=== PATIENT | male | born 1945 | race Caucasian/White ===

== ENCOUNTER 2016-11-17 20:02 | Observation (INO) ==
--- NOTE | 2016-11-17 20:22 | Emergency Department Note ---
Disposition Clinical Impression: Syncope, Fall Disposition: Admitted As Inpatient Condition: Good Time of Disposition: 23:00 General Adult HPI - General Chief complaint: ED Fall Stated complaint: Fall Time Seen by Provider: 11/17/16 20:15 Source: patient, family, EMS Limitations: no limitations Nursing Notes Reviewed: Yes Vital Signs Reviewed: Yes - History of Present Illness HPI Narrative: This is a 71-year-old male with a past medical history of Parkinson's, bipolar disorder, hypertension, a stable AAA, and diabetes. He presents to the emergency department after falling today at home. He states he fell out of his chair and hit the left side of his head on a table on his way down to the floor. He states that he is currently having pain in the left medial border of the scapula, neck, as well as on the left temporal aspect of his head. His states that his Parkinson's has progressively gotten worse, and he has fallen down multiple times as of late. She states that his baseline mental status was unchanged today, but has been worsening as of late. She mentioned some recent changes in his Patient states that he feels like the room is spinning and then he falls down over onto his right side. Pain Scale: 10 - Related Data Home Medications Medication Instructions Recorded Confirmed Amantadine [Symmetrel] 11/13/15 Bimatoprost [Lumigan] 11/13/15 FLUoxetine HCl [Prozac] 11/13/15 Fenofibrate Nanocrystallized 145 mg PO 11/13/15 [Tricor] Humira 11/13/15 Levothyroxine [Synthroid] 11/13/15 Ragsdale Carbonate [Ragsdale 11/13/15 Carbonate] Melatonin [Melatonin] 11/13/15 Metoprolol XL (24 HR) Succ [Toprol 100 mg PO DAILY 11/13/15 11/13/15 XL] Multivitamin 11/13/15 Proair Hfa 11/13/15 Quetiapine Fumarate [Seroquel] 11/13/15 Sinnamet 11/13/15 clonazePAM [Klonopin] 11/13/15 lamoTRIgine [Lamictal] 11/13/15 Previous Rx's Medication Instructions Recorded HYDROcodone/Acet 5/325 mg [Hamilton 1 tab PO Q6H PRN #5 tab 01/13/16 5-325 mg] Allergies Allergy/AdvReac Type Severity Reaction Status Date / Time aspirin Allergy Rash Verified 11/06/16 10:40 Constitutional: Denies: fever, chills, weakness Eyes: Denies: eye pain Respiratory: Denies: cough, dyspnea, wheezes, hemoptysis, stridor Gastrointestinal: Reports: nausea (Earlier but not currently). Denies: abdominal pain, vomiting, hematemesis, melena, hematochezia Genitourinary: Denies: urgency, dysuria, frequency, hematuria Musculoskeletal: Reports: other (medial border of scapula) Neurological: Reports: vertigo (the room is spinning). Denies: headache, weakness, numbness, confusion Psychiatric: Denies: anxiety, depression Endocrine: Denies: fatigue, heat or cold intolerance Past Medical History - Past Medical History Medical history: Reports: COPD, hypertension, other Psychiatric history: Reports: anxiety, bipolar, depression, other - Social History Smoking Status: Former smoker Smokeless Tobacco Status: No Alcohol use: Reports: none Drug use: Reports: none Physical Exam - General Limitations: no limitations, other (History difficult to obtain due to mental status) General appearance: alert, in no apparent distress - Head Head exam: other (Tenderness on the left frontal and temporal region) - Eye Eye exam: Present: EOMI. Absent: scleral icterus, conjunctival injection - ENT ENT exam: normal oropharynx, mucous membranes moist - Neck Neck exam: Present: trachea midline - Chest Chest inspection: Present: symmetric chest wall rise, tenderness (Left ribs) - Respiratory Respiratory exam: Present: normal lung sounds bilaterally. Absent: respiratory distress, wheezes, stridor, accessory muscle use - Cardiovascular Cardiovascular exam: Present: regular rate, bradycardia, normal heart sounds - Abdominal Exam Abdominal exam: Present: soft, Non-Tender. Absent: distention, guarding, rebound, rigidity - Extremities Exam Extremities exam: Present: full ROM, other (Full range of motion of hips, no tenderness reproduced with Humphrey bilaterally). Absent: tenderness - Expanded Lower Extremity Exam Hip/Pelvis exam: Present: full ROM, tenderness - Back Exam Back exam: Present: tenderness (Of thoracic and lumbar spine. Midline cervical spine tenderness), paraspinal tenderness - Neurological Exam Neurological exam: Present: alert, CN II-XII intact - Psychiatric Psychiatric exam: Present: normal affect, normal mood. Absent: agitated - Skin Skin exam: Present: warm, dry, intact, other (Some bruising over the right rib, bruising over the lower extremities.) Course Vital Signs Temperature 97.9 F 11/17/16 20:03 Pulse Rate 57 11/17/16 20:03 Respiratory Rate 18 11/17/16 20:03 Blood Pressure 131/117 11/17/16 20:03 O2 Sat by Pulse Oximetry 97 11/17/16 20:03 Temperature 97.9 F 11/17/16 20:03 Pulse Rate 68 11/17/16 22:17 Respiratory Rate 16 11/17/16 23:27 Blood Pressure 121/74 11/17/16 23:27 O2 Sat by Pulse Oximetry 100 11/17/16 22:17 Oxygen Delivery Oxygen Delivery Room Air Medical Decision Making - MDM Narrative Medical decision making narrative: This is a 71-year-old male who presented to the emergency department after falling out of his chair hitting his head on table after having an episode of syncope. This fall was not witnessed by anyone. EMS found him lying on the ground. He remembers the fall and everything afterwards, but due to his mental status with Parkinson's Dementia, it is not really clear to me whether he became unconscious or not. There are no focal neurologic abnormalities on initial exam, but due to his change in mental status and falling, think it is reasonable to perform a CT of his head. He has midline cervical spine tenderness, thoracic and lumbar tenderness so we will also perform a CT of the cervical thoracic and lumbar spine. A CBC and CMP were obtained as well as a troponin, EKG, and chest x-ray. These are to rule out electrolyte abnormalities and poor hepatic function. He had a recent change in his lithium medication, so I also obtained a lithium level to rule out toxicity. Due to this patient's recent history of continuous syncope, falls, and worsening of his base mental status, I think it is reasonable that he be admitted in the hospital for evaluation. - Medical Records Medical records reviewed: Yes I reviewed the patient's medical records. - Lab Data Result diagrams: 11/17/16 20:30 11/17/16 20:30 Lab Results 11/17/16 11/17/16 11/17/16 Range/Units 20:30 20:30 20:30 WBC 9.5 (4.3-11.1) K/mcL RBC 4.38 (4.19-5.50) M/mcL Hgb 13.7 (12.9-16.9) g/dL Hct 41.5 (37.5-50.1) % MCV 94.7 (83.0-100.0) fL MCH 31.3 (28.0-33.3) pg MCHC 33.0 (31.6-35.5) g/dL RDW 13.3 (11.5-14.5) % Plt Count 217 (140-400) K/mcL MPV 9.0 L (9.4-12.4) fL Immature Gran % 0.4 (0-4) % Seg Neutrophils % 60.0 % Lymphocytes % 26.5 % Monocytes % 9.6 % Eosinophils % 3.0 % Basophils % 0.5 % Neutrophils # 5.7 (1.6-8.9) K/mcL Lymphocytes # 2.5 (0.6-4.6) K/mcL Monocytes # 0.9 (0.0-1.3) K/mcL Eosinophils # 0.3 (0.0-0.6) K/mcL Basophils # 0.1 (0.0-0.2) K/mcL Sodium 137 (136-145) mEq/L Potassium 4.8 H (3.5-4.5) mEq/L Chloride 107 (98-109) mEq/L Carbon Dioxide 22 (19-29) mEq/L BUN 33 H (8-26) mg/dL Creatinine 2.10 H (0.72-1.25) mg/dL Est GFR ( Amer) 38 L (> 60) Est GFR (Non-Af Amer) 31 L (> 60) BUN/Creatinine Ratio 16 (6-26) Glucose 92 (70-99) mg/dL Calculated Osmolality 291 (280-300) Calcium 10.4 (8.6-10.8) mg/dL Total Bilirubin 0.7 (0.2-1.2) mg/dL AST 48 H (5-34) Units/L ALT 15 (0-55) Units/L Alkaline Phosphatase 71 (38-126) Units/L Troponin I 0.02 (0-0.03) ng/mL Serum Total Protein 7.4 (6.0-8.3) g/dL Albumin 4.1 (3.5-5.0) g/dL Globulin 3.3 (2.4-3.5) g/dL Albumin/Globulin Ratio 1.2 (1.1-2.2) Ragsdale (0.6-1.2) mEq/L 11/17/16 Range/Units 21:00 WBC (4.3-11.1) K/mcL RBC (4.19-5.50) M/mcL Hgb (12.9-16.9) g/dL Hct (37.5-50.1) % MCV (83.0-100.0) fL MCH (28.0-33.3) pg MCHC (31.6-35.5) g/dL RDW (11.5-14.5) % Plt Count (140-400) K/mcL MPV (9.4-12.4) fL Immature Gran % (0-4) % Seg Neutrophils % % Lymphocytes % % Monocytes % % Eosinophils % % Basophils % % Neutrophils # (1.6-8.9) K/mcL Lymphocytes # (0.6-4.6) K/mcL Monocytes # (0.0-1.3) K/mcL Eosinophils # (0.0-0.6) K/mcL Basophils # (0.0-0.2) K/mcL Sodium (136-145) mEq/L Potassium (3.5-4.5) mEq/L Chloride (98-109) mEq/L Carbon Dioxide (19-29) mEq/L BUN (8-26) mg/dL Creatinine (0.72-1.25) mg/dL Est GFR ( Amer) (> 60) Est GFR (Non-Af Amer) (> 60) BUN/Creatinine Ratio (6-26) Glucose (70-99) mg/dL Calculated Osmolality (280-300) Calcium (8.6-10.8) mg/dL Total Bilirubin (0.2-1.2) mg/dL AST (5-34) Units/L ALT (0-55) Units/L Alkaline Phosphatase (38-126) Units/L Troponin I (0-0.03) ng/mL Serum Total Protein (6.0-8.3) g/dL Albumin (3.5-5.0) g/dL Globulin (2.4-3.5) g/dL Albumin/Globulin Ratio (1.1-2.2) Ragsdale 1.4 H (0.6-1.2) mEq/L - EKG Data EKG #1 EKG attestation: Yes I reviewed and interpreted this EKG. EKG results narrative: 11/17/2016 20:26 Ventricular rate 54 bpm, IL interval 181 ms, QRS duration 114 ms, QT 458 ms, QTC 445 ms, normal axis. Sinus bradycardia with a ventricular rate of 54 bpm. Left ventricular hypertrophy. In comparison with his previous EKG on 12/25/2013,(his QRS has widened slightly, and his QT/Qtc slightly more prolonged. Attestation Statement - Attestation Attestation: I personally interviewed and examined this patient and my medical decision- making was reviewed with the Resident Physician, Dr. Wei. I agree with the documented findings, disposition and treatment plan as described except to the extent set forth below. Patient is a 71-year-old white male with a history of Parkinson's disease who presents to the emergency department with frequent falls in which he is falling out of his chair towards his right side. Patient arrives mildly confused oriented to person only and slightly agitated during initial assessment. Patient was fully immobilized by EMS on arrival, was taken off the backboard but C-spine immobilization was continued. Patient was sent to CT to rule out any injuries related to his fall. Patient is a somewhat poor historian with no significant details surrounding the events and is at bedside who is providing additional information. Agree with patient's physical exam findings as documented. Patient's EKG shows some evidence of LVH but otherwise within normal limits without ischemic change. Patient imaging is negative for any injuries related to the fall. Issues labs show some worsening acute on chronic renal insufficiency and mild hyperkalemia. Patient was given calcium gluconate to stabilize myocardium and gentle fluids. Urinalysis at this time is pending. At this time we feel the patient should be admitted for further evaluation of these falls, serial neurologic evaluations and rule out any infection. Case was discussed with the hospitalist to cut the patient for admission for further evaluation and treatment.
[2016-11-17 20:45] LABS: Basophils # 0.1 K/mcL (0.0-0.2); Basophils % 0.5 %; Eosinophils # 0.3 K/mcL (0.0-0.6); Hematocrit 41.5 % (37.5-50.1); Hemoglobin 13.7 g/dL (12.9-16.9); Immature Granulocytes % 0.4 % (0-4); Lymphocytes # 2.5 K/mcL (0.6-4.6); Lymphocytes % 26.5 %; Mean Corpuscular Hemoglobin 31.3 pg (28.0-33.3); Mean Corpuscular Volume 94.7 fL (83.0-100.0); Monocytes # 0.9 K/mcL (0.0-1.3); Monocytes % 9.6 %; Neutrophils # 5.7 K/mcL (1.6-8.9); Platelet Count 217 K/mcL (140-400); Red Blood Count 4.38 M/mcL (4.19-5.50); Red Cell Distribution Width 13.3 % (11.5-14.5)
[2016-11-17] MEDS ORDERED: *HR* Morphine 2 MG/ML SYRINGE IVP ONE (20:54)
[2016-11-17] MEDS ORDERED: Ondansetron 4 MG/2 ML VIAL IVP ONE (20:54)
[2016-11-17 20:59] LABS: Albumin 4.1 g/dL (3.5-5.0); Albumin/Globulin Ratio 1.2 (1.1-2.2); Bilirubin,Total 0.7 mg/dL (0.2-1.2); Calcium 10.4 mg/dL (8.6-10.8); Globulin 3.3 g/dL (2.4-3.5); Potassium 4.8 mEq/L (3.5-4.5); Total Protein 7.4 g/dL (6.0-8.3)
[2016-11-17] MEDS ORDERED: 0.9 % Sodium Chloride 1,000 ML IVC ONE (21:21)
[2016-11-17] MEDS ORDERED: Calcium Gluconate 1,000 MG in D5% in Water 100 ML IVPB ONE (21:50)
--- NOTE | 2016-11-17 23:41 | Internal Med History&Physical ---
<Geovanny Miles - Last Filed: 11/18/16 00:12> Date of Encounter: 11/17/16 Time of Encounter: 23:45 Internal Medicine - H&P: HPI History of present illness: Mr. Frankel is a 71 year old male Internal Medicine - H&P: Meds Amantadine [Symmetrel] 11/13/15 [History] Bimatoprost [Lumigan] 11/13/15 [History] FLUoxetine HCl [Prozac] 11/13/15 [History] Fenofibrate Nanocrystallized [Tricor] 145 mg PO 11/13/15 [History] Humira 11/13/15 [History] Levothyroxine [Synthroid] 11/13/15 [History] Santiago Carbonate [Santiago Carbonate] 11/13/15 [History] Melatonin [Melatonin] 11/13/15 [History] Metoprolol XL (24 HR) Succ [Toprol XL] 100 mg PO DAILY 11/13/15 [History] Multivitamin 11/13/15 [History] Proair Hfa 11/13/15 [History] Quetiapine Fumarate [Seroquel] 11/13/15 [History] Sinnamet 11/13/15 [History] clonazePAM [Klonopin] 11/13/15 [History] lamoTRIgine [Lamictal] 11/13/15 [History] HYDROcodone/Acet 5/325 mg [Dalton 5-325 mg] 1 tab PO Q6H PRN #5 tab 01/13/16 [Rx] Allergies aspirin Allergy (Verified 11/06/16 10:40) Rash All Systems PM: A 10-system review of systems was performed and is negative for pertinent findings except as documented above in the HPI. - Constitutional Vitals: Temp Pulse Resp BP Pulse Ox 97.9 F 68 16 121/74 100 11/17/16 20:03 11/17/16 22:17 11/17/16 23:27 11/17/16 23:27 11/17/16 22:17 Internal Med - H&P Results - Labs CBC & Chem 7: 11/17/16 20:30 11/17/16 20:30 - Attending Attestation I examined this patient and my medical decision-making was reviewed with the Resident, Dr. Hernandez. I agree with the documented history of present illness, review of systems, past medical, surgical social and family histories and examination findings, disposition and treatment plan as described above except to any changes set forth below. 71-year-old male patient with history of Parkinson's disease, bipolar disorder on treatment with Sinemet and lithium presented to the ER with complaints of recurrent episodes of dizziness and lightheadedness along with falls. He had been having recurrent falls for the past several weeks but they have become more frequent since his Sinemet dosage was recently changed. Patient complains of left-sided lateral lower rib pain where he seems to have injured himself from the fall. He denies any dizziness while lying down but was having significant dizziness when he stood up to have his blood pressure checked. He denies any chest pain or palpitations. Patient also has chronic bradycardia and takes Toprol XL 100 mg daily. The dosage of this medication has not been changed recently. On examination, patient is awake and alert and oriented 3. Appears to be comfortable while lying in bed. S1 and S2 are normal. Normal rhythm. Breath sounds are normal. No wheezing audible. On examination of skin, patient has bilateral lower extremity erythema but greater on the left with some 1-2 cm sized fluid-filled blisters on both feet. Warm and tender to palpation on the left lower extremity. Cranial nerves normal to examination. Normal strength and sensation in all 4 extremities. EKG shows slightly prolonged QT interval but normal sinus rhythm without any acute ST segment changes. CT of the spine shows stable descending Thoracic aortic aneurysm. Stable solitary lingular lung nodule. No fractures noted. CT of the head shows chronic microvascular disease without any acute stroke. Recurrent falls with possible syncope: Patient does have signs and features suggestive of orthostatic hypotension induced episodes of recurrent falls. Could be related to recent change in Sinemet dosage. Patient also describes some visual hallucinations according to family. We will monitor in hospital. Consult neurology as they been managing his Parkinson's disease. Monitor with telemetry. Physical therapy. Moderate risk for complications. Essential hypertension: Chronic. On Toprol-XL 100 mg. Has been intermittently bradycardic which is chronic for the patient. If heart rate persistently less than 60, consider decreasing Toprol-XL dosage. Parkinson's disease: According to patient's family, patient has been having worsening of his symptoms and so Sinemet dosage had been increased. However patient having episodes of significant lightheadedness and falls with that. We will consult neurology to reassess the patient and see if he needs to have his Sinemet dose was changed again. Bipolar disorder: Patient with chronic lithium therapy. Santiago levels were slightly elevated. We will continue current dosage from tomorrow. Recheck levels prior to discharge. <Jordan Hernandez - Last Filed: 11/18/16 01:01> Date of Encounter: 11/18/16 Time of Encounter: 23:38 Assessment and Plan (1) Frequent falls Current visit: Yes Status: Acute 71-year-old male who ambulates with a walker has been falling frequently. Today he fell and laid on the floor until somebody came home roughly an hour so. Based on patient's history that he provided does not appear to be cardiac in nature. Given the dizziness this may be orthostatic, vestibular or medications. He does demonstrate acute on chronic kidney disease. Recent changes to his Sinemet, bradycardic with heart rate of 54 on [address] demonstrates no acute intracranial abnormalities. Cervical spine CT demonstrates multilevel degenerative changes without acute fractures. Pelvic x-ray: There is no definite fracture. Joint space alignment is normal. There is minor spurring in both hips. Arterial calcifications are noted. Thoracic CT/Lumbar CT: 1. No acute osseous abnormality. 2. Grossly stable appearance of ascending thoracic aortic aneurysm compared with previous exam. 3. Grossly stable nodule within the lingula of measuring 0.6 x 0.7 cm. Recommend continued follow-up per Fleischner criteria. 4. Atherosclerotic disease. Plan: - Orthostatic blood pressures - Urinalysis - 1 L bolus normal saline, maintenance fluids at 100 mL/per hour - Neurology consult to evaluate patient's medications. - Reduced metoprolol 75 mg by mouth daily with bradycardia (2) Bipolar disorder Current visit: Yes Status: Acute Known bipolar disorder. Currently stable. Patient is on lithium which is super therapeutic at 1.4. Plan: - Hold lithium dose this evening. Qualifiers: Qualified Code(s): F31.9 - Bipolar disorder, unspecified (3) COPD (chronic obstructive pulmonary disease) Current visit: Yes Status: Acute Stable condition. Continue inhalers. Qualifiers: Qualified Code(s): J44.9 - Chronic obstructive pulmonary disease, unspecified (4) Acute on chronic renal failure Current visit: Yes Status: Acute Patient presents with acute on chronic stage III kidney disease. Creatinine is 2.10, GFR is 31 and serum osmolalities to 91. Suspect secondary to dehydration from either decreased oral intake or lithium related diuresis. Plan: - Urinalysis - Urine osmolality - Maintenance fluids. - Avoid nephrotoxic medications and renally dose antibiotics. Qualifiers: Qualified Code(s): N17.9 - Acute kidney failure, unspecified; N18.9 - Chronic kidney disease, unspecified (5) Parkinsons disease Current visit: Yes Status: Acute Patient has known Parkinson's disease. Recent increase in dose of Sinemet. Plan: - Neurology to evaluate patient's medications. (6) Hypothyroidism Current visit: Yes Status: Acute Continue home dose of levothyroxine. TSH done last month is therapeutic. Qualifiers: Qualified Code(s): E03.9 - Hypothyroidism, unspecified (7) DVT prophylaxis Current visit: Yes Status: Acute Subcutaneous Lovenox. Internal Medicine - H&P: HPI Chief complaint: falling Admitted From: Emergency Dept Plans for Post Hospital Care: Home History of present illness: Mr. Frankel is a 71 year old male with a past medical history of Parkinson's, bipolar disorder, hypertension, a stable AAA, and diabetes presented to the emergency department today after being found down secondary to mechanical fall. He states that she was standing with his walker when the room started to spend he became dizzy and fell to the ground landing on his back and his shoulders. He said he laid on the ground until his family members found him. He denies any blacking out, seeing spots, feeling lightheadedness. His family were at bedside states that he falls frequently more recently in the last several weeks but does fall multiple times. He states that he has fallen roughly 4 times this week alone. They have been marking on the calendar at home every time he falls. His son states that he has been drinking a lot of water and they thought he was staying hydrated. He did have some changes to his medications with an increase in the dose of Sinemet. He denies any fevers, chills, recent illnesses, chest pain palpitations, chest pressure shortness of breath, abdominal pain nausea vomiting diarrhea constipation. Past Med Surg Social Fam HX - Past Medical History Medical history: COPD, hypertension, other Psychiatric history: anxiety, bipolar, depression, other - Social History Smoking Status: Former smoker Smokeless Tobacco Status: No Alcohol use: none Drug use: none All Systems PM: A 10-system review of systems was performed and is negative for pertinent findings except as documented above in the HPI. - Constitutional Constitutional: no chills, no fever(s), no night sweats - EENT Eyes: no change in vision, no discharge, no pain, no photophobia Ears: no ear discharge, no ear pain, no tinnitus Nose, mouth and throat: no dysphagia, no nasal discharge, no neck pain, no sore throat - Cardiovascular Cardiovascular ROS IM: no chest pain, no diaphoresis, no dyspnea, no lightheadedness, no palpitations, no syncope - Respiratory Respiratory: no cough, no dyspnea, no wheezing, no excessive phlegm production - Gastrointestinal Gastrointestinal: no abdominal pain, no diarrhea, no hematemesis, no hematochezia, no melena, no nausea, no vomiting - Musculoskeletal Musculoskeletal ROS IM: no numbness, no tingling - Integumentary Integumentary IM: no rash, no unusual bruising - Neurological Neurological ROS: no confusion, no convulsions, no focal weakness, no numbness, no tingling, no tremor(s) - Hematologic/Lymphatic Hematologic/Lymphatic: no easy bruising - Constitutional Vitals: Temp Pulse Resp BP Pulse Ox 97.9 F 68 16 121/74 100 11/17/16 20:03 11/17/16 22:17 11/17/16 23:27 11/17/16 23:27 11/17/16 22:17 Exam: General: Patient alert, awake, oriented 3, interactive, in no acute distress HEENT: Normocephalic, atraumatic, pupils equal reactive to light, nasal cavity patent and open septum median position, oral mucosa moist, uvula midline, neck supple trachea midline no palpable lymphadenopathy, no thyromegaly. Chest: Symmetric bilateral correlating with respiratory effort, effort nonlabored. Cardiac: Regular rate and rhythm, positive grade 3/6 systolic ejection murmur. no bruits appreciated bilateral carotids, Radial pulses 2+ bilateral, posterior tibial and dorsal pedal pulses 2+ bilateral. Respiratory: Clear to auscultation all lung almaraz Abdomen: Soft, nontender, positive bowel sounds, no palpable masses appreciated on examination Extremities: Symmetric bilateral, bilateral lower extremities patient has erythema to the left lower distal extremity with a healing scab. Right lower extremity has healing scabs with some more minor erythema. Neurologic: No focal deficits appreciated on examination. Face symmetric, muscle strength symmetric bilateral upper and lower extremities. Internal Med - H&P Results - Labs CBC & Chem 7: 11/17/16 20:30 11/17/16 20:30
[2016-11-18] MEDS ORDERED: Naloxone 0.4 MG/ML INJ IVP PRN ×2 (00:18→00:19)
[2016-11-18] MEDS ORDERED: Ondansetron ODT 4 MG TAB.RAPDIS SL PRN (00:19)
[2016-11-18] MEDS ORDERED: Acetaminophen 325 MG TABLET PO PRN (00:19)
[2016-11-18] MEDS ORDERED: D5% in Water 1,000 ML IVC PRN (00:48)
[2016-11-18] MEDS ORDERED: *HR* Dextrose 50 % in Water (Syg) 50 ML SYRINGE IVP PRN (00:48)
[2016-11-18] MEDS ORDERED: Dextrose Gel 15 GM PO PRN ×2 (00:48)
[2016-11-18] MEDS: 0.9 % Sodium Chloride 1,000 ML IVC SCH ×2 (02:32→14:01)
[2016-11-18] MEDS: *HR* HYDROcodone/Acet 5/325 mg TABLET PO PRN (04:01)
[2016-11-18 05:12] LABS: Basophils % 0.4 %; Eosinophils # 0.2 K/mcL (0.0-0.6); Eosinophils % 2.1 %; Hematocrit 38.4 % (37.5-50.1); Hemoglobin 12.5 g/dL (12.9-16.9); Immature Granulocytes % 0.2 % (0-4); Lymphocytes # 2.6 K/mcL (0.6-4.6); Lymphocytes % 28.5 %; Mean Corpuscular HGB Conc 32.6 g/dL (31.6-35.5); Mean Corpuscular Hemoglobin 30.6 pg (28.0-33.3); Mean Corpuscular Volume 94.1 fL (83.0-100.0); Mean Platelet Volume 9.1 fL (9.4-12.4); Monocytes # 0.7 K/mcL (0.0-1.3); Monocytes % 8.1 %; Neutrophils # 5.6 K/mcL (1.6-8.9); Platelet Count 195 K/mcL (140-400); Red Blood Count 4.08 M/mcL (4.19-5.50); Red Cell Distribution Width 13.1 % (11.5-14.5); Segmented Neutrophils % 60.7 %
[2016-11-18 05:34] LABS: Albumin 3.5 g/dL (3.5-5.0); Albumin/Globulin Ratio 1.3 (1.1-2.2); Bilirubin,Total 0.9 mg/dL (0.2-1.2); Calcium 9.8 mg/dL (8.6-10.8); Globulin 2.8 g/dL (2.4-3.5); Magnesium 2.2 mg/dL (1.6-2.6); Potassium 4.9 mEq/L (3.5-4.5); Total Protein 6.3 g/dL (6.0-8.3)
[2016-11-18] MEDS ORDERED: *HR* Enoxaparin 40 MG/0.4 ML SYRINGE SQ SCH (06:00)
[2016-11-18] MEDS: Clindamycin 600 MG/50 ML 600 MG/50 ML IV.SOLN IVPB SCH ×2 (08:16→15:53)
[2016-11-18] MEDS: Insulin LISPRO 300 UNITS/3 ML VIAL SQ SCH ×4 (08:17→21:42)
[2016-11-18] MEDS: Metoprolol XL (24 HR) Succ 25 MG TAB.ER.24H PO SCH (08:18)
[2016-11-18 09:33] LABS: Bilirubin,Urine Negative (Negative); Blood,Urine Negative (Negative); Clarity,Urine Clear (Clear); Color,Urine Yellow (Yellow); Glucose,Urine (UA) Normal (Normal); Ketones,Urine Negative (Negative); Leukocyte Esterase,Urine Negative (Negative); Nitrite,Urine Negative (Negative); Protein,Urine Negative (Neg-Trace); Specific Gravity,Urine 1.012 (1.010-1.025); Urobilinogen,Urine Normal (Normal)
--- NOTE | 2016-11-18 09:39 | Neurology - Consult Note ---
Date of Encounter: 11/18/16 Time of Encounter: 09:30 Assessment and Plan (1) Falls Current Visit: Yes Status: Acute 71-year old man with prior diagnosis of Parkinson's disease, multiple other psychiatric diseases, with increased falls. Etiology unclear. On sinemet 50/ 200 and amantadine. On multiple other medications and is at risk for serotonin syndrome as well. given his exam findings, structural causes should be excluded. Cervical CT spine could not be reliably read due to artifacts. Need CT myelogram or MRI cervical spine. Need to restart his neurological/psychiatric medications. Amantadine may be held for now. There is a question of overtreatment with carbidopa/levodopa complicating the issue as well. Recommend he sees a movement disorder specialist in an academic center. Will await imaging studies for now. Will follow. Will need outpatient Neurology upon discharge with Dr. Jolley/Tianna. Qualifiers: Qualified Code(s): W19.XXXA - Unspecified fall, initial encounter History of Present Illness Chief complaint: falls HPI: Mr. Frankel is a 71 year old male with prior diagnosis of Parkinson's (on sinemet 50/200 tid and amantadine), multiple psychiatric issues, with complaints of falls. He had a diagnosis of Parkinson's from a different facility. He has been falling recently, more than usual. He was found down, when the paramedics came - unclear if it was syncope that led to this or some other cardiac cause. He also reports pain in the scapular area, and has trouble with constipation, and he is on laxative. He states that he does not have much tremors. He also has a spinal cord stimulator for pain. It is not clear if he can get MRIs or not. All his medications were held overnight. He has no trouble with chewing, eating or swallowing. States that he has some breathing issues. No fevers/ chills/chest pain. Past Med Surg Social Fam HX - Past Medical History Medical history: COPD, hypertension, other (Parkinson's disease) Psychiatric history: anxiety, bipolar, depression, other - Social History Smoking Status: Former smoker Smokeless Tobacco Status: No Alcohol use: none Drug use: none Current living situation: With Family Activity Level: Wheelchair bound - Family History Father Hx Family Cardiac Disorders: Yes (CARDIAC DISEASE) Hx Family Respiratory Disorders: Yes (COPD) Hx Family Endocrine Disorder: Yes (DM) Medications and Allergies Adalimumab [Humira Psoriasis] 40 mg SQ Q2W 11/18/16 [History] Albuterol Sulfate [Proair Hfa] 1 puff IH 11/18/16 [History] Amantadine [Symmetrel] 100 mg PO BID 11/18/16 [History] Bimatoprost [Lumigan] 2.5 ml OP DAILY 11/18/16 [History] Carbidopa/Levodopa ER 50/200 [Sinemet ER 50-200 TAB] 1 each PO TID 11/18/16 [ History] FLUoxetine HCl [Prozac] 80 mg PO DAILY 11/18/16 [History] Fenofibrate Nanocrystallized [Tricor] 145 mg PO DAILY 11/18/16 [History] Levothyroxine [Synthroid] 75 mcg PO DAILY 11/18/16 [History] [place] Carbonate 300 mg PO BID 11/18/16 [History] Melatonin 10 mg PO HS 11/18/16 [History] Metoprolol [Lopressor] 100 mg PO DAILY 11/18/16 [History] Mv-Mn/FA/Vit K/Lycop/Lut/Coq10 [Daily Multivitamin Capsule] 1 each PO DAILY [History] Quetiapine Fumarate [Seroquel] 50 mg PO DAILY 11/18/16 [History] Triamcinolone Acet 0.1% CRM [Kenalog] 1 appl TP DAILY 11/18/16 [History] clonazePAM [Klonopin] 0.5 mg PO DAILY 11/18/16 [History] lamoTRIgine [Lamictal] 100 mg PO DAILY 11/18/16 [History] Allergies aspirin Allergy (Verified 11/06/16 10:40) Rash All Systems: A 10-system review of systems was performed and is negative for pertinent findings except as documented above in the HPI. Physical Examination - Vital Signs Vital Signs: Initial Vital Signs Temp Pulse Resp BP Pulse Ox 97.9 F 57 18 131/117 97 11/17/16 20:03 11/17/16 20:03 11/17/16 20:03 11/17/16 20:03 11/17/16 20:03 Vital Signs - 24 hr 11/17/16 20:03 11/17/16 22:17 11/17/16 23:27 Temperature 97.9 F Pulse Rate 57 68 Respiratory Rate 18 16 Blood Pressure 131/117 115/101 121/74 Blood Pressure [Orthostatic Lying Left Arm] Blood Pressure [Orthostatic Sitting Left Arm] Blood Pressure [Orthostatic Standing Left Arm] O2 Sat by Pulse Oximetry 95 100 11/18/16 03:21 11/18/16 06:45 Temperature 98.4 F 98.4 F Pulse Rate 57 55 Respiratory Rate 18 15 Blood Pressure 138/63 130/80 Blood Pressure [Orthostatic Lying Left Arm] 130/80 Blood Pressure [Orthostatic Sitting Left Arm] 155/94 Blood Pressure [Orthostatic Standing Left Arm] 146/93 O2 Sat by Pulse Oximetry 96 94 - Constitutional General appearance: uncomfortable (little fidgety ) - Neurologic Sensorimotor examination: other (has a possible cervical sensory level) Detailed motor examination: grossly full strength in all extremities (has some rigidity and distal tremors (intention tremor)), other (has generalized weakness due to rigidity; posible facial dyskinesias) Detailed sensory examination: other (possible spinal cord sensory level at C5) Reflex and gait examination: other (bilateral mild, 6-7 beat; gait not tested) Reflexes: Biceps: 2+, Triceps: 2+, Brachioradialis: 2+, Patella: 2+, Achilles: 2 + Mental Status Examination: awake, alert, oriented to person, oriented to place, oriented to time, follows commands appropriately, answers questions appropriately, no agnosia, no aphasia, no aproxia (Glabellar sign is absent) Cranial nerve examination: PERRL, EOMI, visual almaraz intact, corneal reflexes brisk symmetrically, sensory to face intact, mastication intact, no facial asymmetry is present, no dysarthria, hearing is intact symmetrically, soft palate elevates bilaterally upon phonation, gag reflex intact, flexes SCM and trapezius muscles symmetrically with full power, tongue protrudes midline, no atrophy or facial fasiculations present Cerebellar examination: no dysmetria, performs finger to nose and heel to [place] symmetrically without ataxia, no gait ataxia, no truncal ataxia, no difficulty with rapid alternating movements Results - Laboratory Findings CBC and BMP: 11/18/16 04:00 11/18/16 04:00 Abnormal lab findings: Abnormal lab results RBC 4.08 M/mcL (4.19-5.50) L 11/18/16 04:00 Hgb 12.5 g/dL (12.9-16.9) L 11/18/16 04:00 MPV 9.1 fL (9.4-12.4) L 11/18/16 04:00 Potassium 4.9 mEq/L (3.5-4.5) H 11/18/16 04:00 Chloride 111 mEq/L (98-109) H 11/18/16 04:00 BUN 31 mg/dL (8-26) H 11/18/16 04:00 Creatinine 2.17 mg/dL (0.72-1.25) H 11/18/16 04:00 Est GFR ( Amer) 37 (> 60) L 11/18/16 04:00 Est GFR (Non-Af Amer) 30 (> 60) L 11/18/16 04:00 Glucose 145 mg/dL (70-99) H 11/18/16 04:00 Phosphorus 2.0 mg/dL (2.3-4.7) L 11/18/16 04:00 AST 42 Units/L (5-34) H 11/18/16 04:00 [place] 1.4 mEq/L (0.6-1.2) H 11/17/16 21:00 Laboratory Results WBC 9.2 K/mcL (4.3-11.1) 11/18/16 04:00 RBC 4.08 M/mcL (4.19-5.50) L 11/18/16 04:00 Hgb 12.5 g/dL (12.9-16.9) L 11/18/16 04:00 Hct 38.4 % (37.5-50.1) 11/18/16 04:00 MCV 94.1 fL (83.0-100.0) 11/18/16 04:00 MCH 30.6 pg (28.0-33.3) 11/18/16 04:00 MCHC 32.6 g/dL (31.6-35.5) 11/18/16 04:00 RDW 13.1 % (11.5-14.5) 11/18/16 04:00 Plt Count 195 K/mcL (140-400) 11/18/16 04:00 MPV 9.1 fL (9.4-12.4) L 11/18/16 04:00 Immature Gran % 0.2 % (0-4) 11/18/16 04:00 Seg Neutrophils % 60.7 % 11/18/16 04:00 Lymphocytes % 28.5 % 11/18/16 04:00 Monocytes % 8.1 % 11/18/16 04:00 Eosinophils % 2.1 % 11/18/16 04:00 Basophils % 0.4 % 11/18/16 04:00 Neutrophils # 5.6 K/mcL (1.6-8.9) 11/18/16 04:00 Lymphocytes # 2.6 K/mcL (0.6-4.6) 11/18/16 04:00 Monocytes # 0.7 K/mcL (0.0-1.3) 11/18/16 04:00 Eosinophils # 0.2 K/mcL (0.0-0.6) 11/18/16 04:00 Basophils # 0.0 K/mcL (0.0-0.2) 11/18/16 04:00 Sodium 139 mEq/L (136-145) 11/18/16 04:00 Potassium 4.9 mEq/L (3.5-4.5) H 11/18/16 04:00 Chloride 111 mEq/L (98-109) H 11/18/16 04:00 Carbon Dioxide 22 mEq/L (19-29) 11/18/16 04:00 BUN 31 mg/dL (8-26) H 11/18/16 04:00 Creatinine 2.17 mg/dL (0.72-1.25) H 11/18/16 04:00 Est GFR ( Amer) 37 (> 60) L 11/18/16 04:00 Est GFR (Non-Af Amer) 30 (> 60) L 11/18/16 04:00 BUN/Creatinine Ratio 14 (6-26) 11/18/16 04:00 Glucose 145 mg/dL (70-99) H 11/18/16 04:00 POC Glucose 65 (58-89) 11/17/16 20:12 Calculated Osmolality 297 (280-300) 11/18/16 04:00 Calcium 9.8 mg/dL (8.6-10.8) 11/18/16 04:00 Phosphorus 2.0 mg/dL (2.3-4.7) L 11/18/16 04:00 Magnesium 2.2 mg/dL (1.6-2.6) 11/18/16 04:00 Total Bilirubin 0.9 mg/dL (0.2-1.2) 11/18/16 04:00 AST 42 Units/L (5-34) H 11/18/16 04:00 ALT 26 Units/L (0-55) 11/18/16 04:00 Alkaline Phosphatase 60 Units/L (38-126) 11/18/16 04:00 Troponin I 0.02 ng/mL (0-0.03) 11/17/16 20:30 Serum Total Protein 6.3 g/dL (6.0-8.3) 11/18/16 04:00 Albumin 3.5 g/dL (3.5-5.0) 11/18/16 04:00 Globulin 2.8 g/dL (2.4-3.5) 11/18/16 04:00 Albumin/Globulin Ratio 1.3 (1.1-2.2) 11/18/16 04:00 Urine Color Yellow (Yellow) 11/18/16 08:53 Urine Clarity Clear (Clear) 11/18/16 08:53 Urine pH 8.0 pH Units (5.0-8.0) 11/18/16 08:53 Ur Specific [place] 1.012 (1.010-1.025) 11/18/16 08:53 Urine Protein Negative mg/dL (Neg-Trace) 11/18/16 08:53 Urine Glucose (UA) Normal mg/dL (Normal) 11/18/16 08:53 Urine Ketones Negative mg/dL (Negative) 11/18/16 08:53 Urine Blood Negative (Negative) 11/18/16 08:53 Urine Nitrite Negative (Negative) 11/18/16 08:53 Urine Bilirubin Negative (Negative) 11/18/16 08:53 Urine Urobilinogen Normal mg/dL (Normal) 11/18/16 08:53 Ur Leukocyte Esterase Negative (Negative) 11/18/16 08:53 Ur Culture Indicated? NO (NO) 11/18/16 08:53 [place] 1.4 mEq/L (0.6-1.2) H 11/17/16 21:00 Impressions Chest X-Ray 11/17/16 20:15 IMPRESSION: 1. No acute cardiopulmonary process identified. D/ / Andrzej Gan MD / Andrzej Gan MD Interpreting Provider: Andrzej Gan MD Cervical Spine CT 11/17/16 20:47 IMPRESSION: Multilevel degenerative change without acute fracture. D/ / Ramirez Dowling / Ramirez Dowling Interpreting Provider: Ramirez Dowling Head CT 11/17/16 20:47 IMPRESSION: No acute intracranial abnormality. Multifocal small-vessel ischemic change bilaterally. D/ / Ramirez Dowling / Ramirez Dowling Interpreting Provider: Ramirez Dowling Pelvis X-Ray 11/17/16 20:47 IMPRESSION: No definite fracture. D/ / Dom Kidd MD / Dom Kidd MD Interpreting Provider: Dom Kidd MD Lumbar Spine CT 11/17/16 20:52 IMPRESSION: 1. No acute osseous abnormality. 2. Grossly stable appearance of ascending thoracic aortic aneurysm compared with previous exam. 3. Grossly stable nodule within the lingula of measuring 0.6 x 0.7 cm. Recommend continued follow-up per Fleischner criteria. 4. Atherosclerotic disease. RECOMMENDATIONS: Fleischner Society guidelines for follow-up and management of incidentally detected pulmonary nodules: Single Solid Nodule: Nodule size less than 6 mm In a low-risk patient, no routine follow-up. In a high-risk patient, optional CT at 12 months. Nodule size equals 6-8 mm In a low-risk patient, CT at 6-12 months, then consider CT at 18-24 months. In a high-risk patient, CT at 6-12 months, then CT at 18-24 months. Nodule size greater than 8 mm In a low-risk patient, consider CT, PET/CT, or tissue sampling at 3 months. In a high-risk patient, consider CT, PET/CT, or tissue sampling at 3 months. Multiple Solid Nodules: Nodule size less than 6 mm In a low-risk patient, no routine follow-up. In a high-risk patient, optional CT at 12 months. Nodule size equals 6-8 mm In a low-risk patient, CT at 3-6 months, then consider CT at 18-24 months. In a high-risk patient, CT at 3-6 months, then CT at 18-24 months. Nodule size greater than 8 mm In a low-risk patient, CT at 3-6 months, then consider CT at 18-24 months. In a high-risk patient, CT at 3-6 months, then CT at 18-24 months. - Low risk patients include individuals with minimal or absent history of smoking and other known risk factors. - High risk patients include individuals with a history or smoking or known risk factors. Radiology 2017 http://pubs.rsna.org/doi/full/10.1148/radiol.[email or web address] D/ / Andrzej Gan MD / Andrzej Gan MD Interpreting Provider: Andrzej Gan MD Thoracic Spine CT 11/17/16 20:52 IMPRESSION: 1. No acute osseous abnormality. 2. Grossly stable appearance of ascending thoracic aortic aneurysm compared with previous exam. 3. Grossly stable nodule within the lingula of measuring 0.6 x 0.7 cm. Recommend continued follow-up per Fleischner criteria. 4. Atherosclerotic disease. RECOMMENDATIONS: Fleischner Society guidelines for follow-up and management of incidentally detected pulmonary nodules: Single Solid Nodule: Nodule size less than 6 mm In a low-risk patient, no routine follow-up. In a high-risk patient, optional CT at 12 months. Nodule size equals 6-8 mm In a low-risk patient, CT at 6-12 months, then consider CT at 18-24 months. In a high-risk patient, CT at 6-12 months, then CT at 18-24 months. Nodule size greater than 8 mm In a low-risk patient, consider CT, PET/CT, or tissue sampling at 3 months. In a high-risk patient, consider CT, PET/CT, or tissue sampling at 3 months. Multiple Solid Nodules: Nodule size less than 6 mm In a low-risk patient, no routine follow-up. In a high-risk patient, optional CT at 12 months. Nodule size equals 6-8 mm In a low-risk patient, CT at 3-6 months, then consider CT at 18-24 months. In a high-risk patient, CT at 3-6 months, then CT at 18-24 months. Nodule size greater than 8 mm In a low-risk patient, CT at 3-6 months, then consider CT at 18-24 months. In a high-risk patient, CT at 3-6 months, then CT at 18-24 months. - Low risk patients include individuals with minimal or absent history of smoking and other known risk factors. - High risk patients include individuals with a history or smoking or known risk factors. Radiology 2017 http://pubs.rsna.org/doi/full/10.1148/radiol.3524419966 D/ / Andrzej Gan MD / Andrzej Gan MD Interpreting Provider: Andrzej Gan MD Consult Discharge Plan - Plan Referrals: Pacheco Bailey Jr, MD [Primary Care Provider] -
[2016-11-18] MEDS: lamoTRIgine 100 MG TABLET PO SCH (10:42)
[2016-11-18] MEDS: FLUoxetine 20 MG CAPSULE PO SCH (10:42)
[2016-11-18] MEDS: clonazePAM 0.5 MG TABLET PO SCH (10:42)
[2016-11-18] MEDS: Carbidopa/Levodopa ER 50/200 TABLET PO SCH ×2 (14:49→21:42)
--- NOTE | 2016-11-18 16:04 | Internal Med Progress Note ---
Date of Encounter: 11/18/16 Time of Encounter: 13:20 - Assessment and plan (1) Frequent falls Current Visit: Yes Status: Acute Assessment and plan: Pt lives at home with his who is primary caregiver. She states that he has been falling frequently at home, even using a walker. He underwent some medication changes and has started falling more frequently. On the day of arrival, pt fell and laid in the floor until someone came home to help him up, approximately an hour. Family states that recently the started dispensing his medications, previously pt had done it himself. Son reports that pt was given his medications by the , then did not remember that she was dispensing his medications and also did not remember taking any medications, so he took the doses for the next day. This, along with recent medication changes to [place], bradycardia from BB, could be contributing to his falls. All imaging is negative for injury from fall. Urinalysis is negative for infection. [place] level is high, so lithium is being held. Neurology is following. Recommends restarting neurological/psychiatric medications; amantadine may be held. Will keep current dose of Sinemet. He also recommend that he sees a movement disorder specialist in an academic center , as well as a CT myelogram or MRI cervical spine due to unreliable results of cervical spine CT. Neurology is on board, appreciate their consultation and recommendations Continue IVF maintenance Metoprolol dose has been decreased. Fall precautions PT/OT eval pending Cervical myelogram is ordered for tomorrow. (2) Bipolar disorder Current Visit: Yes Status: Acute Assessment and plan: [place] level was elevated, held last night. Will redraw level and restart in the a.m. if WNL Qualifiers: Active/Remission status: remission status unspecified Qualified Code(s): F31.9 - Bipolar disorder, unspecified (3) COPD (chronic obstructive pulmonary disease) Current Visit: Yes Status: Acute Assessment and plan: No acute exacerbation. Continue home medications Nebulizers as needed for wheezing Oxygen if needed. Titrate to maintain sats greater than 92%. Qualifiers: COPD type: unspecified COPD Qualified Code(s): J44.9 - Chronic obstructive pulmonary disease, unspecified (4) Acute on chronic renal failure Current Visit: Yes Status: Acute Assessment and plan: Patient is stage III chronic kidney disease. Serum creatinine is 2.17, GFR 30. This is significantly elevated above patient's baseline, 1.3-1.5. Continue to monitor labs. Gentle IV hydration. Avoid nephrotoxins and NSAIDs. Qualifiers: Acute renal failure type: unspecified Chronic kidney disease stage: stage 3 (moderate) Qualified Code(s): N17.9 - Acute kidney failure, unspecified; N18.3 - Chronic kidney disease, stage 3 (moderate) (5) Parkinsons disease Current Visit: Yes Status: Acute Assessment and plan: Chronic. Patient had recent change in Sinemet. Neurology to evaluate patient' s medications. (6) DVT prophylaxis Current Visit: Yes Status: Acute Assessment and plan: Lovenox subcutaneous. (7) Type 2 diabetes mellitus Current Visit: Yes Status: Acute Assessment and plan: A1c ordered for morning. Continue sliding scale insulin Accu-Cheks before meals at bedtime Diabetic diet Qualifiers: Diabetes mellitus complication status: without complication Diabetes mellitus correction insulin use: without watermelon inspector use Qualified Code(s): E11.9 - Type 2 diabetes mellitus without complications (8) Hypothyroidism Current Visit: Yes Status: Chronic Assessment and plan: Chronic. Continue home medications. Qualifiers: Hypothyroidism type: unspecified Qualified Code(s): E03.9 - Hypothyroidism , unspecified - Time Spent With Patient less than 15 minutes - Subjective Interval history: Patient was seen and assessed at 1:20 PM today. and son were at bedside and provided most of the history and interview. Patient lives at home with his , she is a primary caregiver. Son has decided that he needs to take a more active role and would like to be included in discussions and rounds. Patient is alert and oriented most of the time, he does have frequent episodes where he falls asleep briefly, perhaps 15-30 seconds, then arouses and is alert and oriented again. His said that he has done this for years, but they have never spoken to any of his multiple providers about this. Would recommend a sleep study or EEG for possible seizure-like activity after patient is not acutely ill. Physical therapy and occupational therapy have been consulted and and son are interested in home health care. ancillary services manager has also been consulted, as well. Patient has a very kyphotic posture and is also having increasing difficulty with feeding himself. - Constitutional Vitals: Temp Pulse Resp BP Pulse Ox 97.6 F 55 14 105/63 97 11/18/16 14:58 11/18/16 14:58 11/18/16 14:58 11/18/16 14:58 11/18/16 14:58 General appearance: Present: A&O X 3, answers questions appropriately. Absent: no acute distress - Head Head exam: Present: normal inspection - Eye Eye exam: Present: normal appearance, conjuntiva pink - ENT ENT exam: Present: mucous membranes moist, normal exam, normal external ear exam - Neck Neck exam general surgery: Present: normal inspection. Absent: lymphadenopathy , tenderness - Respiratory Respiratory exam: Present: decreased breath sounds, CTAB. Absent: rales, respiratory distress, rhonchi, wheezes - Cardiovascular Cardiovascular exam: Present: RRR, +S1, +S2. Absent: diastolic murmur, systolic murmur - GI/Abdominal GI/Abdominal exam: Present: normal bowel sounds, soft. Absent: tenderness - Extremities Exam Extremities exam: Present: normal capillary refill, warm, radial pulses palpable and symetrical. Absent: pedal edema, tenderness - Neurological Exam Neurological exam: Present: alert, oriented X3. Absent: strengths equal and symetr throughout, facial droop, speech deficit Internal Medicine: Result - Labs CBC & Chem 7: 11/18/16 04:00 11/18/16 04:00 Labs: Short CBC 11/18/16 Range/Units 04:00 WBC 9.2 (4.3-11.1) K/mcL Hgb 12.5 L (12.9-16.9) g/dL Hct 38.4 (37.5-50.1) % Plt Count 195 (140-400) K/mcL Neutrophils # 5.6 (1.6-8.9) K/mcL BMP 11/18/16 04:00 Sodium 139 Potassium 4.9 H Chloride 111 H Carbon Dioxide 22 BUN 31 H Creatinine 2.17 H Glucose 145 H Calcium 9.8 Liver Function 11/18/16 Range/Units 04:00 Total Bilirubin 0.9 (0.2-1.2) mg/dL AST 42 H (5-34) Units/L ALT 26 (0-55) Units/L Alkaline Phosphatase 60 (38-126) Units/L Albumin 3.5 (3.5-5.0) g/dL Urine 11/18/16 Range/Units 08:53 Urine Color Yellow (Yellow) Urine Clarity Clear (Clear) Urine pH 8.0 (5.0-8.0) pH Units Ur Specific [place] 1.012 (1.010-1.025) Urine Protein Negative (Neg-Trace) mg/dL Urine Glucose (UA) Normal (Normal) mg/dL Consult Discharge Plan - Plan Referrals: Pacheco Bailey Jr, MD [Primary Care Provider] -
[2016-11-19] MEDS: Clindamycin 600 MG/50 ML 600 MG/50 ML IV.SOLN IVPB SCH ×4 (00:43→23:55)
[2016-11-19] MEDS: 0.9 % Sodium Chloride 1,000 ML IVC SCH ×2 (00:47→16:14)
[2016-11-19] MEDS: *HR* HYDROcodone/Acet 5/325 mg TABLET PO PRN ×2 (05:20→16:21)
[2016-11-19] MEDS: *HR* Enoxaparin 30 MG/0.3 ML SYRINGE SQ SCH (05:23)
[2016-11-19 05:59] LABS: Basophils % 0.5 %; Eosinophils # 0.3 K/mcL (0.0-0.6); Eosinophils % 3.4 %; Hematocrit 37.9 % (37.5-50.1); Hemoglobin 12.2 g/dL (12.9-16.9); Immature Granulocytes % 0.2 % (0-4); Lymphocytes % 37.2 %; Mean Corpuscular HGB Conc 32.2 g/dL (31.6-35.5); Mean Corpuscular Volume 96.2 fL (83.0-100.0); Mean Platelet Volume 9.4 fL (9.4-12.4); Monocytes # 0.6 K/mcL (0.0-1.3); Neutrophils # 4.1 K/mcL (1.6-8.9); Platelet Count 188 K/mcL (140-400); Red Blood Count 3.94 M/mcL (4.19-5.50); Red Cell Distribution Width 13.2 % (11.5-14.5); Segmented Neutrophils % 50.7 %
[2016-11-19 06:12] LABS: Calcium 9.4 mg/dL (8.6-10.8); Potassium 4.1 mEq/L (3.5-4.5)
[2016-11-19] MEDS: Insulin LISPRO 300 UNITS/3 ML VIAL SQ SCH ×4 (08:07→21:19)
[2016-11-19] MEDS: FLUoxetine 20 MG CAPSULE PO SCH (08:42)
[2016-11-19] MEDS: Metoprolol XL (24 HR) Succ 25 MG TAB.ER.24H PO SCH (08:43)
[2016-11-19] MEDS: lamoTRIgine 100 MG TABLET PO SCH (08:43)
[2016-11-19] MEDS: clonazePAM 0.5 MG TABLET PO SCH (08:43)
[2016-11-19] MEDS: Carbidopa/Levodopa ER 50/200 TABLET PO SCH ×3 (08:43→21:15)
--- NOTE | 2016-11-19 13:56 | Electrocardiograph Report ---
[place] [id number] Test Date: 2016-11-17 Pat Name: Niranjan Frankel Department: 104 Room: 3B Gender: M Director Part: : 1945 Requested By: Ramy Wei Order Number: [id number] Reading MD: García Mckeon MD Measurements Intervals [place] Rate: 54 P: 25 AK: 181 QRS: 40 QRSD: 114 T: 73 QT: 458 QTc: 445 Interpretive Statements SINUS BRADYCARDIA LEFT VENTRICULAR HYPERTROPHY AND ST-T CHANGE BASELINE ARTIFACT Electronically Signed On 11-19-2016 13:55:01 EDT by García Mckeon MD
--- NOTE | 2016-11-19 16:22 | Internal Med Progress Note ---
<Tristan Masters - Last Filed: 11/19/16 16:09> Date of Encounter: 11/19/16 Time of Encounter: 10:00 - Assessment and plan (1) Frequent falls Current Visit: Yes Status: Acute Assessment and plan: -Patient has remained in bed throughout the duration of this admission. -The patient has experienced no falls, although his suggests that he has had at least 10 falls in October -Neurology is following and has recommended either a CT myelogram or MRI of the cervical spine. After further clarification from neuro, we have ordered the MRI of the cervical spine which demonstrated degenerative changes contributing to mild spinal canal stenosis at C3-C4 with minimal stenosis at C4-C5 and C5-C6 , and degenerative changes contributing to neural foraminal narrowing. -PT/OT eval is pending -Fall precautions will be continued -We will await neuro recommendations. 11/18/16 Pt lives at home with his who is primary caregiver. She states that he has been falling frequently at home, even using a walker. He underwent some medication changes and has started falling more frequently. On the day of arrival, pt fell and laid in the floor until someone came home to help him up, approximately an hour. Family states that recently the started dispensing his medications, previously pt had done it himself. Son reports that pt was given his medications by the , then did not remember that she was dispensing his medications and also did not remember taking any medications, so he took the doses for the next day. This, along with recent medication changes to S[place], bradycardia from BB, could be contributing to his falls. All imaging is negative for injury from fall. Urinalysis is negative for infection. [place] level is high, so lithium is being held. Neurology is following. Recommends restarting neurological/psychiatric medications; amantadine may be held. Will keep current dose of Sinemet. He also recommend that he sees a movement disorder specialist in an academic center , as well as a CT myelogram or MRI cervical spine due to unreliable results of cervical spine CT. Neurology is on board, appreciate their consultation and recommendations Continue IVF maintenance Metoprolol dose has been decreased. Fall precautions PT/OT eval pending Cervical myelogram is ordered for tomorrow. (2) Parkinsons disease Current Visit: Yes Status: Acute Assessment and plan: Chronic. Patient had recent change in Sinemet. Neurology to evaluate patient' s medications. (3) COPD (chronic obstructive pulmonary disease) Current Visit: Yes Status: Acute Assessment and plan: No acute exacerbation. Continue home medications Nebulizers as needed for wheezing Oxygen if needed. Titrate to maintain sats greater than 92%. Qualifiers: COPD type: unspecified COPD Qualified Code(s): J44.9 - Chronic obstructive pulmonary disease, unspecified (4) Bipolar disorder Current Visit: Yes Status: Acute Assessment and plan: [place] level was elevated, held last night. Will redraw level and restart in the a.m. if WNL Qualifiers: Active/Remission status: remission status unspecified Qualified Code(s): F31.9 - Bipolar disorder, unspecified (5) Acute on chronic renal failure Current Visit: Yes Status: Acute Assessment and plan: SCr 1.5, GFR 46, K+ 4.1 Patient's CKD is improving on IVF. We will continue to monitor 11/18/16 Patient is stage III chronic kidney disease. Serum creatinine is 2.17, GFR 30. This is significantly elevated above patient's baseline, 1.3-1.5. Continue to monitor labs. Gentle IV hydration. Avoid nephrotoxins and NSAIDs. Qualifiers: Acute renal failure type: unspecified Chronic kidney disease stage: stage 3 (moderate) Qualified Code(s): N17.9 - Acute kidney failure, unspecified; N18.3 - Chronic kidney disease, stage 3 (moderate) (6) Type 2 diabetes mellitus Current Visit: Yes Status: Acute Assessment and plan: -Patient is recieving very tight blood glucose control at this time. His BG this morning was 68. -We will continue regular accu-checks on his current sliding scale regiment, and consider making adjustments if needed. -Diabetic diet will be continued 11/18/16 A1c ordered for morning. Continue sliding scale insulin Accu-Cheks before meals at bedtime Diabetic diet Qualifiers: Diabetes mellitus complication status: without complication Diabetes mellitus residential insulin use: without longitudinal float operator use Qualified Code(s): E11.9 - Type 2 diabetes mellitus without complications (7) Hypothyroidism Current Visit: Yes Status: Chronic Assessment and plan: Chronic. Continue home medications. Qualifiers: Hypothyroidism type: unspecified Qualified Code(s): E03.9 - Hypothyroidism , unspecified (8) DVT prophylaxis Current Visit: Yes Status: Acute Assessment and plan: Lovenox subcutaneous. - Subjective Interval history: The patient was alert and resting comfortably in bed at the time of the examination. He was accompanied by his . He states that he is feeling better and has not had many instances of dizziness since his admission, however she has not been out of bed much either. - Constitutional Vitals: Temp Pulse Resp BP Pulse Ox 98.2 F 55 16 113/72 100 11/19/16 15:59 11/19/16 15:59 11/19/16 15:59 11/19/16 15:59 11/19/16 15:59 General appearance: Present: A&O X 3, answers questions appropriately. Absent: no acute distress - Head Head exam: Present: atraumatic, normocephalic - Eye Eye exam: Present: PERRL, conjuntiva pink, sclera anicteric Pupils: Present: PERRL - Neck Neck exam general surgery: Present: supple, trachea midline. Absent: lymphadenopathy - Respiratory Respiratory exam: Present: CTAB. Absent: accessory muscle use, rales, rhonchi, wheezes - Cardiovascular Cardiovascular exam: Present: RRR, +S1, +S2. Absent: diastolic murmur, gallop, rubs, systolic murmur - GI/Abdominal GI/Abdominal exam: Present: normal bowel sounds, soft, no peritoneal signs. Absent: distended, tenderness - Extremities Exam Extremities exam: Present: warm, radial pulses palpable and symetrical. Absent : calf tenderness, cyanotic, pedal edema - Neurological Exam Neurological exam: Present: CN II-XII intact, oriented X3, no focal deficits. Absent: pronater drift, facial droop, speech deficit Additional comments: No tremor is noted on examination, no focal neurological deficits. The patient speaks softly and slowly and sometimes mumbles - Expanded Neurological Exam Patient oriented to: Present: person, place, time - Skin Skin exam: Present: dry, intact Internal Medicine: Result - Labs CBC & Chem 7: 11/19/16 04:09 11/19/16 04:09 Labs: Short CBC 11/19/16 Range/Units 04:09 WBC 8.0 (4.3-11.1) K/mcL Hgb 12.2 L (12.9-16.9) g/dL Hct 37.9 (37.5-50.1) % Plt Count 188 (140-400) K/mcL Neutrophils # 4.1 (1.6-8.9) K/mcL BMP 11/19/16 04:09 Sodium 138 Potassium 4.1 Chloride 112 H Carbon Dioxide 20 BUN 26 Creatinine 1.50 H Glucose 68 L Calcium 9.4 - Impressions Impressions Cervical Spine MRI 11/19/16 07:00 IMPRESSION: 1. Motion severely degrades images limiting evaluation. 2. Degenerative changes appear to contribute to mild spinal canal stenosis at C3-C4 with minimal stenosis at C4-C5 and C5-C6. 3. Degenerative changes appear to contribute to neural foraminal narrowing as above. D/ / Niranjan Corona MD / Niranjan Corona MD Interpreting Provider: Niranjan Corona MD Consult Discharge Plan - Plan Referrals: Pacheco Bailey Jr, MD [Primary Care Provider] - <Sonu Arroyo P - Last Filed: 11/19/16 17:56> Date of Encounter: 11/19/16 - Constitutional Vitals: Temp Pulse Resp BP Pulse Ox 98.2 F 55 16 113/72 100 11/19/16 15:59 11/19/16 15:59 11/19/16 15:59 11/19/16 15:59 11/19/16 15:59 Internal Medicine: Result - Labs CBC & Chem 7: 11/19/16 04:09 11/19/16 04:09 Labs: Short CBC 11/19/16 Range/Units 04:09 WBC 8.0 (4.3-11.1) K/mcL Hgb 12.2 L (12.9-16.9) g/dL Hct 37.9 (37.5-50.1) % Plt Count 188 (140-400) K/mcL Neutrophils # 4.1 (1.6-8.9) K/mcL BMP 11/19/16 04:09 Sodium 138 Potassium 4.1 Chloride 112 H Carbon Dioxide 20 BUN 26 Creatinine 1.50 H Glucose 68 L Calcium 9.4 - Impressions Impressions Cervical Spine MRI 11/19/16 07:00 IMPRESSION: 1. Motion severely degrades images limiting evaluation. 2. Degenerative changes appear to contribute to mild spinal canal stenosis at C3-C4 with minimal stenosis at C4-C5 and C5-C6. 3. Degenerative changes appear to contribute to neural foraminal narrowing as above. D/ / Niranjan Corona MD / Niranjan Corona MD Interpreting Provider: Niranjan Corona MD - Attending Attestation I examined this patient and my medical decision-making was reviewed with the Resident Physician. I agree with the documented findings, disposition and treatment plan as described except to the extent set forth below. neurology input appreciated.
--- NOTE | 2016-11-19 17:57 | Neurology Progress Note ---
Date of Encounter: 11/19/16 Time of Encounter: 17:53 Assessment and Plan (1) Parkinsons disease Current Visit: Yes Status: Acute Advanced Parkinson's disease, with frequent fallings that could be complicated by other medical conditions. Could have contribution from cervical disc disease but MRI of cervical spine showed no significant spinal cord compression although this was not a good quality imaging study due to motion artifact. There could be a component of Drug induced EPS features as well but major problem is bradykinesia consistent with Parkinson disease. He is not a good candidate for more aggressive surgical intervention therefore i would not recommend invasive cervical myelogram. if questions remain a repeat MRI of cervical spine can be done but this could be done as an outpatient. Recommend continuing care and supportive care as well. Patient's given the instruction that if the patient continues to have visual hallucinations then further reduction of sinemet DR done to one daily may be considered. WIll sign off here and please call if any questions. Subjective Principal diagnosis: frequent falls Interval history: Patient seen and examined. MRI of cervical spine reviewed. It was poor quality MRI due to motion artifact but no gross spinal cord abnormality noted. Does have spinal canal stenosis. Patient today is doing better per his , speech is more fluent, color is better. Patient is taking sinemet CR 50/200mg bid, this was changed during 09/2016. This is not likely the cause of his frequent falling. reports that the patient also has had spells of visual hallucinations lately but not persistent. Objective - Constitutional Vitals: Temp Pulse Resp BP Pulse Ox 98.2 F 55 16 113/72 100 11/19/16 15:59 11/19/16 15:59 11/19/16 15:59 11/19/16 15:59 11/19/16 15:59 - Neurological Exam Sensorimotor examination: Present: other (Grossly intact) Motor Examination: Present: grossly full strength in all extremities (has some rigidity and distal tremors (intention tremor)), other (signfiicant cogwheeling rigidity noted. Muscle strength 5/5 both upper and lower extremities. Positive bradykinesis noted. ) Sensation intact: Present: other (Grossly intact) Reflex and gait examination: other (bilateral mild, 6-7 beat; gait not tested) Reflexes: Biceps: 2+, Triceps: 2+, Brachioradialis: 2+, Patella: 2+, Achilles: 2 + Mental Status Examination: Present: awake, alert, oriented to person, oriented to place, oriented to time, follows commands appropriately, answers questions appropriately, no agnosia, no aphasia, no aproxia (Glabellar sign is absent) Cranial nerve examination: Present: PERRL, EOMI, visual almaraz intact, corneal reflexes brisk symmetrically, sensory to face intact, mastication intact, no facial asymmetry is present, no dysarthria, hearing is intact symmetrically, soft palate elevates bilaterally upon phonation, gag reflex intact, flexes SCM and trapezius muscles symmetrically with full power, tongue protrudes midline, no atrophy or facial fasiculations present Cerebellar examination: Present: no dysmetria, performs finger to nose and heel to [place] symmetrically without ataxia, no gait ataxia, no truncal ataxia, no difficulty with rapid alternating movements Results - Laboratory Findings CBC and BMP: 11/19/16 04:09 11/19/16 04:09 Abnormal lab findings: Abnormal lab results RBC 3.94 M/mcL (4.19-5.50) L 11/19/16 04:09 Hgb 12.2 g/dL (12.9-16.9) L 11/19/16 04:09 Chloride 112 mEq/L (98-109) H 11/19/16 04:09 Creatinine 1.50 mg/dL (0.72-1.25) H 11/19/16 04:09 Est GFR ( Amer) 56 (> 60) L 11/19/16 04:09 Est GFR (Non-Af Amer) 46 (> 60) L 11/19/16 04:09 Glucose 68 mg/dL (70-99) L 11/19/16 04:09 Phosphorus 2.0 mg/dL (2.3-4.7) L 11/18/16 04:00 AST 42 Units/L (5-34) H 11/18/16 04:00 Consult Discharge Plan - Plan Referrals: Pacheco Bailey Jr, MD [Primary Care Provider] -
[2016-11-20] MEDS: 0.9 % Sodium Chloride 1,000 ML IVC SCH ×3 (04:13→23:51)
[2016-11-20] MEDS: *HR* Enoxaparin 30 MG/0.3 ML SYRINGE SQ SCH (06:00)
[2016-11-20 07:30] LABS: Basophils % 0.4 %; Eosinophils # 0.3 K/mcL (0.0-0.6); Eosinophils % 2.9 %; Hematocrit 40.5 % (37.5-50.1); Immature Granulocytes % 0.4 % (0-4); Lymphocytes # 2.3 K/mcL (0.6-4.6); Lymphocytes % 20.8 %; Mean Corpuscular HGB Conc 32.1 g/dL (31.6-35.5); Mean Corpuscular Hemoglobin 30.2 pg (28.0-33.3); Mean Corpuscular Volume 94.2 fL (83.0-100.0); Monocytes # 0.8 K/mcL (0.0-1.3); Monocytes % 6.8 %; Neutrophils # 7.5 K/mcL (1.6-8.9); Platelet Count 206 K/mcL (140-400); Red Cell Distribution Width 13.2 % (11.5-14.5); Segmented Neutrophils % 68.7 %
[2016-11-20] MEDS ORDERED: Haloperidol Lactate 5 MG/ML VIAL IM ONE (08:11)
[2016-11-20] MEDS ORDERED: *HR* LORazepam 2 MG/ML VIAL IM STA (08:13)
[2016-11-20 08:42] LABS: BUN/Creatinine Ratio 16 (6-26); Blood Urea Nitrogen 22 mg/dL (8-26); Carbon Dioxide 19 mEq/L (19-29); Chloride 114 mEq/L (98-109); Glucose 100 mg/dL (70-99); Osmolality,Calculated 293 (280-300); Potassium 3.9 mEq/L (3.5-4.5); Sodium 140 mEq/L (136-145); eGFR For African Americans > 60 (> 60); eGFR For Non-African Americans 50 (> 60)
[2016-11-20 10:22] LABS: Bilirubin,Urine Negative (Negative); Blood,Urine Negative (Negative); Clarity,Urine Clear (Clear); Color,Urine Yellow (Yellow); Glucose,Urine (UA) Normal (Normal); Ketones,Urine Negative (Negative); Leukocyte Esterase,Urine Negative (Negative); Nitrite,Urine Negative (Negative); PH,Urine 6.5 pH Units (5.0-8.0); Protein,Urine Negative (Neg-Trace); Specific Gravity,Urine 1.012 (1.010-1.025); Urobilinogen,Urine Normal (Normal)
--- NOTE | 2016-11-20 10:51 | Discharge Summary ---
<Tristan Masters - Last Filed: 11/20/16 15:04> Date of Encounter: 11/20/16 Time of Encounter: 09:40 - Discharge Diagnosis (1) Frequent falls Priority: Primary Status: Acute Comments: -Patient has remained in bed throughout the duration of this admission. -The patient has experienced no falls, although his suggests that he has had at least 10 falls in October -Neurology is following and has recommended either a CT myelogram or MRI of the cervical spine. After further clarification from neuro, we have ordered the MRI of the cervical spine which demonstrated degenerative changes contributing to mild spinal canal stenosis at C3-C4 with minimal stenosis at C4-C5 and C5-C6 , and degenerative changes contributing to neural foraminal narrowing. -Neurology recommends follow-up out patient. -PT/OT eval and recommend Inpatient rehab at SNF/ECF. Patient's family has discussed this option with drug abuse social worker, who is helping to find options that the family may be able to afford. In the mean time, we will refer for home health and home PT/OT (2) Acute delirium Priority: Secondary Status: Acute Comments: The patient experienced an episode of confusion and agitation this morning that was accompanied with violent tendencies. He has been followed by psychiatry in the past, however his provider and he needs follow up with new provider Patient responds appropriately to redirection and orientation techniques by nurses and family UA taken this morning was negative. No indication of acute infection present clinically or in labs We recommend evaluation and treatment by outpatient psychiatry. (3) Parkinsons disease Priority: Secondary Status: Chronic Comments: Neurology has seen and evaluated the patient Severe parkinson's disease is present in this patient MRI of the cervical spine is negative for acute pathology Neurology recommends outpatient follow-up (4) COPD (chronic obstructive pulmonary disease) Priority: Secondary Status: Chronic Comments: The patient should continue home regimen Qualifiers: COPD type: unspecified COPD Qualified Code(s): J44.9 - Chronic obstructive pulmonary disease, unspecified (5) Bipolar disorder Priority: Secondary Status: Chronic Comments: Patient will remain on current home medications See above for reference to outpatient psychiatry Qualifiers: Active/Remission status: remission status unspecified Qualified Code(s): F31.9 - Bipolar disorder, unspecified (6) Acute on chronic renal failure Priority: Secondary Status: Resolved Comments: Resolved with gentle hydration Qualifiers: Acute renal failure type: unspecified Chronic kidney disease stage: stage 3 (moderate) Qualified Code(s): N17.9 - Acute kidney failure, unspecified; N18.3 - Chronic kidney disease, stage 3 (moderate) (7) Type 2 diabetes mellitus Priority: Secondary Status: Chronic Comments: Well controlled. Continue outpatient medications Qualifiers: Diabetes mellitus complication status: without complication Diabetes mellitus long-term insulin use: without long-term use Qualified Code(s): E11.9 - Type 2 diabetes mellitus without complications (8) Hypothyroidism Priority: Secondary Status: Chronic Comments: Well controlled Qualifiers: Hypothyroidism type: unspecified Qualified Code(s): E03.9 - Hypothyroidism , unspecified - Discharge Medications Home Medications: Adalimumab [Humira Psoriasis] 40 mg SQ Q2W 11/18/16 [History] Albuterol Sulfate [Proair Hfa] 2 puff IH Q4H PRN 11/18/16 [History] Amantadine [Symmetrel] 100 mg PO BID 11/18/16 [History] Bimatoprost [Lumigan] 2.5 ml OP DAILY 11/18/16 [History] Carbidopa/Levodopa ER 50/200 [Sinemet ER 50-200 TAB] 1 tab PO TID 11/18/16 [ History] FLUoxetine HCl [Prozac] 80 mg PO DAILY 11/18/16 [History] Fenofibrate Nanocrystallized [Tricor] 145 mg PO DAILY 11/18/16 [History] Levothyroxine [Synthroid] 75 mcg PO DAILY 11/18/16 [History] [place] Carbonate 300 mg PO BID 11/18/16 [History] Melatonin 10 mg PO HS 11/18/16 [History] Metoprolol Succinate 100 mg PO BID 11/18/16 [History] Mv-Mn/FA/Vit K/Lycop/Lut/Coq10 [Daily Multivitamin Capsule] 1 tab PO DAILY 11/18 [History] Quetiapine Fumarate [Seroquel] 50 - 100 mg PO HS 11/18/16 [History] Triamcinolone Acet 0.1% CRM [Kenalog] 1 appl TP DAILY 11/18/16 [History] clonazePAM [Klonopin] 1 mg PO DAILY 11/18/16 [History] lamoTRIgine [Lamictal] 100 mg PO DAILY 11/18/16 [History] Allergies/Adverse Reactions: Allergies aspirin Allergy (Verified 11/06/16 10:40) Rash Procedures/tests Complete & Pending: Procedures Performed prior 72 hours Category Date Time Status MR cervical spine wo con [MR] Routine MRI 11/19/16 07:00 Completed Date of admission: 11/17/16 23:24 Primary care physician: Pacheco Bailey Jr, MD Consults: 11/18/16 00:19 Consult to Neurology [CONS] Routine Consulting Provider: Neurology [facility] Reason for Consult: Medication review with [place] Call Completed: No 11/18/16 00:40 Consult to Equipment Monitor Phototypesetting [CONS] Routine Reason for SW Consult: POSSIBLE NEED FOR HOME HEALTH AT HOME, PT PARKINSONS, FALL 11/18/16 02:20 Consult to Occupational Therapy [CONS] Routine Comment: Evaluate, develop and implement POC Reason for Consult: DIzziness/ falls Consult to Physical Therapy [CONS] Routine Comment: Evaluate, develop and implement POC Reason for Consult: DIzziness/ falls 11/19/16 17:00 Consult to Speech Therapy [CONS] Routine Comment: Evaluate, develop and implement POC Reason for Consult: Weakness, parkinsons, Swallow Eval Call Completed: No Discharging clinician: Sonu Arroyo Anticipated date of discharge: 11/20/16 - Patient Status Disposition: Home Health Service Condition: Good Overall status at discharge: patient is not back to baseline - Discharge Instructions Follow Up With: Pacheco Bailey Jr, MD [Primary Care Provider] - Additional Instructions: Patient must follow up with primary care within one week, neurology, and with psychiatry. - Diet and Activity Activity: as per physical therapy Diet: diabetic diet Hospital course: Mr. Frankel is a 71 year old male - Time Spent with Patient Total time spent providing and/or coordinating discharge services: - Constitutional Vitals: Temp Pulse Resp BP Pulse Ox 98.3 F 115 16 129/70 99 11/20/16 10:30 11/20/16 10:30 11/20/16 10:30 11/20/16 10:30 11/20/16 10:30 General appearance: Present: A&O X 3, answers questions appropriately. Absent: no acute distress <Sonu Arroyo - Last Filed: 11/20/16 18:30> Date of Encounter: 11/20/16 Procedures/tests Complete & Pending: Procedures Performed prior 72 hours Category Date Time Status MR cervical spine wo con [MR] Routine MRI 11/19/16 07:00 Completed Date of admission: 11/17/16 23:24 Primary care physician: Pacheco Bailey Jr, MD Consults: 11/18/16 00:19 Consult to Neurology [CONS] Routine Consulting Provider: Neurology [facility] Reason for Consult: Medication review with [place] Call Completed: No 11/18/16 00:40 Consult to Equipment Monitor Phototypesetting [CONS] Routine Reason for SW Consult: POSSIBLE NEED FOR HOME HEALTH AT HOME, PT PARKINSONS, FALL 11/18/16 02:20 Consult to Occupational Therapy [CONS] Routine Comment: Evaluate, develop and implement POC Reason for Consult: DIzziness/ falls Consult to Physical Therapy [CONS] Routine Comment: Evaluate, develop and implement POC Reason for Consult: DIzziness/ falls 11/19/16 17:00 Consult to Speech Therapy [CONS] Routine Comment: Evaluate, develop and implement POC Reason for Consult: Weakness, parkinsons, Swallow Eval Call Completed: No Hospital course: Mr. Frankel is a 71 year old male - Time Spent with Patient Total time spent providing and/or coordinating discharge services: - Constitutional Vitals: Temp Pulse Resp BP Pulse Ox 98.2 F 56 16 118/73 98 11/20/16 14:57 11/20/16 14:57 11/20/16 14:57 11/20/16 14:57 11/20/16 14:57 - Attending Attestation I examined this patient and my medical decision-making was reviewed with the Resident Physician. I agree with the documented findings, disposition and treatment plan as described except to the extent set forth below. Neurology Signed off awaiting for placement
--- NOTE | 2016-11-20 11:08 | Physician Discharge Referral ---
<Tristan Masters - Last Filed: 11/20/16 11:08> Home Health/Hosp Referral Info Transfer to: Home Health Attending Provider: Sonu Arroyo Provider in Charge Post Discharge: PCP - Diagnosis (1) Frequent falls Priority: Primary Status: Acute (3) Parkinsons disease Priority: Secondary Status: Chronic (4) COPD (chronic obstructive pulmonary disease) Status: Chronic (5) Bipolar disorder Status: Chronic (6) Acute on chronic renal failure Status: Acute (7) Type 2 diabetes mellitus Status: Chronic (8) Hypothyroidism Status: Chronic - Respiratory Orders Smoking Cessation: Smoking cessation has been advised. For more information, call the [place] Tobacco Quit Line at 4-801-FQHT-NOW. - Diet/Nutrition Diet/Nutrition Orders: No Concentrated Sweets - Activity Activity Orders: Bedrest Activity: List: Advance as directed by PT - Services Needed Following services are medically necessary services: Nursing, Home Health Aide, Physical Therapy, Occupational Therapy - Transfer Medications Home Medications: Adalimumab [Humira Psoriasis] 40 mg SQ Q2W 11/18/16 [History] Albuterol Sulfate [Proair Hfa] 2 puff IH Q4H PRN 11/18/16 [History] Amantadine [Symmetrel] 100 mg PO BID 11/18/16 [History] Bimatoprost [Lumigan] 2.5 ml OP DAILY 11/18/16 [History] Carbidopa/Levodopa ER 50/200 [Sinemet ER 50-200 TAB] 1 tab PO TID 11/18/16 [ History] FLUoxetine HCl [Prozac] 80 mg PO DAILY 11/18/16 [History] Fenofibrate Nanocrystallized [Tricor] 145 mg PO DAILY 11/18/16 [History] Levothyroxine [Synthroid] 75 mcg PO DAILY 11/18/16 [History] [place] Carbonate 300 mg PO BID 11/18/16 [History] Melatonin 10 mg PO HS 11/18/16 [History] Metoprolol Succinate 100 mg PO BID 11/18/16 [History] Mv-Mn/FA/Vit K/Lycop/Lut/Coq10 [Daily Multivitamin Capsule] 1 tab PO DAILY 11/18 [History] Quetiapine Fumarate [Seroquel] 50 - 100 mg PO HS 11/18/16 [History] Triamcinolone Acet 0.1% CRM [Kenalog] 1 appl TP DAILY 11/18/16 [History] clonazePAM [Klonopin] 1 mg PO DAILY 11/18/16 [History] lamoTRIgine [Lamictal] 100 mg PO DAILY 11/18/16 [History] Allergies/Adverse Reactions: Allergies aspirin Allergy (Verified 11/06/16 10:40) Rash Certification: Further, I certify that my clinical findings support that this patient is homebound (i.e. absences from home require considerable and taxing effort and are for medical reasons or holiness services or infrequently or short duration when for other reasons) because: Homebound Reason: Patient requires assistance of a person or device to safely leave home, Leaving home requires considerable and taxing effort due to condition Attestation: My signature below is to certify that this patient is under my care and that I, or nurse practitioner, or a physician's ex assistant/program director working with me, has a face-to -face encounter with this patient. <Sonu Arroyo P - Last Filed: 11/20/16 18:30> - Respiratory Orders Smoking Cessation: Smoking cessation has been advised. For more information, call the [place] Tobacco Quit Line at 4-572-NESO-NOW. Certification: Further, I certify that my clinical findings support that this patient is homebound (i.e. absences from home require considerable and taxing effort and are for medical reasons or holiness services or infrequently or short duration when for other reasons) because: Attestation: My signature below is to certify that this patient is under my care and that I, or nurse practitioner, or a physician's ex assistant/program director working with me, has a face-to -face encounter with this patient.
[2016-11-20] MEDS: clonazePAM 0.5 MG TABLET PO SCH (12:28)
[2016-11-20] MEDS: FLUoxetine 20 MG CAPSULE PO SCH (12:28)
[2016-11-20] MEDS: lamoTRIgine 100 MG TABLET PO SCH (12:28)
[2016-11-20] MEDS: Carbidopa/Levodopa ER 50/200 TABLET PO SCH ×3 (12:29→23:51)
[2016-11-20] MEDS: Metoprolol XL (24 HR) Succ 25 MG TAB.ER.24H PO SCH (12:30)
[2016-11-20 12:57] LABS: Folate 13.3 ng/mL (7.0-31.4)
[2016-11-20] MEDS: Insulin LISPRO 300 UNITS/3 ML VIAL SQ SCH ×3 (16:59→22:14)
[2016-11-20] MEDS: Clindamycin 600 MG/50 ML 600 MG/50 ML IV.SOLN IVPB SCH ×2 (17:00→23:54)
[2016-11-21] MEDS: *HR* Enoxaparin 30 MG/0.3 ML SYRINGE SQ SCH (06:42)
[2016-11-21] MEDS: FLUoxetine 20 MG CAPSULE PO SCH (08:04)
[2016-11-21] MEDS: lamoTRIgine 100 MG TABLET PO SCH (08:05)
[2016-11-21] MEDS: Insulin LISPRO 300 UNITS/3 ML VIAL SQ SCH ×2 (08:05→11:43)
[2016-11-21] MEDS: clonazePAM 0.5 MG TABLET PO SCH (08:05)
[2016-11-21] MEDS: Carbidopa/Levodopa ER 50/200 TABLET PO SCH (08:05)
[2016-11-21] MEDS: 0.9 % Sodium Chloride 1,000 ML IVC SCH (08:07)
[2016-11-21] MEDS: Clindamycin 600 MG/50 ML 600 MG/50 ML IV.SOLN IVPB SCH (08:07)
[2016-11-21] MEDS: Metoprolol XL (24 HR) Succ 25 MG TAB.ER.24H PO SCH (08:08)
[2016-11-21] MEDS: *HR* HYDROcodone/Acet 5/325 mg TABLET PO PRN (08:10)
[2016-11-21 11:26] VITALS: BP 104/66
== END 2016-11-21 16:48 | disposition home health service (06) ==
LOC: 3BNU 20:02 → EMEROO 20:02 → SUATTDRO 23:24 → 3BNU 23:39
PROVIDERS: ADMIT Internal Medicine; ATTEND Internal Medicine

== ENCOUNTER 2017-02-12 15:49 | Inpatient (IN) ==
[2017-02-12 16:55] LABS: Basophils # 0.1 K/mcL (0.0-0.2); Basophils % 0.5 %; Eosinophils # 0.3 K/mcL (0.0-0.6); Eosinophils % 2.8 %; Hematocrit 40.9 % (37.5-50.1); Immature Granulocytes % 0.4 % (0-4); Immature Platelets 1.8 % (1.1-6.1); Lymphocytes # 1.9 K/mcL (0.6-4.6); Lymphocytes % 19.7 %; Mean Corpuscular HGB Conc 31.8 g/dL (31.6-35.5); Mean Corpuscular Hemoglobin 31.2 pg (28.0-33.3); Mean Corpuscular Volume 98.1 fL (83.0-100.0); Mean Platelet Volume 9.2 fL (9.4-12.4); Monocytes # 0.9 K/mcL (0.0-1.3); Monocytes % 9.7 %; Neutrophils # 6.3 K/mcL (1.6-8.9); Platelet Count 285 K/mcL (140-400); Red Blood Count 4.17 M/mcL (4.19-5.50); Red Cell Distribution Width 14.3 % (11.5-14.5); Segmented Neutrophils % 66.9 %
--- NOTE | 2017-02-12 17:00 | Emergency Department Note ---
Disposition Clinical Impression: Altered mental status Qualifiers: Altered mental status type: unspecified Qualified Code(s): R41.82 - Altered mental status, unspecified Urinary tract infection Qualifiers: Qualified Code(s): N39.0 - Disposition: Admitted As Inpatient Condition: Fair Time of Disposition: 23:42 Altered Mental Status HPI - General Chief Complaint: ED Altered Mental Status Stated Complaint: Hallucinations Time Seen by Provider: 02/12/17 15:52 Nursing Notes Reviewed: Yes Vital Signs Reviewed: Yes - History of Present Illness HPI Narrative: The patient is a 71-year-old male with a past medical history of Parkinson's disease, COPD, and hypertension who came by EMS presenting with weakness and hallucination. Report from EMS states that his glucose was 203 and the patient was satting at 84% before 2 L of oxygen which brought him up to 98%. The patient 's states that the patient is not on any oxygen at home and he has not appear short of breath recently. The nurse states that she observed the patient having visual hallucinations on arrival. The patient is alert, oriented to time and person but not to place. Patient denies any weaknesses, confusion, hallucinations, chest pain, shortness of breath, difficulty breathing, abdominal pain, numbness and tingling, blood in his stool, blood in his urine, or any focal neurological deficits. Per patient's , she states that the patient's weakness, confusion, and hallucination has been progressively worsening since this past October. She states that the patient use to be able to use his walker to get to the bathroom on his own but now he requires assistance from her and another person. She states that it appears his shuffling gait is worsening. The patient's states that the patient is having audio and visual hallucinations. She states that the patient sees things that are not there and hear voices. Per , the patient's Parkinson's disease medicine has been increased in October. She states that his Carbidopa-Levodopa was increased from 25 mg/100mg to 50mg/200 mg in October. The patient's admits that it is becoming increasingly difficult to take care of the patient at home. The denies any recent trauma, falls, travel, or recent admission. - Related Data Home Medications Medication Instructions Recorded Confirmed Adalimumab [Humira Psoriasis] 40 mg SQ Q2W 11/18/16 02/12/17 Albuterol Sulfate [Proair Hfa] 2 puff IH Q4H PRN 11/18/16 02/12/17 Amantadine [Symmetrel] 100 mg PO BID 11/18/16 02/12/17 Bimatoprost [Lumigan] 1 drop OP QPM 11/18/16 02/12/17 Carbidopa/Levodopa ER 50/200 1 tab PO BID 11/18/16 02/12/17 [Sinemet ER 50-200 TAB] FLUoxetine HCl [Prozac] 80 mg PO QAM 11/18/16 02/12/17 Fenofibrate Nanocrystallized 145 mg PO QAM 11/18/16 02/12/17 [Tricor] Levothyroxine [Synthroid] 75 mcg PO QAM 11/18/16 02/12/17 [place] Carbonate 300 mg PO BID 11/18/16 02/12/17 Mv-Mn/FA/Vit K/Lycop/Lut/Coq10 1 tab PO QAM 11/18/16 02/12/17 [Daily Multivitamin Capsule] Quetiapine Fumarate [Seroquel] 50 mg PO QPM 11/18/16 02/12/17 clonazePAM [Klonopin] 1 mg PO QPM 11/18/16 02/12/17 lamoTRIgine [Lamictal] 100 mg PO QAM 11/18/16 02/12/17 Bisacodyl [Dulcolax] 5 - 10 mg PO BID PRN 02/12/17 02/12/17 Docusate [Colace] 100 mg PO BID 02/12/17 02/12/17 Metoprolol XL (24 HR) Succ [Toprol 75 mg PO QAM 02/12/17 02/12/17 XL] Polyethylene Glycol 3350 [MiraLAX] 17 gm PO DAILY PRN 02/12/17 02/12/17 Allergies Allergy/AdvReac Type Severity Reaction Status Date / Time aspirin Allergy Rash Verified 11/06/16 10:40 Review of Systems: Constitutional: No fever Vision: No blurred vision ENT: No rhinorrhea Respiratory: No cough Allergic: No allergies : No blood in urine GI: No blood in stool Hematologic: No bruising Dermatologic: No skin rash Musculoskeletal: No pain in the extremities Neuro: No numbness of the extremities All systems ED: reviewed and negative except as stated. Review of Systems: As Per HPI Past Medical History - Past Medical History Medical history: Reports: aortic aneurysm, cirrhosis, COPD, diabetes, hypertension, thyroid disease, other Psychiatric history: Reports: anxiety, bipolar, depression, other - Social History Smoking Status: Former smoker Smokeless Tobacco Status: No Alcohol use: Reports: none Drug use: Reports: none Physical Exam CONSTITUTIONAL: Patient is chronically leaned to the right with his neck contracted to the right side. Alert and oriented X 2. Patient is oriented to time and person but not to place. in no apparent distress. HEAD: Normocephalic; atraumatic. EYES: PERRL, no scleral icterus. NOSE: The nose is normal in appearance without rhinorrhea RESP: Inspiratory and expiratory wheezes on the left anterior and posterior lung almaraz. Mild wheezing heard on the right anterior lung almaraz. Normal chest excursion with respiration; No rhonchi or rales CARD: Bradycardia at 54 bpm on exam.. Regular rhythm, without murmurs, rub or gallop. ABD: Non-distended; non-tender, soft,without rigidity, rebound or guarding EXTREMITIES: Rashes present on lower extremities bilaterally with no overlying infection, bleeding, or any purulent drainage from lesions. Pulses are 2 plus and equal times 4 extremities, no peripheral edema or calf muscle pain. SKIN: Normal for age and race; warm and dry; no apparent lesions NEUROLOGICAL: Cranial nerves III-XII are intact. Sensory and motor functions are intact. Strength is 3/5 for flexion and extension in all 4 extremities. - General General appearance: alert Course Vital Signs Temperature 98.2 F 02/12/17 16:08 Pulse Rate 54 02/12/17 16:08 Respiratory Rate 15 02/12/17 16:08 Blood Pressure 123/77 02/12/17 16:08 O2 Sat by Pulse Oximetry 100 02/12/17 16:08 Temperature 98.0 F 02/12/17 23:29 Pulse Rate 61 02/12/17 23:29 Respiratory Rate 18 02/12/17 23:29 Blood Pressure 119/70 02/12/17 23:29 O2 Sat by Pulse Oximetry 93 02/12/17 23:29 Oxygen Delivery Oxygen Delivery Room Air Altered Mental Status - MDM Narrative Medical decision making narrative: Vitals are reviewed and are essentially normal. The patient O2 saturation of 98 % on room air. Patient is afebrile and does not appear to be in acute distress. Labs and imaging are pending to further evaluate patient's altered mental status. I am not suspicious for intracranial hemorrhage at this time. I believe his change in mental status may be secondary to his medications. 1915- UA shows infection. Will give one dose of IV Rocephin in the ED. Plan is to admit patient for observation for UTI and altered mental status. Vitals are still normal and stable. PAtient is afebrile and comfortable - Lab Data Lab results reviewed: Yes I reviewed the patient's lab results. Result diagrams: 02/12/17 16:49 02/12/17 16:49 Lab Results 02/12/17 02/12/17 02/12/17 Range/Units 16:49 16:49 16:49 WBC 9.4 (4.3-11.1) K/mcL RBC 4.17 L (4.19-5.50) M/mcL Hgb 13.0 (12.9-16.9) g/dL Hct 40.9 (37.5-50.1) % MCV 98.1 (83.0-100.0) fL MCH 31.2 (28.0-33.3) pg MCHC 31.8 (31.6-35.5) g/dL RDW 14.3 (11.5-14.5) % Plt Count 285 (140-400) K/mcL MPV 9.2 L (9.4-12.4) fL Immature Gran % 0.4 (0-4) % Seg Neutrophils % 66.9 % Lymphocytes % 19.7 % Monocytes % 9.7 % Eosinophils % 2.8 % Basophils % 0.5 % Neutrophils # 6.3 (1.6-8.9) K/mcL Lymphocytes # 1.9 (0.6-4.6) K/mcL Monocytes # 0.9 (0.0-1.3) K/mcL Eosinophils # 0.3 (0.0-0.6) K/mcL Basophils # 0.1 (0.0-0.2) K/mcL Immature Plt Fraction 1.8 (1.1-6.1) % Sodium 142 (136-145) mEq/L Potassium 4.1 (3.5-4.5) mEq/L Chloride 112 H (98-109) mEq/L Carbon Dioxide 26 (19-29) mEq/L BUN 28 H (8-26) mg/dL Creatinine 1.63 H (0.72-1.25) mg/dL Est GFR ( Amer) 51 L (> 60) Est GFR (Non-Af Amer) 42 L (> 60) BUN/Creatinine Ratio 17 (6-26) Glucose 81 (70-99) mg/dL Calculated Osmolality 299 (280-300) Calcium 10.3 (8.6-10.8) mg/dL TSH 0.702 (0.350-4.840) mcIU/mL Urine Color (Yellow) Urine Clarity (Clear) Urine pH (5.0-8.0) pH Units Ur Specific [place] (1.010-1.025) Urine Protein (Neg-Trace) mg/dL Urine Glucose (UA) (Normal) mg/dL Urine Ketones (Negative) mg/dL Urine Blood (Negative) Urine Nitrite (Negative) Urine Bilirubin (Negative) Urine Urobilinogen (Normal) mg/dL Ur Leukocyte Esterase (Negative) Urine Microscopic RBC (0-3) per hpf Urine Microscopic WBC (0-3) per hpf Ur Squamous Epith Cells (None-Few) per lpf Urine Bacteria (None-Few) per hpf Hyaline Casts (None-Few) per lpf 02/12/17 Range/Units 17:13 WBC (4.3-11.1) K/mcL RBC (4.19-5.50) M/mcL Hgb (12.9-16.9) g/dL Hct (37.5-50.1) % MCV (83.0-100.0) fL MCH (28.0-33.3) pg MCHC (31.6-35.5) g/dL RDW (11.5-14.5) % Plt Count (140-400) K/mcL MPV (9.4-12.4) fL Immature Gran % (0-4) % Seg Neutrophils % % Lymphocytes % % Monocytes % % Eosinophils % % Basophils % % Neutrophils # (1.6-8.9) K/mcL Lymphocytes # (0.6-4.6) K/mcL Monocytes # (0.0-1.3) K/mcL Eosinophils # (0.0-0.6) K/mcL Basophils # (0.0-0.2) K/mcL Immature Plt Fraction (1.1-6.1) % Sodium (136-145) mEq/L Potassium (3.5-4.5) mEq/L Chloride (98-109) mEq/L Carbon Dioxide (19-29) mEq/L BUN (8-26) mg/dL Creatinine (0.72-1.25) mg/dL Est GFR ( Amer) (> 60) Est GFR (Non-Af Amer) (> 60) BUN/Creatinine Ratio (6-26) Glucose (70-99) mg/dL Calculated Osmolality (280-300) Calcium (8.6-10.8) mg/dL TSH (0.350-4.840) mcIU/mL Urine Color Yellow (Yellow) Urine Clarity Turbid A (Clear) Urine pH 6.5 (5.0-8.0) pH Units Ur Specific [place] 1.012 (1.010-1.025) Urine Protein Negative (Neg-Trace) mg/dL Urine Glucose (UA) Normal (Normal) mg/dL Urine Ketones Negative (Negative) mg/dL Urine Blood Small H (Negative) Urine Nitrite Negative (Negative) Urine Bilirubin Negative (Negative) Urine Urobilinogen Normal (Normal) mg/dL Ur Leukocyte Esterase Large H (Negative) Urine Microscopic RBC 5-15 H (0-3) per hpf Urine Microscopic WBC TNTC H (0-3) per hpf Ur Squamous Epith Cells Many H (None-Few) per lpf Urine Bacteria Many H (None-Few) per hpf Hyaline Casts None Seen (None-Few) per lpf - Radiology Data Radiology results reviewed: Yes I reviewed the patient's radiology results. Chest X-Ray 02/12/17 16:13 IMPRESSION: Patchy airspace opacity the lung bases, atelectasis versus edema versus pneumonia. D/ / Hayden Bloom MD / Hayden Bloom MD Interpreting Provider: Hayden Bloom MD Head CT 02/12/17 16:27 IMPRESSION: No acute intracranial abnormality. Diffuse atrophic changes with findings suggesting chronic microvascular ischemia D/ / Tristan Alvarado MD / Tristan Alvarado MD Interpreting Provider: Tristan Alvarado MD - EKG Data EKG attestation: Yes I reviewed and interpreted this EKG. EKG results narrative: EKG shows sinus bradycardia with a rate of 54, MI interval of 180, QRS duration of 118, QT at 416, 2 QTc 401. No acute ischemic changes noted on the EKG today. No significant changes on EKG compared to the old EKG dated on 12/21/2016. Specifically, no changes in V2 and V3. TPA Checklist - LKW: 3-4.5 hrs Add. Warnings/Precautions Patient/family understanding: The patient/family members have been counseled and understood the risk, benefit , and alternatives of treatment. Attestation Statement - Attestation Attestation: I examined this patient and my medical decision-making was reviewed with the Resident Physician. I agree with the documented findings, disposition and treatment plan as described except to the extent set forth below. Progressive mental status change in a patient with a history of Parkinson's disease. Patient has a UTI. A bladder infection may certainly be contributing to his mental status change, and I would expect some improvement with antibiotic therapy. The question is whether the improved enough that the family is comfortable taking him home, as they are currently unable to manage him. Hemodynamically normal, meets neither SIRS nor qSOFA criteria. Admission pending.
[2017-02-12 17:06] LABS: Calcium 10.3 mg/dL (8.6-10.8); Potassium 4.1 mEq/L (3.5-4.5)
[2017-02-12 17:28] LABS: Bilirubin,Urine Negative (Negative); Blood,Urine Small (Negative); Clarity,Urine Turbid (Clear); Color,Urine Yellow (Yellow); Glucose,Urine (UA) Normal (Normal); Ketones,Urine Negative (Negative); Leukocyte Esterase,Urine Large (Negative); Nitrite,Urine Negative (Negative); PH,Urine 6.5 pH Units (5.0-8.0); Protein,Urine Negative (Neg-Trace); Specific Gravity,Urine 1.012 (1.010-1.025); Urobilinogen,Urine Normal (Normal)
[2017-02-12 17:30] LABS: Bacteria,Urine Many per hpf (None-Few); Hyaline Casts,Urine None Seen per lpf (None-Few); Squamous Epithelial Cell,Urine Many per lpf (None-Few); WBC,Urine TNTC per hpf (0-3)
--- NOTE | 2017-02-12 21:40 | Internal Med History&Physical ---
Date of Encounter: 02/12/17 Time of Encounter: 21:38 Assessment and Plan (1) Urinary tract infection Current visit: Yes Status: Acute Start the patient on ceftriaxone. Check urine culture. Qualifiers: Qualified Code(s): N39.0 - Urinary tract infection, site not specified; R31.9 - Hematuria, unspecified; R31.9 - Hematuria, unspecified (2) Metabolic encephalopathy Current visit: Yes Status: Acute due to urinary tract infection. Family mentioned that at baseline is able to engage in conversation is usually oriented times 3. (3) Parkinsons disease Current visit: No Status: Chronic Continue home medications. Significant functional decline the past 2 weeks. Will ask PT/OT and social work to see patient. He has home health as well as home PT/OT. Internal Medicine - H&P: HPI Chief complaint: CONFUSION History of present illness: Mr. Frankel is a 71 year old male patient with history of Parkinson disease presents to the emergency room today with main complain of confusion. Over the past 2 weeks family has been noticing that patient has been becoming more confused. He is also been declining functionally where he has been more or less bedridden requiring assistance to persons ambulate. He is usually able to ambulate with his walker. No reported fevers chills. No cough expectoration. Family mentioned that he has no problems with aspiration except for pills which are sometimes hard to swallow. No focal weakness. Workup and emergency room shows evidence of urinary tract infection Past Med Surg Social Fam HX - Past Medical History Medical history: aortic aneurysm, cirrhosis, COPD, diabetes, hypertension, thyroid disease, other Psychiatric history: anxiety, bipolar, depression, other - Social History Smoking Status: Former smoker Smokeless Tobacco Status: No Alcohol use: none Drug use: none - Family History Father Hx Family Cardiac Disorders: Yes (CARDIAC DISEASE) Hx Family Respiratory Disorders: Yes (COPD) Hx Family Endocrine Disorder: Yes (DM) Internal Medicine - H&P: Meds Adalimumab [Humira Psoriasis] 40 mg SQ Q2W 11/18/16 [History] Albuterol Sulfate [Proair Hfa] 2 puff IH Q4H PRN 11/18/16 [History] Amantadine [Symmetrel] 100 mg PO BID 11/18/16 [History] Bimatoprost [Lumigan] 1 drop OP QPM 11/18/16 [History] Carbidopa/Levodopa ER 50/200 [Sinemet ER 50-200 TAB] 1 tab PO BID 11/18/16 [ History] FLUoxetine HCl [Prozac] 80 mg PO QAM 11/18/16 [History] Fenofibrate Nanocrystallized [Tricor] 145 mg PO QAM 11/18/16 [History] Levothyroxine [Synthroid] 75 mcg PO QAM 11/18/16 [History] [place] Carbonate 300 mg PO BID 11/18/16 [History] Mv-Mn/FA/Vit K/Lycop/Lut/Coq10 [Daily Multivitamin Capsule] 1 tab PO QAM [History] Quetiapine Fumarate [Seroquel] 50 mg PO QPM 11/18/16 [History] clonazePAM [Klonopin] 1 mg PO QPM 11/18/16 [History] lamoTRIgine [Lamictal] 100 mg PO QAM 11/18/16 [History] Bisacodyl [Dulcolax] 5 - 10 mg PO BID PRN 02/12/17 [History] Docusate [Colace] 100 mg PO BID 02/12/17 [History] Metoprolol XL (24 HR) Succ [Toprol XL] 75 mg PO QAM 02/12/17 [History] Polyethylene Glycol 3350 [MiraLAX] 17 gm PO DAILY PRN 02/12/17 [History] 3 Allergy/AdvReac Type Severity Reaction Status Date / Time aspirin Allergy Rash Verified 11/06/16 10:40 All Systems PM: A 10-system review of systems was performed and is negative for pertinent findings except as documented above in the HPI. Review of systems: 10 point review of systems is negative except for HPI - Constitutional Vitals: Temp Pulse Resp BP Pulse Ox 98.2 F 60 16 118/66 98 02/12/17 16:08 02/12/17 20:58 02/12/17 20:58 02/12/17 20:58 02/12/17 20:58 Exam: Gen.: patient is alert, confused. Cardiac: normal S1 S2 no additional sounds or murmurs chest: fair air entry. no active wheezing. No crackles or bronchial breathing. abdomen: soft nontender nondistended normal bowel sounds neuro: no focal deficit Internal Med - H&P Results - Labs CBC & Chem 7: 02/12/17 16:49 02/12/17 16:49
[2017-02-13] MEDS: 0.9 % Sodium Chloride 1,000 ML IVC SCH ×2 (00:13→09:46)
[2017-02-13] MEDS: Lithium Carbonate 300 MG CAPSULE PO SCH ×3 (00:46→22:30)
[2017-02-13] MEDS: clonazePAM 0.5 MG TABLET PO SCH ×2 (00:46→22:30)
[2017-02-13] MEDS: Carbidopa/Levodopa ER 50/200 TABLET PO SCH ×3 (00:47→22:30)
[2017-02-13] MEDS: *HR* Heparin 5,000 UNIT/ML VIAL SQ SCH ×2 (06:25→17:25)
[2017-02-13 07:09] LABS: Basophils # 0.1 K/mcL (0.0-0.2); Basophils % 0.5 %; Eosinophils # 0.3 K/mcL (0.0-0.6); Eosinophils % 2.9 %; Hematocrit 39.3 % (37.5-50.1); Hemoglobin 12.5 g/dL (12.9-16.9); Immature Granulocytes % 0.3 % (0-4); Lymphocytes # 2.2 K/mcL (0.6-4.6); Lymphocytes % 22.6 %; Mean Corpuscular HGB Conc 31.8 g/dL (31.6-35.5); Mean Corpuscular Hemoglobin 31.3 pg (28.0-33.3); Mean Corpuscular Volume 98.5 fL (83.0-100.0); Mean Platelet Volume 9.4 fL (9.4-12.4); Monocytes # 0.9 K/mcL (0.0-1.3); Monocytes % 9.2 %; Neutrophils # 6.2 K/mcL (1.6-8.9); Platelet Count 227 K/mcL (140-400); Red Blood Count 3.99 M/mcL (4.19-5.50); Red Cell Distribution Width 14.1 % (11.5-14.5); Segmented Neutrophils % 64.5 %
[2017-02-13 07:28] LABS: BUN/Creatinine Ratio 18 (6-26); Blood Urea Nitrogen 24 mg/dL (8-26); Calcium 9.9 mg/dL (8.6-10.8); Carbon Dioxide 23 mEq/L (19-29); Chloride 113 mEq/L (98-109); Glucose 79 mg/dL (70-99); Osmolality,Calculated 293 (280-300); Sodium 140 mEq/L (136-145); eGFR For African Americans > 60 (> 60); eGFR For Non-African Americans 52 (> 60)
[2017-02-13] MEDS ORDERED: Carbidopa/Levodopa ER 50/200 TABLET PO SCH (09:00)
[2017-02-13] MEDS ORDERED: Metoprolol XL (24 HR) Succ 25 MG TAB.ER.24H PO SCH (09:00)
[2017-02-13] MEDS: Fenofibrate 54 MG TABLET PO SCH (09:51)
[2017-02-13] MEDS: lamoTRIgine 100 MG TABLET PO SCH (09:53)
[2017-02-13] MEDS: FLUoxetine 20 MG CAPSULE PO SCH (09:54)
--- NOTE | 2017-02-13 14:23 | Internal Med Progress Note ---
Date of Encounter: 02/13/17 Time of Encounter: 10:25 - Assessment and plan (1) Metabolic encephalopathy Current Visit: Yes Status: Acute Assessment and plan: Acute encephalopathy related to acute urinary tract infection. Improving. Continue to treat underlying UTI. Moderate risk for complications. (2) Urinary tract infection Current Visit: Yes Status: Acute Assessment and plan: Continue ceftriaxone. Clinically getting better. Awaiting urine culture results. Qualifiers: Urinary tract infection type: acute cystitis Hematuria presence: with hematuria Qualified Code(s): N30.01 - Acute cystitis with hematuria (3) Acute delirium Current Visit: Yes Status: Acute (4) Hypothyroidism Current Visit: No Status: Chronic Assessment and plan: Continue levothyroxine Qualifiers: Hypothyroidism type: unspecified Qualified Code(s): E03.9 - Hypothyroidism , unspecified (5) Parkinsons disease Current Visit: Yes Status: Chronic Assessment and plan: continue Sinemet - Subjective Interval history: Patient is awake and alert. He denies any complaints at this time besides low back pain. No dysuria. No fever or chills overnight. According to his patient 's son who is present at bedside, patient appears to be more oriented and is not hallucinating anymore. - Constitutional Vitals: Temp Pulse Resp BP Pulse Ox 98.4 F 50 16 110/64 95 02/13/17 11:41 02/13/17 11:41 02/13/17 11:41 02/13/17 11:41 02/13/17 14:06 General appearance: Present: cooperative, A&O X 3, answers questions appropriately - Neck Neck exam general surgery: Present: supple, trachea midline. Absent: lymphadenopathy - Respiratory Respiratory exam: Present: CTAB. Absent: accessory muscle use, rales, rhonchi, wheezes - Cardiovascular Cardiovascular exam: Present: RRR, +S1, +S2. Absent: diastolic murmur, gallop, rubs, systolic murmur - GI/Abdominal GI/Abdominal exam: Present: normal bowel sounds, soft, no peritoneal signs. Absent: distended, tenderness - Neurological Exam Neurological exam: Present: alert, oriented X3, no focal deficits. Absent: facial droop, speech deficit Additional comments: Resting tremor noted in left upper extremity Internal Medicine: Result - Labs CBC & Chem 7: 02/13/17 06:28 02/13/17 06:28 Labs: Short CBC 02/13/17 Range/Units 06:28 WBC 9.6 (4.3-11.1) K/mcL Hgb 12.5 L (12.9-16.9) g/dL Hct 39.3 (37.5-50.1) % Plt Count 227 (140-400) K/mcL Neutrophils # 6.2 (1.6-8.9) K/mcL BMP 02/13/17 06:28 Sodium 140 Potassium 4.0 Chloride 113 H Carbon Dioxide 23 BUN 24 Creatinine 1.36 H Glucose 79 Calcium 9.9 Consult Discharge Plan - Plan Referrals: Pacheco Bailey Jr, MD [Primary Care Provider] -
[2017-02-13] MEDS ORDERED: clonazePAM 0.5 MG TABLET PO SCH (18:00)
[2017-02-13] MEDS: Latanoprost 2.5 ML BOTTLE BOTH EYES SCH (18:53)
[2017-02-14] MEDS: *HR* Heparin 5,000 UNIT/ML VIAL SQ SCH ×2 (06:13→17:31)
[2017-02-14] MEDS: Metoprolol XL (24 HR) Succ 50 MG TAB.ER.24H PO SCH (09:26)
[2017-02-14] MEDS: FLUoxetine 20 MG CAPSULE PO SCH (09:26)
[2017-02-14] MEDS: Carbidopa/Levodopa ER 50/200 TABLET PO SCH ×2 (09:27→22:38)
[2017-02-14] MEDS: lamoTRIgine 100 MG TABLET PO SCH (09:27)
[2017-02-14] MEDS: Fenofibrate 54 MG TABLET PO SCH (09:27)
[2017-02-14] MEDS: Lithium Carbonate 300 MG CAPSULE PO SCH ×2 (09:27→22:39)
[2017-02-14] MEDS: 0.9 % Sodium Chloride 1,000 ML IVC SCH (12:41)
[2017-02-14] MEDS: clonazePAM 0.5 MG TABLET PO SCH ×2 (12:42→22:39)
--- NOTE | 2017-02-14 13:55 | Internal Med Progress Note ---
Date of Encounter: 02/14/17 Time of Encounter: 09:50 - Assessment and plan (1) Metabolic encephalopathy Current Visit: Yes Status: Acute Assessment and plan: Continues to improve. Close to patient's baseline. Due to underlying acute urinary tract infection. (2) Urinary tract infection Current Visit: Yes Status: Acute Assessment and plan: Continue current antibiotics. Urine culture is currently pending. Qualifiers: Urinary tract infection type: acute cystitis Hematuria presence: with hematuria Qualified Code(s): N30.01 - Acute cystitis with hematuria (3) Acute delirium Current Visit: Yes Status: Acute (4) Hypothyroidism Current Visit: No Status: Chronic Assessment and plan: Continue levothyroxine. Qualifiers: Hypothyroidism type: unspecified Qualified Code(s): E03.9 - Hypothyroidism , unspecified (5) Parkinsons disease Current Visit: Yes Status: Chronic Assessment and plan: Continue Sinemet. Physical therapy evaluation. Most likely, patient will need placement to skilled rehabilitation. 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 (6) Chronic kidney disease, stage III (moderate) Current Visit: Yes Status: Chronic Assessment and plan: Patient's renal function at his baseline - Subjective Interval history: Patient is awake and alert. More oriented today. Answers most questions appropriately. Denies any new complaints at this time. He does continue to have episodes of hallucinations although these are less prominent. No fever or chills reported overnight. No abdominal pain at this time. - Constitutional Vitals: Temp Pulse Resp BP Pulse Ox 97.2 F L 54 16 126/69 96 02/14/17 11:22 02/14/17 11:22 02/14/17 11:22 02/14/17 11:22 02/14/17 11:22 General appearance: Present: cooperative, A&O X 2, answers questions appropriately - Respiratory Respiratory exam: Present: CTAB. Absent: accessory muscle use, rales, rhonchi, wheezes - Cardiovascular Cardiovascular exam: Present: RRR, +S1, +S2. Absent: diastolic murmur, gallop, rubs, systolic murmur - GI/Abdominal GI/Abdominal exam: Present: normal bowel sounds, soft, no peritoneal signs. Absent: distended, tenderness - Extremities Exam Extremities exam: Present: warm, radial pulses palpable and symmetrical. Absent : calf tenderness, cyanotic, pedal edema - Neurological Exam Neurological exam: Present: alert, no focal deficits. Absent: facial droop, speech deficit Internal Medicine: Result - Labs CBC & Chem 7: 02/13/17 06:28 02/13/17 06:28 Consult Discharge Plan - Plan Referrals: Pacheco Bailey Jr, MD [Primary Care Provider] - 02/21/17 1:00 pm (Please follow as schedule..) Dov Dolan MD [Partnered Physician] - 02/19/17 12:00 pm (please follow up as schedule..)
[2017-02-14] MEDS: Latanoprost 2.5 ML BOTTLE BOTH EYES SCH (17:56)
[2017-02-15] MEDS: *HR* Heparin 5,000 UNIT/ML VIAL SQ SCH (06:12)
[2017-02-15] MEDS: FLUoxetine 20 MG CAPSULE PO SCH (08:51)
[2017-02-15] MEDS: Fenofibrate 54 MG TABLET PO SCH (08:51)
[2017-02-15] MEDS: Lithium Carbonate 300 MG CAPSULE PO SCH (08:51)
[2017-02-15] MEDS: lamoTRIgine 100 MG TABLET PO SCH (08:51)
[2017-02-15] MEDS: Metoprolol XL (24 HR) Succ 50 MG TAB.ER.24H PO SCH (08:51)
[2017-02-15] MEDS: Carbidopa/Levodopa ER 50/200 TABLET PO SCH (08:52)
[2017-02-15 10:56] VITALS: BP 109/76
[2017-02-15] MEDS: Amoxicillin 500 MG CAPSULE PO SCH ×2 (11:19→14:55)
--- NOTE | 2017-02-15 14:36 | Discharge Summary ---
Date of Encounter: 02/15/17 Time of Encounter: 11:00 - Discharge Diagnosis (1) Metabolic encephalopathy Priority: Primary Status: Acute (2) Urinary tract infection Priority: Secondary Status: Acute Qualifiers: Urinary tract infection type: acute cystitis Hematuria presence: with hematuria Qualified Code(s): N30.01 - Acute cystitis with hematuria (3) Acute delirium Priority: Secondary Status: Acute (4) Hypothyroidism Priority: Secondary Status: Chronic Qualifiers: Hypothyroidism type: unspecified Qualified Code(s): E03.9 - Hypothyroidism , unspecified (5) Parkinsons disease Priority: Secondary Status: Chronic (6) Chronic kidney disease, stage III (moderate) Priority: Secondary Status: Chronic - Discharge Medications Prescriptions: Amoxicillin [Amoxil] 500 mg PO TID #15 capsule clonazePAM [Klonopin] 1 mg PO QPM #14 tablet Home Medications: Adalimumab [Humira Pen Psoriasis-Uveitis] 40 mg SQ Q2W 11/18/16 [History] Albuterol Sulfate [Proair Hfa] 2 puff IH Q4H PRN 11/18/16 [History] Amantadine [Symmetrel] 100 mg PO BID 11/18/16 [History] Bimatoprost [Lumigan] 1 drop OP QPM 11/18/16 [History] Carbidopa/Levodopa ER 50/200 [Sinemet ER 50-200 Tab] 1 tab PO BID 11/18/16 [ History] FLUoxetine HCl [Prozac] 80 mg PO QAM 11/18/16 [History] Fenofibrate Nanocrystallized [Tricor] 145 mg PO QAM 11/18/16 [History] Levothyroxine [Synthroid] 75 mcg PO QAM 11/18/16 [History] [place] Carbonate 300 mg PO BID 11/18/16 [History] Mv-Mn/FA/Vit K/Lycop/Lut/Coq10 [Daily Multivitamin Capsule] 1 tab PO QAM [History] Quetiapine Fumarate [Seroquel] 50 mg PO QPM 11/18/16 [History] lamoTRIgine [Lamictal] 100 mg PO QAM 11/18/16 [History] Bisacodyl [Dulcolax] 5 - 10 mg PO BID PRN 02/12/17 [History] Docusate [Colace] 100 mg PO BID 02/12/17 [History] Metoprolol XL (24 HR) Succ [Toprol Xl] 75 mg PO QAM 02/12/17 [History] Polyethylene Glycol 3350 [MiraLAX] 17 gm PO DAILY PRN 02/12/17 [History] Amoxicillin [Amoxil] 500 mg PO TID #15 capsule 02/15/17 [Rx] clonazePAM [Klonopin] 1 mg PO QPM #14 tablet 02/15/17 [Rx] Allergies/Adverse Reactions: 3 Allergy/AdvReac Type Severity Reaction Status Date / Time aspirin Allergy Rash Verified 11/06/16 10:40 Procedures/tests Complete & Pending: Procedures Performed prior 72 hours Category Date Time Status ECG 12 lead ECG [ECG] Routine Y 02/12/17 16:13 Completed Date of admission: 02/12/17 22:16 Primary care physician: Pacheco Bailey Jr, MD Consults: 02/14/17 13:57 Consult to [employer] Consultant [CONS] Routine Reason for SW Consult: Discharge planning Discharging clinician: Geovanny Miles Anticipated date of discharge: 02/15/17 - Patient Status Disposition: Transfer SNF Condition: Good Functional capacity at discharge: independent ambulation Overall status at discharge: patient is progressing back to baseline - Discharge Instructions Follow Up With: Pacheco Bailey Jr, MD [Primary Care Provider] - 02/21/17 1:00 pm (Please follow as schedule..) Dov Dolan MD [Partnered Physician] - 02/19/17 12:00 pm (please follow up as schedule..) - Diet and Activity Activity: increase activity as tolerated Diet: low fat, low cholesterol, low salt diet Hospital course: Mr. Frankel is a 71 year old male patient with a history of Parkinson's disease, psoriasis presented to the ER with complaints of altered mental status and confusion. Patient had been having episodes of hallucinations. He was diagnosed with acute urinary tract infection with resulting acute metabolic encephalopathy. He was admitted here and treated with intravenous antibiotics and gentle hydration with improvement in his symptoms. He was then evaluated by physical therapy and was recommended placement to skilled rehabilitation. He is currently stable to be discharged to skilled rehabilitation. His urine culture was positive for strep group B. He will be discharged on amoxicillin to complete treatment course. For his Parkinson's disease, he can follow up with neurology as outpatient for further management. - Time Spent with Patient Total time spent providing and/or coordinating discharge services: Greater than 30 minutes (32 min) - Constitutional Vitals: Temp Pulse Resp BP Pulse Ox 97.6 F 59 16 109/76 96 02/15/17 10:50 02/15/17 10:50 02/15/17 10:50 02/15/17 10:50 02/15/17 10:50 General appearance: Present: cooperative, A&O X 2, answers questions appropriately - Eye Eye exam: Present: EOMI, PERRL, conjuntiva pink, sclera anicteric - Neck Neck exam general surgery: Present: supple, trachea midline. Absent: lymphadenopathy - Respiratory Respiratory exam: Present: CTAB. Absent: accessory muscle use, rales, rhonchi, wheezes - Cardiovascular Cardiovascular exam: Present: RRR, +S1, +S2. Absent: diastolic murmur, gallop, rubs, systolic murmur - GI/Abdominal GI/Abdominal exam: Present: normal bowel sounds, soft, no peritoneal signs. Absent: distended, tenderness - Extremities Exam Extremities exam: Present: warm, radial pulses palpable and symmetrical. Absent : calf tenderness, cyanotic, pedal edema - Neurological Exam Neurological exam: Present: alert, oriented X3, no focal deficits. Absent: facial droop, speech deficit
[2017-02-15] MEDS ORDERED: FLUARIX QUAD 2017-18 36MOS UP/PF 0.5 ML SYRINGE IM ONE (14:47)
--- NOTE | 2017-02-15 14:57 | Physician Discharge Referral ---
ExtendedCare Referral Info Provider in Charge after Transfer: PCP Institutional Level of Care: Skilled - Diagnosis (1) Metabolic encephalopathy Priority: Primary Status: Acute (2) Urinary tract infection Priority: Secondary Status: Acute (3) Acute delirium Priority: Secondary Status: Acute (4) Hypothyroidism Priority: Secondary Status: Chronic (5) Parkinsons disease Priority: Secondary Status: Chronic (6) Chronic kidney disease, stage III (moderate) Priority: Secondary Status: Chronic Prognosis: Fair Aware of Diagnosis: Patient, Family Aware of Prognosis: Patient, Family - Transfer Medications Prescriptions: Amoxicillin [Amoxil] 500 mg PO TID #15 capsule clonazePAM [Klonopin] 1 mg PO QPM #14 tablet Home Medications: Adalimumab [Humira Pen Psoriasis-Uveitis] 40 mg SQ Q2W 11/18/16 [History] Albuterol Sulfate [Proair Hfa] 2 puff IH Q4H PRN 11/18/16 [History] Amantadine [Symmetrel] 100 mg PO BID 11/18/16 [History] Bimatoprost [Lumigan] 1 drop OP QPM 11/18/16 [History] Carbidopa/Levodopa ER 50/200 [Sinemet ER 50-200 Tab] 1 tab PO BID 11/18/16 [ History] FLUoxetine HCl [Prozac] 80 mg PO QAM 11/18/16 [History] Fenofibrate Nanocrystallized [Tricor] 145 mg PO QAM 11/18/16 [History] Levothyroxine [Synthroid] 75 mcg PO QAM 11/18/16 [History] [place] Carbonate 300 mg PO BID 11/18/16 [History] Mv-Mn/FA/Vit K/Lycop/Lut/Coq10 [Daily Multivitamin Capsule] 1 tab PO QAM [History] Quetiapine Fumarate [Seroquel] 50 mg PO QPM 11/18/16 [History] lamoTRIgine [Lamictal] 100 mg PO QAM 11/18/16 [History] Bisacodyl [Dulcolax] 5 - 10 mg PO BID PRN 02/12/17 [History] Docusate [Colace] 100 mg PO BID 02/12/17 [History] Metoprolol XL (24 HR) Succ [Toprol Xl] 75 mg PO QAM 02/12/17 [History] Polyethylene Glycol 3350 [MiraLAX] 17 gm PO DAILY PRN 02/12/17 [History] Amoxicillin [Amoxil] 500 mg PO TID #15 capsule 02/15/17 [Rx] clonazePAM [Klonopin] 1 mg PO QPM #14 tablet 02/15/17 [Rx] Allergies/Adverse Reactions: 3 Allergy/AdvReac Type Severity Reaction Status Date / Time aspirin Allergy Rash Verified 11/06/16 10:40 - Respiratory Orders Smoking Cessation: Smoking cessation has been advised. For more information, call the [place] Tobacco Quit Line at 9-547-QBXN-NOW. - Ancillary Orders May consult with Dentist, Continuous Mining Machine Lode Miner, Resort Keeper PRN - Advance Directives Code Status: Full Code - Mobility Orders Ambulate (per PT) - Rehabiliation Orders Rehab Potential: Fair Rehab Orders: Evaluation for Physical Therapy, Evaluation for Occupational Therapy - Diet Orders Cardiac CERTIFICATION: I certify that the transfer of the above named patient to an Extended Care Facility is necessary for the continuing treatment of the diagnosis listed. The above information is true and accurate reflection of patient's current condition. Confidential - Redisclosure prohibited without a patient's written consent.
== END 2017-02-15 16:10 | DRG 689 ==
LOC: EMEROO 15:49 → 2ANU 15:49
PROVIDERS: ADMIT Internal Medicine; ATTEND Internal Medicine

== ENCOUNTER 2017-02-25 14:59 | Inpatient (IN) ==
[2017-02-25] MEDS ORDERED: D10% in Water 500 ML IV SOLUTION IVC STA (15:26)
--- NOTE | 2017-02-25 16:17 | Emergency Department Note ---
Disposition Clinical Impression: Acute hypernatremia, Hypermagnesemia, Hypercalcemia Altered mental status Qualifiers: Altered mental status type: delirium Qualified Code(s): R41.0 - Disorientation , unspecified [place] toxicity Qualifiers: Encounter type: initial encounter Injury intent: undetermined intent Qualified Code(s): T56.894A - Toxic effect of other metals, undetermined, initial encounter Acute renal failure Qualifiers: Acute renal failure type: unspecified Qualified Code(s): N17.9 - Acute kidney failure, unspecified Disposition: Admitted As Inpatient Condition: Serious Time of Disposition: 20:50 General Adult HPI - General Chief complaint: ED Recheck/Abnormal Lab/Rx Stated complaint: Abnormal Labs Time Seen by Provider: 02/25/17 15:01 Source: patient, EMS Limitations: no limitations Nursing Notes Reviewed: Yes Vital Signs Reviewed: Yes - History of Present Illness HPI Narrative: 71-year-old male presents to the emergency department after being sent by his lamination spinner due to abnormal labs. The patient's states that he has never been this confused before. Pain Scale: 4 - Related Data Home Medications Medication Instructions Recorded Confirmed Adalimumab [Humira Pen 40 mg SQ Q2W 11/18/16 02/25/17 Psoriasis-Uveitis] Albuterol Sulfate [Proair Hfa] 2 puff IH Q4H PRN 11/18/16 02/25/17 Amantadine [Symmetrel] 100 mg PO QAM 11/18/16 02/25/17 Bimatoprost [Lumigan] 1 drop OP HS 11/18/16 02/25/17 Carbidopa/Levodopa ER 50/200 1 tab PO BID 11/18/16 02/25/17 [Sinemet ER 50-200 Tab] FLUoxetine HCl [Prozac] 80 mg PO QAM 11/18/16 02/25/17 Fenofibrate Nanocrystallized 145 mg PO QAM 11/18/16 02/25/17 [Tricor] Levothyroxine [Synthroid] 75 mcg PO QAM 11/18/16 02/25/17 [place] Carbonate 300 mg PO BID 11/18/16 02/25/17 Mv-Mn/FA/Vit K/Lycop/Lut/Coq10 1 tab PO QAM 11/18/16 02/25/17 [Daily Multivitamin Capsule] Quetiapine Fumarate [Seroquel] 50 mg PO HS 11/18/16 02/25/17 lamoTRIgine [Lamictal] 100 mg PO QAM 11/18/16 02/25/17 Bisacodyl [Dulcolax] 5 mg PO BID PRN 02/12/17 02/25/17 Docusate [Colace] 100 mg PO BID 02/12/17 02/25/17 Metoprolol XL (24 HR) Succ [Toprol 75 mg PO QAM 02/12/17 02/25/17 Xl] Polyethylene Glycol 3350 [MiraLAX] 17 gm PO DAILY PRN 02/12/17 02/25/17 clonazePAM [Klonopin] 1 mg PO BID PRN 02/25/17 02/25/17 clonazePAM [Klonopin] 1 mg PO HS 02/25/17 02/25/17 Allergies Allergy/AdvReac Type Severity Reaction Status Date / Time aspirin Allergy Rash Verified 11/06/16 10:40 All systems ED: reviewed and negative except as stated. Review of Systems: As Per HPI Limitations: ROS unobtainable due to patients medical condition (Altered mental status) Past Medical History - Past Medical History Medical history: Reports: aortic aneurysm, cirrhosis, COPD, diabetes, hypertension, thyroid disease, other Psychiatric history: Reports: anxiety, bipolar, depression, other - Social History Smoking Status: Former smoker Smokeless Tobacco Status: No Alcohol use: Reports: none Drug use: Reports: none Physical Exam General: Frail 71-year-old male who is moaning Head: autraumatic, EOMI, no conjuncitval pallor, no scleral icterus, Mouth: oral mucous membranes dry Neck: neck soft, trachea midline Chest:: Equal chest wall rise Lungs: Normal lungs sounds bilaterally, no wheezes, no respiratory distress Heart: normal heart sounds, normal rate and rhythm, Abdomen: soft, non-tender, no rigidity, no guarding, no rebdound tenderness Lower Extremities: no pedal edema, calves non-tender Integumentary: Skin warm, dry, and intact, poor capillary refill Neuro: Lethargic, but oriented to person and place, no focal neurologic abnormalities Psych: normal affect, normal mood - General Limitations: no limitations General appearance: alert Course Vital Signs Temperature 98.2 F 02/25/17 15:01 Pulse Rate 73 02/25/17 15:01 Respiratory Rate 16 02/25/17 15:01 Blood Pressure 126/86 02/25/17 15:01 O2 Sat by Pulse Oximetry 96 02/25/17 15:01 Temperature 98.3 F 02/25/17 20:19 Pulse Rate 64 02/25/17 20:19 Respiratory Rate 16 02/25/17 20:19 Blood Pressure 114/66 02/25/17 20:19 O2 Sat by Pulse Oximetry 100 02/25/17 20:19 Oxygen Delivery Oxygen Delivery Room Air Medical Decision Making - MDM Narrative Medical decision making narrative: 71-year-old male presents to the emergency department after having a sodium of 166, worsening altered mental status, creatinine of 5.97, BUN of 114 obtained at his nephrology clinic. Patient has also been on lithium and this level has been elevated as well at 2.0. Patient's physical exam reveals reduced skin turgor concerning for hypovolemia. Dr. Carrasco, his lamination spinner was consulted regarding this patient's care. He was in agreement that this patient may be experiencing lithium toxicity. He recommended to provide the patient with free water per his free water deficit. Calculated free water deficit was around 8 L of fluid. Patient was given 500 mL bolus of free water here in the emergency department. He was also given 2 L bolus of lactated Ringer's and started on maintenance lactated Ringer's fluid. Sodium improved to 163 after administration of about a liter of fluid. The lamination spinner was called back for further recommendations as patient had a magnesium level of 3.3, phosphorus level of 5.3, for question as to whether he would consider doing hemodialysis on this patient. He stated that he would not recommend it at this time and that the patient needed fluid. CT of abdomen and pelvis was obtained and this did not reveal any obstruction. Patient was given approximately 3 L of fluid here in the emergency department. Patient's urinalysis revealed mild blood and small leukocyte esterase. This urine is going to be sent for culture, but I do not suspect urinary tract infection at this time. Patient has an elevated troponin of 0.14. This patient is not having any active chest pain at this time. I believe that his elevated troponin secondary to his acute renal failure. CT scan of the head was also negative as well. Patient was admitted to the hospitalist with nephrology as a consult. Patient's and was informed of all the results and plan for admission. She agreed with the plan as well as the patient. Patient was hemodynamically stable at time of admission. Vital Signs Temperature 98.2 F 02/25/17 15:01 Pulse Rate 73 02/25/17 15:01 Respiratory Rate 16 02/25/17 15:01 Blood Pressure 126/86 02/25/17 15:01 O2 Sat by Pulse Oximetry 96 02/25/17 15:01 Temperature 98.3 F 02/25/17 20:19 Pulse Rate 64 02/25/17 20:19 Respiratory Rate 16 02/25/17 20:19 Blood Pressure 114/66 02/25/17 20:19 O2 Sat by Pulse Oximetry 100 02/25/17 20:19 Oxygen Delivery Oxygen Delivery Room Air Laboratory Results WBC 19.5 K/mcL (4.3-11.1) H D 02/25/17 16:03 RBC 4.30 M/mcL (4.19-5.50) 02/25/17 16:03 Hgb 13.5 g/dL (12.9-16.9) 02/25/17 16:03 Hct 44.1 % (37.5-50.1) 02/25/17 16:03 MCV 102.6 fL (83.0-100.0) H 02/25/17 16:03 MCH 31.4 pg (28.0-33.3) 02/25/17 16:03 MCHC 30.6 g/dL (31.6-35.5) L 02/25/17 16:03 RDW 14.6 % (11.5-14.5) H 02/25/17 16:03 Plt Count 226 K/mcL (140-400) 02/25/17 16:03 MPV 9.9 fL (9.4-12.4) 02/25/17 16:03 Immature Gran % 0.6 % (0-4) 02/25/17 16:03 Seg Neutrophils % 81.9 % 02/25/17 16:03 Lymphocytes % 9.0 % 02/25/17 16:03 Monocytes % 6.5 % 02/25/17 16:03 Eosinophils % 1.7 % 02/25/17 16:03 Basophils % 0.3 % 02/25/17 16:03 Neutrophils # 16.0 K/mcL (1.6-8.9) H 02/25/17 16:03 Lymphocytes # 1.8 K/mcL (0.6-4.6) 02/25/17 16:03 Monocytes # 1.3 K/mcL (0.0-1.3) 02/25/17 16:03 Eosinophils # 0.3 K/mcL (0.0-0.6) 02/25/17 16:03 Basophils # 0.1 K/mcL (0.0-0.2) 02/25/17 16:03 PT 14.8 Seconds (9.4-12.1) H 02/25/17 16:03 INR 1.4 02/25/17 16:03 APTT 30.0 Seconds (26.0-36.0) 02/25/17 16:03 Sodium 163 mEq/L (136-145) H* 02/25/17 17:29 Potassium 4.3 mEq/L (3.5-4.5) 02/25/17 16:03 Chloride 134 mEq/L (98-109) H 02/25/17 16:03 Carbon Dioxide 20 mEq/L (19-29) 02/25/17 16:03 BUN 114 mg/dL (8-26) H 02/25/17 16:03 Creatinine 5.97 mg/dL (0.72-1.25) H 02/25/17 16:03 Est GFR ( Amer) 11 (> 60) L 02/25/17 16:03 Est GFR (Non-Af Amer) 9 (> 60) L 02/25/17 16:03 BUN/Creatinine Ratio 19 (6-26) 02/25/17 16:03 Glucose 156 mg/dL (70-99) H 02/25/17 16:03 Calculated Osmolality 381 (280-300) H 02/25/17 16:03 Lactic Acid 1.1 mmol/L (0.5-2.2) 02/25/17 17:08 Calcium 10.9 mg/dL (8.6-10.8) H 02/25/17 16:03 Phosphorus 5.3 mg/dL (2.3-4.7) H 02/25/17 16:03 Magnesium 3.3 mg/dL (1.6-2.6) H 02/25/17 16:03 Total Bilirubin 1.1 mg/dL (0.2-1.2) 02/25/17 16:03 Direct Bilirubin 0.5 mg/dL (0.0-0.5) 02/25/17 16:03 Indirect Bilirubin 0.6 mg/dL (0.0-1.2) 02/25/17 16:03 AST 84 Units/L (5-34) H 02/25/17 16:03 ALT 24 Units/L (0-55) 02/25/17 16:03 Alkaline Phosphatase 79 Units/L (38-126) 02/25/17 16:03 Troponin I 0.14 ng/mL (0-0.03) H* 02/25/17 16:03 B-Natriuretic Peptide 260 pg/mL (0-100) H 02/25/17 16:03 Serum Total Protein 7.3 g/dL (6.0-8.3) 02/25/17 16:03 Albumin 3.5 g/dL (3.5-5.0) 02/25/17 16:03 Globulin 3.8 g/dL (2.4-3.5) H 02/25/17 16:03 Albumin/Globulin Ratio 0.9 (1.1-2.2) L 02/25/17 16:03 Lipase 24 Units/L (8-78) 02/25/17 16:03 TSH 0.501 mcIU/mL (0.350-4.840) 02/25/17 16:03 Urine Color Yellow (Yellow) 02/25/17 16:44 Urine Clarity Cloudy (Clear) A 02/25/17 16:44 Urine pH 5.0 pH Units (5.0-8.0) 02/25/17 16:44 Ur Specific [place] 1.021 (1.010-1.025) 02/25/17 16:44 Urine Protein Negative mg/dL (Neg-Trace) 02/25/17 16:44 Urine Glucose (UA) Normal mg/dL (Normal) 02/25/17 16:44 Urine Ketones Negative mg/dL (Negative) 02/25/17 16:44 Urine Blood Moderate (Negative) H 02/25/17 16:44 Urine Nitrite Negative (Negative) 02/25/17 16:44 Urine Bilirubin Small (Negative) H 02/25/17 16:44 Urine Urobilinogen Normal mg/dL (Normal) 02/25/17 16:44 Ur Leukocyte Esterase Small (Negative) H 02/25/17 16:44 Urine Microscopic RBC 3-5 per hpf (0-3) H 02/25/17 16:44 Urine Microscopic WBC 0-3 per hpf (0-3) 02/25/17 16:44 Ur Squamous Epith Cells Many per lpf (None-Few) H 02/25/17 16:44 Urine Bacteria None Seen per hpf (None-Few) 02/25/17 16:44 Ur Culture Indicated? YES (NO) A 02/25/17 16:44 Urine Creatinine 128 mg/dL 02/25/17 16:44 Urine Sodium < 20.0 mEq/L 02/25/17 16:44 [place] 2.0 mEq/L (0.6-1.2) H* 02/25/17 16:[address] 02/25/17 15:11 IMPRESSION: No acute intracranial abnormality. Atrophic changes and chronic small vessel ischemic disease, similar to the prior study. D/ / Cordell Orozco MD / Cordell Orozoc MD Interpreting Provider: Cordell Orozco MD Abdomen/Pelvis CT 02/25/17 15:19 IMPRESSION: 1. No acute findings are identified. No bowel obstruction. Mild fecal retention in the rectum. D/ / 02/25/2017 16:38:27 Dhaval Coburn MD / [facility] [place] Interpreting Provider: Dhaval Coburn MD Chest X-Ray 02/25/17 16:37 IMPRESSION: Near resolution of mild bibasilar airspace disease. D/ / Cordell Orozco MD / Cordell Orozco MD Interpreting Provider: Cordell Orozco MD - Medical Records Medical records reviewed: Yes I reviewed the patient's medical records. - Lab Data Lab results reviewed: Yes I reviewed the patient's lab results. Result diagrams: 02/25/17 16:03 02/25/17 17:29 Lab Results 02/25/17 02/25/17 02/25/17 Range/Units 16:03 16:03 16:03 WBC 19.5 H D (4.3-11.1) K/mcL RBC 4.30 (4.19-5.50) M/mcL Hgb 13.5 (12.9-16.9) g/dL Hct 44.1 (37.5-50.1) % MCV 102.6 H (83.0-100.0) fL MCH 31.4 (28.0-33.3) pg MCHC 30.6 L (31.6-35.5) g/dL RDW 14.6 H (11.5-14.5) % Plt Count 226 (140-400) K/mcL MPV 9.9 (9.4-12.4) fL Immature Gran % 0.6 (0-4) % Seg Neutrophils % 81.9 % Lymphocytes % 9.0 % Monocytes % 6.5 % Eosinophils % 1.7 % Basophils % 0.3 % Neutrophils # 16.0 H (1.6-8.9) K/mcL Lymphocytes # 1.8 (0.6-4.6) K/mcL Monocytes # 1.3 (0.0-1.3) K/mcL Eosinophils # 0.3 (0.0-0.6) K/mcL Basophils # 0.1 (0.0-0.2) K/mcL PT (9.4-12.1) Seconds INR APTT (26.0-36.0) Seconds Sodium (136-145) mEq/L Potassium (3.5-4.5) mEq/L Chloride (98-109) mEq/L Carbon Dioxide (19-29) mEq/L BUN (8-26) mg/dL Creatinine (0.72-1.25) mg/dL Est GFR ( Amer) (> 60) Est GFR (Non-Af Amer) (> 60) BUN/Creatinine Ratio (6-26) Glucose (70-99) mg/dL Calculated Osmolality (280-300) Lactic Acid (0.5-2.2) mmol/L Calcium (8.6-10.8) mg/dL Phosphorus (2.3-4.7) mg/dL Magnesium (1.6-2.6) mg/dL Total Bilirubin (0.2-1.2) mg/dL Direct Bilirubin (0.0-0.5) mg/dL Indirect Bilirubin (0.0-1.2) mg/dL AST (5-34) Units/L ALT (0-55) Units/L Alkaline Phosphatase (38-126) Units/L Troponin I (0-0.03) ng/mL B-Natriuretic Peptide 260 H (0-100) pg/mL Serum Total Protein (6.0-8.3) g/dL Albumin (3.5-5.0) g/dL Globulin (2.4-3.5) g/dL Albumin/Globulin Ratio (1.1-2.2) Lipase 24 (8-78) Units/L TSH (0.350-4.840) mcIU/mL Urine Color (Yellow) Urine Clarity (Clear) Urine pH (5.0-8.0) pH Units Ur Specific [place] (1.010-1.025) Urine Protein (Neg-Trace) mg/dL Urine Glucose (UA) (Normal) mg/dL Urine Ketones (Negative) mg/dL Urine Blood (Negative) Urine Nitrite (Negative) Urine Bilirubin (Negative) Urine Urobilinogen (Normal) mg/dL Ur Leukocyte Esterase (Negative) Urine Microscopic RBC (0-3) per hpf Urine Microscopic WBC (0-3) per hpf Ur Squamous Epith Cells (None-Few) per lpf Urine Bacteria (None-Few) per hpf Ur Culture Indicated? (NO) Urine Creatinine mg/dL Urine Sodium mEq/L [place] (0.6-1.2) mEq/L 02/25/17 02/25/17 02/25/17 Range/Units 16:03 16:03 16:03 WBC (4.3-11.1) K/mcL RBC (4.19-5.50) M/mcL Hgb (12.9-16.9) g/dL Hct (37.5-50.1) % MCV (83.0-100.0) fL MCH (28.0-33.3) pg MCHC (31.6-35.5) g/dL RDW (11.5-14.5) % Plt Count (140-400) K/mcL MPV (9.4-12.4) fL Immature Gran % (0-4) % Seg Neutrophils % % Lymphocytes % % Monocytes % % Eosinophils % % Basophils % % Neutrophils # (1.6-8.9) K/mcL Lymphocytes # (0.6-4.6) K/mcL Monocytes # (0.0-1.3) K/mcL Eosinophils # (0.0-0.6) K/mcL Basophils # (0.0-0.2) K/mcL PT 14.8 H (9.4-12.1) Seconds INR 1.4 APTT 30.0 (26.0-36.0) Seconds Sodium 166 H* (136-145) mEq/L Potassium 4.3 (3.5-4.5) mEq/L Chloride 134 H (98-109) mEq/L Carbon Dioxide 20 (19-29) mEq/L BUN 114 H (8-26) mg/dL Creatinine 5.97 H (0.72-1.25) mg/dL Est GFR ( Amer) 11 L (> 60) Est GFR (Non-Af Amer) 9 L (> 60) BUN/Creatinine Ratio 19 (6-26) Glucose 156 H (70-99) mg/dL Calculated Osmolality 381 H (280-300) Lactic Acid 1.2 (0.5-2.2) mmol/L Calcium 10.9 H (8.6-10.8) mg/dL Phosphorus 5.3 H (2.3-4.7) mg/dL Magnesium 3.3 H (1.6-2.6) mg/dL Total Bilirubin 1.1 (0.2-1.2) mg/dL Direct Bilirubin 0.5 (0.0-0.5) mg/dL Indirect Bilirubin 0.6 (0.0-1.2) mg/dL AST 84 H (5-34) Units/L ALT 24 (0-55) Units/L Alkaline Phosphatase 79 (38-126) Units/L Troponin I (0-0.03) ng/mL B-Natriuretic Peptide (0-100) pg/mL Serum Total Protein 7.3 (6.0-8.3) g/dL Albumin 3.5 (3.5-5.0) g/dL Globulin 3.8 H (2.4-3.5) g/dL Albumin/Globulin Ratio 0.9 L (1.1-2.2) Lipase (8-78) Units/L TSH (0.350-4.840) mcIU/mL Urine Color (Yellow) Urine Clarity (Clear) Urine pH (5.0-8.0) pH Units Ur Specific [place] (1.010-1.025) Urine Protein (Neg-Trace) mg/dL Urine Glucose (UA) (Normal) mg/dL Urine Ketones (Negative) mg/dL Urine Blood (Negative) Urine Nitrite (Negative) Urine Bilirubin (Negative) Urine Urobilinogen (Normal) mg/dL Ur Leukocyte Esterase (Negative) Urine Microscopic RBC (0-3) per hpf Urine Microscopic WBC (0-3) per hpf Ur Squamous Epith Cells (None-Few) per lpf Urine Bacteria (None-Few) per hpf Ur Culture Indicated? (NO) Urine Creatinine mg/dL Urine Sodium mEq/L [place] (0.6-1.2) mEq/L 02/25/17 02/25/17 02/25/17 Range/Units 16:03 16:03 16:03 WBC (4.3-11.1) K/mcL RBC (4.19-5.50) M/mcL Hgb (12.9-16.9) g/dL Hct (37.5-50.1) % MCV (83.0-100.0) fL MCH (28.0-33.3) pg MCHC (31.6-35.5) g/dL RDW (11.5-14.5) % Plt Count (140-400) K/mcL MPV (9.4-12.4) fL Immature Gran % (0-4) % Seg Neutrophils % % Lymphocytes % % Monocytes % % Eosinophils % % Basophils % % Neutrophils # (1.6-8.9) K/mcL Lymphocytes # (0.6-4.6) K/mcL Monocytes # (0.0-1.3) K/mcL Eosinophils # (0.0-0.6) K/mcL Basophils # (0.0-0.2) K/mcL PT (9.4-12.1) Seconds INR APTT (26.0-36.0) Seconds Sodium (136-145) mEq/L Potassium (3.5-4.5) mEq/L Chloride (98-109) mEq/L Carbon Dioxide (19-29) mEq/L BUN (8-26) mg/dL Creatinine (0.72-1.25) mg/dL Est GFR ( Amer) (> 60) Est GFR (Non-Af Amer) (> 60) BUN/Creatinine Ratio (6-26) Glucose (70-99) mg/dL Calculated Osmolality (280-300) Lactic Acid (0.5-2.2) mmol/L Calcium (8.6-10.8) mg/dL Phosphorus (2.3-4.7) mg/dL Magnesium (1.6-2.6) mg/dL Total Bilirubin (0.2-1.2) mg/dL Direct Bilirubin (0.0-0.5) mg/dL Indirect Bilirubin (0.0-1.2) mg/dL AST (5-34) Units/L ALT (0-55) Units/L Alkaline Phosphatase (38-126) Units/L Troponin I 0.14 H* (0-0.03) ng/mL B-Natriuretic Peptide (0-100) pg/mL Serum Total Protein (6.0-8.3) g/dL Albumin (3.5-5.0) g/dL Globulin (2.4-3.5) g/dL Albumin/Globulin Ratio (1.1-2.2) Lipase (8-78) Units/L TSH 0.501 (0.350-4.840) mcIU/mL Urine Color (Yellow) Urine Clarity (Clear) Urine pH (5.0-8.0) pH Units Ur Specific [place] (1.010-1.025) Urine Protein (Neg-Trace) mg/dL Urine Glucose (UA) (Normal) mg/dL Urine Ketones (Negative) mg/dL Urine Blood (Negative) Urine Nitrite (Negative) Urine Bilirubin (Negative) Urine Urobilinogen (Normal) mg/dL Ur Leukocyte Esterase (Negative) Urine Microscopic RBC (0-3) per hpf Urine Microscopic WBC (0-3) per hpf Ur Squamous Epith Cells (None-Few) per lpf Urine Bacteria (None-Few) per hpf Ur Culture Indicated? (NO) Urine Creatinine mg/dL Urine Sodium mEq/L [place] 2.0 H* (0.6-1.2) mEq/L 02/25/17 02/25/17 02/25/17 Range/Units 16:44 16:44 17:08 WBC (4.3-11.1) K/mcL RBC (4.19-5.50) M/mcL Hgb (12.9-16.9) g/dL Hct (37.5-50.1) % MCV (83.0-100.0) fL MCH (28.0-33.3) pg MCHC (31.6-35.5) g/dL RDW (11.5-14.5) % Plt Count (140-400) K/mcL MPV (9.4-12.4) fL Immature Gran % (0-4) % Seg Neutrophils % % Lymphocytes % % Monocytes % % Eosinophils % % Basophils % % Neutrophils # (1.6-8.9) K/mcL Lymphocytes # (0.6-4.6) K/mcL Monocytes # (0.0-1.3) K/mcL Eosinophils # (0.0-0.6) K/mcL Basophils # (0.0-0.2) K/mcL PT (9.4-12.1) Seconds INR APTT (26.0-36.0) Seconds Sodium (136-145) mEq/L Potassium (3.5-4.5) mEq/L Chloride (98-109) mEq/L Carbon Dioxide (19-29) mEq/L BUN (8-26) mg/dL Creatinine (0.72-1.25) mg/dL Est GFR ( Amer) (> 60) Est GFR (Non-Af Amer) (> 60) BUN/Creatinine Ratio (6-26) Glucose (70-99) mg/dL Calculated Osmolality (280-300) Lactic Acid 1.1 (0.5-2.2) mmol/L Calcium (8.6-10.8) mg/dL Phosphorus (2.3-4.7) mg/dL Magnesium (1.6-2.6) mg/dL Total Bilirubin (0.2-1.2) mg/dL Direct Bilirubin (0.0-0.5) mg/dL Indirect Bilirubin (0.0-1.2) mg/dL AST (5-34) Units/L ALT (0-55) Units/L Alkaline Phosphatase (38-126) Units/L Troponin I (0-0.03) ng/mL B-Natriuretic Peptide (0-100) pg/mL Serum Total Protein (6.0-8.3) g/dL Albumin (3.5-5.0) g/dL Globulin (2.4-3.5) g/dL Albumin/Globulin Ratio (1.1-2.2) Lipase (8-78) Units/L TSH (0.350-4.840) mcIU/mL Urine Color Yellow (Yellow) Urine Clarity Cloudy A (Clear) Urine pH 5.0 (5.0-8.0) pH Units Ur Specific [place] 1.021 (1.010-1.025) Urine Protein Negative (Neg-Trace) mg/dL Urine Glucose (UA) Normal (Normal) mg/dL Urine Ketones Negative (Negative) mg/dL Urine Blood Moderate H (Negative) Urine Nitrite Negative (Negative) Urine Bilirubin Small H (Negative) Urine Urobilinogen Normal (Normal) mg/dL Ur Leukocyte Esterase Small H (Negative) Urine Microscopic RBC 3-5 H (0-3) per hpf Urine Microscopic WBC 0-3 (0-3) per hpf Ur Squamous Epith Cells Many H (None-Few) per lpf Urine Bacteria None Seen (None-Few) per hpf Ur Culture Indicated? YES A (NO) Urine Creatinine 128 mg/dL Urine Sodium < 20.0 mEq/L [place] (0.6-1.2) mEq/L 02/25/17 Range/Units 17:29 WBC (4.3-11.1) K/mcL RBC (4.19-5.50) M/mcL Hgb (12.9-16.9) g/dL Hct (37.5-50.1) % MCV (83.0-100.0) fL MCH (28.0-33.3) pg MCHC (31.6-35.5) g/dL RDW (11.5-14.5) % Plt Count (140-400) K/mcL MPV (9.4-12.4) fL Immature Gran % (0-4) % Seg Neutrophils % % Lymphocytes % % Monocytes % % Eosinophils % % Basophils % % Neutrophils # (1.6-8.9) K/mcL Lymphocytes # (0.6-4.6) K/mcL Monocytes # (0.0-1.3) K/mcL Eosinophils # (0.0-0.6) K/mcL Basophils # (0.0-0.2) K/mcL PT (9.4-12.1) Seconds INR APTT (26.0-36.0) Seconds Sodium 163 H* (136-145) mEq/L Potassium (3.5-4.5) mEq/L Chloride (98-109) mEq/L Carbon Dioxide (19-29) mEq/L BUN (8-26) mg/dL Creatinine (0.72-1.25) mg/dL Est GFR ( Amer) (> 60) Est GFR (Non-Af Amer) (> 60) BUN/Creatinine Ratio (6-26) Glucose (70-99) mg/dL Calculated Osmolality (280-300) Lactic Acid (0.5-2.2) mmol/L Calcium (8.6-10.8) mg/dL Phosphorus (2.3-4.7) mg/dL Magnesium (1.6-2.6) mg/dL Total Bilirubin (0.2-1.2) mg/dL Direct Bilirubin (0.0-0.5) mg/dL Indirect Bilirubin (0.0-1.2) mg/dL AST (5-34) Units/L ALT (0-55) Units/L Alkaline Phosphatase (38-126) Units/L Troponin I (0-0.03) ng/mL B-Natriuretic Peptide (0-100) pg/mL Serum Total Protein (6.0-8.3) g/dL Albumin (3.5-5.0) g/dL Globulin (2.4-3.5) g/dL Albumin/Globulin Ratio (1.1-2.2) Lipase (8-78) Units/L TSH (0.350-4.840) mcIU/mL Urine Color (Yellow) Urine Clarity (Clear) Urine pH (5.0-8.0) pH Units Ur Specific [place] (1.010-1.025) Urine Protein (Neg-Trace) mg/dL Urine Glucose (UA) (Normal) mg/dL Urine Ketones (Negative) mg/dL Urine Blood (Negative) Urine Nitrite (Negative) Urine Bilirubin (Negative) Urine Urobilinogen (Normal) mg/dL Ur Leukocyte Esterase (Negative) Urine Microscopic RBC (0-3) per hpf Urine Microscopic WBC (0-3) per hpf Ur Squamous Epith Cells (None-Few) per lpf Urine Bacteria (None-Few) per hpf Ur Culture Indicated? (NO) Urine Creatinine mg/dL Urine Sodium mEq/L [place] (0.6-1.2) mEq/L - EKG Data EKG #1 EKG attestation: Yes I reviewed and interpreted this EKG. EKG results narrative: 15:24 Ventricular rate 73 bpm, MI interval 179 ms, QRS duration 106 ms, QTC 440 ms, QTC 465 ms, normal axis. Sinus rhythm with a ventricular rate of 73 bpm. There are T-wave inversions in V1, V2, V3, V4 that are new. One millimeter of ST depression in lead V3 and V4. This is new from an EKG performed on 02/12/2017 Critical Care Time Critical Care Time: Yes Total Critical Care Time: 45 Attestation: Critical care performed: Time is exclusive of separately billable procedures. Time includes: direct patient care, patient reassessment, coordination of patient care, interpretation of data (laboratory data, radiology data, and respiratory data), review of patient's medical records, medical consultation and documentation of patient care. Procedures included in critical care time: Procedures excluded from critical care time: Attestation Statement - Attestation Attestation: I, Galindo Lorenzo DO, examined this patient [id number] and my medical decision-making was reviewed with Dr. Ramy Wei, Resident Physician. I agree with the documented findings, disposition and treatment plan as described except to the extent set forth below. Please see my progress notes for details. 71-year-old male [facility] of confusion as well as lab abnormality. Patient was seen at nephrology office today. Dr. Gotti evaluated the labs is concerned about his mental status recommended come to the emergency room. Immediate conversation was had with Dr. Gotti for his recommendations. Patient's sodium is 166. His kidney function is continuing to increase. Patient has a troponin of 0.14 this time. Currently denying any symptoms was difficult to get appropriate answer secondary to the confusion. 1 500 mL bolus of free water given as well as lactated Ringer's to be started 150 mL per hour. Patient is otherwise showing no acute signs of decompensation with stable vital signs bit CT of the head chest x-ray and CT of the abdomen ordered at this time. EKG does show inverted T waves in V1 V2 and V3 with no reciprocal changes. See detailed documentation of the physical exam, medical intervention, medical decision-making, critical care, disposition resident physician's note. My physical exam shows a frail- appearing gentleman that has poor skin turgor and dry mucous membranes presenting here clear lungs heart the 2 irregular abdomen is soft nontender nondistended. A urinalysis and the rest of the laboratory workup to be completed and the most likely admission process for definitive management. Family is with him at this time and said that the patient is continued decompensated since his last admission on 02/12/17 1700 Patient found to have significant uremia based on a BUNs of 114. His kidney function has continued to escalate with a creatinine of 6.0 here now. Patient also has elevated magnesium, calcium, phosphorus. Patient is concerning for possibly needing dialysis at this point. Secondary to his altered mentation as well as uremic-like presentation. Some of this could be secondary to the lithium but he has been on this medication for a long period of time. Repeat conversationally had with the on-call lamination spinner to discuss possible immediate dialysis treatment. Disposition will be admission. Patient is currently clinically stable but does have concern for potential decompensation secondary to significant lab abnormality as well as confusion and altered mentation. Urinalysis is still pending. Patient to be admitted at this time for definitive management and treatment.
[2017-02-25 16:18] LABS: Basophils # 0.1 K/mcL (0.0-0.2); Basophils % 0.3 %; Eosinophils # 0.3 K/mcL (0.0-0.6); Eosinophils % 1.7 %; Hematocrit 44.1 % (37.5-50.1); Hemoglobin 13.5 g/dL (12.9-16.9); Immature Granulocytes % 0.6 % (0-4); Lymphocytes # 1.8 K/mcL (0.6-4.6); Mean Corpuscular HGB Conc 30.6 g/dL (31.6-35.5); Mean Corpuscular Hemoglobin 31.4 pg (28.0-33.3); Mean Corpuscular Volume 102.6 fL (83.0-100.0); Mean Platelet Volume 9.9 fL (9.4-12.4); Monocytes # 1.3 K/mcL (0.0-1.3); Monocytes % 6.5 %; Platelet Count 226 K/mcL (140-400); Red Cell Distribution Width 14.6 % (11.5-14.5); Segmented Neutrophils % 81.9 %
[2017-02-25 16:26] LABS: INR 1.4; Prothrombin Time 14.8 Seconds (9.4-12.1)
[2017-02-25 16:40] LABS: Albumin 3.5 g/dL (3.5-5.0); Albumin/Globulin Ratio 0.9 (1.1-2.2); Bilirubin,Direct 0.5 mg/dL (0.0-0.5); Bilirubin,Indirect 0.6 mg/dL (0.0-1.2); Bilirubin,Total 1.1 mg/dL (0.2-1.2); Calcium 10.9 mg/dL (8.6-10.8); Globulin 3.8 g/dL (2.4-3.5); Magnesium 3.3 mg/dL (1.6-2.6); Phosphorous 5.3 mg/dL (2.3-4.7); Potassium 4.3 mEq/L (3.5-4.5); Total Protein 7.3 g/dL (6.0-8.3)
[2017-02-25] MEDS: Ringers Solution, Lactated 1,000 ML IVC SCH ×2 (16:58→23:24)
[2017-02-25] MEDS ORDERED: Ringers Solution, Lactated 2,000 ML IVC ONE (17:09)
[2017-02-25 17:12] LABS: Bilirubin,Urine Small (Negative); Blood,Urine Moderate (Negative); Clarity,Urine Cloudy (Clear); Color,Urine Yellow (Yellow); Glucose,Urine (UA) Normal (Normal); Ketones,Urine Negative (Negative); Leukocyte Esterase,Urine Small (Negative); Nitrite,Urine Negative (Negative); Protein,Urine Negative (Neg-Trace); Specific Gravity,Urine 1.021 (1.010-1.025); Urobilinogen,Urine Normal (Normal)
[2017-02-25 17:14] LABS: Bacteria,Urine None Seen per hpf (None-Few); Squamous Epithelial Cell,Urine Many per lpf (None-Few); WBC,Urine 0-3 per hpf (0-3)
[2017-02-25 19:02] LABS: Creatinine,Urine 128 mg/dL
[2017-02-25 19:04] LABS: Sodium, Urine < 20.0 mEq/L
[2017-02-25] MEDS ORDERED: Pantoprazole 40 MG VIAL IVP SCH (19:45)
[2017-02-25] MEDS ORDERED: Naloxone 0.4 MG/ML INJ IVP PRN (19:45)
[2017-02-25] MEDS ORDERED: *HR* HYDROcodone/Acet 5/325 mg TABLET PO PRN (19:45)
[2017-02-25] MEDS ORDERED: Ondansetron 4 MG/2 ML VIAL IVP PRN (19:45)
[2017-02-25] MEDS ORDERED: Acetaminophen 325 MG TABLET PO PRN (19:45)
[2017-02-25] MEDS ORDERED: *HR* Dextrose 50 % in Water (Syg) 50 ML SYRINGE IVP PRN (20:41)
[2017-02-25] MEDS ORDERED: D5% in Water 1,000 ML IVC PRN (20:41)
[2017-02-25] MEDS ORDERED: Dextrose Gel 15 GM PO PRN ×2 (20:41)
--- NOTE | 2017-02-25 20:41 | Internal Med History&Physical ---
<Jordan Lion - Last Filed: 02/26/17 00:49> Date of Encounter: 02/25/17 Time of Encounter: 18:00 Assessment and Plan (1) Electrolyte abnormality Current visit: Yes Status: Acute Acute electrolyte abnormality with sodium of 166, chloride of 134, calcium of 10.9, phosphorus 5.3, and magnesium of 3.3. Nephrology recommendation is to administer free water to correct electrolyte imbalance and help improve current GFR and creatinine. Nephrology consult ordered and will determine need for dialysis. Monitor f/u labs. Pt. high risk for further infection, renal failure, and morbidity based on current sx and hx. Inpatient. (2) Leukocytosis Current visit: Yes Status: Acute WBC of 19.5 most likely due to unresolved UTI. Patient does not currently meet sepsis criteria. IVPB Zosyn 3.375 gm Q12 for infection coverage. Will monitor f/ u labs and patient for signs of increasing infection, cardiac, and/or respiratory distress. Qualifiers: Leukocytosis type: unspecified Qualified Code(s): D72.829 - Elevated white blood cell count, unspecified (3) Altered mental status Current visit: Yes Status: Acute Acute AMS most likely d/t combination of current electrolyte imbalance and unresolved UTI which was previously diagnosed. Ammonia level ordered. Falls/ safety precautions. Aspiration precautions. Assistance w/feeding. IVPB Zosyn 3.375 gm Q12 (renal dosing) for infection coverage. Monitor patient closely. Qualifiers: Altered mental status type: delirium Qualified Code(s): R41.0 - Disorientation, unspecified (4) [place] intoxication Current visit: Yes Status: Acute Acute lithium intoxication with level of 2.0. Hold lithium and continue to monitor lithium levels in f/u labs. Qualifiers: Encounter type: initial encounter Injury intent: undetermined intent Qualified Code(s): T56.894A - Toxic effect of other metals, undetermined, initial encounter (5) Acute renal failure Current visit: Yes Status: Acute Acute renal failure with creatinine of 5.97 and GFR of 9. Nephrology consult ordered with recommendations from Dr. Gotti for free water to correct current electrolyte imbalances. Will use IV fluids judiciously and avoid nephrotoxins. Monitor I&O and daily weight. Qualifiers: Acute renal failure type: unspecified Qualified Code(s): N17.9 - Acute kidney failure, unspecified (6) Diabetes Current visit: Yes Status: Chronic Hx of chronic diabetes. Pt. does not use oral medication or insulin at this time. BG checks Q6. Low-dose correction insulin w/hypoglycemia protocol. A1c in a.m. labs. 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 Stable. Qualifiers: Aortic location: unspecified Presence of rupture: without rupture Qualified Code(s): I71.9 - Aortic aneurysm of unspecified site, without rupture (8) HTN (hypertension) Current visit: Yes Status: Chronic Hx of chronic HTN. Monitor pt and VS. Continue Metoprolol. Qualifiers: Hypertension type: essential hypertension Qualified Code(s): I10 - Essential (primary) hypertension (9) COPD (chronic obstructive pulmonary disease) Current visit: Yes Status: Chronic Hx of chronic COPD. Continue patient's inhalers. Add DuoNebs Q6 PRN. Supplemental O2 w/titration and SpO2 monitoring. Qualifiers: COPD type: unspecified COPD Qualified Code(s): J44.9 - Chronic obstructive pulmonary disease, unspecified (10) Hypothyroidism Current visit: Yes Status: Chronic Hx of chronic hypothyroidism. Continue patient's Synthroid. Qualifiers: Hypothyroidism type: unspecified Qualified Code(s): E03.9 - Hypothyroidism , unspecified (11) Parkinsons disease Current visit: Yes Status: Chronic Hx of chronic Parkinson's disease. Continue patient's Sinemet. (12) Depression with anxiety Current visit: Yes Status: Chronic Hx of chronic anxiety with bipolar depression. Continue patient's Seroquel, Prozac, Klonopin, and Lamictal. Monitor pt. for agitation. (13) DVT prophylaxis Current visit: Yes Status: Acute Heparin 5,000 units SQ Q12 for DVT prophylaxis. Internal Medicine - H&P: HPI Chief complaint: AMS/Abnormal Labs Admitted From: Emergency Dept Plans for Post Hospital Care: Home History of present illness: Mr. Frankel is a 71 year old male with medical hx of aortic aneurysm, psoriasis, COPD, diabetes, hypertension, and thyroid disease reports from the ED with chief complaint of altered mental status and abnormal labs for the past 3 weeks. Patient was diagnosed with a UTI 2 weeks ago and finished antibiotics a psychiatric hospital where he was a resident for rehabilitation post-discharge. Patient is unable to verbalize at admission and exam d/t AMS. Past Med Surg Social Fam HX - Past Medical History Source: old records reviewed, obtained from family Medical history: aortic aneurysm, cirrhosis, COPD, diabetes, hypertension, thyroid disease, other Psychiatric history: anxiety, bipolar, depression, other - Social History Smoking Status: Former smoker Packs per day: 1 PPD - reports he quit in 2012 Smokeless Tobacco Status: No Alcohol use: none Drug use: none Current living situation: Home, With Family Activity Level: Independent ambulation, Uses cane/walker Recent Out of Country Travel Within the Last 8 Weeks: No Exposure or Possible Exposure to Illness During Travel: No - Family History Father Race: Family Member Ethnicity: Non- Living Status: Cause of : DM complications Hx Family Endocrine Disorder: Yes (DM) Mother Race: Family Member Ethnicity: Non- Living Status: Age at : 80 Cause of : CAD Hx Family Cardiac Disorders: Yes (CAD) Brother Race: Family Member Ethnicity: Non- Living Status: Age at : 79 Cause of : MRSA/Sepsis Hx Family Endocrine Disorder: Yes (DM) Sister Race: Family Member Ethnicity: Non- Living Status: Still Living Hx Family Endocrine Disorder: Yes (DM) Internal Medicine - H&P: Meds Adalimumab [Humira Pen Psoriasis-Uveitis] 40 mg SQ Q2W 11/18/16 [History] Albuterol Sulfate [Proair Hfa] 2 puff IH Q4H PRN 11/18/16 [History] Amantadine [Symmetrel] 100 mg PO QAM 11/18/16 [History] Bimatoprost [Lumigan] 1 drop OP HS 11/18/16 [History] Carbidopa/Levodopa ER 50/200 [Sinemet ER 50-200 Tab] 1 tab PO BID 11/18/16 [ History] FLUoxetine HCl [Prozac] 80 mg PO QAM 11/18/16 [History] Fenofibrate Nanocrystallized [Tricor] 145 mg PO QAM 11/18/16 [History] Levothyroxine [Synthroid] 75 mcg PO QAM 11/18/16 [History] [place] Carbonate 300 mg PO BID 11/18/16 [History] Mv-Mn/FA/Vit K/Lycop/Lut/Coq10 [Daily Multivitamin Capsule] 1 tab PO QAM [History] Quetiapine Fumarate [Seroquel] 50 mg PO HS 11/18/16 [History] lamoTRIgine [Lamictal] 100 mg PO QAM 11/18/16 [History] Bisacodyl [Dulcolax] 5 mg PO BID PRN 02/12/17 [History] Docusate [Colace] 100 mg PO BID 02/12/17 [History] Metoprolol XL (24 HR) Succ [Toprol Xl] 75 mg PO QAM 02/12/17 [History] Polyethylene Glycol 3350 [MiraLAX] 17 gm PO DAILY PRN 02/12/17 [History] clonazePAM [Klonopin] 1 mg PO BID PRN 02/25/17 [History] clonazePAM [Klonopin] 1 mg PO HS 02/25/17 [History] 3 Allergy/AdvReac Type Severity Reaction Status Date / Time aspirin Allergy Rash Verified 11/06/16 10:40 ROS unobtainable: due to mental status All Systems PM: A 10-system review of systems was performed and is negative for pertinent findings except as documented above in the HPI. - Constitutional Vitals: Temp Pulse Resp BP Pulse Ox 98.3 F 64 16 114/66 100 02/25/17 20:19 02/25/17 20:19 02/25/17 20:19 02/25/17 20:19 02/25/17 20:19 General appearance: Present: A&O X 0 - Head Head exam: Present: atraumatic, normocephalic - Eye Eye exam: Present: PERRL, conjuntiva pink, sclera anicteric Pupils: Present: PERRL - ENT ENT exam: Present: normal exam - Neck Neck exam general surgery: Present: normal inspection - Respiratory Respiratory exam: Present: CTAB. Absent: accessory muscle use, rales, rhonchi, wheezes - Cardiovascular Cardiovascular exam: Present: RRR, +S1, +S2. Absent: diastolic murmur, gallop, rubs, systolic murmur - GI/Abdominal GI/Abdominal exam: Present: normal bowel sounds, soft, no peritoneal signs. Absent: distended, tenderness - Rectal Rectal exam: Present: deferred - Additional comments: exam deferred. - Extremities Exam Extremities exam: Present: warm, radial pulses palpable and symmetrical. Absent : calf tenderness, cyanotic, pedal edema - Back Exam Back exam: Present: normal inspection - Neurological Exam Neurological exam: Present: altered - Psychiatric Psychiatric exam: Present: anxious - Skin Skin exam: Present: dry, intact Internal Med - H&P Results - Labs CBC & Chem 7: 02/25/17 16:03 02/25/17 21:50 - EKG Data EKG shows normal: sinus rhythm - EKG Data Prior EKG available for review: yes Interpretation IM: suggestive of ischemia EKG comments: 02/25/17 21:04 EKG dated 02/12/17 shows sinus bradycardia with left ventricular hypertrophy and ST-T change. EKG dated 02/25/[address] deviation and moderate T-wave abnormality. Consider anterior ischemia. - Diagnostic Studies Chest x-ray Additional comments: Impressions Chest X-Ray 02/25/17 16:37 IMPRESSION: Near resolution of mild bibasilar airspace disease. D/ / Cordell Orozco MD / Cordell Orozco MD Interpreting Provider: Cordell Orozco MD CT scan - head Additional comments: Impressions Head CT 02/25/17 15:11 IMPRESSION: No acute intracranial abnormality. Atrophic changes and chronic small vessel ischemic disease, similar to the prior study. D/ / Cordell Orozco MD / Cordell Orozco MD Interpreting Provider: Cordell Orozco MD CT scan - abdomen Additional comments: Impressions Abdomen/Pelvis CT 02/25/17 15:19 IMPRESSION: 1. No acute findings are identified. No bowel obstruction. Mild fecal retention in the rectum. D/ / 02/25/2017 16:38:27 Dhaval Coburn MD / mabel Interpreting Provider: Dhaval Coburn MD <Dov Garcia - Last Filed: 02/26/17 04:08> Date of Encounter: 02/25/17 Internal Medicine - H&P: HPI History of present illness: Mr. Frankel is a 71 year old male All Systems PM: A 10-system review of systems was performed and is negative for pertinent findings except as documented above in the HPI. - Constitutional Vitals: Temp Pulse Resp BP Pulse Ox 97.9 F 58 16 102/62 99 02/26/17 03:14 02/26/17 03:14 02/26/17 03:14 02/26/17 03:14 02/26/17 03:14 Internal Med - H&P Results - Labs CBC & Chem 7: 02/26/17 02:52 02/26/17 02:52 Labs: Short CBC 02/26/17 Range/Units 02:52 WBC 12.5 H (4.3-11.1) K/mcL Hgb 11.3 L D (12.9-16.9) g/dL Hct 37.8 (37.5-50.1) % Plt Count 150 (140-400) K/mcL Neutrophils # 9.2 H (1.6-8.9) K/mcL BMP 02/25/17 02/26/17 21:50 02:52 Sodium 164 H* 162 H* Potassium 3.6 Chloride 134 H Carbon Dioxide 19 BUN 94 H Creatinine 4.71 H Glucose 120 H Calcium 9.6 Cardiac Enzymes 02/25/17 02/26/17 Range/Units 21:50 02:52 Troponin I 0.11 H* 0.10 H* (0-0.03) ng/mL Liver Function 02/26/17 Range/Units 02:52 Total Bilirubin 1.0 (0.2-1.2) mg/dL AST 59 H (5-34) Units/L ALT 21 (0-55) Units/L Alkaline Phosphatase 60 (38-126) Units/L Albumin 2.7 L D (3.5-5.0) g/dL - Attending Attestation Patient was seen on February 25 and addendum was done later. I have personally seen and examined the patient independently and discussed the care plan with the nurse practitioner and agree with the findings. Patient has come in with altered mental status from long term where he was treated for UTI with unknown antibiotic. Currently he is in renal failure and lithium level is 2.0, sodium 166, creatinine 5.9 with elevated phosphate. Renal ultrasound has been ordered and nephrology was consulted. Per nephrology D5 water as this started and it is very nicely bringing the sodium down in the range of 1 mEq per hour range while renal function is also improving on repeat test. His troponin are elevated and I will order an echocardiogram but I suspect this is secondary to poor GFR. An MRI of the brain will also be ordered. As patient is seen he is obtunded quite restless and moving limbs.
[2017-02-25] MEDS ORDERED: Ipratropium/Albuterol Neb 3 ML IH PRN (21:18)
[2017-02-25] MEDS ORDERED: Piperacillin/Tazobactam 3.375 GM in D5% in Water (Mini-Bag+) 100 ML IVPB SCH (22:00)
[2017-02-25] MEDS: Insulin LISPRO 300 UNITS/3 ML VIAL SQ SCH (22:31)
[2017-02-25] MEDS: Carbidopa/Levodopa ER 50/200 TABLET PO SCH (22:37)
[2017-02-25] MEDS: Latanoprost 2.5 ML BOTTLE BOTH EYES SCH (23:12)
[2017-02-25] MEDS: clonazePAM 1 MG TABLET PO PRN (23:20)
[2017-02-26 03:11] LABS: Basophils % 0.2 %; Eosinophils # 0.5 K/mcL (0.0-0.6); Eosinophils % 4.2 %; Hematocrit 37.8 % (37.5-50.1); Immature Granulocytes % 0.4 % (0-4); Lymphocytes # 1.8 K/mcL (0.6-4.6); Lymphocytes % 14.7 %; Mean Corpuscular HGB Conc 29.9 g/dL (31.6-35.5); Mean Corpuscular Hemoglobin 31.4 pg (28.0-33.3); Monocytes # 0.9 K/mcL (0.0-1.3); Monocytes % 7.1 %; Neutrophils # 9.2 K/mcL (1.6-8.9); Platelet Count 150 K/mcL (140-400); Red Cell Distribution Width 14.5 % (11.5-14.5); Segmented Neutrophils % 73.4 %
[2017-02-26 03:12] LABS: Hemoglobin 11.3 g/dL (12.9-16.9)
[2017-02-26 03:25] LABS: Hemoglobin A1C 4.6 %
[2017-02-26 03:27] LABS: Calcium 9.6 mg/dL (8.6-10.8); Chol/HDL Ratio 4.2 (0-4.9); Globulin 2.8 g/dL (2.4-3.5); Magnesium 2.7 mg/dL (1.6-2.6); Phosphorous 3.3 mg/dL (2.3-4.7); Potassium 3.6 mEq/L (3.5-4.5)
[2017-02-26 03:39] LABS: Albumin 2.7 g/dL (3.5-5.0); Total Protein 5.5 g/dL (6.0-8.3)
[2017-02-26] MEDS: *HR* Heparin 5,000 UNIT/ML VIAL SQ SCH ×2 (06:19→17:28)
[2017-02-26 07:01] LABS: INR 1.4; Prothrombin Time 15.2 Seconds (9.4-12.1)
[2017-02-26 07:04] LABS: Activated Partial Thrombo Time 28.2 Seconds (26.0-36.0)
--- NOTE | 2017-02-26 07:47 | Nephrology Consult Note ---
Date of Encounter: 02/26/17 Time of Encounter: 07:44 Assessment and Plan (1) Acute renal failure Current Visit: Yes Status: Acute The patient is a clinical picture of acute kidney injury superimposed on what appears to be stage III chronic kidney disease with a baseline creatinine of 1.59 in November. This is associated with hypernatremia in a clinical setting of lithium nephrotoxicity. The patient's current free water deficit is about 5.1 L. He should receive free water to decrease his serum sodium by approximately 10 mEq per liter per 24 hour period. Repeat lithium level needs to be checked. If his lithium level is not improving and if his mental status continues to not improve he may require dialysis for additional treatment of his lithium toxicity. I will order stat lithium level. In the meantime we should continue with the D5W at approximately 100-125 mL per hour. We should monitor his serum sodium levels every 6 hours. Qualifiers: Acute renal failure type: unspecified Qualified Code(s): N17.9 - Acute kidney failure, unspecified (2) Hypernatremia Current Visit: Yes Status: Acute (3) [place] intoxication Current Visit: Yes Status: Acute Qualifiers: Encounter type: initial encounter Injury intent: accidental or unintentional Qualified Code(s): T56.891A - Toxic effect of other metals, accidental (unintentional), initial encounter History of Present Illness - History of Present Illness This is a 71-year-old male who initially was seen in the office yesterday for worsening renal function. Patient had recently been hospitalized at [facility] in January for what was diagnosed as mental status changes in the setting of a urinary tract infection. He subsequently was discharged continued on antibiotics. He resides in the [facility]. He was sent outpatient nephrology yesterday because of worsening renal function. Serum creatinine had gone from in the mid to high ones up to 3. Because of worsening renal function the patient was sent to the emergency room. In the emergency room the patient was noted to have mental status changes. He also was noted to be hypernatremic. He is also noted to be on lithium. He subsequently was admitted to the hospital for further evaluation and management. His serum creatinine in the emergency room was over 5. He was placed on D5W overnight. His creatinine is improved down to 4.71. Sodium is gone from 166 down to 162. Urine output is not recorded. Initial lithium level was 2.0. Recheck level was not available. Patient was also noted to be hypercalcemic, hypermagnesemic, and to have an elevated phosphorus. These levels are subsequently improved as of this morning. Blood pressure stable 103/63. Patient responds to his name. However he does not answer any questions. His speech is garbled. He does however follow simple commands. It is unclear why he is on the lithium. Past Med Surg Social Fam HX - Past Medical History Medical history: aortic aneurysm, cirrhosis, COPD, diabetes, hypertension, thyroid disease, other Psychiatric history: anxiety, bipolar, depression, other - Social History Smoking Status: Former smoker Packs per day: 1 PPD - reports he quit in 2012 Smokeless Tobacco Status: No Alcohol use: none Drug use: none - Family History Father Race: Family Member Ethnicity: Non- Living Status: Cause of : DM complications Hx Family Cardiac Disorders: Yes (CARDIAC DISEASE) Hx Family Respiratory Disorders: Yes (COPD) Hx Family Endocrine Disorder: Yes (DM) Mother Race: Family Member Ethnicity: Non- Living Status: Age at : 80 Cause of : CAD Hx Family Cardiac Disorders: Yes (CAD) Hx Family Endocrine Disorder: Yes (Latent DM) Brother Race: Family Member Ethnicity: Non- Living Status: Age at : 79 Cause of : MRSA/Sepsis Hx Family Endocrine Disorder: Yes (DM) Sister Race: Family Member Ethnicity: Non- Living Status: Still Living Hx Family Endocrine Disorder: Yes (DM) Medications and Allergies Adalimumab [Humira Pen Psoriasis-Uveitis] 40 mg SQ Q2W 11/18/16 [History] Albuterol Sulfate [Proair Hfa] 2 puff IH Q4H PRN 11/18/16 [History] Amantadine [Symmetrel] 100 mg PO QAM 11/18/16 [History] Bimatoprost [Lumigan] 1 drop OP HS 11/18/16 [History] Carbidopa/Levodopa ER 50/200 [Sinemet ER 50-200 Tab] 1 tab PO BID 11/18/16 [ History] FLUoxetine HCl [Prozac] 80 mg PO QAM 11/18/16 [History] Fenofibrate Nanocrystallized [Tricor] 145 mg PO QAM 11/18/16 [History] Levothyroxine [Synthroid] 75 mcg PO QAM 11/18/16 [History] [place] Carbonate 300 mg PO BID 11/18/16 [History] Mv-Mn/FA/Vit K/Lycop/Lut/Coq10 [Daily Multivitamin Capsule] 1 tab PO QAM [History] Quetiapine Fumarate [Seroquel] 50 mg PO HS 11/18/16 [History] lamoTRIgine [Lamictal] 100 mg PO QAM 11/18/16 [History] Bisacodyl [Dulcolax] 5 mg PO BID PRN 02/12/17 [History] Docusate [Colace] 100 mg PO BID 02/12/17 [History] Metoprolol XL (24 HR) Succ [Toprol Xl] 75 mg PO QAM 02/12/17 [History] Polyethylene Glycol 3350 [MiraLAX] 17 gm PO DAILY PRN 02/12/17 [History] clonazePAM [Klonopin] 1 mg PO BID PRN 02/25/17 [History] clonazePAM [Klonopin] 1 mg PO HS 02/25/17 [History] 3 Allergy/AdvReac Type Severity Reaction Status Date / Time aspirin Allergy Rash Verified 11/06/16 10:40 Review of Systems ROS unobtainable: due to mental status Exam - Vital Signs Vital signs: Initial Vital Signs Temp Pulse Resp BP Pulse Ox 98.2 F 73 16 126/86 96 02/25/17 15:01 02/25/17 15:01 02/25/17 15:01 02/25/17 15:01 02/25/17 15:01 Vital Signs - Last 8 Hours Temp Pulse Resp BP Pulse Ox 02/26/17 06:38 97.8 F 54 16 103/63 93 02/26/17 03:14 97.9 F 58 16 102/62 99 02/26/17 00:23 98.1 F 65 17 103/63 95 Intake and Output 02/25/17 02/25/17 02/26/17 15:59 23:59 07:59 Intake Total 0 / 1000 100 / 100 Balance 0 / 1000 100 / 100 Intake: IV Fluids 100 / 100 Zosyn 3.375 GM In Dextrose 5% ( 100 / 100 Minibag+) 100 ML 100 ML @ 25 mls/hr IVPB Q12H [facility] Rx#: [id number] Oral 0 / 0 Other: Meal 2 applesauce Percent of Meal Consumed 100% Stool Size Smear Stool Consistency loose Stool Color Brown # Urine Diapers 1 1 # Bowel Movement Diapers 1 Weight 65 kg Blood Glucose* 55 98 - General Appearance Exam: Patient is lying in bed. He is in no acute distress. He does seem to respond to his name. He does follow hand grasp on simple commands. Otherwise his speech is garbled. Heart regular rate and rhythm. Lungs clear to auscultation anteriorly. Abdomen shows normal bowel sounds Meryl is an megaly or tenderness. Lower extension relational peripheral edema. There are no abnormal skin rashes. Results - Lab Results 02/26/17 02:52 02/26/17 02:52 Most recent lab results Calcium 9.6 mg/dL (8.6-10.8) 02/26/17 02:52 Phosphorus 3.3 mg/dL (2.3-4.7) 02/26/17 02:52 Magnesium 2.7 mg/dL (1.6-2.6) H 02/26/17 02:52 Urine Creatinine 128 mg/dL 02/25/17 16:44 Urine Sodium < 20.0 mEq/L 02/25/17 16:44 Consult Discharge Plan - Plan Referrals: Pacheco Bailey Jr, MD [Primary Care Provider] -
[2017-02-26] MEDS: Insulin LISPRO 300 UNITS/3 ML VIAL SQ SCH ×4 (08:09→23:17)
--- NOTE | 2017-02-26 08:10 | Internal Med Progress Note ---
Date of Encounter: 02/26/17 Time of Encounter: 08:36 - Assessment and plan (1) [place] intoxication Current Visit: Yes Status: Acute Assessment and plan: Admitting lithium level 2 Repeat is pending May need HD if lithium continues to trend up per renal Renal is following Qualifiers: Encounter type: initial encounter Injury intent: accidental or unintentional Qualified Code(s): T56.891A - Toxic effect of other metals, accidental (unintentional), initial encounter (2) Acute hypernatremia Current Visit: Yes Status: Acute Assessment and plan: Per RN, patient can drink Start 250cc q4h of free water Increase D5W to 125cc/hr Monitor na q4h Condition is serious (3) Metabolic encephalopathy Current Visit: Yes Status: Acute Assessment and plan: Multifactorial: MELVI on CKD, [place] toxicity Patient is alert this morning, oriented to person only, garbled speech, follows commands Compared to admission seems to be improving Continue to monitor Aspiration and Fall precautions (4) Acute on chronic renal failure Current Visit: Yes Status: Acute Assessment and plan: baseline Cr 1.5 in 11/2016 Now admitted with Cr >5 Continue hydration with LR, D5. K, Ca, acceptable, elevated Na, being monitored Qualifiers: Acute renal failure type: unspecified Chronic kidney disease stage: stage 3 (moderate) Qualified Code(s): N17.9 - Acute kidney failure, unspecified; N18.3 - Chronic kidney disease, stage 3 (moderate); N18.3 - Chronic kidney disease, stage 3 (moderate) (5) Leukocytosis Current Visit: Yes Status: Acute Assessment and plan: Possibly secondary to dehydration Also being treated for UTI Continue to monitor Qualifiers: Leukocytosis type: unspecified Qualified Code(s): D72.829 - Elevated white blood cell count, unspecified (6) COPD (chronic obstructive pulmonary disease) Current Visit: Yes Status: Chronic Assessment and plan: NO evidence of exacerbation at this time Qualifiers: COPD type: unspecified COPD Qualified Code(s): J44.9 - Chronic obstructive pulmonary disease, unspecified (7) Parkinsons disease Current Visit: Yes Status: Chronic Assessment and plan: Resume home meds (8) Type 2 diabetes mellitus Current Visit: Yes Status: Chronic Assessment and plan: Overcontrolled A1C 4.6 MOnitor FS ACHS High risk for hypoglycemia due to MELVI, Poor oral intake NO insulin except FS >180 Qualifiers: Diabetes mellitus complication status: without complication Diabetes mellitus halfway insulin use: without halfway use Qualified Code(s): E11.9 - Type 2 diabetes mellitus without complications (9) Hypothyroidism Current Visit: Yes Status: Chronic Assessment and plan: Resume home synthroid Qualifiers: Hypothyroidism type: unspecified Qualified Code(s): E03.9 - Hypothyroidism , unspecified (10) Urinary tract infection Current Visit: Yes Status: Acute Assessment and plan: Suspected Follow urine culture Continue Zosyn-Day 1 Qualifiers: Urinary tract infection type: acute cystitis Hematuria presence: with hematuria Qualified Code(s): N30.01 - Acute cystitis with hematuria (11) Chronic kidney disease, stage III (moderate) Current Visit: Yes Status: Chronic (12) HTN (hypertension) Current Visit: Yes Status: Chronic Qualifiers: Hypertension type: essential hypertension Qualified Code(s): I10 - Essential (primary) hypertension (13) Bipolar disorder Current Visit: Yes Status: Chronic Assessment and plan: Hold lithium, continue other meds Qualifiers: Active/Remission status: remission status unspecified Qualified Code(s): F31.9 - Bipolar disorder, unspecified (14) Aortic stenosis Current Visit: Yes Status: Chronic Assessment and plan: PEr ECHO , severe . EF is WNL Cardio consult non-emergently Qualifiers: Cardiac valve disease etiology: nonrheumatic Qualified Code(s): I35.0 - Nonrheumatic aortic (valve) stenosis - Subjective Interval history: Seen and evaluated at bedside Patient admitted for acute hypernatremia, MELVI on CKD, Metabolic encephalopathy, suspected UTI Patient had garbled speech and oriented to person only, baseline is unknown Admitting lithium level 2.0, patient remains altered Renal is following - Constitutional Vitals: Temp Pulse Resp BP Pulse Ox 97.8 F 54 16 103/63 93 02/26/17 06:38 02/26/17 06:38 02/26/17 06:38 02/26/17 06:38 02/26/17 06:38 General appearance: Present: A&O X 1, disheveled, no acute distress - Head Head exam: Present: atraumatic, normocephalic - Eye Eye exam: Present: PERRL, conjuntiva pink, sclera anicteric Pupils: Present: PERRL - Neck Neck exam general surgery: Present: supple, trachea midline. Absent: lymphadenopathy - Respiratory Respiratory exam: Present: CTAB. Absent: accessory muscle use, rales, rhonchi, wheezes - Cardiovascular Cardiovascular exam: Present: RRR, +S1, +S2. Absent: diastolic murmur, gallop, rubs, systolic murmur - GI/Abdominal GI/Abdominal exam: Present: normal bowel sounds, soft, no peritoneal signs. Absent: distended, tenderness - Extremities Exam Extremities exam: Present: warm, radial pulses palpable and symmetrical. Absent : calf tenderness, cyanotic, pedal edema - Neurological Exam Neurological exam: Present: alert, CN II-XII intact, no focal deficits. Absent : oriented X3, pronater drift, facial droop, speech deficit Additional comments: Follows commands,, moves all extremities - Skin Skin exam: Present: dry, intact Internal Medicine: Result - Labs CBC & Chem 7: 02/26/17 02:52 02/26/17 12:19 Labs: Short CBC 02/26/17 Range/Units 02:52 WBC 12.5 H (4.3-11.1) K/mcL Hgb 11.3 L D (12.9-16.9) g/dL Hct 37.8 (37.5-50.1) % Plt Count 150 (140-400) K/mcL Neutrophils # 9.2 H (1.6-8.9) K/mcL BMP 02/25/17 02/26/17 21:50 02:52 Sodium 164 H* 162 H* Potassium 3.6 Chloride 134 H Carbon Dioxide 19 BUN 94 H Creatinine 4.71 H Glucose 120 H Calcium 9.6 Cardiac Enzymes 02/25/17 02/26/17 Range/Units 21:50 02:52 Troponin I 0.11 H* 0.10 H* (0-0.03) ng/mL Liver Function 02/26/17 Range/Units 02:52 Total Bilirubin 1.0 (0.2-1.2) mg/dL AST 59 H (5-34) Units/L ALT 21 (0-55) Units/L Alkaline Phosphatase 60 (38-126) Units/L Albumin 2.7 L D (3.5-5.0) g/dL - ABG Interpretation ABG results: PT/INR, D-dimer PT 15.2 Seconds (9.4-12.1) H 02/26/17 06:50 Consult Discharge Plan - Plan Referrals: Pacheco Bailey Jr, MD [Primary Care Provider] -
[2017-02-26] MEDS: Fenofibrate 54 MG TABLET PO SCH (08:29)
[2017-02-26] MEDS: FLUoxetine 20 MG CAPSULE PO SCH (08:29)
[2017-02-26] MEDS: Metoprolol XL (24 HR) Succ 25 MG TAB.ER.24H PO SCH (08:29)
[2017-02-26] MEDS: Carbidopa/Levodopa ER 50/200 TABLET PO SCH ×2 (08:30→23:24)
[2017-02-26] MEDS: D5% in Water 1,000 ML IVC SCH ×3 (08:30→23:33)
[2017-02-26] MEDS: lamoTRIgine 100 MG TABLET PO SCH (08:30)
[2017-02-26] MEDS: Ringers Solution, Lactated 1,000 ML IVC SCH ×3 (08:33→23:33)
[2017-02-26] MEDS ORDERED: Perflutren Lipid Microsphere 1.3 ML in 0.9 % Sodium Chloride 8.7 ML IVP ONE (11:08)
[2017-02-26] MEDS ORDERED: Perflutren Lipid Microsphere 2 ML VIAL ONE (11:13)
[2017-02-26] MEDS: Piperacillin/Tazobactam 3.375 GM in D5% in Water (Mini-Bag+) 100 ML IVPB SCH ×2 (11:46→23:32)
[2017-02-26 14:39] LABS: Calcium 9.2 mg/dL (8.6-10.8); Potassium 3.5 mEq/L (3.5-4.5)
[2017-02-26] MEDS ORDERED: 0.9 % Sodium Chloride 1,000 ML IVC ONE (15:13)
[2017-02-26 17:07] LABS: Albumin 2.4 g/dL (3.5-5.0); Phosphorous 2.7 mg/dL (2.3-4.7)
--- NOTE | 2017-02-26 17:20 | Electrocardiograph Report ---
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
--- NOTE | 2017-02-26 17:32 | Electrocardiograph Report ---
[place] [address] Test Date: 2017-02-25 Pat Name: Niranjan Frankel Department: 104 Room: 2A13 Gender: M Classified Ad Taker: BEST : 1945 Requested By: Ramy Wei Order Number: [id number] Reading MD: Marissa Melendez Measurements Intervals [place] Rate: 73 P: 61 MI: 179 QRS: 27 QRSD: 106 T: 32 QT: 440 QTc: 465 Interpretive Statements SINUS RHYTHM LEFT VENTRICULAR HYPERTROPHY AND ST CHANGE Electronically Signed On 02-26-2017 17:30:19 EDT by Marissa Melendez
[2017-02-26 21:08] LABS: Calcium 8.8 mg/dL (8.6-10.8); Potassium 3.5 mEq/L (3.5-4.5)
[2017-02-26 21:09] LABS: Albumin 2.3 g/dL (3.5-5.0); Calcium 8.9 mg/dL (8.6-10.8); Phosphorous 2.6 mg/dL (2.3-4.7)
[2017-02-26] MEDS: Latanoprost 2.5 ML BOTTLE BOTH EYES SCH (23:17)
[2017-02-26] MEDS: clonazePAM 1 MG TABLET PO SCH (23:17)
[2017-02-27 05:14] LABS: Basophils % 0.1 %; Eosinophils # 0.4 K/mcL (0.0-0.6); Eosinophils % 4.1 %; Hematocrit 34.3 % (37.5-50.1); Hemoglobin 10.6 g/dL (12.9-16.9); Immature Granulocytes % 0.3 % (0-4); Lymphocytes # 1.7 K/mcL (0.6-4.6); Lymphocytes % 16.9 %; Mean Corpuscular HGB Conc 30.9 g/dL (31.6-35.5); Mean Corpuscular Hemoglobin 30.9 pg (28.0-33.3); Mean Platelet Volume 10.1 fL (9.4-12.4); Monocytes # 0.6 K/mcL (0.0-1.3); Monocytes % 6.4 %; Platelet Count 146 K/mcL (140-400); Red Blood Count 3.43 M/mcL (4.19-5.50); Red Cell Distribution Width 14.5 % (11.5-14.5); Segmented Neutrophils % 72.2 %
[2017-02-27 05:27] LABS: Albumin 2.1 g/dL (3.5-5.0); Calcium 8.7 mg/dL (8.6-10.8); Magnesium 1.8 mg/dL (1.6-2.6); Phosphorous 2.5 mg/dL (2.3-4.7); Potassium 3.3 mEq/L (3.5-4.5)
[2017-02-27] MEDS: *HR* Heparin 5,000 UNIT/ML VIAL SQ SCH ×2 (06:05→16:55)
--- NOTE | 2017-02-27 07:40 | Internal Med Progress Note ---
Date of Encounter: 02/27/17 Time of Encounter: 08:00 - Assessment and plan (1) [place] intoxication Current Visit: Yes Status: Acute Assessment and plan: Admitting lithium level 2 Improved to 1.0 Continue to hold lithium, he was on lithium for possible bipolar disorder Qualifiers: Encounter type: initial encounter Injury intent: accidental or unintentional Qualified Code(s): T56.891A - Toxic effect of other metals, accidental (unintentional), initial encounter (2) Acute hypernatremia Current Visit: Yes Status: Acute Assessment and plan: Na has improved to 152, continue D5W, monitor Na Free water as tolerated Speech eval for poor oral intake and possible dysphagia (3) Metabolic encephalopathy Current Visit: Yes Status: Acute Assessment and plan: Multifactorial: MELVI on CKD, [place] toxicity, hypernatremia Patient is alert this morning, oriented to place and person, improving slowly, follows commands Compared to admission seems to be improving Continue to monitor Aspiration and Fall precautions (4) Acute on chronic renal failure Current Visit: Yes Status: Acute Assessment and plan: baseline Cr 1.5 in 11/2016 Admitted with Cr >5 Continue hydration with LR, D5. K, Ca, acceptable, elevated Na, being monitored Improving renal function Non-oliguric, patient may be polyuric Will match intake and output Obtain renal USS Qualifiers: Acute renal failure type: unspecified Chronic kidney disease stage: stage 3 (moderate) Qualified Code(s): N17.9 - Acute kidney failure, unspecified; N18.3 - Chronic kidney disease, stage 3 (moderate); N18.3 - Chronic kidney disease, stage 3 (moderate) (5) Leukocytosis Current Visit: Yes Status: Resolved Assessment and plan: Possibly secondary to dehydration and UTI WBC normalized this a.m labs Qualifiers: Leukocytosis type: unspecified Qualified Code(s): D72.829 - Elevated white blood cell count, unspecified (6) COPD (chronic obstructive pulmonary disease) Current Visit: Yes Status: Chronic Assessment and plan: NO evidence of exacerbation at this time Qualifiers: COPD type: unspecified COPD Qualified Code(s): J44.9 - Chronic obstructive pulmonary disease, unspecified (7) Parkinsons disease Current Visit: Yes Status: Chronic Assessment and plan: Continue home meds (8) Type 2 diabetes mellitus Current Visit: Yes Status: Chronic Assessment and plan: Overcontrolled A1C 4.6 MOnitor FS ACHS High risk for hypoglycemia due to MELVI, Poor oral intake NO insulin except FS >180 Qualifiers: Diabetes mellitus complication status: without complication Diabetes mellitus longterm insulin use: without terminal operations manager use Qualified Code(s): E11.9 - Type 2 diabetes mellitus without complications (9) Hypothyroidism Current Visit: Yes Status: Chronic Assessment and plan: Resume home synthroid Qualifiers: Hypothyroidism type: unspecified Qualified Code(s): E03.9 - Hypothyroidism , unspecified (10) Urinary tract infection Current Visit: Yes Status: Acute Assessment and plan: Culture growing enterococcus Continue Zosyn-Day 2 Qualifiers: Urinary tract infection type: acute cystitis Hematuria presence: with hematuria Qualified Code(s): N30.01 - Acute cystitis with hematuria (11) Chronic kidney disease, stage III (moderate) Current Visit: Yes Status: Chronic Assessment and plan: Management as in melvi (12) HTN (hypertension) Current Visit: Yes Status: Chronic Assessment and plan: Controlled without medications at this time Qualifiers: Hypertension type: essential hypertension Qualified Code(s): I10 - Essential (primary) hypertension (13) Bipolar disorder Current Visit: Yes Status: Chronic Assessment and plan: Hold lithium, continue other meds Qualifiers: Active/Remission status: remission status unspecified Qualified Code(s): F31.9 - Bipolar disorder, unspecified (14) Aortic stenosis Current Visit: Yes Status: Chronic Assessment and plan: PEr ECHO , severe . EF is WNL Cardio consult non-emergently Qualifiers: Cardiac valve disease etiology: nonrheumatic Qualified Code(s): I35.0 - Nonrheumatic aortic (valve) stenosis (15) Hypokalemia Current Visit: Yes Status: Acute Assessment and plan: rePlaced, continue to monitor. (16) Malnutrition Current Visit: Yes Status: Acute Assessment and plan: Speech and swallow eval, nutrition eval Qualifiers: Malnutrition type: protein-calorie malnutrition Protein-calorie malnutrition severity: unspecified severity Qualified Code(s): E46 - Unspecified protein-calorie malnutrition - Subjective Interval history: Seen and evaluated at bedside Patient admitted for acute hypernatremia, MELVI on CKD, Metabolic encephalopathy, enterococcus patient spent she is alert this morning. He is more alert and oriented 2. Per night RN, patient continues to refuse to swallow his food. His kidney function continues to improve his creatinine is now 2.6 from an admitting level of 5. His bilirubin is 56, admitted to level CXIV. [place] level is 1.0 admitted to level II.0. His sodium is improved to 152. He is making adequate urine with urinary output >3000cc in the past 24hrs Patient's family was at bedside. Review yesterday afternoon, reports that at baseline he is communicative. - Constitutional Vitals: Temp Pulse Resp BP Pulse Ox 98.0 F 67 17 115/70 94 02/27/17 07:05 02/27/17 07:05 02/27/17 07:05 02/27/17 07:05 02/27/17 07:05 General appearance: Present: disheveled, A&O X 2, no acute distress - Head Head exam: Present: atraumatic, normocephalic - Eye Eye exam: Present: PERRL, conjuntiva pink, sclera anicteric Pupils: Present: PERRL - Neck Neck exam general surgery: Present: supple, trachea midline. Absent: lymphadenopathy - Respiratory Respiratory exam: Present: CTAB. Absent: accessory muscle use, rales, rhonchi, wheezes - Cardiovascular Cardiovascular exam: Present: RRR, +S1, +S2. Absent: diastolic murmur, gallop, rubs, systolic murmur - GI/Abdominal GI/Abdominal exam: Present: normal bowel sounds, soft, no peritoneal signs. Absent: distended, tenderness - Extremities Exam Extremities exam: Present: warm, radial pulses palpable and symmetrical. Absent : calf tenderness, cyanotic, pedal edema - Neurological Exam Neurological exam: Present: alert. Absent: oriented X3 Additional comments: Follows commands. Speech deficits. He moves all extremities equally. - Skin Skin exam: Present: dry, intact Internal Medicine: Result - Labs CBC & Chem 7: 02/27/17 04:52 02/27/17 12:40 Labs: Short CBC 02/27/17 Range/Units 04:52 WBC 9.7 (4.3-11.1) K/mcL Hgb 10.6 L (12.9-16.9) g/dL Hct 34.3 L (37.5-50.1) % Plt Count 146 (140-400) K/mcL Neutrophils # 7.0 (1.6-8.9) K/mcL BMP 02/26/17 02/26/1717 12:19 14:13 20:46 Sodium 156 H 155 H 152 H Potassium 3.5 3.5 Chloride 127 H 126 H Carbon Dioxide 20 19 BUN 71 H 60 H Creatinine 3.70 H 3.17 H Glucose 110 H 102 H Calcium 9.2 8.8 02/26/17 02/27/17 02/27/17 20:46 04:52 04:52 Sodium 152 H 152 H 152 H Potassium 4.0 3.3 L 3.3 L Chloride 126 H 125 H 126 H Carbon Dioxide 19 20 20 BUN 61 H 54 H 56 H Creatinine 3.22 H 2.65 H 2.67 H Glucose 102 H 109 H 110 H Calcium 8.9 8.7 8.7 Liver Function 02/26/17 02/26/17 02/27/17 Range/Units 14:13 20:46 04:52 Albumin 2.4 L 2.3 L 2.1 L (3.5-5.0) g/dL - ABG Interpretation ABG results: PT/INR, D-dimer PT 15.2 Seconds (9.4-12.1) H 02/26/17 06:50 - Impressions Impressions Brain MRI 02/26/17 04:04 IMPRESSION: Severely motion degraded examination. No gross evidence of acute intracranial abnormalities. Repeat MRI examination may be obtained, as clinically warranted. Alternatively, follow-up CT head may be obtained to evaluate for evolving infarcts. D/ / Dudley Holm MD / Dudley Holm MD Interpreting Provider: Dudley Holm MD Echocardiogram 02/26/17 04:08 Impressions: LVEF 60-65%. Mild left ventricular diastolic dysfunction. Mild concentric left ventricular hypertrophy. Normal right ventricular structure and function. Mild aortic regurgitation. Severe aortic stenosis; aortic valve leaflet morphology is not well visualized but does appear densely calcified. No pulmonary hypertension. No prior echo for comparison - abnormal findings communicated to ordering provider. Left Ventricular Wall Motion: Rest Echo Findings All wall segments showed normal motion. Findings: Study Quality * Technically adequate exam. ECG Findings * ECG interference throughout. Sinus rhythm by Doppler. Left Ventricle * Mild left ventricular diastolic dysfunction. * Def[place] echo contrast was used. * LVEF 60-65%. * Mild concentric left ventricular hypertrophy. Right Ventricle * Normal right ventricular structure and function. Left Atrium * Moderately dilated left atrium. Right Atrium * Normal right atrial size. Aortic Valve * Aortic valve not well visualized. * Mild aortic regurgitation. * Severe aortic stenosis. PV 4.5m/s, MG 45 mmHg, DI 0.22, BRIA 0.7cm2 Mitral Valve * Moderate-severe mitral annular calcification * Mitral valve not well visualized. * Trace mitral regurgitation. * No mitral stenosis. Tricuspid Valve * Tricuspid valve not well visualized. * Estimated RA pressure is 3 mmHg. * Estimated RVSP is 14 mmHg. * No pulmonary hypertension. * Trace tricuspid regurgitation. Pulmonic Valve * Pulmonic valve is not well visualized. * No pulmonic stenosis. * No pulmonic regurgitation. Pulmonary Artery * Pulmonary artery not well visualized. Aorta * Not well visualized. Pericardium * There is no pericardial effusion present. Interatrial Septum * No evidence of PFO by color Doppler. IVC * Normal IVC dimensions and inspiratory collapse. Consult Discharge Plan - Plan Referrals: Pacheco Bailey Jr, MD [Primary Care Provider] - 03/06/17 10:00 am (Please follow up as schedule...)
--- NOTE | 2017-02-27 08:04 | Nephrology Progress Note ---
Date of Encounter: 02/27/17 Time of Encounter: 08:02 - Assessment and Plan (1) Acute renal failure Current Visit: Yes Status: Acute The patient is improving from the standpoint of his acute kidney injury and hypernatremia as well as lithium toxicity. I would continue with the current IV regimen. Potassium is 3.3 so we will provide some potassium supplementation. His mental status baseline is unclear. Qualifiers: Acute renal failure type: unspecified Qualified Code(s): N17.9 - Acute kidney failure, unspecified (2) Hypernatremia Current Visit: Yes Status: Acute (3) [place] intoxication Current Visit: Yes Status: Acute Qualifiers: Encounter type: initial encounter Injury intent: accidental or unintentional Qualified Code(s): T56.891A - Toxic effect of other metals, accidental (unintentional), initial encounter Subjective Interval history: The patient opens his eyes in response to his name. However he still does not respond to any verbal questions. It is unclear as to what his mental status is at baseline. His sodium continues to improve at an appropriate rate. Serum creatinine is improving as well. [place] level was down to 1.0. Urine culture is growing enterococcus. Objective - Vital Signs Vital signs: Vital Signs Temp Pulse Resp BP Pulse Ox 02/27/17 07:05 98.0 F 67 17 115/70 94 02/27/17 05:35 97.8 F 53 18 120/57 98 02/26/17 23:51 97.9 F 59 18 112/51 97 02/26/17 19:27 98.1 F 54 18 136/56 97 02/26/17 14:56 98.3 F 53 17 96/59 94 02/26/17 11:45 98.8 F 59 19 96/59 97 Intake and Output 02/26/17 02/27/17 02/27/17 23:59 07:59 15:59 Intake Total 4220 / 4220 Output Total 1000 / 1000 1300 / 1300 Balance 3220 / 3220 -1300 / -1300 Intake: IV Fluids 4100 / 4100 Dextrose 5% 1,000 ML @ 125 mls/ 2000 / 2000 hr IVC .Q8H [facility] Rx#:[id number] Lactated Ringers 1,000 ML @ 125 2000 / 2000 mls/hr IVC .Q8H [facility] Rx#: [id number] Zosyn 3.375 GM In Dextrose 5% ( 100 / 100 Minibag+) 100 ML 100 ML @ 25 mls/hr IVPB Q12H [facility] Rx#: [id number] Oral 120 / 120 Output: Urine 1300 / 1300 Catheter 1000 / 1000 Other: Stool Size Smear Stool Consistency soft Stool Characteristics Normal for Patient Stool Color Brown Yellow Blood Glucose* 95 128 - General Appearance Exam: The patient opens his eyes and responds to his name. He does not answer any questions verbally however. Vital signs are stable. He is in no acute distress. Lungs coarse breath sounds otherwise clear. Heart regular rhythm. Abdomen is benign. There is minimal lower extremity swelling. He continues to have an IV of D5W running at 150 mL per hour. A [place] catheter is in place. - Lab 02/27/17 04:52 02/27/17 04:52 Most recent lab results Calcium 8.7 mg/dL (8.6-10.8) 02/27/17 04:52 Phosphorus 2.5 mg/dL (2.3-4.7) 02/27/17 04:52 Magnesium 1.8 mg/dL (1.6-2.6) 02/27/17 04:52 Urine Creatinine 128 mg/dL 02/25/17 16:44 Urine Sodium < 20.0 mEq/L 02/25/17 16:44 Consult Discharge Plan - Plan Referrals: Pacheco Bailey Jr, MD [Primary Care Provider] -
[2017-02-27] MEDS: Insulin LISPRO 300 UNITS/3 ML VIAL SQ SCH ×4 (08:39→21:30)
[2017-02-27] MEDS: Ringers Solution, Lactated 1,000 ML IVC SCH ×2 (08:40→16:55)
[2017-02-27] MEDS: D5% in Water 1,000 ML IVC SCH ×2 (08:44→16:54)
[2017-02-27] MEDS: lamoTRIgine 100 MG TABLET PO SCH (08:45)
[2017-02-27] MEDS: Metoprolol XL (24 HR) Succ 25 MG TAB.ER.24H PO SCH (08:45)
[2017-02-27] MEDS: Carbidopa/Levodopa ER 50/200 TABLET PO SCH ×2 (08:45→21:31)
[2017-02-27] MEDS: FLUoxetine 20 MG CAPSULE PO SCH (08:45)
[2017-02-27] MEDS: Fenofibrate 54 MG TABLET PO SCH (08:46)
[2017-02-27] MEDS: Piperacillin/Tazobactam 3.375 GM in D5% in Water (Mini-Bag+) 100 ML IVPB SCH ×2 (12:14→22:22)
[2017-02-27 13:39] LABS: Calcium 8.9 mg/dL (8.6-10.8)
[2017-02-27 13:40] LABS: Potassium 5.1 mEq/L (3.5-4.5)
[2017-02-27] MEDS: clonazePAM 1 MG TABLET PO SCH (21:30)
[2017-02-27 21:38] LABS: Calcium 9.1 mg/dL (8.6-10.8); Potassium 3.7 mEq/L (3.5-4.5)
[2017-02-27] MEDS: Latanoprost 2.5 ML BOTTLE BOTH EYES SCH (22:22)
[2017-02-28] MEDS: D5% in Water 1,000 ML IVC SCH ×3 (01:00→17:20)
[2017-02-28] MEDS: Ringers Solution, Lactated 1,000 ML IVC SCH ×2 (04:43→17:21)
[2017-02-28 04:56] LABS: Basophils % 0.1 %; Eosinophils # 0.4 K/mcL (0.0-0.6); Eosinophils % 3.7 %; Hemoglobin 10.9 g/dL (12.9-16.9); Immature Granulocytes % 0.6 % (0-4); Lymphocytes # 1.6 K/mcL (0.6-4.6); Lymphocytes % 15.4 %; Mean Corpuscular HGB Conc 31.1 g/dL (31.6-35.5); Mean Corpuscular Hemoglobin 30.8 pg (28.0-33.3); Mean Corpuscular Volume 98.9 fL (83.0-100.0); Mean Platelet Volume 10.4 fL (9.4-12.4); Monocytes # 0.7 K/mcL (0.0-1.3); Monocytes % 7.1 %; Neutrophils # 7.5 K/mcL (1.6-8.9); Platelet Count 171 K/mcL (140-400); Red Blood Count 3.54 M/mcL (4.19-5.50); Red Cell Distribution Width 14.2 % (11.5-14.5); Segmented Neutrophils % 73.1 %
[2017-02-28 05:11] LABS: Calcium 9.1 mg/dL (8.6-10.8); Potassium 3.8 mEq/L (3.5-4.5)
[2017-02-28] MEDS: *HR* Heparin 5,000 UNIT/ML VIAL SQ SCH ×2 (06:04→17:21)
[2017-02-28] MEDS: Ampicillin 2 GM in 0.9 % Sodium Chloride Mini Bag 100 ML IVPB SCH ×3 (09:08→19:47)
[2017-02-28] MEDS: Insulin LISPRO 300 UNITS/3 ML VIAL SQ SCH ×4 (09:09→20:54)
--- NOTE | 2017-02-28 09:34 | Internal Med Progress Note ---
Date of Encounter: 02/28/17 Time of Encounter: 09:31 - Assessment and plan (1) [place] intoxication Current Visit: Yes Status: Acute Assessment and plan: Admitting lithium level 2 Improved to 1.0 Continue to hold lithium, he was on lithium for possible bipolar disorder We will resume lithium when his renal function returns to baseline Qualifiers: Encounter type: initial encounter Injury intent: accidental or unintentional Qualified Code(s): T56.891A - Toxic effect of other metals, accidental (unintentional), initial encounter (2) Acute hypernatremia Current Visit: Yes Status: Acute Assessment and plan: Na has improved to 150, continue D5W, monitor Na Free water as tolerated Speech eval noted Patient is able to tolerate thickened textures, unable to take thin liquids like water, hold free water for now Continue to monitor Chem daily as he has improved so far (3) Metabolic encephalopathy Current Visit: Yes Status: Acute Assessment and plan: Multifactorial: MELVI on CKD, [place] toxicity, hypernatremia Patient is alert this morning, oriented to place and person, improving slowly, follows commands Compared to admission clinically improved Continue to monitor Aspiration and Fall precautions (4) Acute on chronic renal failure Current Visit: Yes Status: Acute Assessment and plan: baseline Cr 1.5 in 11/2016 Admitted with Cr >5 Continue hydration with LR, D5. K, Ca, acceptable, elevated Na, being monitored Improving renal function Patient is polyuric and has negative fluid balance from 24 hrs. (~300-350cc) Will match intake and output, continue IVF at lower rate till patient starts to take po Obtain renal USS, pending since admission Qualifiers: Acute renal failure type: unspecified Chronic kidney disease stage: stage 3 (moderate) Qualified Code(s): N17.9 - Acute kidney failure, unspecified; N18.3 - Chronic kidney disease, stage 3 (moderate); N18.3 - Chronic kidney disease, stage 3 (moderate) (5) Leukocytosis Current Visit: Yes Status: Resolved Assessment and plan: Possibly secondary to dehydration and UTI WBC normalized this a.m labs Qualifiers: Leukocytosis type: unspecified Qualified Code(s): D72.829 - Elevated white blood cell count, unspecified (6) COPD (chronic obstructive pulmonary disease) Current Visit: Yes Status: Chronic Assessment and plan: NO evidence of exacerbation at this time Qualifiers: COPD type: unspecified COPD Qualified Code(s): J44.9 - Chronic obstructive pulmonary disease, unspecified (7) Parkinsons disease Current Visit: Yes Status: Chronic Assessment and plan: Continue home meds (8) Type 2 diabetes mellitus Current Visit: Yes Status: Chronic Assessment and plan: Overcontrolled A1C 4.6 MOnitor FS ACHS High risk for hypoglycemia due to MELVI, Poor oral intake NO insulin except FS >180 Qualifiers: Diabetes mellitus complication status: without complication Diabetes mellitus usp insulin use: without usp use Qualified Code(s): E11.9 - Type 2 diabetes mellitus without complications (9) Hypothyroidism Current Visit: Yes Status: Chronic Assessment and plan: Continue synthroid Qualifiers: Hypothyroidism type: unspecified Qualified Code(s): E03.9 - Hypothyroidism , unspecified (10) Urinary tract infection Current Visit: Yes Status: Acute Assessment and plan: Culture growing enterococcus Received 2 days of Zosyn Sensitivity shows ampicillin, deescalate to ampicillin IV- day 1. Total 3 days so far Qualifiers: Urinary tract infection type: acute cystitis Hematuria presence: with hematuria Qualified Code(s): N30.01 - Acute cystitis with hematuria (11) Chronic kidney disease, stage III (moderate) Current Visit: Yes Status: Chronic Assessment and plan: Management as in melvi (12) HTN (hypertension) Current Visit: Yes Status: Chronic Assessment and plan: Controlled without medications at this time Qualifiers: Hypertension type: essential hypertension Qualified Code(s): I10 - Essential (primary) hypertension (13) Bipolar disorder Current Visit: Yes Status: Chronic Assessment and plan: Hold lithium, continue other meds Qualifiers: Active/Remission status: remission status unspecified Qualified Code(s): F31.9 - Bipolar disorder, unspecified (14) Aortic stenosis Current Visit: Yes Status: Chronic Assessment and plan: PEr ECHO , severe . EF is WNL. Asymptomatic Cardio consult non-emergently, vs outpatient referral, Qualifiers: Cardiac valve disease etiology: nonrheumatic Qualified Code(s): I35.0 - Nonrheumatic aortic (valve) stenosis (15) Hypokalemia Current Visit: Yes Status: Acute Assessment and plan: rePlaced, continue to monitor. (16) Malnutrition Current Visit: Yes Status: Chronic Assessment and plan: Speech and swallow eval, nutrition eval Qualifiers: Malnutrition type: protein-calorie malnutrition Protein-calorie malnutrition severity: unspecified severity Qualified Code(s): E46 - Unspecified protein-calorie malnutrition - Subjective Interval history: Seen and evaluated at bedside Patient admitted for acute hypernatremia, MELVI on CKD, Metabolic encephalopathy, enterococcus patient spent she is alert this morning. He is more alert and oriented 2. Patient is easily rousable and alert this morning, ans is able to hold his attention for my entrie evaluation He swallowed 2 spoonfuls of apple sauce without chocking He followed commands, except his speech is still garbled In addition, he did not move his Left upper extremity to gravity or noxious stimuli, this is new to me He is otherwise more responsive than yesterday We will obtain a repeat head CT, his admitting head CT was unremarkable for acute processes - Constitutional Vitals: Temp Pulse Resp BP Pulse Ox 98.2 F 75 16 142/72 97 02/28/17 08:10 02/28/17 08:10 02/28/17 08:10 02/28/17 08:10 02/28/17 08:10 General appearance: Present: disheveled, A&O X 2, no acute distress - Head Head exam: Present: atraumatic, normocephalic - Eye Eye exam: Present: PERRL, conjuntiva pink, sclera anicteric Pupils: Present: PERRL - Neck Neck exam general surgery: Present: supple, trachea midline. Absent: lymphadenopathy - Respiratory Respiratory exam: Present: CTAB. Absent: accessory muscle use, rales, rhonchi, wheezes - Cardiovascular Cardiovascular exam: Present: RRR, +S1, +S2. Absent: diastolic murmur, gallop, rubs, systolic murmur - GI/Abdominal GI/Abdominal exam: Present: normal bowel sounds, soft, no peritoneal signs. Absent: distended, tenderness - Additional comments: [place] with clear urine - Extremities Exam Extremities exam: Present: warm, radial pulses palpable and symmetrical. Absent : calf tenderness, cyanotic, pedal edema - Neurological Exam Neurological exam: Present: alert, CN II-XII intact. Absent: oriented X3, no focal deficits, pronater drift, facial droop, speech deficit Additional comments: Dysarthria LUE weakness - Skin Skin exam: Present: dry, intact Internal Medicine: Result - Labs CBC & Chem 7: 02/28/17 04:16 02/28/17 04:16 Labs: Short CBC 02/28/17 Range/Units 04:16 WBC 10.2 (4.3-11.1) K/mcL Hgb 10.9 L (12.9-16.9) g/dL Hct 35.0 L (37.5-50.1) % Plt Count 171 (140-400) K/mcL Neutrophils # 7.5 (1.6-8.9) K/mcL BMP 02/27/17 02/27/17 02/28/17 12:40 19:50 04:16 Sodium 152 H 150 H 150 H Potassium 5.1 H D 3.7 D 3.8 Chloride 126 H 123 H 123 H Carbon Dioxide 19 20 21 BUN 44 H D 40 H 32 H Creatinine 2.36 H 2.07 H 1.83 H Glucose 122 H 139 H 128 H Calcium 8.9 9.1 9.1 - ABG Interpretation ABG results: PT/INR, D-dimer PT 15.2 Seconds (9.4-12.1) H 02/26/17 06:50 Consult Discharge Plan - Plan Referrals: Pacheco Bailey Jr, MD [Primary Care Provider] - 03/06/17 10:00 am (Please follow up as schedule...janell )
--- NOTE | 2017-02-28 10:26 | Nephrology Progress Note ---
Date of Encounter: 02/28/17 Time of Encounter: 10:05 - Assessment and Plan (1) Acute on chronic renal failure Current Visit: Yes Status: Acute Renal fct improving. Creat 1.83. Na 150. K 3.8. Would continue current IV fluids. Qualifiers: Acute renal failure type: unspecified Chronic kidney disease stage: stage 3 (moderate) Qualified Code(s): N17.9 - Acute kidney failure, unspecified; N18.3 - Chronic kidney disease, stage 3 (moderate); N18.3 - Chronic kidney disease, stage 3 (moderate) Subjective Interval history: Son at bedside. Patient arouses, garbled attempt at speech. Objective - Vital Signs Vital signs: Vital Signs Temp Pulse Resp BP Pulse Ox 02/28/17 08:10 98.2 F 75 16 142/72 97 02/28/17 07:35 98.4 F 68 18 136/84 100 02/28/17 03:31 98.2 F 55 20 136/76 97 02/27/17 23:24 98.9 F 60 18 133/77 98 02/27/17 19:18 97.9 F 60 18 136/76 98 02/27/17 16:12 98.1 F 63 17 122/65 99 02/27/17 11:24 98.3 F 62 17 107/74 98 Intake and Output 02/27/17 02/28/17 02/28/17 23:59 07:59 15:59 Intake Total 2099 / 2099 1000 / 1000 1000 / 1000 Output Total 1150 / 1150 1750 / 1750 325 / 325 Balance 950 / 950 -750 / -750 675 / 675 Intake: IV Fluids 2099 / 2099 1000 / 1000 1000 / 1000 Dextrose 5% 1,000 ML @ 125 mls/ 1000 / 1000 1000 / 1000 1000 / 1000 hr IVC .Q8H LY Rx#:[id number] Lactated Ringers 1,000 ML @ 80 1000 / 1000 0 / 0 mls/hr IVC .[id number] LY Rx#: [id number] Zosyn 3.375 GM In Dextrose 5% ( 100 / 100 Minibag+) 100 ML 100 ML @ 25 mls/hr IVPB Q12H LY Rx#: [id number] Oral 0 / 0 0 / 0 Output: Urine 450 / 450 325 / 325 Catheter 700 / 700 1750 / 1750 Other: Meal npo Percent of Meal Consumed 0% Stool Size Large Stool Consistency soft formed Stool Color Brown Weight 74 kg Blood Glucose* 138 104 Patient Weight 02/28/17 23:59 Weight 74 kg - General Appearance General appearance: Present: well-developed, chronically ill EENT: Present: mucous membranes moist Neck: Present: no JVD Respiratory: Present: clear Cardiology: Present: no edema, regular rate, regular rhythm Integumentary: Present: warm and dry - Lab 02/28/17 04:16 02/28/17 04:16 Most recent lab results Calcium 9.1 mg/dL (8.6-10.8) 02/28/17 04:16 Phosphorus 2.5 mg/dL (2.3-4.7) 02/27/17 04:52 Magnesium 1.8 mg/dL (1.6-2.6) 02/27/17 04:52 Urine Creatinine 128 mg/dL 02/25/17 16:44 Urine Sodium < 20.0 mEq/L 02/25/17 16:44 Consult Discharge Plan - Plan Referrals: Pacheco Bailey Jr, MD [Primary Care Provider] - 03/06/17 10:00 am (Please follow up as schedule...)
--- NOTE | 2017-02-28 10:58 | Event Note ---
Date of Encounter: 02/28/17 Time of Encounter: 10:[address] Paulina TOMPKINS IV fluids.
[2017-02-28] MEDS: lamoTRIgine 100 MG TABLET PO SCH (11:45)
[2017-02-28] MEDS: Metoprolol XL (24 HR) Succ 25 MG TAB.ER.24H PO SCH (11:45)
[2017-02-28] MEDS: FLUoxetine 20 MG CAPSULE PO SCH (11:46)
[2017-02-28] MEDS: Fenofibrate 54 MG TABLET PO SCH (11:47)
[2017-02-28] MEDS: Carbidopa/Levodopa ER 50/200 TABLET PO SCH ×2 (11:51→20:54)
[2017-02-28] MEDS: clonazePAM 1 MG TABLET PO SCH (20:54)
[2017-02-28] MEDS: Latanoprost 2.5 ML BOTTLE BOTH EYES SCH (20:54)
[2017-03-01] MEDS: Ampicillin 2 GM in 0.9 % Sodium Chloride Mini Bag 100 ML IVPB SCH ×5 (01:24→21:57)
[2017-03-01] MEDS: D5% in Water 1,000 ML IVC SCH ×3 (01:24→22:00)
[2017-03-01 04:15] LABS: Basophils % 0.2 %; Eosinophils # 0.5 K/mcL (0.0-0.6); Hematocrit 34.6 % (37.5-50.1); Hemoglobin 10.4 g/dL (12.9-16.9); Immature Granulocytes % 0.4 % (0-4); Lymphocytes # 2.1 K/mcL (0.6-4.6); Lymphocytes % 25.2 %; Mean Corpuscular HGB Conc 30.1 g/dL (31.6-35.5); Mean Corpuscular Hemoglobin 30.5 pg (28.0-33.3); Mean Corpuscular Volume 101.5 fL (83.0-100.0); Mean Platelet Volume 10.6 fL (9.4-12.4); Monocytes # 0.7 K/mcL (0.0-1.3); Monocytes % 7.8 %; Neutrophils # 5.1 K/mcL (1.6-8.9); Platelet Count 162 K/mcL (140-400); Red Blood Count 3.41 M/mcL (4.19-5.50); Red Cell Distribution Width 14.7 % (11.5-14.5); Segmented Neutrophils % 60.4 %
[2017-03-01 04:29] LABS: BUN/Creatinine Ratio 14 (6-26); Calcium 8.3 mg/dL (8.6-10.8); Carbon Dioxide 20 mEq/L (19-29); Chloride 120 mEq/L (98-109); Glucose 76 mg/dL (70-99); Osmolality,Calculated 306 (280-300); Potassium 3.7 mEq/L (3.5-4.5); Sodium 148 mEq/L (136-145); eGFR For African Americans > 60 (> 60); eGFR For Non-African Americans > 60 (> 60)
[2017-03-01 04:31] LABS: Blood Urea Nitrogen 15 mg/dL (8-26)
[2017-03-01] MEDS: *HR* Heparin 5,000 UNIT/ML VIAL SQ SCH ×2 (06:09→16:45)
--- NOTE | 2017-03-01 08:50 | Nephrology Progress Note ---
Date of Encounter: 03/01/17 Time of Encounter: 08:40 - Assessment and Plan (1) Acute on chronic renal failure Current Visit: Yes Status: Acute Renal fct improving. Creat 1.06. Na 148. K 3.7. Latest lithium 1.0. Would continue current IV fluids. Qualifiers: Acute renal failure type: unspecified Chronic kidney disease stage: stage 3 (moderate) Qualified Code(s): N17.9 - Acute kidney failure, unspecified; N18.3 - Chronic kidney disease, stage 3 (moderate); N18.3 - Chronic kidney disease, stage 3 (moderate) Subjective Interval history: Patient arouses, garbled attempt at speech. Objective - Vital Signs Vital signs: Vital Signs Temp Pulse Resp BP Pulse Ox 03/01/17 08:00 98.1 F 59 16 147/88 92 03/01/17 07:19 98.1 F 59 16 147/88 92 03/01/17 03:47 98.5 F 58 16 134/75 99 03/01/17 00:03 98.4 F 56 16 123/71 98 02/28/17 19:46 98.4 F 58 16 132/71 98 02/28/17 15:53 98.9 F 57 17 138/79 100 02/28/17 12:00 98.4 F 81 20 138/86 Intake and Output 02/28/17 03/01/17 03/01/17 23:59 07:59 15:59 Intake Total 1100 / 1100 1000 / 1000 Output Total 550 / 550 1450 / 1450 Balance 550 / 550 -450 / -450 Intake: IV Fluids 1100 / 1100 1000 / 1000 Dextrose 5% 1,000 ML @ 125 mls/ 1000 / 1000 1000 / 1000 hr IVC .Q8H LY Rx#:[id number] Ampicillin 2 GM In 0.9 % Sodium 100 / 100 Chloride (Mini-Bag +) 100 ML @ 200 mls/hr IVPB Q6H LY Rx#: [id number] Oral 0 / 0 Output: Urine 0 / 0 Catheter 550 / 550 1450 / 1450 Other: Stool Size Moderate Stool Consistency formed Stool Color Brown Weight 72.1 kg 72 kg Blood Glucose* 111 75 Patient Weight 03/01/17 23:59 Weight 72 kg - General Appearance General appearance: Present: well-developed, well-nourished, appears started age EENT: Present: mucous membranes moist Neck: Present: no JVD Respiratory: Present: clear Cardiology: Present: no edema, regular rate, regular rhythm Gastrointestinal: Present: normoactive bowel sounds, no tenderness Integumentary: Present: warm and dry Psychiatric: Present: cooperative - Lab 03/01/17 03:32 03/01/17 03:32 Most recent lab results Calcium 8.3 mg/dL (8.6-10.8) L 03/01/17 03:32 Phosphorus 2.5 mg/dL (2.3-4.7) 02/27/17 04:52 Magnesium 1.8 mg/dL (1.6-2.6) 02/27/17 04:52 Urine Creatinine 128 mg/dL 02/25/17 16:44 Urine Sodium < 20.0 mEq/L 02/25/17 16:44 Consult Discharge Plan - Plan Referrals: Pacheco Bailey Jr, MD [Primary Care Provider] - 03/06/17 10:00 am (Please follow up as schedule...)
[2017-03-01] MEDS: Insulin LISPRO 300 UNITS/3 ML VIAL SQ SCH ×4 (08:51→21:59)
--- NOTE | 2017-03-01 09:32 | Internal Med Progress Note ---
Date of Encounter: 03/01/17 Time of Encounter: 09:25 - Assessment and plan (1) [place] intoxication Current Visit: Yes Status: Resolved Assessment and plan: Admitting lithium level 2 Improved to 1.0 Continue to hold lithium, he was on lithium for possible bipolar disorder We will resume lithium when his renal function returns to baseline Qualifiers: Encounter type: initial encounter Injury intent: accidental or unintentional Qualified Code(s): T56.891A - Toxic effect of other metals, accidental (unintentional), initial encounter (2) Acute hypernatremia Current Visit: Yes Status: Acute Assessment and plan: Na has improved to 148, continue D5W, monitor Na Free water as tolerated Speech eval noted, and was started on pureed diet and thickened liquids. Patient still has very poor oral intake and cannot correlate tolerate water Continue daily chemistry (3) Metabolic encephalopathy Current Visit: Yes Status: Resolved Assessment and plan: Multifactorial: MELVI on CKD, [place] toxicity, hypernatremia Patient is alert this morning, oriented to place and person, improved significantly Compared to admission clinically improved Continue to monitor Aspiration and Fall precautions (4) Acute on chronic renal failure Current Visit: Yes Status: Acute Assessment and plan: baseline Cr 1.5 in 11/2016 Admitted with Cr >5 Kidney function has improved significantly with IV fluid hydration. Urea creatinine today 15/1.06. Hemoglobin is stable. Discontinued lactated Ringer's. Continue to monitor chemistry. Qualifiers: Acute renal failure type: unspecified Chronic kidney disease stage: stage 3 (moderate) Qualified Code(s): N17.9 - Acute kidney failure, unspecified; N18.3 - Chronic kidney disease, stage 3 (moderate); N18.3 - Chronic kidney disease, stage 3 (moderate) (5) Leukocytosis Current Visit: Yes Status: Resolved Assessment and plan: Possibly secondary to dehydration and UTI WBC normalized this a.m labs Qualifiers: Leukocytosis type: unspecified Qualified Code(s): D72.829 - Elevated white blood cell count, unspecified (6) COPD (chronic obstructive pulmonary disease) Current Visit: Yes Status: Chronic Assessment and plan: NO evidence of exacerbation at this time Qualifiers: COPD type: unspecified COPD Qualified Code(s): J44.9 - Chronic obstructive pulmonary disease, unspecified (7) Parkinsons disease Current Visit: Yes Status: Chronic Assessment and plan: Continue home meds (8) Type 2 diabetes mellitus Current Visit: Yes Status: Chronic Assessment and plan: Overcontrolled A1C 4.6 MOnitor FS ACHS Sliding scale insulin. Qualifiers: Diabetes mellitus complication status: without complication Diabetes mellitus halfway insulin use: without halfway use Qualified Code(s): E11.9 - Type 2 diabetes mellitus without complications (9) Hypothyroidism Current Visit: Yes Status: Chronic Assessment and plan: Continue synthroid Qualifiers: Hypothyroidism type: unspecified Qualified Code(s): E03.9 - Hypothyroidism , unspecified (10) Urinary tract infection Current Visit: Yes Status: Acute Assessment and plan: Culture growing enterococcus Received 2 days of Zosyn Sensitivity shows ampicillin, deescalate to ampicillin IV- day 2. Total 4 days so far Qualifiers: Urinary tract infection type: acute cystitis Hematuria presence: with hematuria Qualified Code(s): N30.01 - Acute cystitis with hematuria (11) Chronic kidney disease, stage III (moderate) Current Visit: Yes Status: Chronic Assessment and plan: Management as in melvi (12) HTN (hypertension) Current Visit: Yes Status: Chronic Assessment and plan: Controlled, continue metoprolol. Qualifiers: Hypertension type: essential hypertension Qualified Code(s): I10 - Essential (primary) hypertension (13) Bipolar disorder Current Visit: Yes Status: Chronic Assessment and plan: Hold lithium, continue other meds Qualifiers: Active/Remission status: remission status unspecified Qualified Code(s): F31.9 - Bipolar disorder, unspecified (14) Aortic stenosis Current Visit: Yes Status: Chronic Assessment and plan: PEr ECHO , severe . EF is WNL. Asymptomatic Cardio consult non-emergently, vs outpatient referral, Qualifiers: Cardiac valve disease etiology: nonrheumatic Qualified Code(s): I35.0 - Nonrheumatic aortic (valve) stenosis (15) Hypokalemia Current Visit: Yes Status: Resolved Assessment and plan: rePlaced, continue to monitor. (16) Malnutrition Current Visit: Yes Status: Chronic Assessment and plan: Speech and swallow eval, nutrition eval noted Patient may benefit from tube placement due to the severity of her presentation which is as a result of very poor oral intake. Qualifiers: Malnutrition type: protein-calorie malnutrition Protein-calorie malnutrition severity: unspecified severity Qualified Code(s): E46 - Unspecified protein-calorie malnutrition - Subjective Interval history: Seen and evaluated at bedside Patient admitted for acute hypernatremia, MELVI on CKD, Metabolic encephalopathy, enterococcus patient spent she is alert this morning. He continues to make clinical improvement, however, his oral intake is still poor. His hypernatremia has improved significantly, MELVI on CKD has resolved. He is awake and alert and able to hold a conversation. His speech is chronically dysarthric. - Constitutional Vitals: Temp Pulse Resp BP Pulse Ox 98.1 F 59 16 147/88 92 03/01/17 08:00 03/01/17 08:00 03/01/17 08:00 03/01/17 08:00 03/01/17 08:00 General appearance: Present: disheveled, A&O X 3, pleasant, no acute distress - Head Head exam: Present: atraumatic, normocephalic - Eye Eye exam: Present: PERRL, conjuntiva pink, sclera anicteric Pupils: Present: PERRL - Neck Neck exam general surgery: Present: supple, trachea midline. Absent: lymphadenopathy - Respiratory Respiratory exam: Present: CTAB. Absent: accessory muscle use, rales, rhonchi, wheezes - Cardiovascular Cardiovascular exam: Present: RRR, +S1, +S2. Absent: diastolic murmur, gallop, rubs, systolic murmur - GI/Abdominal GI/Abdominal exam: Present: normal bowel sounds, soft, no peritoneal signs. Absent: distended, tenderness - Extremities Exam Extremities exam: Present: warm, radial pulses palpable and symmetrical. Absent : calf tenderness, cyanotic, pedal edema - Neurological Exam Neurological exam: Present: alert, CN II-XII intact, no focal deficits. Absent : oriented X3, pronater drift, facial droop, speech deficit - Skin Skin exam: Present: dry, intact Internal Medicine: Result - Labs CBC & Chem 7: 03/01/17 03:32 03/01/17 03:32 Labs: Short CBC 03/01/17 Range/Units 03:32 WBC 8.5 (4.3-11.1) K/mcL Hgb 10.4 L (12.9-16.9) g/dL Hct 34.6 L (37.5-50.1) % Plt Count 162 (140-400) K/mcL Neutrophils # 5.1 (1.6-8.9) K/mcL BMP 03/01/17 03:32 Sodium 148 H Potassium 3.7 Chloride 120 H Carbon Dioxide 20 BUN 15 D Creatinine 1.06 Glucose 76 Calcium 8.3 L - ABG Interpretation ABG results: PT/INR, D-dimer PT 15.2 Seconds (9.4-12.1) H 02/26/17 06:50 - Impressions Impressions Head CT 02/28/17 11:00 IMPRESSION: 1. No acute intracranial abnormality. 2. Diffuse cerebral atrophy with chronic small vessel ischemic disease. D/ / Leroy Martinez MD / Leroy Martinez MD Interpreting Provider: Leroy Martinez MD Consult Discharge Plan - Plan Referrals: Pacheco Bailey Jr, MD [Primary Care Provider] - 03/06/17 10:00 am (Please follow up as schedule...)
[2017-03-01] MEDS: Metoprolol XL (24 HR) Succ 25 MG TAB.ER.24H PO SCH (10:22)
[2017-03-01] MEDS: Fenofibrate 54 MG TABLET PO SCH (10:23)
[2017-03-01] MEDS: FLUoxetine 20 MG CAPSULE PO SCH (10:24)
[2017-03-01] MEDS: Carbidopa/Levodopa ER 50/200 TABLET PO SCH ×2 (10:25→21:59)
[2017-03-01] MEDS: lamoTRIgine 100 MG TABLET PO SCH (10:25)
[2017-03-01] MEDS: Ringers Solution, Lactated 1,000 ML IVC SCH (14:33)
[2017-03-01] MEDS: clonazePAM 1 MG TABLET PO SCH (21:59)
[2017-03-01] MEDS: Latanoprost 2.5 ML BOTTLE BOTH EYES SCH (22:00)
[2017-03-02] MEDS: Ampicillin 2 GM in 0.9 % Sodium Chloride Mini Bag 100 ML IVPB SCH ×4 (03:58→22:14)
[2017-03-02 04:34] LABS: Basophils % 0.2 %; Eosinophils # 0.6 K/mcL (0.0-0.6); Eosinophils % 5.6 %; Hematocrit 37.1 % (37.5-50.1); Hemoglobin 11.5 g/dL (12.9-16.9); Immature Granulocytes % 0.4 % (0-4); Lymphocytes % 19.7 %; Mean Corpuscular Hemoglobin 31.6 pg (28.0-33.3); Mean Corpuscular Volume 101.9 fL (83.0-100.0); Mean Platelet Volume 10.1 fL (9.4-12.4); Monocytes # 0.7 K/mcL (0.0-1.3); Monocytes % 6.9 %; Neutrophils # 6.7 K/mcL (1.6-8.9); Platelet Count 186 K/mcL (140-400); Red Blood Count 3.64 M/mcL (4.19-5.50); Red Cell Distribution Width 15.3 % (11.5-14.5); Segmented Neutrophils % 67.2 %
[2017-03-02 04:54] LABS: BUN/Creatinine Ratio 9 (6-26); Blood Urea Nitrogen 11 mg/dL (8-26); Calcium 8.2 mg/dL (8.6-10.8); Carbon Dioxide 22 mEq/L (19-29); Chloride 124 mEq/L (98-109); Glucose 101 mg/dL (70-99); Osmolality,Calculated 318 (280-300); Potassium 3.2 mEq/L (3.5-4.5); Sodium 154 mEq/L (136-145); eGFR For African Americans > 60 (> 60); eGFR For Non-African Americans > 60 (> 60)
[2017-03-02] MEDS: D5% in Water 1,000 ML IVC SCH ×3 (06:16→17:17)
[2017-03-02] MEDS: *HR* Heparin 5,000 UNIT/ML VIAL SQ SCH ×2 (06:16→17:21)
--- NOTE | 2017-03-02 08:38 | Nephrology Progress Note ---
Date of Encounter: 03/02/17 Time of Encounter: 08:20 - Assessment and Plan (1) Acute on chronic renal failure Current Visit: Yes Status: Acute Renal fct stable. Creat 1.16. Na somewhat increased 154. K 3.2. Latest lithium 1.0. Would continue current IV fluids. Psych should be consulted for replacement medication for [place]. Qualifiers: Acute renal failure type: unspecified Chronic kidney disease stage: stage 3 (moderate) Qualified Code(s): N17.9 - Acute kidney failure, unspecified; N18.3 - Chronic kidney disease, stage 3 (moderate); N18.3 - Chronic kidney disease, stage 3 (moderate) Subjective Interval history: Patient arouses, garbled attempt at speech. Objective - Vital Signs Vital signs: Vital Signs Temp Pulse Resp BP Pulse Ox 03/02/17 06:48 97.4 F L 70 17 149/93 90 03/02/17 03:31 97.4 F L 57 16 152/88 96 03/02/17 00:12 129/77 03/01/17 23:09 98.3 F 72 16 153/100 93 03/01/17 22:28 98 03/01/17 18:45 97.4 F L 57 16 152/90 03/01/17 16:41 98.1 F 61 16 128/75 96 03/01/17 11:43 97.5 F L 69 18 148/87 94 Intake and Output 03/01/17 03/02/17 03/02/17 23:59 07:59 15:59 Intake Total 1100 / 1100 1000 / 1000 Output Total 700 / 700 600 / 600 Balance 400 / 400 400 / 400 Intake: IV Fluids 1100 / 1100 1000 / 1000 Dextrose 5% 1,000 ML @ 125 mls/ 1000 / 1000 1000 / 1000 hr IVC .Q8H LY Rx#:[id number] Ampicillin 2 GM In 0.9 % Sodium 100 / 100 Chloride (Mini-Bag +) 100 ML @ 200 mls/hr IVPB Q6H LY Rx#: [id number] Output: Straight Cath 450 / 450 Catheter 700 / 700 150 / 150 Other: Stool Size Moderate Stool Consistency loose # Bowel Movement Diapers 1 Weight 71.7 kg Blood Glucose* 90 115 Patient Weight 03/02/17 23:59 Weight 71.7 kg - General Appearance General appearance: Present: well-developed, well-nourished, appears started age EENT: Present: mucous membranes moist Neck: Present: no JVD Respiratory: Present: clear Cardiology: Present: no edema, regular rate, regular rhythm Gastrointestinal: Present: normoactive bowel sounds, no tenderness Integumentary: Present: warm and dry Psychiatric: Present: cooperative - Lab 03/02/17 04:13 03/02/17 04:13 Most recent lab results Calcium 8.2 mg/dL (8.6-10.8) L 03/02/17 04:13 Phosphorus 2.5 mg/dL (2.3-4.7) 02/27/17 04:52 Magnesium 1.8 mg/dL (1.6-2.6) 02/27/17 04:52 Urine Creatinine 128 mg/dL 02/25/17 16:44 Urine Sodium < 20.0 mEq/L 02/25/17 16:44 Consult Discharge Plan - Plan Referrals: Pacheco Bailey Jr, MD [Primary Care Provider] - 03/06/17 10:00 am (Please follow up as schedule...)
[2017-03-02] MEDS: lamoTRIgine 100 MG TABLET PO SCH (09:18)
[2017-03-02] MEDS: clonazePAM 1 MG TABLET PO PRN (09:18)
[2017-03-02] MEDS: FLUoxetine 20 MG CAPSULE PO SCH (09:19)
[2017-03-02] MEDS: Metoprolol XL (24 HR) Succ 25 MG TAB.ER.24H PO SCH (09:19)
[2017-03-02] MEDS: Carbidopa/Levodopa ER 50/200 TABLET PO SCH ×2 (09:20→21:58)
[2017-03-02] MEDS: Fenofibrate 54 MG TABLET PO SCH (09:20)
[2017-03-02] MEDS: Insulin LISPRO 300 UNITS/3 ML VIAL SQ SCH ×4 (09:36→21:59)
--- NOTE | 2017-03-02 11:21 | Internal Med Progress Note ---
Date of Encounter: 03/02/17 Time of Encounter: 11:21 - Assessment and plan (1) [place] intoxication Current Visit: Yes Status: Resolved Assessment and plan: Admitting lithium level 2 Improved to 1.0 Continue to hold lithium, he was on lithium for possible bipolar disorder We will consider psych eval for alternatives to lithium, or to restart lithium at lower dose Qualifiers: Encounter type: initial encounter Injury intent: accidental or unintentional Qualified Code(s): T56.891A - Toxic effect of other metals, accidental (unintentional), initial encounter (2) Acute hypernatremia Current Visit: Yes Status: Acute Assessment and plan: Na improved, slight increase in sodium today Patient still with poor oral intake Free water as tolerated Speech eval noted, and was started on pureed diet and thickened liquids. Continue daily Chem (3) Metabolic encephalopathy Current Visit: Yes Status: Resolved Assessment and plan: Multifactorial: MELVI on CKD, [place] toxicity, hypernatremia Patient is alert this morning, oriented to place and person, improved significantly Compared to admission clinically improved Continue to monitor Aspiration and Fall precautions (4) Acute on chronic renal failure Current Visit: Yes Status: Acute Assessment and plan: baseline Cr 1.5 in 11/2016 Admitted with Cr >5 Kidney function has improved significantly with IV fluid hydration. Urea creatinine today 15/1.06. Hemoglobin is stable. Discontinued lactated Ringer's 03/01 Continue to monitor chemistry. Qualifiers: Acute renal failure type: unspecified Chronic kidney disease stage: stage 3 (moderate) Qualified Code(s): N17.9 - Acute kidney failure, unspecified; N18.3 - Chronic kidney disease, stage 3 (moderate); N18.3 - Chronic kidney disease, stage 3 (moderate) (5) Leukocytosis Current Visit: Yes Status: Resolved Assessment and plan: Possibly secondary to dehydration and UTI WBC normalized this a.m labs Qualifiers: Leukocytosis type: unspecified Qualified Code(s): D72.829 - Elevated white blood cell count, unspecified (6) COPD (chronic obstructive pulmonary disease) Current Visit: Yes Status: Chronic Assessment and plan: NO evidence of exacerbation at this time Qualifiers: COPD type: unspecified COPD Qualified Code(s): J44.9 - Chronic obstructive pulmonary disease, unspecified (7) Parkinsons disease Current Visit: Yes Status: Chronic Assessment and plan: Continue home meds (8) Type 2 diabetes mellitus Current Visit: Yes Status: Chronic Assessment and plan: Overcontrolled A1C 4.6 MOnitor FS ACHS Sliding scale insulin. Qualifiers: Diabetes mellitus complication status: without complication Diabetes mellitus fci insulin use: without fci use Qualified Code(s): E11.9 - Type 2 diabetes mellitus without complications (9) Hypothyroidism Current Visit: Yes Status: Chronic Assessment and plan: Continue synthroid Qualifiers: Hypothyroidism type: unspecified Qualified Code(s): E03.9 - Hypothyroidism , unspecified (10) Urinary tract infection Current Visit: Yes Status: Acute Assessment and plan: Culture growing enterococcus Received 2 days of Zosyn Sensitivity shows ampicillin, deescalate to ampicillin IV- day 3. Total 5 days so far Qualifiers: Urinary tract infection type: acute cystitis Hematuria presence: with hematuria Qualified Code(s): N30.01 - Acute cystitis with hematuria (11) Chronic kidney disease, stage III (moderate) Current Visit: Yes Status: Chronic Assessment and plan: Management as in melvi (12) HTN (hypertension) Current Visit: Yes Status: Chronic Assessment and plan: Controlled, continue metoprolol. Qualifiers: Hypertension type: essential hypertension Qualified Code(s): I10 - Essential (primary) hypertension (13) Bipolar disorder Current Visit: Yes Status: Chronic Assessment and plan: Hold lithium, continue other meds Qualifiers: Active/Remission status: remission status unspecified Qualified Code(s): F31.9 - Bipolar disorder, unspecified (14) Aortic stenosis Current Visit: Yes Status: Chronic Assessment and plan: PEr ECHO , severe . EF is WNL. Asymptomatic Cardio consult non-emergently, vs outpatient referral, Qualifiers: Cardiac valve disease etiology: nonrheumatic Qualified Code(s): I35.0 - Nonrheumatic aortic (valve) stenosis (15) Hypokalemia Current Visit: Yes Status: Resolved Assessment and plan: rePlaced, continue to monitor. (16) Malnutrition Current Visit: Yes Status: Chronic Assessment and plan: Speech and swallow eval, nutrition eval noted Patient may benefit from tube placement due to the severity of her presentation which is as a result of very poor oral intake. Qualifiers: Malnutrition type: protein-calorie malnutrition Protein-calorie malnutrition severity: unspecified severity Qualified Code(s): E46 - Unspecified protein-calorie malnutrition - Subjective Interval history: Seen and evaluated at bedside Patient admitted for acute hypernatremia, MELVI on CKD, Metabolic encephalopathy, enterococcus patient spent she is alert this morning. He continues to make clinical improvement, however, his oral intake is still poor. His hypernatremia has improved significantly, MELVI on CKD has resolved. He is awake and alert and able to hold a conversation. His speech is chronically dysarthric. No new complains Slight increase in sodium - Constitutional Vitals: Temp Pulse Resp BP Pulse Ox 97.8 F 64 19 148/90 92 03/02/17 10:42 03/02/17 10:42 03/02/17 10:42 03/02/17 10:42 03/02/17 10:42 General appearance: Present: disheveled, A&O X 3, pleasant, no acute distress - Head Head exam: Present: atraumatic, normocephalic - Eye Eye exam: Present: PERRL, conjuntiva pink, sclera anicteric Pupils: Present: PERRL - Neck Neck exam general surgery: Present: supple, trachea midline. Absent: lymphadenopathy - Respiratory Respiratory exam: Present: CTAB. Absent: accessory muscle use, rales, rhonchi, wheezes - Cardiovascular Cardiovascular exam: Present: RRR, +S1, +S2. Absent: diastolic murmur, gallop, rubs, systolic murmur - GI/Abdominal GI/Abdominal exam: Present: normal bowel sounds, soft, no peritoneal signs. Absent: distended, tenderness - Extremities Exam Extremities exam: Present: warm, radial pulses palpable and symmetrical. Absent : calf tenderness, cyanotic, pedal edema - Neurological Exam Neurological exam: Present: alert, CN II-XII intact, oriented X3, no focal deficits. Absent: pronater drift, facial droop, speech deficit - Skin Skin exam: Present: dry, intact Internal Medicine: Result - Labs CBC & Chem 7: 03/02/17 04:13 03/02/17 04:13 Labs: Short CBC 03/02/17 Range/Units 04:13 WBC 10.0 (4.3-11.1) K/mcL Hgb 11.5 L (12.9-16.9) g/dL Hct 37.1 L (37.5-50.1) % Plt Count 186 (140-400) K/mcL Neutrophils # 6.7 (1.6-8.9) K/mcL BMP 03/02/17 04:13 Sodium 154 H Potassium 3.2 L Chloride 124 H Carbon Dioxide 22 BUN 11 Creatinine 1.16 Glucose 101 H Calcium 8.2 L - ABG Interpretation ABG results: PT/INR, D-dimer PT 15.2 Seconds (9.4-12.1) H 02/26/17 06:50 Consult Discharge Plan - Plan Referrals: Pacheco Bailey Jr, MD [Primary Care Provider] - 03/06/17 10:00 am (Please follow up as schedule... patient is going to [facility])
[2017-03-02] MEDS ORDERED: Furosemide 40 MG/4 ML VIAL IVP ONE (17:39)
[2017-03-02] MEDS: clonazePAM 1 MG TABLET PO SCH (21:58)
[2017-03-02] MEDS: Latanoprost 2.5 ML BOTTLE BOTH EYES SCH (22:04)
[2017-03-03] MEDS: Ampicillin 2 GM in 0.9 % Sodium Chloride Mini Bag 100 ML IVPB SCH ×4 (03:18→22:05)
[2017-03-03 03:44] LABS: Basophils % 0.3 %; Eosinophils # 0.3 K/mcL (0.0-0.6); Eosinophils % 3.3 %; Hematocrit 37.6 % (37.5-50.1); Hemoglobin 11.7 g/dL (12.9-16.9); Immature Granulocytes % 0.3 % (0-4); Lymphocytes # 1.7 K/mcL (0.6-4.6); Lymphocytes % 18.8 %; Mean Corpuscular HGB Conc 31.1 g/dL (31.6-35.5); Mean Corpuscular Hemoglobin 31.1 pg (28.0-33.3); Mean Platelet Volume 10.1 fL (9.4-12.4); Monocytes # 0.6 K/mcL (0.0-1.3); Neutrophils # 6.3 K/mcL (1.6-8.9); Platelet Count 208 K/mcL (140-400); Red Blood Count 3.76 M/mcL (4.19-5.50); Red Cell Distribution Width 15.8 % (11.5-14.5); Segmented Neutrophils % 70.3 %
[2017-03-03 03:52] LABS: BUN/Creatinine Ratio 9 (6-26); Blood Urea Nitrogen 10 mg/dL (8-26); Calcium 9.1 mg/dL (8.6-10.8); Carbon Dioxide 24 mEq/L (19-29); Chloride 123 mEq/L (98-109); Glucose 88 mg/dL (70-99); Osmolality,Calculated 316 (280-300); Potassium 3.2 mEq/L (3.5-4.5); Sodium 154 mEq/L (136-145); eGFR For African Americans > 60 (> 60); eGFR For Non-African Americans > 60 (> 60)
[2017-03-03] MEDS: *HR* Heparin 5,000 UNIT/ML VIAL SQ SCH ×2 (06:42→17:24)
[2017-03-03] MEDS: Insulin LISPRO 300 UNITS/3 ML VIAL SQ SCH ×4 (07:26→21:42)
[2017-03-03] MEDS ORDERED: D5% in Water 1,000 ML IVC SCH (07:41)
--- NOTE | 2017-03-03 09:35 | Nephrology Progress Note ---
Date of Encounter: 03/03/17 Time of Encounter: 08:30 - Assessment and Plan (1) Acute on chronic renal failure Current Visit: Yes Status: Acute Renal fct stable. Creat 1.17. Na 154. K 3.2. Latest lithium 1.0. Would continue current IV [id number] @ 70cc/hr. Will give K rider. Stat urine osmal ordered. Psych should be consulted for replacement medication for [place]. Qualifiers: Acute renal failure type: unspecified Chronic kidney disease stage: stage 3 (moderate) Qualified Code(s): N17.9 - Acute kidney failure, unspecified; N18.3 - Chronic kidney disease, stage 3 (moderate); N18.3 - Chronic kidney disease, stage 3 (moderate) Subjective Interval history: Patient arouses, garbled attempt at speech. Patient became dyspneic/tachpneic yesterday. CXR showed worsening CHF. Was given IV lasix and IV stopped. No improvementinsodium and potassium remains low. IV D5W restarted today at 70cc/ hour. Objective - Vital Signs Vital signs: Vital Signs Temp Pulse Resp BP Pulse Ox 03/03/17 06:50 98.6 F 59 19 163/87 97 03/03/17 03:47 97.3 F L 64 20 150/99 98 03/03/17 00:32 97.8 F 57 19 143/86 97 03/02/17 19:07 98 F 66 17 145/87 98 03/02/17 16:37 20 96 03/02/17 15:54 96.9 F L 61 19 158/88 92 03/02/17 10:42 97.8 F 64 19 148/90 92 Intake and Output 03/03/17 03/03/17 03/03/17 00:59 07:59 15:59 Intake Total Output Total Balance Intake: IV Fluids Ampicillin 2 GM In 0.9 % Sodium Chloride (Mini-Bag +) 100 ML @ 200 mls/hr IVPB Q6H [facility] Rx#: [id number] Output: Catheter Other: Stool Size Stool Consistency Stool Color # Bowel Movement Diapers Weight Blood Glucose* Patient Weight 03/03/17 22:59 Weight 69 kg - General Appearance General appearance: Present: appears started age EENT: Present: mucous membranes moist Neck: Present: no JVD Respiratory: Present: clear Cardiology: Present: no edema, regular rate, regular rhythm Gastrointestinal: Present: normoactive bowel sounds Integumentary: Present: warm and dry Psychiatric: Present: cooperative - Lab 03/03/17 03:16 03/03/17 03:16 Most recent lab results Calcium 9.1 mg/dL (8.6-10.8) 03/03/17 03:16 Phosphorus 2.5 mg/dL (2.3-4.7) 02/27/17 04:52 Magnesium 1.8 mg/dL (1.6-2.6) 02/27/17 04:52 Urine Creatinine 128 mg/dL 02/25/17 16:44 Urine Sodium < 20.0 mEq/L 02/25/17 16:44 Consult Discharge Plan - Plan Referrals: Pacheco Bailey Jr, MD [Primary Care Provider] - 03/06/17 10:00 am (Please follow up as schedule... patient is going to [facility])
--- NOTE | 2017-03-03 09:41 | Internal Med Progress Note ---
Date of Encounter: 03/03/17 Time of Encounter: 09:20 - Assessment and plan (1) [place] intoxication Current Visit: Yes Status: Resolved Assessment and plan: Admitting lithium level 2 Improved to 1.0 Continue to hold lithium, he was on lithium for possible bipolar disorder Spoke to psychiatrist, mood is stable and current meds suffice Will reconsult if patient demonstrates manic behaviour/mood instability Qualifiers: Encounter type: initial encounter Injury intent: accidental or unintentional Qualified Code(s): T56.891A - Toxic effect of other metals, accidental (unintentional), initial encounter (2) Acute hypernatremia Current Visit: Yes Status: Acute Assessment and plan: Na improved, slight increase in sodium today Patient still with poor oral intake Free water as tolerated Speech eval noted, and was started on pureed diet and thickened liquids. Continue daily Chem (3) Metabolic encephalopathy Current Visit: Yes Status: Resolved Assessment and plan: Multifactorial: MELVI on CKD, [place] toxicity, hypernatremia Patient is alert this morning, oriented to place and person, improved significantly Compared to admission clinically improved Continue to monitor Aspiration and Fall precautions (4) Acute on chronic renal failure Current Visit: Yes Status: Acute Assessment and plan: baseline Cr 1.5 in 11/2016 Admitted with Cr >5 Kidney function has improved significantly with IV fluid hydration. Urea creatinine today 15/1.06. Hemoglobin is stable. Discontinued lactated Ringer's 03/01 Continue to monitor chemistry. Qualifiers: Acute renal failure type: unspecified Chronic kidney disease stage: stage 3 (moderate) Qualified Code(s): N17.9 - Acute kidney failure, unspecified; N18.3 - Chronic kidney disease, stage 3 (moderate); N18.3 - Chronic kidney disease, stage 3 (moderate) (5) Leukocytosis Current Visit: Yes Status: Resolved Assessment and plan: Possibly secondary to dehydration and UTI WBC normalized this a.m labs Qualifiers: Leukocytosis type: unspecified Qualified Code(s): D72.829 - Elevated white blood cell count, unspecified (6) COPD (chronic obstructive pulmonary disease) Current Visit: Yes Status: Chronic Assessment and plan: NO evidence of exacerbation at this time Qualifiers: COPD type: unspecified COPD Qualified Code(s): J44.9 - Chronic obstructive pulmonary disease, unspecified (7) Parkinsons disease Current Visit: Yes Status: Chronic Assessment and plan: Continue home meds (8) Type 2 diabetes mellitus Current Visit: Yes Status: Chronic Assessment and plan: Overcontrolled A1C 4.6 MOnitor FS ACHS Sliding scale insulin. Qualifiers: Diabetes mellitus complication status: without complication Diabetes mellitus terminal computer operator insulin use: without terminal computer operator use Qualified Code(s): E11.9 - Type 2 diabetes mellitus without complications (9) Hypothyroidism Current Visit: Yes Status: Chronic Assessment and plan: Continue synthroid Qualifiers: Hypothyroidism type: unspecified Qualified Code(s): E03.9 - Hypothyroidism , unspecified (10) Urinary tract infection Current Visit: Yes Status: Acute Assessment and plan: Culture growing enterococcus Received 2 days of Zosyn Sensitivity shows ampicillin, deescalate to ampicillin IV- day 4. Total 6 days so far Qualifiers: Urinary tract infection type: acute cystitis Hematuria presence: with hematuria Qualified Code(s): N30.01 - Acute cystitis with hematuria (11) Chronic kidney disease, stage III (moderate) Current Visit: Yes Status: Chronic Assessment and plan: Management as in melvi (12) HTN (hypertension) Current Visit: Yes Status: Chronic Assessment and plan: Controlled, continue metoprolol. Qualifiers: Hypertension type: essential hypertension Qualified Code(s): I10 - Essential (primary) hypertension (13) Bipolar disorder Current Visit: Yes Status: Chronic Assessment and plan: Hold lithium, continue other meds Qualifiers: Active/Remission status: remission status unspecified Qualified Code(s): F31.9 - Bipolar disorder, unspecified (14) Aortic stenosis Current Visit: Yes Status: Chronic Assessment and plan: PEr ECHO , severe . EF is WNL. Asymptomatic Now with CHF Cardio consulted non-emergently, Qualifiers: Cardiac valve disease etiology: nonrheumatic Qualified Code(s): I35.0 - Nonrheumatic aortic (valve) stenosis (15) Hypokalemia Current Visit: Yes Status: Acute Assessment and plan: rePlaced, continue to monitor. (16) Malnutrition Current Visit: Yes Status: Chronic Assessment and plan: Speech and swallow eval, nutrition eval noted Patient may benefit from tube placement due to the severity of her presentation which is as a result of very poor oral intake. Qualifiers: Malnutrition type: protein-calorie malnutrition Protein-calorie malnutrition severity: unspecified severity Qualified Code(s): E46 - Unspecified protein-calorie malnutrition (17) CHF (congestive heart failure) Current Visit: Yes Status: Acute Assessment and plan: EF 60-65% Possibly due to fluids Improved with lasix Continue I/O monitoring Qualifiers: Congestive heart failure type: diastolic Congestive heart failure chronicity: acute on chronic Qualified Code(s): I50.33 - Acute on chronic diastolic (congestive) heart failure - Subjective Interval history: Seen and evaluated at bedside Patient admitted for acute hypernatremia, MELVI on CKD, Metabolic encephalopathy, enterococcus He continues to make clinical improvement, however, his oral intake is still poor. His hypernatremia has improved significantly, MELVI on CKD has resolved. He is awake and alert and able to hold a conversation. His speech is chronically dysarthric. He developed shortness of breath yesterday and CXR done showed pulmonary congestion, patient had to be given lasix for clinical improvement His renal function this morning is about the same He is awake, alert and oriented X2 Potassium is low, will replace Psych is consulted for alternatives to lithium for bipolar disorder - Constitutional Vitals: Temp Pulse Resp BP Pulse Ox 98.6 F 59 19 163/87 97 03/03/17 06:50 03/03/17 06:50 03/03/17 06:50 03/03/17 06:50 03/03/17 06:50 General appearance: Present: disheveled, A&O X 2, pleasant, no acute distress - Head Head exam: Present: atraumatic, normocephalic - Eye Eye exam: Present: PERRL, conjuntiva pink, sclera anicteric Pupils: Present: PERRL - Neck Neck exam general surgery: Present: supple, trachea midline. Absent: lymphadenopathy - Respiratory Respiratory exam: Present: CTAB. Absent: accessory muscle use, rales, rhonchi, wheezes - Cardiovascular Cardiovascular exam: Present: RRR, +S1, +S2. Absent: diastolic murmur, gallop, rubs, systolic murmur - GI/Abdominal GI/Abdominal exam: Present: normal bowel sounds, soft, no peritoneal signs. Absent: distended, tenderness - Extremities Exam Extremities exam: Present: warm, radial pulses palpable and symmetrical. Absent : calf tenderness, cyanotic, pedal edema - Neurological Exam Neurological exam: Present: alert, CN II-XII intact, oriented X3, no focal deficits. Absent: pronater drift, facial droop, speech deficit - Skin Skin exam: Present: dry, intact Internal Medicine: Result - Labs CBC & Chem 7: 03/03/17 03:16 03/03/17 03:16 Labs: Short CBC 03/03/17 Range/Units 03:16 WBC 9.0 (4.3-11.1) K/mcL Hgb 11.7 L (12.9-16.9) g/dL Hct 37.6 (37.5-50.1) % Plt Count 208 (140-400) K/mcL Neutrophils # 6.3 (1.6-8.9) K/mcL BMP 03/03/17 03:16 Sodium 154 H Potassium 3.2 L Chloride 123 H Carbon Dioxide 24 BUN 10 Creatinine 1.17 Glucose 88 Calcium 9.1 - ABG Interpretation ABG results: PT/INR, D-dimer PT 15.2 Seconds (9.4-12.1) H 02/26/17 06:50 - Impressions Impressions Chest X-Ray 03/02/17 17:01 IMPRESSION: Cardiomegaly with progressive bilateral pulmonary infiltrates and bilateral pleural effusions. Findings are suggestive of worsening congestive heart failure. D/ / 03/02/2017 17:29:44 Joseph Rodas MD / sonia Interpreting Provider: Joseph Rodas MD Consult Discharge Plan - Plan Referrals: Pacheco Bailey Jr, MD [Primary Care Provider] - 03/06/17 10:00 am (Please follow up as schedule... [facility])
[2017-03-03] MEDS: lamoTRIgine 100 MG TABLET PO SCH (10:02)
[2017-03-03] MEDS: Carbidopa/Levodopa ER 50/200 TABLET PO SCH ×2 (10:03→21:44)
[2017-03-03] MEDS: Metoprolol XL (24 HR) Succ 25 MG TAB.ER.24H PO SCH (10:03)
[2017-03-03] MEDS: Fenofibrate 54 MG TABLET PO SCH (10:03)
[2017-03-03] MEDS: FLUoxetine 20 MG CAPSULE PO SCH (10:03)
--- NOTE | 2017-03-03 13:20 | Event Note ---
Date of Encounter: 03/03/17 Time of Encounter: 01:00 I contacted who initiated a consult to review patient's medications for his bipolar disorder. I reviewed patient's chart and his current regime of medications. It seems patient does have a history of bipolar disorder and developed lithium toxicity At this point in time patient is on almonds Prozac Lamictal and Seroquel and seems to be fairly stable on the current regime of medications. I discussed the case at length with and it was mutually decided to continue the current regime of medication as patient is fairly stable and if there are any further changes in his mood request a consult to psychiatry so that patient can be assessed and evaluated. At this point in time I do not see a need for a psychiatric evaluation and assessment since patient is fairly stable on his medications.
[2017-03-03] MEDS: clonazePAM 1 MG TABLET PO SCH (21:44)
[2017-03-03] MEDS: Latanoprost 2.5 ML BOTTLE BOTH EYES SCH (22:01)
[2017-03-04] MEDS: Ampicillin 2 GM in 0.9 % Sodium Chloride Mini Bag 100 ML IVPB SCH ×4 (03:40→23:58)
[2017-03-04 05:34] LABS: Basophils % 0.2 %; Eosinophils # 0.2 K/mcL (0.0-0.6); Eosinophils % 1.3 %; Hematocrit 40.2 % (37.5-50.1); Hemoglobin 12.5 g/dL (12.9-16.9); Immature Granulocytes % 0.7 % (0-4); Lymphocytes # 1.8 K/mcL (0.6-4.6); Lymphocytes % 14.1 %; Mean Corpuscular HGB Conc 31.1 g/dL (31.6-35.5); Mean Corpuscular Hemoglobin 31.6 pg (28.0-33.3); Mean Corpuscular Volume 101.8 fL (83.0-100.0); Mean Platelet Volume 10.5 fL (9.4-12.4); Monocytes % 8.2 %; Neutrophils # 9.5 K/mcL (1.6-8.9); Nucleated Red Blood Cells 0.2 /100 WBC (0); Platelet Count 223 K/mcL (140-400); Red Blood Count 3.95 M/mcL (4.19-5.50); Red Cell Distribution Width 16.3 % (11.5-14.5); Segmented Neutrophils % 75.5 %
[2017-03-04] MEDS: *HR* Heparin 5,000 UNIT/ML VIAL SQ SCH ×2 (05:37→17:10)
[2017-03-04 05:41] LABS: BUN/Creatinine Ratio 12 (6-26); Blood Urea Nitrogen 14 mg/dL (8-26); Calcium 9.5 mg/dL (8.6-10.8); Carbon Dioxide 18 mEq/L (19-29); Chloride 127 mEq/L (98-109); Glucose 140 mg/dL (70-99); Osmolality,Calculated 327 (280-300); Sodium 157 mEq/L (136-145); eGFR For African Americans > 60 (> 60); eGFR For Non-African Americans > 60 (> 60)
[2017-03-04 05:42] LABS: Potassium 4.1 mEq/L (3.5-4.5)
[2017-03-04] MEDS: Insulin LISPRO 300 UNITS/3 ML VIAL SQ SCH ×4 (07:04→22:52)
--- NOTE | 2017-03-04 08:29 | Nephrology Progress Note ---
Date of Encounter: 03/04/17 Time of Encounter: 08:27 - Assessment and Plan (1) Acute renal failure Current Visit: Yes Status: Acute Patient has worsening hypernatremia. 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 His acute kidney injury has resolved. He will need continued free water administration. His maintenance IV of D5W was apparently placed on hold yesterday. There is some concern for congestive heart failure. Since his hypernatremia is worsening I am going to resume his maintenance IV fluids of D5W. She was congestive heart failure worsened he can receive Lasix as necessary and at the same time continue the D5W maintenance IV. Qualifiers: Acute renal failure type: unspecified Qualified Code(s): N17.9 - Acute kidney failure, unspecified (2) Hypernatremia Current Visit: Yes Status: Acute (3) [place] intoxication Current Visit: Yes Status: Resolved Qualifiers: Encounter type: initial encounter Injury intent: accidental or unintentional Qualified Code(s): T56.891A - Toxic effect of other metals, accidental (unintentional), initial encounter Subjective Interval history: The patient will respond to his name. He reports that he is feeling okay. Laboratory studies this morning show that his hypernatremia has worsened compared to yesterday. He currently is not receiving any IV fluids. Objective - Vital Signs Vital signs: Vital Signs Temp Pulse Resp BP Pulse Ox 03/04/17 06:41 97.3 F L 64 17 138/86 92 03/04/17 05:05 150/87 03/04/17 04:16 97.1 F L 56 17 156/90 92 03/03/17 23:22 98.2 F 56 17 149/86 96 03/03/17 18:57 97.9 F 60 15 152/84 98 03/03/17 15:37 96 03/03/17 15:33 98.3 F 62 17 152/83 97 03/03/17 10:13 97.2 F L 60 18 163/91 99 03/03/17 10:00 95 Intake and Output 03/03/17 03/04/17 03/04/17 23:59 07:59 15:59 Intake Total 200 / 200 Output Total 1375 / 1375 200 / 200 Balance -1175 / -1175 -200 / -200 Intake: IV Fluids 200 / 200 Ampicillin 2 GM In 0.9 % Sodium 200 / 200 Chloride (Mini-Bag +) 100 ML @ 200 mls/hr IVPB Q6H [facility] Rx#: [id number] Output: Urine 275 / 275 200 / 200 Catheter 1100 / 1100 Other: Stool Size Small Stool Consistency loose Stool Color Brown # Bowel Movement Diapers 1 Weight 67.6 kg Blood Glucose* 111 108 Patient Weight 03/04/17 23:59 Weight 67.6 kg - General Appearance Exam: Patient responds to his name. He is grasping at things in the air. Lungs coarse breath sounds. Heart regular rate and rhythm. Abdomen benign. There is no lower extremity swelling. - Lab 03/04/17 05:18 03/04/17 05:18 Most recent lab results Calcium 9.5 mg/dL (8.6-10.8) 03/04/17 05:18 Phosphorus 2.5 mg/dL (2.3-4.7) 02/27/17 04:52 Magnesium 1.8 mg/dL (1.6-2.6) 02/27/17 04:52 Urine Creatinine 128 mg/dL 02/25/17 16:44 Urine Sodium < 20.0 mEq/L 02/25/17 16:44 Consult Discharge Plan - Plan Referrals: Pacheco Bailey Jr, MD [Primary Care Provider] - 03/06/17 10:00 am (Please follow up as schedule... patient is going to [facility])
[2017-03-04] MEDS: D5% in Water 1,000 ML IVC SCH ×2 (09:25→18:23)
[2017-03-04] MEDS: lamoTRIgine 100 MG TABLET PO SCH (09:29)
[2017-03-04] MEDS: FLUoxetine 20 MG CAPSULE PO SCH (09:29)
[2017-03-04] MEDS: Metoprolol XL (24 HR) Succ 25 MG TAB.ER.24H PO SCH (09:29)
[2017-03-04] MEDS: Carbidopa/Levodopa ER 50/200 TABLET PO SCH ×2 (09:29→22:51)
[2017-03-04] MEDS: Fenofibrate 54 MG TABLET PO SCH (09:30)
--- NOTE | 2017-03-04 09:42 | Cardiology Consult Note ---
Date of Encounter: 03/04/17 Time of Encounter: 09:33 Assessment and Plan (1) Severe aortic stenosis Current Visit: Yes Status: Acute Severe Aortic Stenosis asymptomatic C1 vs symptomatic D1. Patient's risks include older age, CKD3, T2DM, HLD, and HTN. No known previous hx of CHF, congenital heard disease, rheumatic fever or valvular issues. Pardoxically split S2 heard on exam. 02/26/17 - echo EF 60-65%, valve area 0.7, velocity 4.5 , and mean transvalvulary gradient 45 mmHg. Due to mental status, patient is currently not a candidate for exercise testing. - BP control with home rx Toprolol XL 75 q6hr, and Hydralazine 10 IV q6hr - Stage C1 or D1. Will consider valve replacement work up if patient medically and mentally improve (2) Aortic aneurysm Current Visit: Yes Status: Chronic Stable ascending thoracic aneurysm. 08/01/[address]: Stable ascending thoracic aortic aneurysm measuring up to 5.[address] chest was in 2014 which showed aneurysm measured 5.5 cm. HTN is well controlled and patient is a former smoker. no pulsatile mass, or abd bruits on exam. - will consider repairing if patient undergoes valve replacement. Qualifiers: Aortic location: unspecified Presence of rupture: without rupture Qualified Code(s): I71.9 - Aortic aneurysm of unspecified site, without rupture Discussion w patient/family: The assessment and plan as outlined above was discussed with the patient and/or family members who expressed understanding and agreement. All questions were answered. Thank you for involving us in the care of your patient. Please call with any questions. History of Present Illness Consult date: 03/04/17 Requesting physician: Roberto Fierro Consult reason: severe aortic stenosis Chief complaint: Altered mental status History of present illness: Mr. Frankel is a 71 year old male w/ hx of bipolar, ckd3, copd, parkinsons, T2DM, hyopthyroid, malnutrition, HTN, HLD, and thoarcic aortic aneurysm. Patient was unable to answer questions, hx per chart review. Patient was admitted for lithium toxicity and AMS, upon workup echo showed severe aortic stenosis. Patient was recently hospitalized for UTI, and was discharged to [facility]. Patient became altered and combative at [facility] and sent to [place] ED, where he was found to have lithium toxicity of 2.0, which has since resolved to 1.0. Patient has no known hx of CHF, ACS, or valvular issues. Past Med Surg Social Fam HX - Past Medical History Medical history: aortic aneurysm, cirrhosis, COPD, diabetes, hypertension, thyroid disease, other Psychiatric history: anxiety, bipolar, depression, other - Social History Smoking Status: Former smoker Packs per day: 1 PPD - reports he quit in 2012 Smokeless Tobacco Status: No Alcohol use: none Drug use: none - Family History Father Race: Family Member Ethnicity: Non- Living Status: Cause of : DM complications Hx Family Cardiac Disorders: Yes (CARDIAC DISEASE) Hx Family Respiratory Disorders: Yes (COPD) Hx Family Endocrine Disorder: Yes (DM) Mother Race: Family Member Ethnicity: Non- Living Status: Age at : 80 Cause of : CAD Hx Family Cardiac Disorders: Yes (CAD) Hx Family Endocrine Disorder: Yes (Latent DM) Brother Race: Family Member Ethnicity: Non- Living Status: Age at : 79 Cause of : MRSA/Sepsis Hx Family Endocrine Disorder: Yes (DM) Sister Race: Family Member Ethnicity: Non- Living Status: Still Living Hx Family Endocrine Disorder: Yes (DM) Medications and Allergies Adalimumab [Humira Pen Psoriasis-Uveitis] 40 mg SQ Q2W 11/18/16 [History] Albuterol Sulfate [Proair Hfa] 2 puff IH Q4H PRN 11/18/16 [History] Amantadine [Symmetrel] 100 mg PO QAM 11/18/16 [History] Bimatoprost [Lumigan] 1 drop OP HS 11/18/16 [History] Carbidopa/Levodopa ER 50/200 [Sinemet ER 50-200 Tab] 1 tab PO BID 11/18/16 [ History] FLUoxetine HCl [Prozac] 80 mg PO QAM 11/18/16 [History] Fenofibrate Nanocrystallized [Tricor] 145 mg PO QAM 11/18/16 [History] Levothyroxine [Synthroid] 75 mcg PO QAM 11/18/16 [History] Mallard Carbonate 300 mg PO BID 11/18/16 [History] Mv-Mn/FA/Vit K/Lycop/Lut/Coq10 [Daily Multivitamin Capsule] 1 tab PO QAM [History] Quetiapine Fumarate [Seroquel] 50 mg PO HS 11/18/16 [History] lamoTRIgine [Lamictal] 100 mg PO QAM 11/18/16 [History] Bisacodyl [Dulcolax] 5 mg PO BID PRN 02/12/17 [History] Docusate [Colace] 100 mg PO BID 02/12/17 [History] Metoprolol XL (24 HR) Succ [Toprol Xl] 75 mg PO QAM 02/12/17 [History] Polyethylene Glycol 3350 [MiraLAX] 17 gm PO DAILY PRN 02/12/17 [History] clonazePAM [Klonopin] 1 mg PO BID PRN 02/25/17 [History] clonazePAM [Klonopin] 1 mg PO HS 02/25/17 [History] 3 Allergy/AdvReac Type Severity Reaction Status Date / Time aspirin Allergy Rash Verified 11/06/16 10:40 ROS unobtainable: due to mental status All Systems Review: A 10-system review of systems was performed and is negative for pertinent findings except as documented above in the HPI. Physical Examination Vital Signs, Last 4 Hours Temp Pulse Resp BP Pulse Ox 03/04/17 06:41 97.3 F L 64 17 138/86 92 General: Other (Patient was responsive to verbal ques, but unable to follow verbal commands. Patient was moaning throughout exam) HEENT: Atraumatic, Normocephaly, Other (dry mucus membranes) Neck: No JVD, Normal carotid pulses, Other Cardiac: Other (difficult to evaluate due to patients continuous movement and moaning during exam. Paradoxyl Split S2 and 2nd IC.) Lungs: Other (rapid shallow breathing) Neuro: Other (Patient was altered and oriented x0) Abdomen: Other (no pulsatile mass or abdominal bruits) Musculoskeletal: No Chest Wall Tenderness Extremities: No Clubbing, No Cyanosis, No Edema Results 03/04/17 05:18 03/04/17 05:18 Lab Results 03/04/17 03/04/17 05:18 05:18 WBC 12.7 H Hgb 12.5 L Hct 40.2 Plt Count 223 Sodium 157 H Potassium 4.1 Chloride 127 H Carbon Dioxide 18 L BUN 14 Creatinine 1.19 Glucose 140 H Calcium 9.5 Consult Discharge Plan - Plan Referrals: Pacheco Bailey Jr, MD [Primary Care Provider] - 03/06/17 10:00 am (Please follow up as schedule... patient is going to [facility])
--- NOTE | 2017-03-04 10:31 | Internal Med Progress Note ---
Date of Encounter: 03/04/17 Time of Encounter: 10:31 - Assessment and plan (1) [place] intoxication Current Visit: Yes Status: Resolved Assessment and plan: Admitting lithium level 2 Improved to 1.0 Continue to hold lithium, he was on lithium for possible bipolar disorder Spoke to psychiatrist, mood is stable and current meds suffice Will reconsult if patient demonstrates manic behaviour/mood instability Qualifiers: Encounter type: initial encounter Injury intent: accidental or unintentional Qualified Code(s): T56.891A - Toxic effect of other metals, accidental (unintentional), initial encounter (2) Acute hypernatremia Current Visit: Yes Status: Acute Assessment and plan: Na improved, slight increase in sodium today Patient still with poor oral intake Restarted on D5W which was held due to CHF Free water as tolerated Speech eval noted, and was started on pureed diet and thickened liquids. Continue daily Chem (3) Metabolic encephalopathy Current Visit: Yes Status: Resolved Assessment and plan: Multifactorial: MELVI on CKD, [place] toxicity, hypernatremia Patient is alert this morning, oriented to place and person, improved significantly Compared to admission clinically improved Continue to monitor Aspiration and Fall precautions (4) Acute on chronic renal failure Current Visit: Yes Status: Acute Assessment and plan: baseline Cr 1.5 in 11/2016 Admitted with Cr >5 Kidney function has improved significantly with IV fluid hydration. Urea creatinine today 15/1.06. Hemoglobin is stable. Discontinued lactated Ringer's 03/01 Continue to monitor chemistry. Qualifiers: Acute renal failure type: unspecified Chronic kidney disease stage: stage 3 (moderate) Qualified Code(s): N17.9 - Acute kidney failure, unspecified; N18.3 - Chronic kidney disease, stage 3 (moderate); N18.3 - Chronic kidney disease, stage 3 (moderate) (5) Leukocytosis Current Visit: Yes Status: Resolved Assessment and plan: Possibly secondary to dehydration and UTI Qualifiers: Leukocytosis type: unspecified Qualified Code(s): D72.829 - Elevated white blood cell count, unspecified (6) COPD (chronic obstructive pulmonary disease) Current Visit: Yes Status: Chronic Assessment and plan: NO evidence of exacerbation at this time Qualifiers: COPD type: unspecified COPD Qualified Code(s): J44.9 - Chronic obstructive pulmonary disease, unspecified (7) Parkinsons disease Current Visit: Yes Status: Chronic Assessment and plan: Continue home meds (8) Type 2 diabetes mellitus Current Visit: Yes Status: Chronic Assessment and plan: Overcontrolled A1C 4.6 MOnitor FS ACHS Sliding scale insulin. Qualifiers: Diabetes mellitus complication status: without complication Diabetes mellitus shelter insulin use: without shelter use Qualified Code(s): E11.9 - Type 2 diabetes mellitus without complications (9) Hypothyroidism Current Visit: Yes Status: Chronic Assessment and plan: Continue synthroid Qualifiers: Hypothyroidism type: unspecified Qualified Code(s): E03.9 - Hypothyroidism , unspecified (10) Urinary tract infection Current Visit: Yes Status: Acute Assessment and plan: Culture growing enterococcus Received 2 days of Zosyn Sensitivity shows ampicillin, deescalate to ampicillin IV- day 5. Total 7 days so far Qualifiers: Urinary tract infection type: acute cystitis Hematuria presence: with hematuria Qualified Code(s): N30.01 - Acute cystitis with hematuria (11) Chronic kidney disease, stage III (moderate) Current Visit: Yes Status: Chronic Assessment and plan: Management as in melvi (12) HTN (hypertension) Current Visit: Yes Status: Chronic Assessment and plan: Controlled, continue metoprolol. Qualifiers: Hypertension type: essential hypertension Qualified Code(s): I10 - Essential (primary) hypertension (13) Bipolar disorder Current Visit: Yes Status: Chronic Assessment and plan: Hold lithium, continue other meds Qualifiers: Active/Remission status: remission status unspecified Qualified Code(s): F31.9 - Bipolar disorder, unspecified (14) Aortic stenosis Current Visit: Yes Status: Chronic Assessment and plan: PEr ECHO , severe . EF is WNL. Asymptomatic Now with CHF Cardio consulted , appreciate recommendations Qualifiers: Cardiac valve disease etiology: nonrheumatic Qualified Code(s): I35.0 - Nonrheumatic aortic (valve) stenosis (15) Hypokalemia Current Visit: Yes Status: Acute Assessment and plan: rePlaced, continue to monitor. (16) Malnutrition Current Visit: Yes Status: Chronic Assessment and plan: Speech and swallow eval, nutrition eval noted Patient may benefit from tube placement due to the severity of his presentation which is as a result of very poor oral intake. Qualifiers: Malnutrition type: protein-calorie malnutrition Protein-calorie malnutrition severity: unspecified severity Qualified Code(s): E46 - Unspecified protein-calorie malnutrition (17) CHF (congestive heart failure) Current Visit: Yes Status: Acute Assessment and plan: EF 60-65% Possibly due to fluids Improved with lasix, try low dose po Continue I/O monitoring Qualifiers: Congestive heart failure type: diastolic Congestive heart failure chronicity: acute on chronic Qualified Code(s): I50.33 - Acute on chronic diastolic (congestive) heart failure - Subjective Interval history: Seen and evaluated at bedside Patient admitted for acute hypernatremia, MELVI on CKD, Metabolic encephalopathy, enterococcus He continues to make clinical improvement, however, his oral intake is still poor. His hypernatremia has improved significantly, MELVI on CKD has resolved. He is awake and alert and able to hold a conversation. His speech is chronically dysarthric. He developed shortness of breath 03/02 and CXR done showed pulmonary congestion , patient had to be given lasix for clinical improvement His renal function this morning is about the same He is awake, alert and oriented X2 Psych consulted for alternatives to lithium, no indication for additonal medication for now Cardio eval appreciated for severe - Constitutional Vitals: Temp Pulse Resp BP Pulse Ox 97.3 F L 64 17 138/86 92 03/04/17 06:41 03/04/17 06:41 03/04/17 06:41 03/04/17 06:41 03/04/17 09:33 General appearance: Present: disheveled, A&O X 2 (Seems slighlty confused), pleasant, no acute distress - Head Head exam: Present: atraumatic, normocephalic - Eye Eye exam: Present: PERRL, conjuntiva pink, sclera anicteric Pupils: Present: PERRL - Neck Neck exam general surgery: Present: supple, trachea midline. Absent: lymphadenopathy - Respiratory Respiratory exam: Present: CTAB (anterior auscultation only. ). Absent: accessory muscle use, rales, rhonchi, wheezes - Cardiovascular Cardiovascular exam: Present: RRR, +S1, +S2, systolic murmur. Absent: diastolic murmur, gallop, rubs - GI/Abdominal GI/Abdominal exam: Present: normal bowel sounds, soft, no peritoneal signs. Absent: distended, tenderness - Extremities Exam Extremities exam: Present: warm, radial pulses palpable and symmetrical. Absent : calf tenderness, cyanotic, pedal edema - Neurological Exam Neurological exam: Present: alert, CN II-XII intact, no focal deficits. Absent : oriented X3, pronater drift, facial droop, speech deficit - Skin Skin exam: Present: dry Internal Medicine: Result - Labs CBC & Chem 7: 03/04/17 05:18 03/04/17 05:18 Labs: Short CBC 03/04/17 Range/Units 05:18 WBC 12.7 H (4.3-11.1) K/mcL Hgb 12.5 L (12.9-16.9) g/dL Hct 40.2 (37.5-50.1) % Plt Count 223 (140-400) K/mcL Neutrophils # 9.5 H (1.6-8.9) K/mcL BMP 03/04/17 05:18 Sodium 157 H Potassium 4.1 Chloride 127 H Carbon Dioxide 18 L BUN 14 Creatinine 1.19 Glucose 140 H Calcium 9.5 - ABG Interpretation ABG results: PT/INR, D-dimer PT 15.2 Seconds (9.4-12.1) H 02/26/17 06:50 Consult Discharge Plan - Plan Referrals: Pacheco Bailey Jr, MD [Primary Care Provider] - 03/06/17 10:00 am (Please follow up as schedule... patient is going to [facility])
[2017-03-04] MEDS ORDERED: Furosemide 20 MG TABLET PO SCH (13:30)
[2017-03-04] MEDS: Furosemide 20 MG/2 ML VIAL IVP SCH (16:03)
[2017-03-04] MEDS: clonazePAM 1 MG TABLET PO SCH (22:51)
[2017-03-04] MEDS: Latanoprost 2.5 ML BOTTLE BOTH EYES SCH (22:52)
[2017-03-05] MEDS: Ampicillin 2 GM in 0.9 % Sodium Chloride Mini Bag 100 ML IVPB SCH ×4 (04:02→23:40)
[2017-03-05] MEDS: *HR* Heparin 5,000 UNIT/ML VIAL SQ SCH ×2 (06:36→17:00)
[2017-03-05 07:28] LABS: Basophils % 0.2 %; Eosinophils # 0.1 K/mcL (0.0-0.6); Eosinophils % 0.8 %; Hematocrit 41.8 % (37.5-50.1); Hemoglobin 12.7 g/dL (12.9-16.9); Immature Granulocytes % 0.6 % (0-4); Lymphocytes # 1.5 K/mcL (0.6-4.6); Lymphocytes % 12.8 %; Mean Corpuscular HGB Conc 30.4 g/dL (31.6-35.5); Mean Platelet Volume 10.2 fL (9.4-12.4); Monocytes # 0.8 K/mcL (0.0-1.3); Monocytes % 6.4 %; Neutrophils # 9.3 K/mcL (1.6-8.9); Nucleated Red Blood Cells 0.3 /100 WBC (0); Platelet Count 279 K/mcL (140-400); Red Cell Distribution Width 16.2 % (11.5-14.5); Segmented Neutrophils % 79.2 %
[2017-03-05 07:35] LABS: Alanine Aminotransferase 43 Units/L (0-55); Albumin 2.3 g/dL (3.5-5.0); Albumin/Globulin Ratio 0.6 (1.1-2.2); Alkaline Phosphatase 67 Units/L (38-126); Aspartate Amino Transferase 39 Units/L (5-34); BUN/Creatinine Ratio 11 (6-26); Bilirubin,Total 0.7 mg/dL (0.2-1.2); Blood Urea Nitrogen 13 mg/dL (8-26); Calcium 9.3 mg/dL (8.6-10.8); Carbon Dioxide 21 mEq/L (19-29); Chloride 124 mEq/L (98-109); Globulin 3.9 g/dL (2.4-3.5); Glucose 118 mg/dL (70-99); Osmolality,Calculated 323 (280-300); Sodium 156 mEq/L (136-145); Total Protein 6.2 g/dL (6.0-8.3); eGFR For African Americans > 60 (> 60); eGFR For Non-African Americans 59 (> 60)
[2017-03-05] MEDS: Insulin LISPRO 300 UNITS/3 ML VIAL SQ SCH ×3 (07:38→15:50)
--- NOTE | 2017-03-05 07:57 | Nephrology Progress Note ---
Date of Encounter: 03/05/17 Time of Encounter: 07:55 - Assessment and Plan (1) Acute renal failure Current Visit: Yes Status: Acute Patient has worsening hypernatremia. 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 His acute kidney injury has resolved. We will increase the rate of his free water administration. Qualifiers: Acute renal failure type: unspecified Qualified Code(s): N17.9 - Acute kidney failure, unspecified (2) Hypernatremia Current Visit: Yes Status: Acute (3) [place] intoxication Current Visit: Yes Status: Resolved Qualifiers: Encounter type: initial encounter Injury intent: accidental or unintentional Qualified Code(s): T56.891A - Toxic effect of other metals, accidental (unintentional), initial encounter Subjective Interval history: Clinically the patient is about the same. Unfortunately despite resuming freewater administration his sodium continues to increase. He will require continued freewater administration. Also, check urine osmolality. Objective - Vital Signs Vital signs: Vital Signs Temp Pulse Resp BP Pulse Ox 03/05/17 06:48 98.0 F 99 17 145/95 93 03/05/17 05:14 97.6 F 84 17 160/100 90 03/05/17 00:32 98.0 F 83 17 155/92 94 03/04/17 19:41 97.6 F 67 19 152/90 92 03/04/17 15:39 97.6 F 64 17 134/72 96 03/04/17 13:26 94 03/04/17 11:25 68 17 142/80 94 03/04/17 09:33 92 Intake and Output 03/04/17 03/04/17 03/05/17 15:59 23:59 07:59 Intake Total 100 / 100 1100 / 1100 100 / 100 Output Total 1100 / 1100 850 / 850 Balance 100 / 100 0 / 0 -750 / -750 Intake: IV Fluids 100 / 100 1100 / 1100 100 / 100 Dextrose 5% 1,000 ML @ 100 mls/ 1000 / 1000 hr IVC .Q10H LY Rx#:[id number] Ampicillin 2 GM In 0.9 % Sodium 100 / 100 100 / 100 100 / 100 Chloride (Mini-Bag +) 100 ML @ 200 mls/hr IVPB Q6H LY Rx#: [id number] Output: Catheter 1100 / 1100 850 / 850 Other: Weight 67.6 kg 67.2 kg Blood Glucose* 115 188 99 Patient Weight 03/05/17 23:59 Weight 67.2 kg - General Appearance Exam: Patient responds to his name. Lungs coarse breath sounds. Heart regular in rhythm. Abdomen is benign. There is no lower extremity swelling. [place] catheter is in place. Maintenance IV of D5W 100 mL per hour is running. - Lab 03/05/17 06:08 03/05/17 06:08 Most recent lab results Calcium 9.3 mg/dL (8.6-10.8) 03/05/17 06:08 Phosphorus 2.5 mg/dL (2.3-4.7) 02/27/17 04:52 Magnesium 1.8 mg/dL (1.6-2.6) 02/27/17 04:52 Urine Creatinine 128 mg/dL 02/25/17 16:44 Urine Sodium < 20.0 mEq/L 02/25/17 16:44 Consult Discharge Plan - Plan Referrals: Pacheco Bailey Jr, MD [Primary Care Provider] - 03/06/17 10:00 am (Please follow up as schedule... patient is going to [facility])
[2017-03-05] MEDS: FLUoxetine 20 MG CAPSULE PO SCH (08:06)
[2017-03-05] MEDS: D5% in Water 1,000 ML IVC SCH ×3 (08:06→23:40)
[2017-03-05] MEDS: lamoTRIgine 100 MG TABLET PO SCH (08:06)
[2017-03-05] MEDS: Carbidopa/Levodopa ER 50/200 TABLET PO SCH (08:07)
[2017-03-05] MEDS: Fenofibrate 54 MG TABLET PO SCH (08:07)
[2017-03-05] MEDS: Metoprolol XL (24 HR) Succ 25 MG TAB.ER.24H PO SCH (08:07)
[2017-03-05] MEDS ORDERED: Potassium Chloride 40 MEQ, Lidocaine 1% 2 ML in D5% in Water 500 ML IVPB ONE (13:03)
[2017-03-05] MEDS: *HR* LORazepam 2 MG/ML VIAL IVP PRN ×2 (14:18→15:41)
[2017-03-05] MEDS: Furosemide 20 MG/2 ML VIAL IVP SCH (14:18)
[2017-03-05] MEDS: Levothyroxine Sodium 100 MCG VIAL IVP SCH (14:18)
--- NOTE | 2017-03-05 14:23 | Event Note ---
Date of Encounter: 03/05/17 Time of Encounter: 14:21 - Cardiology Event Note Per discussion with , patient with severe per TTE. Patient with lithium toxicity and abnormal electrolytes. Recommend outpatient follow up for . Cardiology will sign off. Follow up set.
[2017-03-05] MEDS ORDERED: *HR* LORazepam 2 MG/ML VIAL IVP ONE (15:30)
--- NOTE | 2017-03-05 19:32 | Internal Med Progress Note ---
Date of Encounter: 03/05/17 Time of Encounter: 19:29 - Assessment and plan (1) Metabolic encephalopathy Current Visit: Yes Status: Resolved (2) Hypernatremia Current Visit: Yes Status: Acute (3) Acute delirium Current Visit: Yes Status: Acute (4) Chronic kidney disease, stage III (moderate) Current Visit: Yes Status: Chronic (5) [place] intoxication Current Visit: Yes Status: Resolved Qualifiers: Encounter type: initial encounter Injury intent: accidental or unintentional Qualified Code(s): T56.891A - Toxic effect of other metals, accidental (unintentional), initial encounter (6) Diabetes Current Visit: Yes Status: Chronic Qualifiers: Diabetes mellitus type: type 2 Diabetes mellitus complication status: with unspecified complications 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 Sodium is still quite elevated and noted nephrology has increased free fluid. Patient lithium level is better now and it is suspected it might have contributed to diabetes insipidus. Trying to get a baseline on the patient and nursing staff asked to get in touch with family and long term. Patient has severe aortic stenosis and cardiology plans to evaluate and intervene in future once he is medically stable. Apparently family thinks that patient was to some extent ambulatory and able to talk in the past. He was noted to have weight loss around 25 pounds. He also has history of cirrhosis raising the question of alcohol was involved in the past. Potassium will be supplemented. - Constitutional Vitals: Temp Pulse Resp BP Pulse Ox 98.0 F 80 17 159/92 92 03/05/17 15:39 03/05/17 15:39 03/05/17 15:39 03/05/17 15:39 03/05/17 15:39 General appearance: Present: disheveled, A&O X 2 (Seems slighlty confused), pleasant, no acute distress - Head Head exam: Present: atraumatic, normocephalic - Eye Eye exam: Present: PERRL, conjuntiva pink, sclera anicteric Pupils: Present: PERRL - Neck Neck exam general surgery: Present: supple, trachea midline. Absent: lymphadenopathy - Respiratory Respiratory exam: Present: CTAB. Absent: accessory muscle use, rales, rhonchi, wheezes - Cardiovascular Cardiovascular exam: Present: RRR, +S1, +S2. Absent: diastolic murmur, gallop, rubs, systolic murmur - GI/Abdominal GI/Abdominal exam: Present: normal bowel sounds, soft, no peritoneal signs. Absent: distended, tenderness - Extremities Exam Extremities exam: Present: warm, radial pulses palpable and symmetrical. Absent : calf tenderness, cyanotic, pedal edema - Neurological Exam Neurological exam: Present: no focal deficits. Absent: pronater drift, facial droop, speech deficit - Skin Skin exam: Present: dry, intact Internal Medicine: Result - Labs CBC & Chem 7: 03/05/17 06:08 03/05/17 06:08 Labs: Short CBC 03/05/17 Range/Units 06:08 WBC 11.7 H (4.3-11.1) K/mcL Hgb 12.7 L (12.9-16.9) g/dL Hct 41.8 (37.5-50.1) % Plt Count 279 (140-400) K/mcL Neutrophils # 9.3 H (1.6-8.9) K/mcL BMP 03/05/17 06:08 Sodium 156 H Potassium 3.0 L D Chloride 124 H Carbon Dioxide 21 BUN 13 Creatinine 1.22 Glucose 118 H Calcium 9.3 Liver Function 03/05/17 Range/Units 06:08 Total Bilirubin 0.7 (0.2-1.2) mg/dL AST 39 H (5-34) Units/L ALT 43 (0-55) Units/L Alkaline Phosphatase 67 (38-126) Units/L Albumin 2.3 L (3.5-5.0) g/dL - ABG Interpretation ABG results: PT/INR, D-dimer PT 15.2 Seconds (9.4-12.1) H 02/26/17 06:50 - Impressions Impressions KUB X-Ray 03/05/17 16:18 IMPRESSION: The feeding catheter is not visualized, presumed coiled in the esophagus or pharynx above the upper margin of the image. D/ / Joseph White MD / Joseph White MD Interpreting Provider: Joseph White MD Consult Discharge Plan - Plan Referrals: Pacheco Bailey Jr, MD [Primary Care Provider] - 03/06/17 10:00 am (Please follow up as schedule... patient is going to [facility])
[2017-03-06] MEDS ORDERED: *HR* LORazepam 2 MG/ML VIAL IVP PRN
[2017-03-06] MEDS: Insulin LISPRO 300 UNITS/3 ML VIAL SQ SCH ×5 (00:15→21:01)
[2017-03-06] MEDS: *HR* LORazepam 2 MG/ML VIAL IVP SCH ×4 (00:26→17:51)
[2017-03-06] MEDS: Latanoprost 2.5 ML BOTTLE BOTH EYES SCH ×2 (00:38→21:02)
[2017-03-06] MEDS: Carbidopa/Levodopa 25/100 TABLET PO SCH ×5 (01:42→21:00)
[2017-03-06] MEDS: Ampicillin 2 GM in 0.9 % Sodium Chloride Mini Bag 100 ML IVPB SCH ×4 (04:24→22:43)
[2017-03-06 06:21] LABS: Alanine Aminotransferase 6 Units/L (0-55); Albumin 2.2 g/dL (3.5-5.0); Albumin/Globulin Ratio 0.6 (1.1-2.2); Alkaline Phosphatase 66 Units/L (38-126); Aspartate Amino Transferase 39 Units/L (5-34); BUN/Creatinine Ratio 10 (6-26); Bilirubin,Total 0.7 mg/dL (0.2-1.2); Blood Urea Nitrogen 11 mg/dL (8-26); Calcium 9.1 mg/dL (8.6-10.8); Carbon Dioxide 20 mEq/L (19-29); Chloride 122 mEq/L (98-109); Globulin 3.9 g/dL (2.4-3.5); Glucose 115 mg/dL (70-99); Osmolality,Calculated 312 (280-300); Potassium 3.2 mEq/L (3.5-4.5); Sodium 151 mEq/L (136-145); Total Protein 6.1 g/dL (6.0-8.3); eGFR For African Americans > 60 (> 60); eGFR For Non-African Americans > 60 (> 60)
[2017-03-06] MEDS: *HR* Heparin 5,000 UNIT/ML VIAL SQ SCH ×2 (06:26→16:36)
[2017-03-06] MEDS: Levothyroxine Sodium 100 MCG VIAL IVP SCH (07:50)
[2017-03-06] MEDS: D5% in Water 1,000 ML IVC SCH ×2 (07:56→07:57)
[2017-03-06] MEDS: lamoTRIgine 100 MG TABLET PO SCH (07:58)
[2017-03-06] MEDS: Fenofibrate 54 MG TABLET PO SCH (07:58)
[2017-03-06] MEDS: FLUoxetine 20 MG CAPSULE PO SCH (07:58)
--- NOTE | 2017-03-06 08:08 | Nephrology Progress Note ---
Date of Encounter: 03/06/17 Time of Encounter: 08:06 - Assessment and Plan (1) Acute renal failure Current Visit: Yes Status: Acute The patient's hypernatremia is improving. He needs continued free water administration. He will also require potassium supplementation. I would continue with the same regimen for right now. Qualifiers: Acute renal failure type: unspecified Qualified Code(s): N17.9 - Acute kidney failure, unspecified (2) Hypernatremia Current Visit: Yes Status: Acute (3) [place] intoxication Current Visit: Yes Status: Resolved Qualifiers: Encounter type: initial encounter Injury intent: accidental or unintentional Qualified Code(s): T56.891A - Toxic effect of other metals, accidental (unintentional), initial encounter Subjective Interval history: Clinically the patient is about the same. The patient has had a feeding tube placed. His sodium is improved from 156 down to 151. Potassium is 3.2. Urine osmolality is 301. Objective - Vital Signs Vital signs: Vital Signs Temp Pulse Resp BP Pulse Ox 03/06/17 06:53 97.1 F L 78 19 168/91 94 03/06/17 05:00 97.9 F 78 16 119/68 93 03/06/17 00:17 97.9 F 67 18 127/80 96 03/05/17 15:39 98.0 F 80 17 159/92 92 03/05/17 10:33 98.1 F 67 17 164/90 96 03/05/17 08:18 93 Intake and Output 03/05/17 03/06/17 03/06/17 23:59 07:59 15:59 Intake Total 800 / 800 1100 / 1100 Output Total 400 / 400 Balance 800 / 800 700 / 700 Intake: IV Fluids 800 / 800 1100 / 1100 Dextrose 5% 1,000 ML @ 150 mls/ 700 / 700 1000 / 1000 hr IVC .Q6H40M LY Rx#: [id number] Ampicillin 2 GM In 0.9 % Sodium 100 / 100 100 / 100 Chloride (Mini-Bag +) 100 ML @ 200 mls/hr IVPB Q6H LY Rx#: [id number] Output: Catheter 400 / 400 Other: Weight 67.4 kg Blood Glucose* 128 95 Patient Weight 03/06/17 23:59 Weight 67.4 kg - General Appearance Exam: Patient does not respond to questions this morning. He is in no acute distress. Lungs clear to auscultation although breath sounds are coarse. Heart regular rate and rhythm with a systolic murmur. Abdomen is benign. There is no lower extremity swelling. - Lab 03/05/17 06:08 03/06/17 05:34 Most recent lab results Calcium 9.1 mg/dL (8.6-10.8) 03/06/17 05:34 Phosphorus 2.5 mg/dL (2.3-4.7) 02/27/17 04:52 Magnesium 1.8 mg/dL (1.6-2.6) 02/27/17 04:52 Urine Creatinine 128 mg/dL 02/25/17 16:44 Urine Sodium < 20.0 mEq/L 02/25/17 16:44 Consult Discharge Plan - Plan Referrals: Pacheco Bailey Jr, MD [Primary Care Provider] - 03/06/17 10:00 am (Please follow up as schedule... patient is going to f)
[2017-03-06] MEDS ORDERED: Potassium Chloride 40 MEQ, Lidocaine 1% 2 ML in D5% in Water 500 ML IVPB ONE (08:29)
[2017-03-06] MEDS ORDERED: Furosemide 40 MG/4 ML VIAL IVP ONE (11:31)
[2017-03-06] MEDS: Furosemide 20 MG/2 ML VIAL IVP SCH (15:03)
--- NOTE | 2017-03-06 16:40 | Internal Med Progress Note ---
Date of Encounter: 03/06/17 Time of Encounter: 16:36 - Assessment and plan (1) Acute diastolic (congestive) heart failure Current Visit: Yes Status: Acute (2) Metabolic encephalopathy Current Visit: Yes Status: Resolved (3) Hypernatremia Current Visit: Yes Status: Acute (4) Acute delirium Current Visit: Yes Status: Acute (5) Chronic kidney disease, stage III (moderate) Current Visit: Yes Status: Chronic (6) [place] intoxication Current Visit: Yes Status: Resolved Qualifiers: Encounter type: initial encounter Injury intent: accidental or unintentional Qualified Code(s): T56.891A - Toxic effect of other metals, accidental (unintentional), initial encounter (7) Diabetes Current Visit: Yes Status: Chronic Qualifiers: Diabetes mellitus type: type 2 Diabetes mellitus complication status: with unspecified complications Diabetes mellitus emt intermediate insulin use: without [place] [facility] use Qualified Code(s): E11.8 - Type 2 diabetes mellitus with unspecified complications (8) HTN (hypertension) Current Visit: Yes Status: Chronic Qualifiers: Hypertension type: essential hypertension Qualified Code(s): I10 - Essential (primary) hypertension (9) Severe aortic stenosis Current Visit: Yes Status: Acute - Subjective Interval history: Still quite confused though awake and sometimes answers simple questions. Sodium is still quite elevated and noted nephrology has increased free fluid. Patient lithium level is better now and it is suspected it might have contributed to diabetes insipidus. Trying to get a baseline on the patient and nursing staff asked to get in touch with family and group home. Patient has severe aortic stenosis and cardiology plans to evaluate and intervene in future once he is medically stable. Apparently family thinks that patient was to some extent ambulatory and able to talk in the past. He was noted to have weight loss around 25 pounds. He also has history of cirrhosis raising the question of alcohol was involved in the past. Potassium will be supplemented. 03/06 breathing heavily, JVD noted to be elevated. Patient echocardiogram showed EF of 60% with severe aortic stenosis. Also has diastolic dysfunction. Suspect patient is in CHF secondary to fluid overload. We will stop IV fluids and give Lasix IV 40. Repeat chest x-ray showed bilateral patchy infiltrates. This could be due to CHF however possibility of silent aspiration. His BNP is 2200. IV Zosyn will be added for concern for aspiration pneumonia and daily CBC and CMP along with Lui has been added. His potassium is low will be supplemented. His hypernatremia and did respond to free water but unfortunately he has developed CHF therefore will hold on IV fluid. Patient will be transferred to ICU/2 N. patient has enterococcus UTI for which she will be continued on IV ampicillin. Patient has underlying CKD. - Constitutional Vitals: Temp Pulse Resp BP Pulse Ox 98.1 F 89 28 144/91 96 03/06/17 13:16 03/06/17 13:16 03/06/17 13:16 03/06/17 13:16 03/06/17 12:10 General appearance: Present: disheveled, A&O X 2 (Seems slighlty confused), pleasant, no acute distress - Head Head exam: Present: atraumatic, normocephalic - Eye Eye exam: Present: PERRL, conjuntiva pink, sclera anicteric Pupils: Present: PERRL - Neck Neck exam general surgery: Present: supple, trachea midline. Absent: lymphadenopathy - Respiratory Respiratory exam: Present: decreased breath sounds, rales. Absent: accessory muscle use, rhonchi, wheezes - Cardiovascular Cardiovascular exam: Present: RRR, +S1, +S2. Absent: diastolic murmur, gallop, rubs, systolic murmur Additional comments: Other data of JVD breath sounds shallow - GI/Abdominal GI/Abdominal exam: Present: normal bowel sounds, soft, no peritoneal signs. Absent: distended, tenderness - Extremities Exam Extremities exam: Present: warm, radial pulses palpable and symmetrical. Absent : calf tenderness, cyanotic, pedal edema - Neurological Exam Neurological exam: Present: CN II-XII intact, oriented X3, no focal deficits. Absent: pronater drift, facial droop, speech deficit - Skin Skin exam: Present: dry, intact Internal Medicine: Result - Labs CBC & Chem 7: 03/05/17 06:08 03/06/17 05:34 Labs: BMP 03/06/17 05:34 Sodium 151 H Potassium 3.2 L Chloride 122 H Carbon Dioxide 20 BUN 11 Creatinine 1.08 Glucose 115 H Calcium 9.1 Liver Function 03/06/17 Range/Units 05:34 Total Bilirubin 0.7 (0.2-1.2) mg/dL AST 39 H (5-34) Units/L ALT 6 (0-55) Units/L Alkaline Phosphatase 66 (38-126) Units/L Albumin 2.2 L (3.5-5.0) g/dL - ABG Interpretation ABG results: PT/INR, D-dimer PT 15.2 Seconds (9.4-12.1) H 02/26/17 06:50 - Impressions Impressions KUB X-Ray 03/05/17 16:18 IMPRESSION: The feeding catheter is not visualized, presumed coiled in the esophagus or pharynx above the upper margin of the image. D/ / Joseph White MD / Joseph White MD Interpreting Provider: Joseph White MD X-Ray 03/05/17 17:50 IMPRESSION: Enteric tube not visualized. D/ / Romain Anderson MD / Romain Anderson MD Interpreting Provider: Romain Anderson MD X-Ray 03/05/17 22:36 IMPRESSION: Dobhoff feeding tube tip in the gastric fundus. D/ / Micheal Morel MD / Micheal Morel MD Interpreting Provider: Micheal Morel MD Chest X-Ray 03/06/17 11:29 IMPRESSION: Patchy bilateral infiltrates which have progressed within both upper lobes. Multifocal pneumonia is suspected. D/ / 03/06/2017 12:15:39 Quirino Schaeffer MD / [email or web address] Interpreting Provider: Quirino Schaeffer MD Consult Discharge Plan - Plan Referrals: Pacheco Bailey Jr, MD [Primary Care Provider] - 03/06/17 10:00 am (Please follow up as schedule... patient is going to [facility])
[2017-03-06] MEDS ORDERED: Furosemide 20 MG/2 ML VIAL IVP ONE ×2 (16:48→16:51)
[2017-03-06 19:16] LABS: BUN/Creatinine Ratio 8 (6-26); Blood Urea Nitrogen 11 mg/dL (8-26); Calcium 9.6 mg/dL (8.6-10.8); Carbon Dioxide 19 mEq/L (19-29); Chloride 120 mEq/L (98-109); Glucose 113 mg/dL (70-99); Magnesium 2.3 mg/dL (1.6-2.6); Osmolality,Calculated 316 (280-300); Potassium 3.6 mEq/L (3.5-4.5); Sodium 153 mEq/L (136-145); eGFR For African Americans > 60 (> 60); eGFR For Non-African Americans 54 (> 60)
[2017-03-06] MEDS: Piperacillin/Tazobactam 3.375 GM in D5% in Water 50 ML IVPB SCH (23:25)
[2017-03-07] MEDS: *HR* LORazepam 2 MG/ML VIAL IVP SCH ×3 (01:57→15:38)
[2017-03-07] MEDS: *HR* Heparin 5,000 UNIT/ML VIAL SQ SCH ×2 (05:08→16:58)
[2017-03-07 05:36] LABS: Basophils % 0.4 %; Eosinophils # 0.4 K/mcL (0.0-0.6); Eosinophils % 4.3 %; Hematocrit 40.4 % (37.5-50.1); Hemoglobin 12.4 g/dL (12.9-16.9); Immature Granulocytes % 0.6 % (0-4); Lymphocytes # 1.7 K/mcL (0.6-4.6); Mean Corpuscular HGB Conc 30.7 g/dL (31.6-35.5); Mean Corpuscular Hemoglobin 30.9 pg (28.0-33.3); Mean Corpuscular Volume 100.7 fL (83.0-100.0); Mean Platelet Volume 9.8 fL (9.4-12.4); Monocytes # 0.5 K/mcL (0.0-1.3); Monocytes % 5.3 %; Neutrophils # 5.9 K/mcL (1.6-8.9); Nucleated Red Blood Cells 0.4 /100 WBC (0); Platelet Count 263 K/mcL (140-400); Red Blood Count 4.01 M/mcL (4.19-5.50); Red Cell Distribution Width 16.4 % (11.5-14.5); Segmented Neutrophils % 69.4 %
[2017-03-07 06:09] LABS: Alanine Aminotransferase 8 Units/L (0-55); Albumin/Globulin Ratio 0.5 (1.1-2.2); Alkaline Phosphatase 67 Units/L (38-126); Aspartate Amino Transferase 39 Units/L (5-34); BUN/Creatinine Ratio 9 (6-26); Bilirubin,Total 0.8 mg/dL (0.2-1.2); Blood Urea Nitrogen 12 mg/dL (8-26); Carbon Dioxide 21 mEq/L (19-29); Chloride 122 mEq/L (98-109); Glucose 105 mg/dL (70-99); Magnesium 1.9 mg/dL (1.6-2.6); Osmolality,Calculated 318 (280-300); Potassium 3.5 mEq/L (3.5-4.5); Sodium 154 mEq/L (136-145); eGFR For African Americans > 60 (> 60); eGFR For Non-African Americans 54 (> 60)
[2017-03-07] MEDS: Ampicillin 2 GM in 0.9 % Sodium Chloride Mini Bag 100 ML IVPB SCH ×2 (07:14→11:00)
[2017-03-07] MEDS ORDERED: Lidocaine -MPF 1% 5 ML AMPUL INFILT ONE (08:04)
--- NOTE | 2017-03-07 08:34 | Nephrology Progress Note ---
Date of Encounter: 03/07/17 Time of Encounter: 08:20 - Assessment and Plan (1) Acute on chronic renal failure Current Visit: Yes Status: Acute Renal fct stable. Creat 1.32. No improvement in sodium. Na 154. Recommend D5W/ free water until sodium improves. K 3.5. Qualifiers: Acute renal failure type: unspecified Chronic kidney disease stage: stage 3 (moderate) Qualified Code(s): N17.9 - Acute kidney failure, unspecified; N18.3 - Chronic kidney disease, stage 3 (moderate); N18.3 - Chronic kidney disease, stage 3 (moderate) Subjective Interval history: Patient arouses, garbled attempt at speech. Objective - Vital Signs Vital signs: Vital Signs Temp Pulse Resp BP Pulse Ox 03/07/17 07:07 98.0 F 89 18 118/69 99 03/07/17 06:00 90 20 111/69 99 03/07/17 04:00 98 F 88 20 103/63 98 03/07/17 03:45 90 03/07/17 02:00 86 24 125/75 100 03/07/17 00:00 98.1 F 93 24 104/72 99 03/06/17 23:45 88 03/06/17 22:00 92 22 108/78 98 03/06/17 20:10 123 03/06/17 19:28 97.6 F 128 22 100/73 96 03/06/17 18:36 126 103/84 03/06/17 18:00 126 103/84 03/06/17 17:58 107 21 103/63 96 03/06/17 16:41 114 26 128/96 99 03/06/17 13:16 98.1 F 89 28 144/91 03/06/17 12:10 98.3 F 77 18 156/91 96 03/06/17 10:37 98.3 F 77 18 156/91 96 03/06/17 10:23 94 03/06/17 08:51 98.3 F Intake and Output 03/06/17 03/07/17 03/07/17 23:59 07:59 15:59 Intake Total 200 / 200 Output Total 2750 / 2750 325 / 325 Balance -2550 / -2550 -325 / -325 Intake: IV Fluids 200 / 200 Ampicillin 2 GM In 0.9 % Sodium 200 / 200 Chloride (Mini-Bag +) 100 ML @ 200 mls/hr IVPB Q6H [facility] Rx#: [id number] Output: Urine 500 / 500 325 / 325 2-way Urethral 500 / 500 125 / 125 Catheter 2250 / 2250 Other: Blood Glucose* 80 96 - General Appearance General appearance: Present: chronically ill EENT: Present: mucous membranes moist Neck: Present: no JVD Respiratory: Present: clear Cardiology: Present: no edema, regular rate, regular rhythm Gastrointestinal: Present: hypoactive bowel sounds, no tenderness Integumentary: Present: warm and dry - Lab 03/07/17 05:18 03/07/17 05:18 Most recent lab results Calcium 9.0 mg/dL (8.6-10.8) 03/07/17 05:18 Phosphorus 2.5 mg/dL (2.3-4.7) 02/27/17 04:52 Magnesium 1.9 mg/dL (1.6-2.6) 03/07/17 05:18 Urine Creatinine 128 mg/dL 02/25/17 16:44 Urine Sodium < 20.0 mEq/L 02/25/17 16:44 Consult Discharge Plan - Plan Referrals: Pacheco Bailey Jr, MD [Primary Care Provider] - 03/06/17 10:00 am (Please follow up as schedule... [facility])
[2017-03-07] MEDS: lamoTRIgine 100 MG TABLET PO SCH (08:53)
[2017-03-07] MEDS: FLUoxetine 20 MG CAPSULE PO SCH (08:53)
[2017-03-07] MEDS: Carbidopa/Levodopa 25/100 TABLET PO SCH ×4 (08:53→20:36)
[2017-03-07] MEDS: Fenofibrate 54 MG TABLET PO SCH (08:53)
[2017-03-07] MEDS: Insulin LISPRO 300 UNITS/3 ML VIAL SQ SCH ×4 (09:03→22:04)
[2017-03-07] MEDS: Levothyroxine Sodium 100 MCG VIAL IVP SCH (10:32)
--- NOTE | 2017-03-07 11:05 | Internal Med Progress Note ---
<Joce Cedeno - Last Filed: 03/07/17 15:55> Date of Encounter: 03/07/17 Time of Encounter: 10:45 - Assessment and plan (1) Acute hypernatremia Current Visit: Yes Status: Acute Assessment and plan: Sodium is stable at 154 this AM; not improving or worsening. IV fluids have been held in light of acute decompensated dCHF patient is on low-dose Lasix; increased to 20mg IV daily will restart D5W at 75mL/hr BMP qAM (2) [place] intoxication Current Visit: Yes Status: Resolved Assessment and plan: Admitting lithium level 2 Improved to 1.0 lithium held all current medications seem to be controlling patient's symptoms her psychiatry, current Rx regimen adequate will re-obtain psych consult if any acute manic symptoms become apparent Qualifiers: Encounter type: initial encounter Injury intent: accidental or unintentional Qualified Code(s): T56.891A - Toxic effect of other metals, accidental (unintentional), initial encounter (3) Acute renal failure Current Visit: Yes Status: Acute Assessment and plan: Previously improved to normal levels slight elevation of BUN and Creatinine this AM will restart maintenance fluids as above Qualifiers: Acute renal failure type: unspecified Qualified Code(s): N17.9 - Acute kidney failure, unspecified (4) Acute diastolic (congestive) heart failure Current Visit: Yes Status: Acute Assessment and plan: IV Lasix 20 mg daily no significantly overt symptoms of volume overload this AM (5) Multifocal pneumonia Current Visit: Yes Status: Acute Assessment and plan: On [place] DC ampicillin continue 02 & nebs PRN cont tele & cont pulse ox (6) Metabolic encephalopathy Current Visit: Yes Status: Resolved Assessment and plan: Multifactorial: MELVI on CKD, [place] toxicity, hypernatremia patient somnolent, but does follow commands and answer direct questions overall mentation difficult to ascertain on AM exam (7) Bipolar disorder Current Visit: Yes Status: Chronic Assessment and plan: Hold lithium, continue other meds Qualifiers: Active/Remission status: remission status unspecified Qualified Code(s): F31.9 - Bipolar disorder, unspecified (8) Diabetes Current Visit: Yes Status: Chronic Assessment and plan: cont FSBG & SSI Qualifiers: Diabetes mellitus type: type 2 Diabetes mellitus complication status: with unspecified complications 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 [facility] use Qualified Code(s): E11.8 - Type 2 diabetes mellitus with unspecified complications (9) HTN (hypertension) Current Visit: Yes Status: Chronic Assessment and plan: Controlled, and somewhat hypotensive Cont Lasix, hold metoprolol Qualifiers: Hypertension type: essential hypertension Qualified Code(s): I10 - Essential (primary) hypertension (10) Aortic stenosis Current Visit: Yes Status: Chronic Assessment and plan: Per cardio, further consideration of valve replacement once stabilized Ultimately, plan to DC on recommended Rx Qualifiers: Cardiac valve disease etiology: nonrheumatic Qualified Code(s): I35.0 - Nonrheumatic aortic (valve) stenosis (11) Aortic aneurysm Current Visit: Yes Status: Chronic Assessment and plan: per cardio, follow up on OP basis for consideration of intervention Qualifiers: Aortic location: unspecified Presence of rupture: without rupture Qualified Code(s): I71.9 - Aortic aneurysm of unspecified site, without rupture (12) Hypothyroidism Current Visit: Yes Status: Chronic Assessment and plan: Continue synthroid Qualifiers: Hypothyroidism type: unspecified Qualified Code(s): E03.9 - Hypothyroidism , unspecified (13) Parkinsons disease Current Visit: Yes Status: Chronic Assessment and plan: Continue home meds (14) DVT prophylaxis Current Visit: Yes Status: Acute Assessment and plan: cont subQ heparin - Subjective Interval history: Patient somnolent and mental status unclear. Does respond to basic questions. Denies any acute pain or complaints at this time. - Constitutional Vitals: Temp Pulse Resp BP Pulse Ox 98.0 F 86 16 113/67 97 03/07/17 07:07 03/07/17 09:00 03/07/17 09:00 03/07/17 09:00 03/07/17 09:41 General appearance: Present: A&O X 1, disheveled, pleasant, no acute distress Exam: Somnolent - Eye Eye exam: Present: PERRL, conjuntiva pink, sclera anicteric. Absent: conjunctival injection - Neck Neck exam general surgery: Present: supple, trachea midline - Respiratory Respiratory exam: Absent: accessory muscle use Additional comments: Saturated well unusual cannula, no respiratory distress, is able to speak to me when directly addressed, some known focal consolidation on auscultation. - Cardiovascular Cardiovascular exam: Present: RRR, +S1, +S2. Absent: diastolic murmur, gallop, rubs, +S3, +S4, systolic murmur, tachycardia - Extremities Exam Extremities exam: Present: pedal edema (Trace & symmetrical ), warm, radial pulses palpable and symmetrical. Absent: calf tenderness, cyanotic - Neurological Exam Additional comments: Patient somnolent, but readily rouses for questions and is cooperative. No gross facial, speech, or motor deficits. - Skin Skin exam: Present: dry, intact, normal color. Absent: cyanosis, diaphoretic, mottled, pallor Internal Medicine: Result - Labs CBC & Chem 7: 03/07/17 05:18 03/07/17 05:18 Labs: Short CBC 03/07/17 Range/Units 05:18 WBC 8.4 (4.3-11.1) K/mcL Hgb 12.4 L (12.9-16.9) g/dL Hct 40.4 (37.5-50.1) % Plt Count 263 (140-400) K/mcL Neutrophils # 5.9 (1.6-8.9) K/mcL BMP 03/06/17 03/07/17 18:55 05:18 Sodium 153 H 154 H Potassium 3.6 3.5 Chloride 120 H 122 H Carbon Dioxide 19 21 BUN 11 12 Creatinine 1.32 H 1.32 H Glucose 113 H 105 H Calcium 9.6 9.0 Liver Function 03/07/17 Range/Units 05:18 Total Bilirubin 0.8 (0.2-1.2) mg/dL AST 39 H (5-34) Units/L ALT 8 (0-55) Units/L Alkaline Phosphatase 67 (38-126) Units/L Albumin 2.0 L (3.5-5.0) g/dL Laboratory Last Values WBC 8.4 K/mcL (4.3-11.1) 03/07/17 05:18 RBC 4.01 M/mcL (4.19-5.50) L 03/07/17 05:18 Hgb 12.4 g/dL (12.9-16.9) L 03/07/17 05:18 Hct 40.4 % (37.5-50.1) 03/07/17 05:18 MCV 100.7 fL (83.0-100.0) H 03/07/17 05:18 MCH 30.9 pg (28.0-33.3) 03/07/17 05:18 MCHC 30.7 g/dL (31.6-35.5) L 03/07/17 05:18 RDW 16.4 % (11.5-14.5) H 03/07/17 05:18 Plt Count 263 K/mcL (140-400) 03/07/17 05:18 MPV 9.8 fL (9.4-12.4) 03/07/17 05:18 Immature Gran % 0.6 % (0-4) 03/07/17 05:18 Seg Neutrophils % 69.4 % 03/07/17 05:18 Lymphocytes % 20.0 % 03/07/17 05:18 Monocytes % 5.3 % 03/07/17 05:18 Eosinophils % 4.3 % 03/07/17 05:18 Basophils % 0.4 % 03/07/17 05:18 Neutrophils # 5.9 K/mcL (1.6-8.9) 03/07/17 05:18 Lymphocytes # 1.7 K/mcL (0.6-4.6) 03/07/17 05:18 Monocytes # 0.5 K/mcL (0.0-1.3) 03/07/17 05:18 Eosinophils # 0.4 K/mcL (0.0-0.6) 03/07/17 05:18 Basophils # 0.0 K/mcL (0.0-0.2) 03/07/17 05:18 Nucleated RBCs/100 WBC 0.4 /100 WBC (0) H 03/07/17 05:18 PT 15.2 Seconds (9.4-12.1) H 02/26/17 06:50 INR 1.4 02/26/17 06:50 APTT 28.2 Seconds (26.0-36.0) 02/26/17 06:50 Sodium 154 mEq/L (136-145) H 03/07/17 05:18 Potassium 3.5 mEq/L (3.5-4.5) 03/07/17 05:18 Chloride 122 mEq/L (98-109) H 03/07/17 05:18 Carbon Dioxide 21 mEq/L (19-29) 03/07/17 05:18 BUN 12 mg/dL (8-26) 03/07/17 05:18 Creatinine 1.32 mg/dL (0.72-1.25) H 03/07/17 05:18 Est GFR ( Amer) > 60 (> 60) 03/07/17 05:18 Est GFR (Non-Af Amer) 54 (> 60) L 03/07/17 05:18 BUN/Creatinine Ratio 9 (6-26) 03/07/17 05:18 Glucose 105 mg/dL (70-99) H 03/07/17 05:18 POC Glucose 73 (58-89) 03/07/17 05:47 Est Mean Plasma Glucose 85 mg/dl 02/26/17 02:52 Hemoglobin A1c 4.6 % (-5.6) 02/26/17 02:52 Calculated Osmolality 318 (280-300) H 03/07/17 05:18 Lactic Acid 1.1 mmol/L (0.5-2.2) 02/25/17 17:08 Calcium 9.0 mg/dL (8.6-10.8) 03/07/17 05:18 Phosphorus 2.5 mg/dL (2.3-4.7) 02/27/17 04:52 Magnesium 1.9 mg/dL (1.6-2.6) 03/07/17 05:18 Total Bilirubin 0.8 mg/dL (0.2-1.2) 03/07/17 05:18 Direct Bilirubin 0.5 mg/dL (0.0-0.5) 02/25/17 16:03 Indirect Bilirubin 0.6 mg/dL (0.0-1.2) 02/25/17 16:03 AST 39 Units/L (5-34) H 03/07/17 05:18 ALT 8 Units/L (0-55) 03/07/17 05:18 Alkaline Phosphatase 67 Units/L (38-126) 03/07/17 05:18 Ammonia 15 mcmol/L (18-72) L 02/25/17 21:50 Troponin I 0.10 ng/mL (0-0.03) H* 02/26/17 02:52 B-Natriuretic Peptide 2234 pg/mL (0-100) H 03/06/17 12:05 Serum Total Protein 6.0 g/dL (6.0-8.3) 03/07/17 05:18 Albumin 2.0 g/dL (3.5-5.0) L 03/07/17 05:18 Globulin 4.0 g/dL (2.4-3.5) H 03/07/17 05:18 Albumin/Globulin Ratio 0.5 (1.1-2.2) L 03/07/17 05:18 Prealbumin 12.0 mg/dL (18.0-45.0) L 03/06/17 05:34 Triglycerides 109 mg/dL (< 150) 02/26/17 02:52 Cholesterol 84 mg/dL (< 200) 02/26/17 02:52 LDL Cholesterol, Calc 42 mg/dL (0-99) 02/26/17 02:52 VLDL Cholesterol, Calc 22 mg/dL (< 31) 02/26/17 02:52 HDL Cholesterol 20 mg/dL (40-59) L 02/26/17 02:52 Cholesterol/HDL Ratio 4.2 (0-4.9) 02/26/17 02:52 Lipase 24 Units/L (8-78) 02/25/17 16:03 TSH 0.501 mcIU/mL (0.350-4.840) 02/25/17 16:03 Urine Color Yellow (Yellow) 02/25/17 16:44 Urine Clarity Cloudy (Clear) A 02/25/17 16:44 Urine pH 5.0 pH Units (5.0-8.0) 02/25/17 16:44 Ur Specific [place] 1.021 (1.010-1.025) 02/25/17 16:44 Urine Protein Negative mg/dL (Neg-Trace) 02/25/17 16:44 Urine Glucose (UA) Normal mg/dL (Normal) 02/25/17 16:44 Urine Ketones Negative mg/dL (Negative) 02/25/17 16:44 Urine Blood Moderate (Negative) H 02/25/17 16:44 Urine Nitrite Negative (Negative) 02/25/17 16:44 Urine Bilirubin Small (Negative) H 02/25/17 16:44 Urine Urobilinogen Normal mg/dL (Normal) 02/25/17 16:44 Ur Leukocyte Esterase Small (Negative) H 02/25/17 16:44 Urine Microscopic RBC 3-5 per hpf (0-3) H 02/25/17 16:44 Urine Microscopic WBC 0-3 per hpf (0-3) 02/25/17 16:44 Ur Squamous Epith Cells Many per lpf (None-Few) H 02/25/17 16:44 Urine Bacteria None Seen per hpf (None-Few) 02/25/17 16:44 Ur Culture Indicated? YES (NO) A 02/25/17 16:44 Urine Osmolality 301 mOsm/kg (300-1090) 03/06/17 04:45 Urine Creatinine 128 mg/dL 02/25/17 16:44 Urine Sodium < 20.0 mEq/L 02/25/17 16:44 [place] 1.0 mEq/L (0.6-1.2) 02/27/17 03:36 Specimen Rejected Hemolyzed 02/27/17 02:46 - ABG Interpretation ABG results: PT/INR, D-dimer PT 15.2 Seconds (9.4-12.1) H 02/26/17 06:50 - Impressions Impressions Chest X-Ray 03/06/17 11:29 IMPRESSION: Patchy bilateral infiltrates which have progressed within both upper lobes. Multifocal pneumonia is suspected. D/ / 03/06/2017 12:15:39 Quirino Schaeffer MD / [email or web address] Interpreting Provider: Quirino Schaeffer MD Consult Discharge Plan - Plan Referrals: Pacheco Bailey Jr, MD [Primary Care Provider] - 03/06/17 10:00 am (Please follow up as schedule... patient is going to [facility]) <Sal Olivera - Last Filed: 03/07/17 17:32> Date of Encounter: 03/07/17 - Constitutional Vitals: Temp Pulse Resp BP Pulse Ox 97.5 F L 111 20 114/102 94 03/07/17 16:31 03/07/17 16:31 03/07/17 16:31 03/07/17 16:31 03/07/17 16:31 Internal Medicine: Result - Labs CBC & Chem 7: 03/07/17 05:18 03/07/17 05:18 Labs: Short CBC 03/07/17 Range/Units 05:18 WBC 8.4 (4.3-11.1) K/mcL Hgb 12.4 L (12.9-16.9) g/dL Hct 40.4 (37.5-50.1) % Plt Count 263 (140-400) K/mcL Neutrophils # 5.9 (1.6-8.9) K/mcL BMP 03/06/17 03/07/17 18:55 05:18 Sodium 153 H 154 H Potassium 3.6 3.5 Chloride 120 H 122 H Carbon Dioxide 19 21 BUN 11 12 Creatinine 1.32 H 1.32 H Glucose 113 H 105 H Calcium 9.6 9.0 Liver Function 03/07/17 Range/Units 05:18 Total Bilirubin 0.8 (0.2-1.2) mg/dL AST 39 H (5-34) Units/L ALT 8 (0-55) Units/L Alkaline Phosphatase 67 (38-126) Units/L Albumin 2.0 L (3.5-5.0) g/dL - ABG Interpretation ABG results: PT/INR, D-dimer PT 15.2 Seconds (9.4-12.1) H 02/26/17 06:50 - Attending Attestation I conducted a face to face diagnostic evaluation of this patient and my medical decision-making was reviewed with the Resident Physician, Dr. Wilian Hobson. I agree with the documented findings, disposition and treatment plan as described except to the extent set forth below: Patient is asleep, arousable but disoriented. Additional history is obtained from patient's mother bedside. We will continue with IV dextrose with water, had free water by Dobbhoff tube. Increase Lasix to 20 mg IV daily to treat acute heart failure. Monitor sodium levels closely. Echocardiogram shows normal EF, mild LVH, mild diastolic dysfunction.
[2017-03-07] MEDS: Piperacillin/Tazobactam 3.375 GM in D5% in Water 50 ML IVPB SCH ×2 (11:44→22:06)
[2017-03-07] MEDS: Furosemide 20 MG/2 ML VIAL IVP SCH (13:12)
[2017-03-07] MEDS ORDERED: Furosemide 40 MG/4 ML VIAL IVP ONE (13:38)
[2017-03-07] MEDS: D5% in Water 1,000 ML IVC SCH (15:37)
[2017-03-07] MEDS ORDERED: Furosemide 20 MG/2 ML VIAL IVP SCH (16:45)
[2017-03-07] MEDS: Docusate Oral Soln 100 MG/10 ML UDC PO SCH (20:36)
[2017-03-07] MEDS: Latanoprost 2.5 ML BOTTLE BOTH EYES SCH (20:37)
[2017-03-08] MEDS: *HR* LORazepam 2 MG/ML VIAL IVP SCH ×3 (01:14→16:46)
[2017-03-08] MEDS: D5% in Water 1,000 ML IVC SCH ×2 (04:29→20:47)
[2017-03-08] MEDS: Piperacillin/Tazobactam 3.375 GM in D5% in Water 50 ML IVPB SCH ×3 (04:49→20:57)
[2017-03-08 05:24] LABS: Basophils % 0.3 %; Eosinophils # 0.3 K/mcL (0.0-0.6); Eosinophils % 3.2 %; Hematocrit 38.1 % (37.5-50.1); Hemoglobin 11.5 g/dL (12.9-16.9); Immature Granulocytes % 0.6 % (0-4); Lymphocytes # 1.5 K/mcL (0.6-4.6); Lymphocytes % 13.6 %; Mean Corpuscular HGB Conc 30.2 g/dL (31.6-35.5); Mean Corpuscular Hemoglobin 30.3 pg (28.0-33.3); Mean Corpuscular Volume 100.5 fL (83.0-100.0); Mean Platelet Volume 9.9 fL (9.4-12.4); Monocytes # 0.7 K/mcL (0.0-1.3); Monocytes % 6.8 %; Neutrophils # 8.1 K/mcL (1.6-8.9); Nucleated Red Blood Cells 0.3 /100 WBC (0); Platelet Count 295 K/mcL (140-400); Red Blood Count 3.79 M/mcL (4.19-5.50); Segmented Neutrophils % 75.5 %
[2017-03-08 05:47] LABS: BUN/Creatinine Ratio 11 (6-26); Blood Urea Nitrogen 14 mg/dL (8-26); Calcium 8.1 mg/dL (8.6-10.8); Carbon Dioxide 22 mEq/L (19-29); Chloride 118 mEq/L (98-109); Glucose 164 mg/dL (70-99); Osmolality,Calculated 312 (280-300); Potassium 3.1 mEq/L (3.5-4.5); Sodium 149 mEq/L (136-145); eGFR For African Americans > 60 (> 60); eGFR For Non-African Americans 53 (> 60)
[2017-03-08] MEDS: *HR* Heparin 5,000 UNIT/ML VIAL SQ SCH ×2 (06:28→17:11)
--- NOTE | 2017-03-08 07:58 | Internal Med Progress Note ---
<Joce Cedeno - Last Filed: 03/08/17 18:37> Date of Encounter: 03/08/17 Time of Encounter: 07:54 - Assessment and plan (1) Acute hypernatremia Current Visit: Yes Status: Acute Assessment and plan: Improved this AM to 149 (down from 154 prior AM) Patient on D5W at 75mL/hr -- continue Cont Lasix 20mg IV daily BMP qAM (2) [place] intoxication Current Visit: Yes Status: Resolved Assessment and plan: Admitting lithium level 2 Improved to 1.0 lithium held all current medications seem to be controlling patient's symptoms her psychiatry, current Rx regimen adequate will re-obtain psych consult if any acute manic symptoms become apparent Qualifiers: Encounter type: initial encounter Injury intent: accidental or unintentional Qualified Code(s): T56.891A - Toxic effect of other metals, accidental (unintentional), initial encounter (3) Acute renal failure Current Visit: Yes Status: Acute Assessment and plan: Previously improved to normal levels slight elevation of BUN and Creatinine persist this AM cont IVF Qualifiers: Acute renal failure type: unspecified Qualified Code(s): N17.9 - Acute kidney failure, unspecified (4) Acute diastolic (congestive) heart failure Current Visit: Yes Status: Acute Assessment and plan: IV Lasix 20 mg daily no exam findings concerning for volume overload consider recheck CXR/BNP if oxygenation declines (5) Multifocal pneumonia Current Visit: Yes Status: Acute Assessment and plan: On Zosyn continue 02 & nebs PRN cont tele & cont pulse ox (6) Electrolyte abnormality Current Visit: Yes Status: Acute Assessment and plan: hypokalemic this AM with borderline low Mg++ will correct with MgSO4 & KCl (7) Metabolic encephalopathy Current Visit: Yes Status: Resolved Assessment and plan: Multifactorial: MELVI on CKD, [place] toxicity, hypernatremia patient somnolent, but does follow commands and answer direct questions overall mentation difficult to ascertain on AM exam; AOx1 - (to person) (8) Bipolar disorder Current Visit: Yes Status: Chronic Assessment and plan: Hold lithium, continue other meds Qualifiers: Active/Remission status: remission status unspecified Qualified Code(s): F31.9 - Bipolar disorder, unspecified (9) Diabetes Current Visit: Yes Status: Chronic Assessment and plan: cont FSBG & SSI on Jevity Qualifiers: Diabetes mellitus type: type 2 Diabetes mellitus complication status: with unspecified complications 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 insulin use: without halfway use Qualified Code(s): E11.8 - Type 2 diabetes mellitus with unspecified complications (10) HTN (hypertension) Current Visit: Yes Status: Chronic Assessment and plan: Normotensive Cont Lasix, hold metoprolol Qualifiers: Hypertension type: essential hypertension Qualified Code(s): I10 - Essential (primary) hypertension (11) Aortic stenosis Current Visit: Yes Status: Chronic Assessment and plan: Per cardio, further consideration of valve replacement once stabilized Ultimately, plan to DC on recommended Rx Qualifiers: Cardiac valve disease etiology: nonrheumatic Qualified Code(s): I35.0 - Nonrheumatic aortic (valve) stenosis (12) Aortic aneurysm Current Visit: Yes Status: Chronic Assessment and plan: per cardio, follow up on OP basis for consideration of intervention Qualifiers: Aortic location: unspecified Presence of rupture: without rupture Qualified Code(s): I71.9 - Aortic aneurysm of unspecified site, without rupture (13) Hypothyroidism Current Visit: Yes Status: Chronic Assessment and plan: Continue synthroid Qualifiers: Hypothyroidism type: unspecified Qualified Code(s): E03.9 - Hypothyroidism , unspecified (14) Parkinsons disease Current Visit: Yes Status: Chronic Assessment and plan: Continue home meds (15) DVT prophylaxis Current Visit: Yes Status: Acute Assessment and plan: cont subQ heparin - Subjective Interval history: Pt resting comfortably in bed. Somnolent. Responsive to his name and basic commands, but does not volunteer any other subjective history. No specific response to general question of whether or not patient has any acute complaints or concerns. Was transferred from /step-down to [facility] floor yesterday; no overnight events per patient's nurse. - Constitutional Vitals: Temp Pulse Resp BP Pulse Ox 97.7 F 98 18 122/82 93 03/08/17 07:12 03/08/17 07:12 03/08/17 07:12 03/08/17 07:12 03/08/17 07:12 General appearance: Present: A&O X 1, disheveled, pleasant, no acute distress. Absent: answers questions appropriately - Head Head exam: Present: atraumatic, normocephalic - Eye Eye exam: Present: conjuntiva pink, sclera anicteric. Absent: conjunctival injection - Neck Neck exam general surgery: Present: supple, trachea midline. Absent: lymphadenopathy - Respiratory Respiratory exam: Present: CTAB, wheezes. Absent: accessory muscle use, rales, respiratory distress, rhonchi, stridor, tachypnea - Cardiovascular Cardiovascular exam: Present: RRR, +S1, +S2. Absent: diastolic murmur, gallop, rubs, +S3, +S4, systolic murmur, tachycardia - GI/Abdominal GI/Abdominal exam: Present: normal bowel sounds, soft. Absent: distended, firm , tenderness - Extremities Exam Extremities exam: Present: warm, radial pulses palpable and symmetrical. Absent : calf tenderness, cyanotic, pedal edema - Skin Skin exam: Present: dry, intact, normal color. Absent: cyanosis, diaphoretic, mottled, pallor Internal Medicine: Result - Labs CBC & Chem 7: 03/08/17 04:48 03/08/17 14:50 Labs: Short CBC 03/08/17 Range/Units 04:48 WBC 10.7 (4.3-11.1) K/mcL Hgb 11.5 L (12.9-16.9) g/dL Hct 38.1 (37.5-50.1) % Plt Count 295 (140-400) K/mcL Neutrophils # 8.1 (1.6-8.9) K/mcL BMP 03/08/17 04:48 Sodium 149 H Potassium 3.1 L Chloride 118 H Carbon Dioxide 22 BUN 14 Creatinine 1.33 H Glucose 164 H Calcium 8.1 L Laboratory Last Values WBC 10.7 K/mcL (4.3-11.1) 03/08/17 04:48 RBC 3.79 M/mcL (4.19-5.50) L 03/08/17 04:48 Hgb 11.5 g/dL (12.9-16.9) L 03/08/17 04:48 Hct 38.1 % (37.5-50.1) 03/08/17 04:48 MCV 100.5 fL (83.0-100.0) H 03/08/17 04:48 MCH 30.3 pg (28.0-33.3) 03/08/17 04:48 MCHC 30.2 g/dL (31.6-35.5) L 03/08/17 04:48 RDW 16.0 % (11.5-14.5) H 03/08/17 04:48 Plt Count 295 K/mcL (140-400) 03/08/17 04:48 MPV 9.9 fL (9.4-12.4) 03/08/17 04:48 Immature Gran % 0.6 % (0-4) 03/08/17 04:48 Seg Neutrophils % 75.5 % 03/08/17 04:48 Lymphocytes % 13.6 % 03/08/17 04:48 Monocytes % 6.8 % 03/08/17 04:48 Eosinophils % 3.2 % 03/08/17 04:48 Basophils % 0.3 % 03/08/17 04:48 Neutrophils # 8.1 K/mcL (1.6-8.9) 03/08/17 04:48 Lymphocytes # 1.5 K/mcL (0.6-4.6) 03/08/17 04:48 Monocytes # 0.7 K/mcL (0.0-1.3) 03/08/17 04:48 Eosinophils # 0.3 K/mcL (0.0-0.6) 03/08/17 04:48 Basophils # 0.0 K/mcL (0.0-0.2) 03/08/17 04:48 Nucleated RBCs/100 WBC 0.3 /100 WBC (0) H 03/08/17 04:48 PT 15.2 Seconds (9.4-12.1) H 02/26/17 06:50 INR 1.4 02/26/17 06:50 APTT 28.2 Seconds (26.0-36.0) 02/26/17 06:50 Sodium 149 mEq/L (136-145) H 03/08/17 04:48 Potassium 3.1 mEq/L (3.5-4.5) L 03/08/17 04:48 Chloride 118 mEq/L (98-109) H 03/08/17 04:48 Carbon Dioxide 22 mEq/L (19-29) 03/08/17 04:48 BUN 14 mg/dL (8-26) 03/08/17 04:48 Creatinine 1.33 mg/dL (0.72-1.25) H 03/08/17 04:48 Est GFR ( Amer) > 60 (> 60) 03/08/17 04:48 Est GFR (Non-Af Amer) 53 (> 60) L 03/08/17 04:48 BUN/Creatinine Ratio 11 (6-26) 03/08/17 04:48 Glucose 164 mg/dL (70-99) H 03/08/17 04:48 POC Glucose 157 (58-89) H 03/07/17 21:05 Est Mean Plasma Glucose 85 mg/dl 02/26/17 02:52 Hemoglobin A1c 4.6 % (-5.6) 02/26/17 02:52 Calculated Osmolality 312 (280-300) H 03/08/17 04:48 Lactic Acid 1.1 mmol/L (0.5-2.2) 02/25/17 17:08 Calcium 8.1 mg/dL (8.6-10.8) L 03/08/17 04:48 Phosphorus 2.5 mg/dL (2.3-4.7) 02/27/17 04:52 Magnesium 1.7 mg/dL (1.6-2.6) 03/08/17 04:48 Total Bilirubin 0.8 mg/dL (0.2-1.2) 03/07/17 05:18 Direct Bilirubin 0.5 mg/dL (0.0-0.5) 02/25/17 16:03 Indirect Bilirubin 0.6 mg/dL (0.0-1.2) 02/25/17 16:03 AST 39 Units/L (5-34) H 03/07/17 05:18 ALT 8 Units/L (0-55) 03/07/17 05:18 Alkaline Phosphatase 67 Units/L (38-126) 03/07/17 05:18 Ammonia 15 mcmol/L (18-72) L 02/25/17 21:50 Troponin I 0.10 ng/mL (0-0.03) H* 02/26/17 02:52 B-Natriuretic Peptide 2234 pg/mL (0-100) H 03/06/17 12:05 Serum Total Protein 6.0 g/dL (6.0-8.3) 03/07/17 05:18 Albumin 2.0 g/dL (3.5-5.0) L 03/07/17 05:18 Globulin 4.0 g/dL (2.4-3.5) H 03/07/17 05:18 Albumin/Globulin Ratio 0.5 (1.1-2.2) L 03/07/17 05:18 Prealbumin 12.0 mg/dL (18.0-45.0) L 03/06/17 05:34 Triglycerides 109 mg/dL (< 150) 02/26/17 02:52 Cholesterol 84 mg/dL (< 200) 02/26/17 02:52 LDL Cholesterol, Calc 42 mg/dL (0-99) 02/26/17 02:52 VLDL Cholesterol, Calc 22 mg/dL (< 31) 02/26/17 02:52 HDL Cholesterol 20 mg/dL (40-59) L 02/26/17 02:52 Cholesterol/HDL Ratio 4.2 (0-4.9) 02/26/17 02:52 Lipase 24 Units/L (8-78) 02/25/17 16:03 TSH 0.501 mcIU/mL (0.350-4.840) 02/25/17 16:03 Urine Color Yellow (Yellow) 02/25/17 16:44 Urine Clarity Cloudy (Clear) A 02/25/17 16:44 Urine pH 5.0 pH Units (5.0-8.0) 02/25/17 16:44 Ur Specific [place] 1.021 (1.010-1.025) 02/25/17 16:44 Urine Protein Negative mg/dL (Neg-Trace) 02/25/17 16:44 Urine Glucose (UA) Normal mg/dL (Normal) 02/25/17 16:44 Urine Ketones Negative mg/dL (Negative) 02/25/17 16:44 Urine Blood Moderate (Negative) H 02/25/17 16:44 Urine Nitrite Negative (Negative) 02/25/17 16:44 Urine Bilirubin Small (Negative) H 02/25/17 16:44 Urine Urobilinogen Normal mg/dL (Normal) 02/25/17 16:44 Ur Leukocyte Esterase Small (Negative) H 02/25/17 16:44 Urine Microscopic RBC 3-5 per hpf (0-3) H 02/25/17 16:44 Urine Microscopic WBC 0-3 per hpf (0-3) 02/25/17 16:44 Ur Squamous Epith Cells Many per lpf (None-Few) H 02/25/17 16:44 Urine Bacteria None Seen per hpf (None-Few) 02/25/17 16:44 Ur Culture Indicated? YES (NO) A 02/25/17 16:44 Urine Osmolality 301 mOsm/kg (300-1090) 03/06/17 04:45 Urine Creatinine 128 mg/dL 02/25/17 16:44 Urine Sodium < 20.0 mEq/L 02/25/17 16:44 [place] 1.0 mEq/L (0.6-1.2) 02/27/17 03:36 Specimen Rejected Hemolyzed 02/27/17 02:46 - ABG Interpretation ABG results: PT/INR, D-dimer PT 15.2 Seconds (9.4-12.1) H 02/26/17 06:50 Consult Discharge Plan - Plan Referrals: Pacheco Bailey Jr, MD [Primary Care Provider] - 03/06/17 10:00 am (Please follow up as schedule... patient is going to [facility]) <Sal Olivera - Last Filed: 03/08/17 18:53> Date of Encounter: 03/08/17 - Constitutional Vitals: Temp Pulse Resp BP Pulse Ox 98.4 F 90 22 114/73 96 03/08/17 18:47 03/08/17 18:47 03/08/17 18:47 03/08/17 18:47 03/08/17 18:47 Internal Medicine: Result - Labs CBC & Chem 7: 03/08/17 04:48 03/08/17 14:50 Labs: Short CBC 03/08/17 Range/Units 04:48 WBC 10.7 (4.3-11.1) K/mcL Hgb 11.5 L (12.9-16.9) g/dL Hct 38.1 (37.5-50.1) % Plt Count 295 (140-400) K/mcL Neutrophils # 8.1 (1.6-8.9) K/mcL BMP 03/08/17 03/08/17 04:48 14:50 Sodium 149 H 144 Potassium 3.1 L 3.6 Chloride 118 H 113 H Carbon Dioxide 22 22 BUN 14 14 Creatinine 1.33 H 1.39 H Glucose 164 H 184 H Calcium 8.1 L 8.7 - ABG Interpretation ABG results: PT/INR, D-dimer PT 15.2 Seconds (9.4-12.1) H 02/26/17 06:50 - Attending Attestation I conducted a face to face diagnostic evaluation of this patient and my medical decision-making was reviewed with the Resident Physician, Dr. Wilian Hobson. I agree with the documented findings, disposition and treatment plan as described except to the extent set forth below: Patient can actually state his name, date of and he knows the month as February which is new for today. Mental status has improved. Continue with IV dextrose, free water flushes by Dobbhoff tube. I discussed placement of PEG tube for nutritional support. Family is in agreement.
[2017-03-08] MEDS: Levothyroxine Sodium 100 MCG VIAL IVP SCH (08:41)
[2017-03-08] MEDS: Docusate Oral Soln 100 MG/10 ML UDC PO SCH ×2 (08:45→20:55)
[2017-03-08] MEDS: lamoTRIgine 100 MG TABLET PO SCH (08:46)
[2017-03-08] MEDS: FLUoxetine 20 MG CAPSULE PO SCH (08:46)
[2017-03-08] MEDS: Fenofibrate 54 MG TABLET PO SCH (08:46)
[2017-03-08] MEDS: Carbidopa/Levodopa 25/100 TABLET PO SCH ×4 (08:46→20:55)
[2017-03-08] MEDS: Insulin LISPRO 300 UNITS/3 ML VIAL SQ SCH ×3 (08:47→17:13)
[2017-03-08] MEDS ORDERED: Furosemide 20 MG/2 ML VIAL IVP SCH (09:00)
--- NOTE | 2017-03-08 09:39 | Nephrology Progress Note ---
Date of Encounter: 03/08/17 Time of Encounter: 09:15 - Assessment and Plan (1) Acute on chronic renal failure Current Visit: Yes Status: Acute Renal fct stable. Creat 1.33. IV D5W @ 75 cc/hr restarted with improvement in sodium. Na 149. Qualifiers: Acute renal failure type: unspecified Chronic kidney disease stage: stage 3 (moderate) Qualified Code(s): N17.9 - Acute kidney failure, unspecified; N18.3 - Chronic kidney disease, stage 3 (moderate); N18.3 - Chronic kidney disease, stage 3 (moderate) Subjective Interval history: Patient arouses, garbled attempt at speech. Tube feeds Objective - Vital Signs Vital signs: Vital Signs Temp Pulse Resp BP Pulse Ox 03/08/17 09:16 97.7 F 98 18 122/82 93 03/08/17 07:12 97.7 F 98 18 122/82 93 03/08/17 06:41 98.4 F 97 17 115/76 91 03/08/17 04:55 98.4 F 97 17 115/76 91 03/08/17 04:03 98.4 F 97 17 115/76 91 03/08/17 03:00 98.4 F 97 17 115/76 91 03/08/17 01:10 98.5 F 98 17 121/74 90 03/07/17 23:09 98.5 F 98 17 121/74 90 03/07/17 23:00 98.4 F 97 17 115/76 91 03/07/17 19:20 98.9 F 98 18 99/70 91 03/07/17 17:46 97.8 F 100 18 103/82 90 03/07/17 16:31 97.5 F L 111 20 114/102 94 03/07/17 16:00 87 03/07/17 13:00 97.4 F L 95 16 99/66 96 03/07/17 12:00 78 03/07/17 11:57 97.8 F 78 18 122/72 100 03/07/17 11:00 79 16 122/72 97 03/07/17 09:41 97 Intake and Output 03/07/17 03/08/17 03/08/17 23:59 07:59 15:59 Intake Total 450 / 450 1250 / 1250 200 / 200 Output Total 1100 / 1100 Balance -650 / -650 1250 / 1250 200 / 200 Intake: IV Fluids 1050 / 1050 Dextrose 5% 1,000 ML @ 75 mls/ 1000 / 1000 hr IVC .[id number] [facility] Rx#: [id number] Zosyn 3.375 GM In Dextrose 5% ( 50 / 50 ADD-[place]az[place]) 50 ML @ 12.5 mls/ hr IVPB Q8H [facility] Rx#:[id number] Oral 0 / 0 Free Water 200 / 200 Free Water Intake Amount 250 / 250 200 / 200 200 / 200 Output: Urine 200 / 200 2-way Urethral 200 / 200 Catheter 900 / 900 Other: # Urine Diapers 2 Weight 66.8 kg Blood Glucose* 157 173 Patient Weight 03/08/17 23:59 Weight 66.8 kg - General Appearance General appearance: Present: well-developed, appears started age, chronically ill EENT: Present: mucous membranes moist Neck: Present: no JVD Respiratory: Present: clear Cardiology: Present: no edema, regular rate, regular rhythm Gastrointestinal: Present: normoactive bowel sounds, no tenderness Integumentary: Present: warm and dry Psychiatric: Present: cooperative - Lab 03/08/17 04:48 03/08/17 04:48 Most recent lab results Calcium 8.1 mg/dL (8.6-10.8) L 03/08/17 04:48 Phosphorus 2.5 mg/dL (2.3-4.7) 02/27/17 04:52 Magnesium 1.7 mg/dL (1.6-2.6) 03/08/17 04:48 Urine Creatinine 128 mg/dL 02/25/17 16:44 Urine Sodium < 20.0 mEq/L 02/25/17 16:44 Consult Discharge Plan - Plan Referrals: Pacheco Bailey Jr, MD [Primary Care Provider] - 03/06/17 10:00 am (Please follow up as schedule... patient is going to [facility] [place])
[2017-03-08 15:15] LABS: BUN/Creatinine Ratio 10 (6-26); Blood Urea Nitrogen 14 mg/dL (8-26); Calcium 8.7 mg/dL (8.6-10.8); Carbon Dioxide 22 mEq/L (19-29); Chloride 113 mEq/L (98-109); Glucose 184 mg/dL (70-99); Osmolality,Calculated 303 (280-300); Potassium 3.6 mEq/L (3.5-4.5); Sodium 144 mEq/L (136-145); eGFR For African Americans > 60 (> 60); eGFR For Non-African Americans 51 (> 60)
[2017-03-08] MEDS: Latanoprost 2.5 ML BOTTLE BOTH EYES SCH (20:57)
[2017-03-09] MEDS: *HR* LORazepam 2 MG/ML VIAL IVP SCH ×2 (00:10→08:28)
[2017-03-09] MEDS: Insulin LISPRO 300 UNITS/3 ML VIAL SQ SCH ×5 (00:10→21:22)
[2017-03-09] MEDS: Piperacillin/Tazobactam 3.375 GM in D5% in Water 50 ML IVPB SCH ×3 (03:34→19:59)
[2017-03-09] MEDS: *HR* Heparin 5,000 UNIT/ML VIAL SQ SCH ×2 (05:20→17:09)
[2017-03-09 05:53] LABS: Basophils % 0.3 %; Eosinophils # 0.4 K/mcL (0.0-0.6); Eosinophils % 4.9 %; Hemoglobin 11.5 g/dL (12.9-16.9); Immature Granulocytes % 0.4 % (0-4); Lymphocytes # 2.5 K/mcL (0.6-4.6); Mean Corpuscular HGB Conc 31.1 g/dL (31.6-35.5); Mean Corpuscular Hemoglobin 30.7 pg (28.0-33.3); Mean Corpuscular Volume 98.9 fL (83.0-100.0); Mean Platelet Volume 9.8 fL (9.4-12.4); Monocytes # 0.8 K/mcL (0.0-1.3); Monocytes % 8.6 %; Neutrophils # 5.2 K/mcL (1.6-8.9); Platelet Count 257 K/mcL (140-400); Red Blood Count 3.74 M/mcL (4.19-5.50); Red Cell Distribution Width 16.2 % (11.5-14.5); Segmented Neutrophils % 57.8 %
[2017-03-09 06:15] LABS: BUN/Creatinine Ratio 12 (6-26); Blood Urea Nitrogen 15 mg/dL (8-26); Calcium 8.3 mg/dL (8.6-10.8); Carbon Dioxide 23 mEq/L (19-29); Chloride 107 mEq/L (98-109); Glucose 138 mg/dL (70-99); Magnesium 1.8 mg/dL (1.6-2.6); Osmolality,Calculated 293 (280-300); Potassium 3.7 mEq/L (3.5-4.5); Sodium 140 mEq/L (136-145); eGFR For African Americans > 60 (> 60); eGFR For Non-African Americans 57 (> 60)
[2017-03-09] MEDS: Docusate Oral Soln 100 MG/10 ML UDC PO SCH ×2 (08:27→20:00)
[2017-03-09] MEDS: lamoTRIgine 100 MG TABLET PO SCH (08:27)
[2017-03-09] MEDS: Carbidopa/Levodopa 25/100 TABLET PO SCH ×4 (08:27→20:00)
[2017-03-09] MEDS: FLUoxetine 20 MG CAPSULE PO SCH (08:27)
[2017-03-09] MEDS: Fenofibrate 54 MG TABLET PO SCH (08:27)
[2017-03-09] MEDS: Levothyroxine Sodium 100 MCG VIAL IVP SCH (08:27)
--- NOTE | 2017-03-09 08:44 | Nephrology Progress Note ---
Date of Encounter: 03/09/17 Time of Encounter: 07:50 - Assessment and Plan (1) Acute on chronic renal failure Current Visit: Yes Status: Acute Renal fct stable. Creat 1.325. Na 140. Will stop IV fluids. Continue to monitor. Qualifiers: Acute renal failure type: unspecified Chronic kidney disease stage: stage 3 (moderate) Qualified Code(s): N17.9 - Acute kidney failure, unspecified; N18.3 - Chronic kidney disease, stage 3 (moderate); N18.3 - Chronic kidney disease, stage 3 (moderate) Subjective Interval history: Patient arouses, speech, clearer, thinks is in [facility]. Tube feeds at 80cc/ hr. Objective - Vital Signs Vital signs: Vital Signs Temp Pulse Resp BP Pulse Ox 03/09/17 07:25 97.8 F 97 20 109/75 97 03/09/17 05:00 98.1 F 88 18 115/76 96 03/09/17 03:00 98.1 F 88 18 115/76 96 03/09/17 01:21 98.1 F 88 18 115/76 96 03/08/17 23:58 98.1 F 88 18 115/76 96 03/08/17 23:00 98.4 F 90 22 114/73 96 03/08/17 21:29 98.4 F 90 22 114/73 96 03/08/17 19:00 98.4 F 90 22 114/73 96 03/08/17 18:47 98.4 F 90 22 114/73 96 03/08/17 16:39 97.6 F 82 18 118/81 94 03/08/17 13:17 97.5 F L 94 18 106/55 93 03/08/17 11:15 97.5 F L 94 18 106/55 93 03/08/17 09:16 97.7 F 98 18 122/82 93 Intake and Output 03/08/17 03/09/17 03/09/17 23:59 07:59 15:59 Intake Total 1650 / 1650 450 / 450 Balance 1650 / 1650 450 / 450 Intake: IV Fluids 1050 / 1050 50 / 50 Dextrose 5% 1,000 ML @ 75 mls/ 1000 / 1000 hr IVC .[id number] [facility] Rx#: [id number] Zosyn 3.375 GM In Dextrose 5% ( 50 / 50 50 / 50 ADD-[place]) 50 ML @ 12.5 mls/ hr IVPB Q8H [facility] Rx#:[id number] Free Water 200 / 200 Free Water Intake Amount 400 / 400 400 / 400 Other: Blood Glucose* 169 171 - General Appearance General appearance: Present: well-developed, appears started age, chronically ill EENT: Present: mucous membranes moist Neck: Present: no JVD Respiratory: Present: clear Cardiology: Present: no edema, regular rate, regular rhythm Gastrointestinal: Present: normoactive bowel sounds, no tenderness Integumentary: Present: warm and dry - Lab 03/09/17 05:40 03/09/17 05:40 Most recent lab results Calcium 8.3 mg/dL (8.6-10.8) L 03/09/17 05:40 Phosphorus 2.5 mg/dL (2.3-4.7) 02/27/17 04:52 Magnesium 1.8 mg/dL (1.6-2.6) 03/09/17 05:40 Urine Creatinine 128 mg/dL 02/25/17 16:44 Urine Sodium < 20.0 mEq/L 02/25/17 16:44 Consult Discharge Plan - Plan Referrals: Pacheco Bailey Jr, MD [Primary Care Provider] - 03/06/17 10:00 am (Please follow up as schedule... patient is going to [facility] [place])
--- NOTE | 2017-03-09 10:57 | Internal Med Progress Note ---
<WuRoby - Last Filed: 03/09/17 10:59> Date of Encounter: 03/09/17 Time of Encounter: 10:52 - Assessment and plan (1) Metabolic encephalopathy Current Visit: Yes Status: Resolved Assessment and plan: Improving today as he is A/O x2 and is more awake and alert Continues to follow commands and answers questions appropriately Will trial him off restraints and have bedside sitter observe during that time No family at bedside this morning to compare to his baseline mental status He does have dysphagia and family is consider PEG tube placement; will consider surgical consult tomorrow (2) [place] intoxication Current Visit: Yes Status: Resolved Assessment and plan: [place] lasts checked on 02/27 was 1.0 and remains on hold Psychiatry did evaluate patient on 03/03 and states his current regimen for bipolar disorder is acceptable Qualifiers: Encounter type: initial encounter Injury intent: accidental or unintentional Qualified Code(s): T56.891A - Toxic effect of other metals, accidental (unintentional), initial encounter (3) Acute hypernatremia Current Visit: Yes Status: Resolved Assessment and plan: Sodium levels 140 this morning, stable from 144 yesterday Stopped both his D5 and Lasix today Will recheck BMP in the AM (4) Multifocal pneumonia Current Visit: Yes Status: Acute Assessment and plan: CXR did demonstrate bilateral opacities on 03/06 suspicious for pneumonia, possibly secondary to aspiration He has no respiratory symptoms at this time, but will continue to support with breathing treatments Will continue patient on Zosyn, day 3, and blood cultures remain negative (5) Acute diastolic (congestive) heart failure Current Visit: Yes Status: Suspected Assessment and plan: Patient was previously taking Lasix 20 mg IV daily but this has been stopped as his electrolyte abnormalities have resolved Appears euvolemic on exam and will stop his D5 fluids as well Cumulative I/O show he is positive 3 L overall (6) Severe aortic stenosis Current Visit: Yes Status: Acute Assessment and plan: Cardiology did previously evaluate patient and stated he would need intervention once mental status improves Will likely follow up as outpatient basis with cardiology for further recommendations (7) Urinary tract infection Current Visit: Yes Status: Acute Assessment and plan: Urine did grow Enterococcus and he has been on Zosyn day 3 No signs of systemic infection given no leukocytosis, fever, or tachycardia Qualifiers: Urinary tract infection type: acute cystitis Hematuria presence: with hematuria Qualified Code(s): N30.01 - Acute cystitis with hematuria (8) Bipolar disorder Current Visit: Yes Status: Chronic Assessment and plan: [place] on hold as above Will continue current medications per psychiatry Qualifiers: Active/Remission status: remission status unspecified Qualified Code(s): F31.9 - Bipolar disorder, unspecified (9) Chronic kidney disease, stage III (moderate) Current Visit: Yes Status: Chronic Assessment and plan: Cr 1.25 this morning down from 1.39 yesterday He is close to his baseline and both Lasix and fluids have been stopped as above Continue to monitor electrolytes, Cr, and avoid nephrotoxic agents (10) Non-insulin dependent type 2 diabetes mellitus Current Visit: Yes Status: Chronic Assessment and plan: Accuchecks have been acceptable between 100-180 over last 24 hours Continue on low dose SSI q6hr while he is receiving tube feeds (11) DVT prophylaxis Current Visit: Yes Status: Acute Assessment and plan: Heparin 5000 units BID - Subjective Interval history: Patient seen and examined. He is awake and alert this morning and responds to questions appropriately. He states that he has no complaints other than some pain in his groin. He denies any shortness of breath, nausea, vomiting, diarrhea, fevers. There is no family at bedside this morning. Per nurse, he has remained in restraints today but has been less agitated. - Constitutional Vitals: Temp Pulse Resp BP Pulse Ox 97.4 F L 88 15 111/66 97 03/09/17 10:40 03/09/17 10:40 03/09/17 10:40 03/09/17 10:40 03/09/17 10:40 General appearance: Present: disheveled, A&O X 2 (thinks he is in [place], [place]) , pleasant, no acute distress. Absent: answers questions appropriately - Head Head exam: Present: atraumatic, normocephalic - Eye Eye exam: Present: PERRL, conjuntiva pink, sclera anicteric - Neck Neck exam general surgery: Present: supple, trachea midline. Absent: lymphadenopathy - Respiratory Respiratory exam: Present: CTAB. Absent: accessory muscle use, rales, rhonchi, wheezes - Cardiovascular Cardiovascular exam: Present: RRR, +S1, +S2, systolic murmur. Absent: diastolic murmur, gallop, rubs - GI/Abdominal GI/Abdominal exam: Present: normal bowel sounds, soft, no peritoneal signs. Absent: distended, tenderness - Extremities Exam Extremities exam: Present: warm, radial pulses palpable and symmetrical. Absent : calf tenderness, cyanotic, pedal edema - Neurological Exam Neurological exam: Present: alert, no focal deficits. Absent: oriented X3, pronater drift, facial droop, speech deficit - Skin Skin exam: Present: dry, intact Internal Medicine: Result - Labs CBC & Chem 7: 03/09/17 05:40 03/09/17 05:40 Labs: Short CBC 03/09/17 Range/Units 05:40 WBC 9.0 (4.3-11.1) K/mcL Hgb 11.5 L (12.9-16.9) g/dL Hct 37.0 L (37.5-50.1) % Plt Count 257 (140-400) K/mcL Neutrophils # 5.2 (1.6-8.9) K/mcL BMP 03/08/17 03/09/17 14:50 05:40 Sodium 144 140 Potassium 3.6 3.7 Chloride 113 H 107 Carbon Dioxide 22 23 BUN 14 15 Creatinine 1.39 H 1.25 Glucose 184 H 138 H Calcium 8.7 8.3 L - ABG Interpretation ABG results: PT/INR, D-dimer PT 15.2 Seconds (9.4-12.1) H 02/26/17 06:50 Consult Discharge Plan - Plan Referrals: Pacheco Bailey Jr, MD [Primary Care Provider] - 03/06/17 10:00 am (Please follow up as schedule... patient is going to [facility]) <Sal Olivera - Last Filed: 03/09/17 16:48> Date of Encounter: 03/09/17 - Constitutional Vitals: Temp Pulse Resp BP Pulse Ox 97.8 F 91 15 116/80 97 03/09/17 15:56 03/09/17 15:56 03/09/17 15:56 03/09/17 15:56 03/09/17 15:56 Internal Medicine: Result - Labs CBC & Chem 7: 03/09/17 05:40 03/09/17 05:40 Labs: Short CBC 03/09/17 Range/Units 05:40 WBC 9.0 (4.3-11.1) K/mcL Hgb 11.5 L (12.9-16.9) g/dL Hct 37.0 L (37.5-50.1) % Plt Count 257 (140-400) K/mcL Neutrophils # 5.2 (1.6-8.9) K/mcL BMP 03/09/17 05:40 Sodium 140 Potassium 3.7 Chloride 107 Carbon Dioxide 23 BUN 15 Creatinine 1.25 Glucose 138 H Calcium 8.3 L - ABG Interpretation ABG results: PT/INR, D-dimer PT 15.2 Seconds (9.4-12.1) H 02/26/17 06:50 - Attending Attestation I conducted a face to face diagnostic evaluation of this patient and my medical decision-making was reviewed with the Resident Physician, Dr Roby Washburn. I agree with the documented findings, disposition and treatment plan as described except to the extent set forth below: Patient's mental status dramatically improved. Sodium normalized at 140 today. Stop IV fluids. Continue tube feeds. Check sodium level in the morning. If mental status continues to improve he may not eat a PEG tube. We will obtain swallow evaluation.
[2017-03-09] MEDS ORDERED: *HR* LORazepam 2 MG/ML VIAL IVP PRN (16:23)
[2017-03-09] MEDS: Latanoprost 2.5 ML BOTTLE BOTH EYES SCH (20:00)
[2017-03-10 03:35] LABS: Basophils % 0.4 %; Eosinophils # 0.4 K/mcL (0.0-0.6); Eosinophils % 4.9 %; Hematocrit 36.2 % (37.5-50.1); Hemoglobin 11.3 g/dL (12.9-16.9); Immature Granulocytes % 0.8 % (0-4); Lymphocytes # 2.5 K/mcL (0.6-4.6); Lymphocytes % 29.2 %; Mean Corpuscular HGB Conc 31.2 g/dL (31.6-35.5); Mean Corpuscular Hemoglobin 31.2 pg (28.0-33.3); Mean Platelet Volume 9.8 fL (9.4-12.4); Monocytes # 0.8 K/mcL (0.0-1.3); Monocytes % 9.6 %; Neutrophils # 4.7 K/mcL (1.6-8.9); Platelet Count 280 K/mcL (140-400); Red Blood Count 3.62 M/mcL (4.19-5.50); Red Cell Distribution Width 16.4 % (11.5-14.5); Segmented Neutrophils % 55.1 %
[2017-03-10 03:41] LABS: INR 1.3; Prothrombin Time 13.6 Seconds (9.4-12.1)
[2017-03-10 03:48] LABS: BUN/Creatinine Ratio 17 (6-26); Blood Urea Nitrogen 20 mg/dL (8-26); Calcium 8.5 mg/dL (8.6-10.8); Carbon Dioxide 24 mEq/L (19-29); Chloride 110 mEq/L (98-109); Glucose 104 mg/dL (70-99); Osmolality,Calculated 295 (280-300); Potassium 3.9 mEq/L (3.5-4.5); Sodium 141 mEq/L (136-145); eGFR For African Americans > 60 (> 60); eGFR For Non-African Americans 59 (> 60)
[2017-03-10] MEDS: Piperacillin/Tazobactam 3.375 GM in D5% in Water 50 ML IVPB SCH ×3 (04:39→21:00)
[2017-03-10] MEDS: *HR* Heparin 5,000 UNIT/ML VIAL SQ SCH ×2 (06:48→16:51)
[2017-03-10] MEDS: Insulin LISPRO 300 UNITS/3 ML VIAL SQ SCH ×4 (07:03→21:03)
--- NOTE | 2017-03-10 08:17 | Internal Med Progress Note ---
<WuRoby - Last Filed: 03/10/17 10:36> Date of Encounter: 03/10/17 Time of Encounter: 08:15 - Assessment and plan (1) Metabolic encephalopathy Current Visit: Yes Status: Resolved Assessment and plan: Mental status continues to be better as he remains A/O x2 and is more awake, alert and feeding himself Has been off restraints since yesterday when feeding tube was removed No family at bedside this morning to compare to his baseline mental status Speech therapist evaluated him for dysphagia yesterday and he is tolerating pureed diet Plan to discharge him tomorrow to [place] pending SW placement (2) [place] intoxication Current Visit: Yes Status: Resolved Assessment and plan: [place] lasts checked on 02/27 was 1.0 and remains on hold Psychiatry did evaluate patient on 03/03 and states his current regimen for bipolar disorder is acceptable Qualifiers: Encounter type: initial encounter Injury intent: accidental or unintentional Qualified Code(s): T56.891A - Toxic effect of other metals, accidental (unintentional), initial encounter (3) Acute hypernatremia Current Visit: Yes Status: Resolved Assessment and plan: Sodium levels 141 this morning, stable from 140 yesterday Stopped both his D5 and Lasix yesterday and he appears euvolemic on exam Will recheck BMP in the AM (4) Multifocal pneumonia Current Visit: Yes Status: Acute Assessment and plan: CXR did demonstrate bilateral opacities on 03/06 suspicious for pneumonia, possibly secondary to aspiration Still has no respiratory symptoms at this time, but will continue to support with breathing treatments Will continue patient on Zosyn, day 4, and blood cultures remain negative (5) Acute diastolic (congestive) heart failure Current Visit: Yes Status: Suspected Assessment and plan: Patient was previously taking Lasix 20 mg IV daily but this has been stopped as his electrolyte abnormalities have resolved Appears euvolemic on exam as above Cumulative I/O show he is positive 5 L overall (6) Severe aortic stenosis Current Visit: Yes Status: Acute Assessment and plan: Cardiology did previously evaluate patient during this hospital stay and stated he would need intervention once mental status improves Will likely follow up as outpatient basis with cardiology for further recommendations (7) Urinary tract infection Current Visit: Yes Status: Acute Assessment and plan: Urine did grow Enterococcus and he has been on Zosyn day 4 No signs of systemic infection given no leukocytosis, fever, or tachycardia Qualifiers: Urinary tract infection type: acute cystitis Hematuria presence: with hematuria Qualified Code(s): N30.01 - Acute cystitis with hematuria (8) Bipolar disorder Current Visit: Yes Status: Chronic Assessment and plan: [place] on hold as above Will continue current medications per psychiatry Qualifiers: Active/Remission status: remission status unspecified Qualified Code(s): F31.9 - Bipolar disorder, unspecified (9) Chronic kidney disease, stage III (moderate) Current Visit: Yes Status: Chronic Assessment and plan: Cr stable at 1.21 this morning down from 1.25 yesterday He is close to his baseline and both Lasix and fluids have been stopped as above Continue to monitor electrolytes, Cr, and avoid nephrotoxic agents (10) Non-insulin dependent type 2 diabetes mellitus Current Visit: Yes Status: Chronic Assessment and plan: Accuchecks have been acceptable between 100-180 over last 24 hours Continue on low dose SSI q6hr while he is receiving tube feeds (11) DVT prophylaxis Current Visit: Yes Status: Acute Assessment and plan: Heparin 5000 units BID - Subjective Interval history: Patient seen and examined. He is awake and alert this morning and responds to questions appropriately. He is laying in bed eating his meals and states he has no difficulties with swallowing, denying nausea, vomiting or diarrhea. He does not have issues with breathing, chest pain. - Constitutional Vitals: Temp Pulse Resp BP Pulse Ox 98.2 F 81 18 105/68 99 03/10/17 06:42 03/10/17 06:42 03/10/17 06:42 03/10/17 06:42 03/10/17 06:42 General appearance: Present: disheveled, A&O X 2 (does not know where he is), pleasant, no acute distress. Absent: answers questions appropriately - Head Head exam: Present: atraumatic, normocephalic - Eye Eye exam: Present: PERRL, conjuntiva pink, sclera anicteric - Neck Neck exam general surgery: Present: supple, trachea midline. Absent: lymphadenopathy - Respiratory Respiratory exam: Present: rhonchi. Absent: accessory muscle use, rales, wheezes - Cardiovascular Cardiovascular exam: Present: RRR, +S1, +S2, systolic murmur. Absent: diastolic murmur, gallop, rubs - GI/Abdominal GI/Abdominal exam: Present: normal bowel sounds, soft, no peritoneal signs. Absent: distended, tenderness - Extremities Exam Extremities exam: Present: warm, radial pulses palpable and symmetrical. Absent : calf tenderness, cyanotic, pedal edema - Neurological Exam Neurological exam: Present: alert, no focal deficits. Absent: oriented X3, facial droop, speech deficit - Skin Skin exam: Present: dry, intact Internal Medicine: Result - Labs CBC & Chem 7: 03/10/17 03:15 03/10/17 03:15 Labs: Short CBC 03/10/17 Range/Units 03:15 WBC 8.6 (4.3-11.1) K/mcL Hgb 11.3 L (12.9-16.9) g/dL Hct 36.2 L (37.5-50.1) % Plt Count 280 (140-400) K/mcL Neutrophils # 4.7 (1.6-8.9) K/mcL BMP 03/10/17 03:15 Sodium 141 Potassium 3.9 Chloride 110 H Carbon Dioxide 24 BUN 20 Creatinine 1.21 Glucose 104 H Calcium 8.5 L - ABG Interpretation ABG results: PT/INR, D-dimer PT 13.6 Seconds (9.4-12.1) H 03/10/17 03:15 Consult Discharge Plan - Plan Referrals: Pacheco Bailey Jr, MD [Primary Care Provider] - (Patient will follow up with ECF pcp) <Sal Olivera - Last Filed: 03/10/17 14:29> Date of Encounter: 03/10/17 - Constitutional Vitals: Temp Pulse Resp BP Pulse Ox 98.1 F 82 18 119/75 95 03/10/17 10:35 03/10/17 10:35 03/10/17 10:35 03/10/17 10:35 03/10/17 10:35 Internal Medicine: Result - Labs CBC & Chem 7: 03/10/17 03:15 03/10/17 03:15 Labs: Short CBC 03/10/17 Range/Units 03:15 WBC 8.6 (4.3-11.1) K/mcL Hgb 11.3 L (12.9-16.9) g/dL Hct 36.2 L (37.5-50.1) % Plt Count 280 (140-400) K/mcL Neutrophils # 4.7 (1.6-8.9) K/mcL BMP 03/10/17 03:15 Sodium 141 Potassium 3.9 Chloride 110 H Carbon Dioxide 24 BUN 20 Creatinine 1.21 Glucose 104 H Calcium 8.5 L - ABG Interpretation ABG results: PT/INR, D-dimer PT 13.6 Seconds (9.4-12.1) H 03/10/17 03:15 - Attending Attestation I conducted a face to face diagnostic evaluation of this patient and my medical decision-making was reviewed with the Resident Physician, Dr Roby Washburn. I agree with the documented findings, disposition and treatment plan as described except to the extent set forth below: Patient's mental status continues to improve. We will obtain PT OT evaluation. rolled materials worker consult for likely placement in subacute rehabilitation.
[2017-03-10] MEDS: Fenofibrate 54 MG TABLET PO SCH (08:34)
[2017-03-10] MEDS: Levothyroxine Sodium 100 MCG VIAL IVP SCH (08:34)
[2017-03-10] MEDS: Docusate Oral Soln 100 MG/10 ML UDC PO SCH ×2 (08:34→21:01)
[2017-03-10] MEDS: lamoTRIgine 100 MG TABLET PO SCH (08:34)
[2017-03-10] MEDS: FLUoxetine 20 MG CAPSULE PO SCH (08:34)
[2017-03-10] MEDS: Carbidopa/Levodopa 25/100 TABLET PO SCH ×4 (08:36→21:01)
--- NOTE | 2017-03-10 08:46 | Nephrology Progress Note ---
Date of Encounter: 03/10/17 Time of Encounter: 08:10 - Assessment and Plan (1) Acute on chronic renal failure Current Visit: Yes Status: Acute Renal fct stable. Creat 1.21. Na stable, 141. Continue to monitor. Qualifiers: Acute renal failure type: unspecified Chronic kidney disease stage: stage 3 (moderate) Qualified Code(s): N17.9 - Acute kidney failure, unspecified; N18.3 - Chronic kidney disease, stage 3 (moderate); N18.3 - Chronic kidney disease, stage 3 (moderate) Subjective Interval history: Sitting up in bed, alert, feeding self breakfast. Tube feeds stopped. Objective - Vital Signs Vital signs: Vital Signs Temp Pulse Resp BP Pulse Ox 03/10/17 06:42 98.2 F 81 18 105/68 99 03/10/17 03:07 98.3 F 102 13 103/73 96 03/09/17 23:35 98.5 F 110 14 137/83 98 03/09/17 19:44 98.9 F 94 18 103/59 96 03/09/17 15:56 97.8 F 91 15 116/80 97 03/09/17 10:40 97.4 F L 88 15 111/66 97 03/09/17 08:58 97 Intake and Output 03/09/17 03/10/17 03/10/17 23:59 07:59 15:59 Intake Total 460 / 460 Output Total 0 / 0 Balance 460 / 460 Intake: IV Fluids 100 / 100 Zosyn 3.375 GM In Dextrose 5% ( 100 / 100 ADD-[place]) 50 ML @ 12.5 mls/ hr IVPB Q8H [facility] Rx#:[id number] Oral 360 / 360 Output: Urine 0 / 0 Other: Meal No fluids given. Percent of Meal Consumed 95% # Urine Diapers 1 Weight 67.041 kg Blood Glucose* 123 91 Patient Weight 03/10/17 23:59 Weight 67.041 kg - General Appearance General appearance: Present: well-developed, well-nourished, chronically ill EENT: Present: mucous membranes moist Neck: Present: no JVD Respiratory: Present: clear Cardiology: Present: no edema, regular rate, regular rhythm Gastrointestinal: Present: normoactive bowel sounds, no tenderness Integumentary: Present: warm and dry Psychiatric: Present: mood/affect appropriate, cooperative - Lab 03/10/17 03:15 03/10/17 03:15 Most recent lab results Calcium 8.5 mg/dL (8.6-10.8) L 03/10/17 03:15 Phosphorus 2.5 mg/dL (2.3-4.7) 02/27/17 04:52 Magnesium 1.8 mg/dL (1.6-2.6) 03/09/17 05:40 Urine Creatinine 128 mg/dL 02/25/17 16:44 Urine Sodium < 20.0 mEq/L 02/25/17 16:44 Consult Discharge Plan - Plan Referrals: Pacheco Bailey Jr, MD [Primary Care Provider] - (Patient will follow up with ECF pcp)
[2017-03-10] MEDS: Latanoprost 2.5 ML BOTTLE BOTH EYES SCH (21:02)
[2017-03-11] MEDS ORDERED: ALPRAZolam 0.25 MG TABLET PO ONE (01:17)
[2017-03-11] MEDS: Piperacillin/Tazobactam 3.375 GM in D5% in Water 50 ML IVPB SCH ×3 (05:05→20:46)
[2017-03-11] MEDS: *HR* Heparin 5,000 UNIT/ML VIAL SQ SCH ×2 (05:06→17:31)
[2017-03-11 05:38] LABS: Basophils % 0.4 %; Eosinophils # 0.3 K/mcL (0.0-0.6); Eosinophils % 2.8 %; Hematocrit 37.9 % (37.5-50.1); Hemoglobin 11.7 g/dL (12.9-16.9); Lymphocytes % 18.6 %; Mean Corpuscular HGB Conc 30.9 g/dL (31.6-35.5); Mean Corpuscular Hemoglobin 30.8 pg (28.0-33.3); Mean Corpuscular Volume 99.7 fL (83.0-100.0); Monocytes % 9.2 %; Neutrophils # 7.4 K/mcL (1.6-8.9); Nucleated Red Blood Cells 0.3 /100 WBC (0); Platelet Count 328 K/mcL (140-400); Red Cell Distribution Width 16.5 % (11.5-14.5)
[2017-03-11 05:52] LABS: BUN/Creatinine Ratio 21 (6-26); Blood Urea Nitrogen 28 mg/dL (8-26); Calcium 8.8 mg/dL (8.6-10.8); Carbon Dioxide 22 mEq/L (19-29); Chloride 113 mEq/L (98-109); Glucose 130 mg/dL (70-99); Osmolality,Calculated 307 (280-300); Sodium 145 mEq/L (136-145); eGFR For African Americans > 60 (> 60); eGFR For Non-African Americans 53 (> 60)
[2017-03-11] MEDS: Insulin LISPRO 300 UNITS/3 ML VIAL SQ SCH ×4 (08:24→20:39)
--- NOTE | 2017-03-11 08:24 | Nephrology Progress Note ---
Date of Encounter: 03/11/17 Time of Encounter: 08:23 - Assessment and Plan (1) Acute renal failure Current Visit: Yes Status: Acute The patient's sodium is slightly higher today compared to yesterday. He no longer has a feeding tube. We will need to monitor his free water intake closely. Qualifiers: Acute renal failure type: unspecified Qualified Code(s): N17.9 - Acute kidney failure, unspecified (2) Hypernatremia Current Visit: Yes Status: Acute (3) [place] intoxication Current Visit: Yes Status: Resolved Qualifiers: Encounter type: initial encounter Injury intent: accidental or unintentional Qualified Code(s): T56.891A - Toxic effect of other metals, accidental (unintentional), initial encounter Subjective Interval history: The patient is alert and able to carry on conversation. There is no urine output recorded. Sodium is a bit higher at 145. Objective - Vital Signs Vital signs: Vital Signs Temp Pulse Resp BP Pulse Ox 03/11/17 07:06 97.4 F L 94 16 117/73 93 03/11/17 04:28 97.5 F L 92 17 163/74 95 03/10/17 23:55 97.8 F 80 17 134/82 97 03/10/17 19:14 97.6 F 84 16 134/70 95 03/10/17 15:20 97.9 F 82 17 108/72 98 03/10/17 10:35 98.1 F 82 18 119/75 95 Intake and Output 03/10/17 03/11/17 03/11/17 23:59 07:59 15:59 Intake Total 460 / 460 50 / 50 Output Total 0 / 0 0 / 0 Balance 460 / 460 50 / 50 Intake: IV Fluids 50 / 50 Zosyn 3.375 GM In Dextrose 5% ( 50 / 50 ADD-[place]) 50 ML @ 12.5 mls/ hr IVPB Q8H [facility] Rx#:[id number] Oral 460 / 460 0 / 0 Output: Urine 0 / 0 0 / 0 Other: Meal Dinner Percent of Meal Consumed 100% Stool Size Moderate Stool Consistency loose Stool Color Brown # Urine Diapers 1 # Bowel Movement Diapers 1 Blood Glucose* 176 129 - General Appearance Exam: Patient is alert. He is in no acute distress. Lungs coarse breath sounds otherwise clear. Heart regular rate and rhythm. Abdomen is benign. There is no peripheral edema. - Lab 03/11/17 05:15 03/11/17 05:15 Most recent lab results Calcium 8.8 mg/dL (8.6-10.8) 03/11/17 05:15 Phosphorus 2.5 mg/dL (2.3-4.7) 02/27/17 04:52 Magnesium 1.8 mg/dL (1.6-2.6) 03/09/17 05:40 Urine Creatinine 128 mg/dL 02/25/17 16:44 Urine Sodium < 20.0 mEq/L 02/25/17 16:44 Consult Discharge Plan - Plan Referrals: Pacheco Bailey Jr, MD [Primary Care Provider] - (Patient will follow up with ECF pcp)
--- NOTE | 2017-03-11 08:31 | Discharge Summary ---
<Joce Cedeno - Last Filed: 03/11/17 15:27> Date of Encounter: 03/11/17 Time of Encounter: 08:29 - Discharge Diagnosis (1) [place] intoxication Priority: Primary Status: Resolved Comments: [place] held; lithium level normalized or 1st few days possible course. Continue to hold as bipolar symptoms stable. Qualifiers: Encounter type: initial encounter Injury intent: accidental or unintentional Qualified Code(s): T56.891A - Toxic effect of other metals, accidental (unintentional), initial encounter (2) Acute hypernatremia Priority: Primary Status: Resolved Comments: Normalized (3) Acute renal failure Priority: Secondary Status: Acute Comments: Chronic and stable; your baseline. Qualifiers: Acute renal failure type: unspecified Qualified Code(s): N17.9 - Acute kidney failure, unspecified (4) Acute diastolic (congestive) heart failure Priority: Secondary Status: Suspected Comments: Resolved and stable. No signs of volume overload. No shortness of air or edema. (5) Multifocal pneumonia Priority: Secondary Status: Acute Comments: Continue antibiotics to complete 10 day course (6) Electrolyte abnormality Priority: Secondary Status: Acute Comments: Resolved (7) Metabolic encephalopathy Priority: Secondary Status: Resolved Comments: Resolved (8) Bipolar disorder Priority: Secondary Status: Chronic Comments: Symptomatically stable; hold lithium. Qualifiers: Active/Remission status: remission status unspecified Qualified Code(s): F31.9 - Bipolar disorder, unspecified (9) Diabetes Priority: Secondary Status: Chronic Comments: Continue usual home medications on discharge Qualifiers: Diabetes mellitus type: type 2 Diabetes mellitus complication status: with unspecified complications Diabetes mellitus halfway insulin use: without halfway use Qualified Code(s): E11.8 - Type 2 diabetes mellitus with unspecified complications (10) HTN (hypertension) Priority: Secondary Status: Chronic Qualifiers: Hypertension type: essential hypertension Qualified Code(s): I10 - Essential (primary) hypertension (11) Aortic stenosis Priority: Secondary Status: Chronic Qualifiers: Cardiac valve disease etiology: nonrheumatic Qualified Code(s): I35.0 - Nonrheumatic aortic (valve) stenosis (12) Aortic aneurysm Priority: Secondary Status: Chronic Qualifiers: Aortic location: unspecified Presence of rupture: without rupture Qualified Code(s): I71.9 - Aortic aneurysm of unspecified site, without rupture (13) Hypothyroidism Priority: Secondary Status: Chronic Qualifiers: Hypothyroidism type: unspecified Qualified Code(s): E03.9 - Hypothyroidism , unspecified (14) Parkinsons disease Priority: Secondary Status: Chronic - Discharge Medications Prescriptions: levoFLOXacin [Levaquin] 750 mg PO DAILY 5 Days #5 tablet Home Medications: Adalimumab [Humira Pen Psoriasis-Uveitis] 40 mg SQ Q2W 11/18/16 [History] Albuterol Sulfate [Proair Hfa] 2 puff IH Q4H PRN 11/18/16 [History] Amantadine [Symmetrel] 100 mg PO QAM 11/18/16 [History] Bimatoprost [Lumigan] 1 drop OP HS 11/18/16 [History] Carbidopa/Levodopa ER 50/200 [Sinemet ER 50-200 Tab] 1 tab PO BID 11/18/16 [ History] FLUoxetine HCl [Prozac] 80 mg PO QAM 11/18/16 [History] Fenofibrate Nanocrystallized [Tricor] 145 mg PO QAM 11/18/16 [History] Levothyroxine [Synthroid] 75 mcg PO QAM 11/18/16 [History] [place] Carbonate 300 mg PO BID 11/18/16 [History] Mv-Mn/FA/Vit K/Lycop/Lut/Coq10 [Daily Multivitamin Capsule] 1 tab PO QAM [History] Quetiapine Fumarate [Seroquel] 50 mg PO HS 11/18/16 [History] lamoTRIgine [Lamictal] 100 mg PO QAM 11/18/16 [History] Bisacodyl [Dulcolax] 5 mg PO BID PRN 02/12/17 [History] Docusate [Colace] 100 mg PO BID 02/12/17 [History] Metoprolol XL (24 HR) Succ [Toprol Xl] 75 mg PO QAM 02/12/17 [History] Polyethylene Glycol 3350 [MiraLAX] 17 gm PO DAILY PRN 02/12/17 [History] clonazePAM [Klonopin] 1 mg PO BID PRN 02/25/17 [History] clonazePAM [Klonopin] 1 mg PO HS 02/25/17 [History] levoFLOXacin [Levaquin] 750 mg PO DAILY 5 Days #5 tablet 03/11/17 [Rx] Allergies/Adverse Reactions: 3 Allergy/AdvReac Type Severity Reaction Status Date / Time aspirin Allergy Rash Verified 11/06/16 10:40 Date of admission: 02/25/17 19:45 Primary care physician: Pacheco Bailey Jr, MD Consults: 02/25/17 19:53 Consult to Physical Therapy [CONS] Routine Comment: Evaluate, develop and implement POC Reason for Consult: Patient has difficulty ambulating d/t AMS and Parkinson' s disease. Please assess for strength, stability, safety, ambulation, and assistive needs for post-discharge planning. 02/25/17 21:11 Consult to Nutrition [CONS] Routine Comment: Consulting Provider: NUTRITION Reason for Dietary Consult: MST Score TF Start and Manage Consult to Signals Intelligence Superintendent [CONS] Routine Reason for SW Consult: Came from [facility] 02/27/17 07:41 Consult to Speech Therapy [CONS] Stat Comment: Evaluate, develop and implement POC Reason for Consult: Swallow evaluation, poor oral intake with hypernatremia Call Completed: No 03/03/17 09:42 Consult to Psychiatry [CONS] Routine Consulting Provider: [facility] [place] Reason for Consult: Alternative to lithium therpy for bipolar,admitted for MELVI on CKD. Call Completed: Yes 03/03/17 09:45 Consult to Cardiology [CONS] Routine Comment: Consulting Provider: [facility] [place] Reason for Consult: Severe Aortic stenosis by ECHO. [facility] Call Completed: No 03/07/17 08:04 Consult to Invasive Line Access Team [CONS] Routine Reason for Consult: POWER GLIDE Line Type: EPIV 03/09/17 11:00 Consult to Speech Therapy [CONS] Routine Comment: Evaluate, develop and implement POC Reason for Consult: pt failed bedside nursing dysphagia screen. Dr. Washburn wants pt reevaluated due to improved condition Call Completed: Yes Discharging clinician: Joce Cedeno Anticipated date of discharge: 03/11/17 - Patient Status Disposition: Transfer SNF Condition: Fair Overall status at discharge: patient is progressing back to baseline - Discharge Instructions Instructions: Urinary Tract Infection in Men (DC), Acute Delirium (DC), Hypercalcemia (DC) Follow Up With: Pacheco Bailey Jr, MD [Primary Care Provider] - (Patient will follow up with [facility] pcp) Additional Instructions: Ambulate with assistance; may advance to independent ambulation as recommended by PT/OT. Continue to eat pured foods. Advance per ongoing evaluation. Follow-up with primary care provider within 1-2 weeks Will need psychiatry follow-up within the next 3-4 weeks, or sooner if any onset of manic or depressive symptoms. Call your primary care physician for any new or symptoms; return to the ED for further evaluation as needed. - Diet and Activity Activity: as per physical therapy Diet: other Interval History: No acute complaints. Patient is successfully eating pureed foods without any aspiration or difficulty. Per nursing, no overnight events or acute concerns. Hospital course: Mr. Frankel is a 71 year old male with history of bipolar disorder treated with lithium who presented to the emergency department by his outpatient physical therapist assistant for lab abnormalities. Initially, patient was altered and was found to have supratherapeutic lithium level; other associated lab findings included severe hypernatremia (166) and severe MELVI with creatinine near 6. Throughout course, patient has been treated with IV antibiotics for suspected UTI as well as primarily with D5W for sodium correction per nephrology consult. Patient did not one point develop acute decompensated CHF diastolic by echo findings; patient was gently diuresed with 20 mg IV Lasix while still continually receiving free water and gentle maintenance rate. Patient also developed a multifocal pneumonia for which current therapy of Zosyn was continued. Throughout course, patient had been encephalopathy; this has improved in patient is AOx3. Lab abnormalities are virtually normalized prior to discharge. Patient upon discharge was overall symptomatically improved including shortness of air and mentation. Patient did admit to worsening testicular pain the a.m. prior to discharge, so opted to obtain testicular Doppler; this exam showed normal testicular flow. Pt discharged in significantly improved and hemodynamically stable condition to SNF. - Time Spent with Patient Total time spent providing and/or coordinating discharge services: Less than 30 minutes - Constitutional Vitals: Temp Pulse Resp BP Pulse Ox 97.4 F L 94 16 117/73 93 03/11/17 07:06 03/11/17 07:06 03/11/17 07:06 03/11/17 07:06 03/11/17 07:06 General appearance: Present: disheveled, A&O X 3, pleasant, no acute distress. Absent: answers questions appropriately - Head Head exam: Present: atraumatic, normocephalic - Eye Eye exam: Present: normal appearance, PERRL, conjuntiva pink, sclera anicteric - Neck Neck exam general surgery: Present: supple, trachea midline - Respiratory Respiratory exam: Present: CTAB. Absent: accessory muscle use, decreased breath sounds, prolonged expiratory phase, rales, respiratory distress, rhonchi , stridor, wheezes, tachypnea - Cardiovascular Cardiovascular exam: Present: RRR, +S1, +S2. Absent: diastolic murmur, gallop, rubs, +S3, +S4, systolic murmur, tachycardia - GI/Abdominal GI/Abdominal exam: Present: soft, no peritoneal signs. Absent: distended, tenderness - exam: Present: normal inspection. Absent: scrotal swelling, urethral discharge External exam: Present: normal external exam. Absent: ecchymosis, lesions, swelling Additional comments: Exam performed by Dr. Roby Washburn; overall unremarkable testicular exam. - Extremities Exam Extremities exam: Present: warm, radial pulses palpable and symmetrical. Absent : calf tenderness, cyanotic, pedal edema - Neurological Exam Neurological exam: Present: oriented X3, no focal deficits. Absent: facial droop, speech deficit - Skin Skin exam: Present: dry, intact, normal color. Absent: cyanosis, diaphoretic, mottled, pallor <Sal Olivera - Last Filed: 03/11/17 18:32> Date of Encounter: 03/11/17 Procedures/tests Complete & Pending: Procedures Performed prior 72 hours Category Date Time Status scrotal doppler [US scrotum doppler] [US] Stat Exams 03/11/17 14:00 Completed Date of admission: 02/25/17 19:45 Primary care physician: Pacheco Bailey Jr, MD Consults: 02/25/17 19:53 Consult to Physical Therapy [CONS] Routine Comment: Evaluate, develop and implement POC Reason for Consult: Patient has difficulty ambulating d/t AMS and Parkinson' s disease. Please assess for strength, stability, safety, ambulation, and assistive needs for post-discharge planning. 02/25/17 21:11 Consult to Nutrition [CONS] Routine Comment: Consulting Provider: NUTRITION Reason for Dietary Consult: MST Score TF Start and Manage Consult to Signals Intelligence Superintendent [CONS] Routine Reason for SW Consult: Came from [facility] 02/27/17 07:41 Consult to Speech Therapy [CONS] Stat Comment: Evaluate, develop and implement POC Reason for Consult: Swallow evaluation, poor oral intake with hypernatremia Call Completed: No 03/03/17 09:42 Consult to Psychiatry [CONS] Routine Consulting Provider: Psychiat[facility] [place] Reason for Consult: Alternative to lithium therpy for bipolar,admitted for MELVI on CKD. Call Completed: Yes 03/03/17 09:45 Consult to Cardiology [CONS] Routine Comment: Consulting Provider: Card[facility] [place] Reason for Consult: Severe Aortic stenosis by ECHO. [facility] Call Completed: No 03/07/17 08:04 Consult to Invasive Line Access Team [CONS] Routine Reason for Consult: POWER GLIDE Line Type: EPIV 03/09/17 11:00 Consult to Speech Therapy [CONS] Routine Comment: Evaluate, develop and implement POC Reason for Consult: pt failed bedside nursing dysphagia screen. Dr. Washburn wants pt reevaluated due to improved condition Call Completed: Yes Hospital course: Mr. Frankel is a 71 year old male - Time Spent with Patient Total time spent providing and/or coordinating discharge services: - Constitutional Vitals: Temp Pulse Resp BP Pulse Ox 98.1 F 87 17 133/73 98 03/11/17 15:51 03/11/17 15:51 03/11/17 15:51 03/11/17 15:51 03/11/17 15:51 - Attending Attestation I conducted a face to face diagnostic evaluation of this patient and my medical decision-making was reviewed with the Resident Physician, Dr. Wilian Hobson. I agree with the documented findings, disposition and treatment plan as described except to the extent set forth below: Patient reports severe testicular pain. We obtained an ultrasound which shows no evidence of torsion. We will treat with oral Percocet. If pain persists will consider urology consult or further imaging. Patient was reevaluated by speech and swallow and was upgraded to regular diet with thin liquids.
--- NOTE | 2017-03-11 08:34 | Physician Discharge Referral ---
ExtendedCare Referral Info Transfer To: ECF/SNF Provider in Charge: [place] Provider in Charge after Transfer: PCP Institutional Level of Care: Skilled - Diagnosis (1) Acute hypernatremia Priority: Primary Status: Resolved (2) [place] intoxication Priority: Primary Status: Resolved (3) Acute renal failure Priority: Secondary Status: Acute (4) Acute diastolic (congestive) heart failure Priority: Secondary Status: Suspected (5) Multifocal pneumonia Priority: Secondary Status: Acute (6) Electrolyte abnormality Priority: Secondary Status: Acute (7) Metabolic encephalopathy Priority: Secondary Status: Resolved (8) Bipolar disorder Priority: Secondary Status: Chronic (9) Diabetes Priority: Secondary Status: Chronic (10) HTN (hypertension) Priority: Secondary Status: Chronic (11) Aortic stenosis Status: Chronic (12) Aortic aneurysm Priority: Secondary Status: Chronic (13) Hypothyroidism Priority: Secondary Status: Chronic (14) Parkinsons disease Priority: Secondary Status: Chronic (15) DVT prophylaxis Priority: Secondary Status: Acute Prognosis: Good Aware of Diagnosis: Patient Aware of Prognosis: Patient - Transfer Medications Prescriptions: levoFLOXacin [Levaquin] 750 mg PO DAILY 5 Days #5 tablet Home Medications: Adalimumab [Humira Pen Psoriasis-Uveitis] 40 mg SQ Q2W 11/18/16 [History] Albuterol Sulfate [Proair Hfa] 2 puff IH Q4H PRN 11/18/16 [History] Amantadine [Symmetrel] 100 mg PO QAM 11/18/16 [History] Bimatoprost [Lumigan] 1 drop OP HS 11/18/16 [History] Carbidopa/Levodopa ER 50/200 [Sinemet ER 50-200 Tab] 1 tab PO BID 11/18/16 [ History] FLUoxetine HCl [Prozac] 80 mg PO QAM 11/18/16 [History] Fenofibrate Nanocrystallized [Tricor] 145 mg PO QAM 11/18/16 [History] Levothyroxine [Synthroid] 75 mcg PO QAM 11/18/16 [History] [place] Carbonate 300 mg PO BID 11/18/16 [History] Mv-Mn/FA/Vit K/Lycop/Lut/Coq10 [Daily Multivitamin Capsule] 1 tab PO QAM [History] Quetiapine Fumarate [Seroquel] 50 mg PO HS 11/18/16 [History] lamoTRIgine [Lamictal] 100 mg PO QAM 11/18/16 [History] Bisacodyl [Dulcolax] 5 mg PO BID PRN 02/12/17 [History] Docusate [Colace] 100 mg PO BID 02/12/17 [History] Metoprolol XL (24 HR) Succ [Toprol Xl] 75 mg PO QAM 02/12/17 [History] Polyethylene Glycol 3350 [MiraLAX] 17 gm PO DAILY PRN 02/12/17 [History] clonazePAM [Klonopin] 1 mg PO BID PRN 02/25/17 [History] clonazePAM [Klonopin] 1 mg PO HS 02/25/17 [History] levoFLOXacin [Levaquin] 750 mg PO DAILY 5 Days #5 tablet 03/11/17 [Rx] Allergies/Adverse Reactions: 3 Allergy/AdvReac Type Severity Reaction Status Date / Time aspirin Allergy Rash Verified 11/06/16 10:40 - Respiratory Orders Oxygen / L per min (per need to maintain SpO2 >88%) Smoking Cessation: Smoking cessation has been advised. For more information, call the [employer] Quit Line at 9-283-BAKV-NOW. - Ancillary Orders May use pressure relief devices daily prn, May go on [place] w/family/respon constitution party w /meds at nurse discretion PRN, May consult with Dentist, Applier, Filling Mixer PRN - Advance Directives Code Status: Full Code (s) - Mobility Orders Other (Fall Risk -- mobility per PT/OT) - Rehabiliation Orders Rehab Potential: Fair Rehab Orders: Sternal Precautions, ROM Exercises, Evaluation for Physical Therapy, Evaluation for Occupational Therapy, Evaluation for Speech Therapy - Treatments Skin tear care topically daily PRN per policy, May check for fecal impaction rectally daily PRN, Fleet enema rectally every other day PRN cleansing purposes - Diet Orders Pureed (no straws) CERTIFICATION: I certify that the transfer of the above named patient to an Extended Care Facility is necessary for the continuing treatment of the diagnosis listed. The above information is true and accurate reflection of patient's current condition. Confidential - Redisclosure prohibited without a patient's written consent.
[2017-03-11] MEDS: FLUoxetine 20 MG CAPSULE PO SCH (08:40)
[2017-03-11] MEDS: Carbidopa/Levodopa 25/100 TABLET PO SCH ×4 (08:40→20:42)
[2017-03-11] MEDS: Fenofibrate 54 MG TABLET PO SCH (08:41)
[2017-03-11] MEDS: Docusate Oral Soln 100 MG/10 ML UDC PO SCH ×2 (08:41→20:41)
[2017-03-11] MEDS: lamoTRIgine 100 MG TABLET PO SCH (08:41)
[2017-03-11] MEDS: Levothyroxine Sodium 100 MCG VIAL IVP SCH (08:42)
[2017-03-11] MEDS: *HR* OxyCODONE/APAP 7.5/325 TABLET PO PRN (17:30)
[2017-03-11] MEDS: Latanoprost 2.5 ML BOTTLE BOTH EYES SCH (20:46)
[2017-03-12] MEDS: *HR* Heparin 5,000 UNIT/ML VIAL SQ SCH ×2 (05:08→17:08)
[2017-03-12] MEDS: *HR* OxyCODONE/APAP 7.5/325 TABLET PO PRN ×2 (05:08→13:09)
[2017-03-12] MEDS: Piperacillin/Tazobactam 3.375 GM in D5% in Water 50 ML IVPB SCH ×3 (05:09→21:13)
[2017-03-12] MEDS: Insulin LISPRO 300 UNITS/3 ML VIAL SQ SCH ×5 (07:58→21:11)
[2017-03-12] MEDS: Levothyroxine Sodium 100 MCG VIAL IVP SCH (08:06)
[2017-03-12] MEDS: Fenofibrate 54 MG TABLET PO SCH (08:07)
[2017-03-12] MEDS: Carbidopa/Levodopa 25/100 TABLET PO SCH ×4 (08:07→21:12)
[2017-03-12] MEDS: Docusate Oral Soln 100 MG/10 ML UDC PO SCH ×2 (08:07→21:12)
[2017-03-12] MEDS: lamoTRIgine 100 MG TABLET PO SCH (08:07)
[2017-03-12] MEDS: FLUoxetine 20 MG CAPSULE PO SCH (08:07)
--- NOTE | 2017-03-12 15:33 | Internal Med Progress Note ---
<Joce Cedeno - Last Filed: 03/12/17 17:07> Date of Encounter: 03/12/17 Time of Encounter: 11:00 - Assessment and plan (1) Testicular pain, unspecified Current Visit: Yes Status: Acute Assessment and plan: Scrotal Doppler is negative CT abdomen fails to elucidate the overt organic constipation's current pain patient is currently on Zosyn; will check straight UA and expand antibiotic coverage as needed for any significant findings of UTI pain is somewhat improved this afternoon (2) [place] intoxication Current Visit: Yes Status: Resolved Assessment and plan: [place] lasts checked on 02/27 was 1.0 and remains on hold Psychiatry did evaluate patient on 03/03 and states his current regimen for bipolar disorder is acceptable Qualifiers: Encounter type: initial encounter Injury intent: accidental or unintentional Qualified Code(s): T56.891A - Toxic effect of other metals, accidental (unintentional), initial encounter (3) Acute hypernatremia Current Visit: Yes Status: Resolved Assessment and plan: Stable (4) Acute renal failure Current Visit: Yes Status: Acute Assessment and plan: Previously improved to normal levels slight elevation of BUN and Creatinine persist this AM recheck in a.m. Qualifiers: Acute renal failure type: unspecified Qualified Code(s): N17.9 - Acute kidney failure, unspecified (5) Acute diastolic (congestive) heart failure Current Visit: Yes Status: Suspected Assessment and plan: Resolved; not acutely symptomatic of volume overload including no significant pedal edema or abnormal breath sounds (6) Multifocal pneumonia Current Visit: Yes Status: Acute Assessment and plan: No acute respiratory distress; continue Zosyn (7) Metabolic encephalopathy Current Visit: Yes Status: Resolved Assessment and plan: Resolved (8) Bipolar disorder Current Visit: Yes Status: Chronic Assessment and plan: [place] on hold as above Will continue current medications per psychiatry Qualifiers: Active/Remission status: remission status unspecified Qualified Code(s): F31.9 - Bipolar disorder, unspecified (9) Diabetes Current Visit: Yes Status: Chronic Assessment and plan: cont FSBG & SSI on Jevity Qualifiers: Diabetes mellitus type: type 2 Diabetes mellitus complication status: with unspecified complications Diabetes mellitus intermediate insulin use: without intermediate use Qualified Code(s): E11.8 - Type 2 diabetes mellitus with unspecified complications (10) HTN (hypertension) Current Visit: Yes Status: Chronic Assessment and plan: Stable; no changes at this time Qualifiers: Hypertension type: essential hypertension Qualified Code(s): I10 - Essential (primary) hypertension (11) Aortic stenosis Current Visit: Yes Status: Chronic Assessment and plan: Per cardio, further consideration of valve replacement once stabilized Ultimately, plan to DC on recommended Rx Qualifiers: Cardiac valve disease etiology: nonrheumatic Qualified Code(s): I35.0 - Nonrheumatic aortic (valve) stenosis (12) Aortic aneurysm Current Visit: Yes Status: Chronic Assessment and plan: per cardio, follow up on OP basis for consideration of intervention Qualifiers: Aortic location: unspecified Presence of rupture: without rupture Qualified Code(s): I71.9 - Aortic aneurysm of unspecified site, without rupture (13) Hypothyroidism Current Visit: Yes Status: Chronic Assessment and plan: Continue synthroid Qualifiers: Hypothyroidism type: unspecified Qualified Code(s): E03.9 - Hypothyroidism , unspecified (14) Parkinsons disease Current Visit: Yes Status: Chronic Assessment and plan: Continue home meds - Subjective Interval history: Patient continues to play complainant testicular pain robyn to previous day. Explained the patient that Doppler ultrasound is negative for any testicular torsion. Patient describes pain to me as aching sensation they initially noticed in his left testicle, but has eventually becoming a game is bilateral testes and inguinal canal regions. Patient states this pain is not worse with direct palpation, however, is worse when he crunches to set up. Currently have patient on PRN pain medication. - Constitutional Vitals: Temp Pulse Resp BP Pulse Ox 98.1 F 76 17 138/81 100 03/12/17 12:27 03/12/17 12:27 03/12/17 12:27 03/12/17 12:27 03/12/17 12:27 General appearance: Present: disheveled, A&O X 3, pleasant, no acute distress. Absent: answers questions appropriately - Head Head exam: Present: atraumatic, normocephalic - Eye Eye exam: Present: conjuntiva pink, sclera anicteric Pupils: Present: PERRL - Neck Neck exam general surgery: Present: supple, trachea midline. Absent: lymphadenopathy - Respiratory Respiratory exam: Present: CTAB. Absent: accessory muscle use, rales, rhonchi, wheezes - Cardiovascular Cardiovascular exam: Present: RRR, +S1, +S2. Absent: diastolic murmur, gallop, rubs, systolic murmur - GI/Abdominal GI/Abdominal exam: Present: normal bowel sounds, soft, no peritoneal signs. Absent: distended, tenderness - exam: Absent: scrotal swelling, testicular tenderness, urethral discharge External exam: Absent: lesions, swelling Additional comments: No gross abnormalities on scrotal exam. Testicles bilaterally palpable. Mildly tender. No masses felt within scrotal sac. No inguinal hernia felt. Does have some inguinal tenderness bilaterally. Is not having any penile discharge. - Extremities Exam Extremities exam: Present: warm, radial pulses palpable and symmetrical. Absent : calf tenderness, cyanotic, pedal edema Additional comments: Mild left upper extremity swelling worse than right - Neurological Exam Neurological exam: Present: CN II-XII intact, oriented X3, no focal deficits. Absent: pronater drift, facial droop, speech deficit - Skin Skin exam: Present: dry, intact Internal Medicine: Result - Labs CBC & Chem 7: 03/11/17 05:15 03/11/17 05:15 Labs: Laboratory Last Values WBC 10.8 K/mcL (4.3-11.1) 03/11/17 05:15 RBC 3.80 M/mcL (4.19-5.50) L 03/11/17 05:15 Hgb 11.7 g/dL (12.9-16.9) L 03/11/17 05:15 Hct 37.9 % (37.5-50.1) 03/11/17 05:15 MCV 99.7 fL (83.0-100.0) 03/11/17 05:15 MCH 30.8 pg (28.0-33.3) 03/11/17 05:15 MCHC 30.9 g/dL (31.6-35.5) L 03/11/17 05:15 RDW 16.5 % (11.5-14.5) H 03/11/17 05:15 Plt Count 328 K/mcL (140-400) 03/11/17 05:15 MPV 10.0 fL (9.4-12.4) 03/11/17 05:15 Immature Gran % 1.0 % (0-4) 03/11/17 05:15 Seg Neutrophils % 68.0 % 03/11/17 05:15 Lymphocytes % 18.6 % 03/11/17 05:15 Monocytes % 9.2 % 03/11/17 05:15 Eosinophils % 2.8 % 03/11/17 05:15 Basophils % 0.4 % 03/11/17 05:15 Neutrophils # 7.4 K/mcL (1.6-8.9) 03/11/17 05:15 Lymphocytes # 2.0 K/mcL (0.6-4.6) 03/11/17 05:15 Monocytes # 1.0 K/mcL (0.0-1.3) 03/11/17 05:15 Eosinophils # 0.3 K/mcL (0.0-0.6) 03/11/17 05:15 Basophils # 0.0 K/mcL (0.0-0.2) 03/11/17 05:15 Nucleated RBCs/100 WBC 0.3 /100 WBC (0) H 03/11/17 05:15 PT 13.6 Seconds (9.4-12.1) H 03/10/17 03:15 INR 1.3 03/10/17 03:15 APTT 28.2 Seconds (26.0-36.0) 02/26/17 06:50 Sodium 145 mEq/L (136-145) 03/11/17 05:15 Potassium 4.0 mEq/L (3.5-4.5) 03/11/17 05:15 Chloride 113 mEq/L (98-109) H 03/11/17 05:15 Carbon Dioxide 22 mEq/L (19-29) 03/11/17 05:15 BUN 28 mg/dL (8-26) H 03/11/17 05:15 Creatinine 1.33 mg/dL (0.72-1.25) H 03/11/17 05:15 Est GFR ( Amer) > 60 (> 60) 03/11/17 05:15 Est GFR (Non-Af Amer) 53 (> 60) L 03/11/17 05:15 BUN/Creatinine Ratio 21 (6-26) 03/11/17 05:15 Glucose 130 mg/dL (70-99) H 03/11/17 05:15 POC Glucose 94 (58-89) H 03/12/17 07:41 Est Mean Plasma Glucose 85 mg/dl 02/26/17 02:52 Hemoglobin A1c 4.6 % (-5.6) 02/26/17 02:52 Calculated Osmolality 307 (280-300) H 03/11/17 05:15 Lactic Acid 1.1 mmol/L (0.5-2.2) 02/25/17 17:08 Calcium 8.8 mg/dL (8.6-10.8) 03/11/17 05:15 Phosphorus 2.5 mg/dL (2.3-4.7) 02/27/17 04:52 Magnesium 1.8 mg/dL (1.6-2.6) 03/09/17 05:40 Total Bilirubin 0.8 mg/dL (0.2-1.2) 03/07/17 05:18 Direct Bilirubin 0.5 mg/dL (0.0-0.5) 02/25/17 16:03 Indirect Bilirubin 0.6 mg/dL (0.0-1.2) 02/25/17 16:03 AST 39 Units/L (5-34) H 03/07/17 05:18 ALT 8 Units/L (0-55) 03/07/17 05:18 Alkaline Phosphatase 67 Units/L (38-126) 03/07/17 05:18 Ammonia 15 mcmol/L (18-72) L 02/25/17 21:50 Troponin I 0.10 ng/mL (0-0.03) H* 02/26/17 02:52 B-Natriuretic Peptide 2234 pg/mL (0-100) H 03/06/17 12:05 Serum Total Protein 6.0 g/dL (6.0-8.3) 03/07/17 05:18 Albumin 2.0 g/dL (3.5-5.0) L 03/07/17 05:18 Globulin 4.0 g/dL (2.4-3.5) H 03/07/17 05:18 Albumin/Globulin Ratio 0.5 (1.1-2.2) L 03/07/17 05:18 Prealbumin 12.0 mg/dL (18.0-45.0) L 03/06/17 05:34 Triglycerides 109 mg/dL (< 150) 02/26/17 02:52 Cholesterol 84 mg/dL (< 200) 02/26/17 02:52 LDL Cholesterol, Calc 42 mg/dL (0-99) 02/26/17 02:52 VLDL Cholesterol, Calc 22 mg/dL (< 31) 02/26/17 02:52 HDL Cholesterol 20 mg/dL (40-59) L 02/26/17 02:52 Cholesterol/HDL Ratio 4.2 (0-4.9) 02/26/17 02:52 Lipase 24 Units/L (8-78) 02/25/17 16:03 TSH 0.501 mcIU/mL (0.350-4.840) 02/25/17 16:03 Urine Color Yellow (Yellow) 02/25/17 16:44 Urine Clarity Cloudy (Clear) A 02/25/17 16:44 Urine pH 5.0 pH Units (5.0-8.0) 02/25/17 16:44 Ur Specific [place] 1.021 (1.010-1.025) 02/25/17 16:44 Urine Protein Negative mg/dL (Neg-Trace) 02/25/17 16:44 Urine Glucose (UA) Normal mg/dL (Normal) 02/25/17 16:44 Urine Ketones Negative mg/dL (Negative) 02/25/17 16:44 Urine Blood Moderate (Negative) H 02/25/17 16:44 Urine Nitrite Negative (Negative) 02/25/17 16:44 Urine Bilirubin Small (Negative) H 02/25/17 16:44 Urine Urobilinogen Normal mg/dL (Normal) 02/25/17 16:44 Ur Leukocyte Esterase Small (Negative) H 02/25/17 16:44 Urine Microscopic RBC 3-5 per hpf (0-3) H 02/25/17 16:44 Urine Microscopic WBC 0-3 per hpf (0-3) 02/25/17 16:44 Ur Squamous Epith Cells Many per lpf (None-Few) H 02/25/17 16:44 Urine Bacteria None Seen per hpf (None-Few) 02/25/17 16:44 Ur Culture Indicated? YES (NO) A 02/25/17 16:44 Urine Osmolality 301 mOsm/kg (300-1090) 03/06/17 04:45 Urine Creatinine 128 mg/dL 02/25/17 16:44 Urine Sodium < 20.0 mEq/L 02/25/17 16:44 [place] 1.0 mEq/L (0.6-1.2) 02/27/17 03:36 Specimen Rejected Hemolyzed 02/27/17 02:46 - ABG Interpretation ABG results: PT/INR, D-dimer PT 13.6 Seconds (9.4-12.1) H 03/10/17 03:15 - Impressions Impressions Abdomen/Pelvis CT 03/12/17 11:19 IMPRESSION: 1. No definite acute process demonstrated 2. Wall thickening of the urinary bladder with a diverticulum, compatible with chronic bladder outlet obstruction. Air in the urinary bladder is presumably related to recent catheterization. Recommend clinical exclusion of cystitis 3. Probable stool impaction 4. Gallbladder sludge D/ / Reid Bruno MD / Reid Bruno MD Interpreting Provider: Reid Bruno MD - Diagnostic Studies Other Images Additional comments: Brain MRI 02/26/17 04:04 IMPRESSION: Severely motion degraded examination. No gross evidence of acute intracranial abnormalities. Repeat MRI examination may be obtained, as clinically warranted. Alternatively, follow-up CT head may be obtained to evaluate for evolving infarcts. D/ / Dudley Holm MD / Dudley Holm MD Interpreting Provider: Dudley Holm MD Echocardiogram 02/26/17 04:08 Impressions: LVEF 60-65%. Mild left ventricular diastolic dysfunction. Mild concentric left ventricular hypertrophy. Normal right ventricular structure and function. Mild aortic regurgitation. Severe aortic stenosis; aortic valve leaflet morphology is not well visualized but does appear densely calcified. No pulmonary hypertension. No prior echo for comparison - abnormal findings communicated to ordering provider. Left Ventricular Wall Motion: Rest Echo Findings All wall segments showed normal motion. Findings: Study Quality * Technically adequate exam. ECG Findings * ECG interference throughout. Sinus rhythm by Doppler. Left Ventricle * Mild left ventricular diastolic dysfunction. * Definity echo contrast was used. * LVEF 60-65%. * Mild concentric left ventricular hypertrophy. Right Ventricle * Normal right ventricular structure and function. Left Atrium * Moderately dilated left atrium. Right Atrium * Normal right atrial size. Aortic Valve * Aortic valve not well visualized. * Mild aortic regurgitation. * Severe aortic stenosis. PV 4.5m/s, MG 45 mmHg, DI 0.22, BRIA 0.7cm2 Mitral Valve * Moderate-severe mitral annular calcification * Mitral valve not well visualized. * Trace mitral regurgitation. * No mitral stenosis. Tricuspid Valve * Tricuspid valve not well visualized. * Estimated RA pressure is 3 mmHg. * Estimated RVSP is 14 mmHg. * No pulmonary hypertension. * Trace tricuspid regurgitation. Pulmonic Valve * Pulmonic valve is not well visualized. * No pulmonic stenosis. * No pulmonic regurgitation. Pulmonary Artery * Pulmonary artery not well visualized. Aorta * Not well visualized. Pericardium * There is no pericardial effusion present. Interatrial Septum * No evidence of PFO by color Doppler. IVC * Normal IVC dimensions and inspiratory collapse. Head CT 02/28/17 11:00 IMPRESSION: 1. No acute intracranial abnormality. 2. Diffuse cerebral atrophy with chronic small vessel ischemic disease. D/ / Leroy Martinez MD / Leroy Martinez MD Interpreting Provider: Leroy Martinez MD X-Ray 03/05/17 22:36 IMPRESSION: Dobhoff feeding tube tip in the gastric fundus. D/ / Micheal Morel MD / Micheal Morel MD Interpreting Provider: Micheal Morel MD Chest X-Ray 03/06/17 11:29 IMPRESSION: Patchy bilateral infiltrates which have progressed within both upper lobes. Multifocal pneumonia is suspected. D/ / 03/06/2017 12:15:39 Quirino Schaeffer MD / argelia Interpreting Provider: Quirino Schaeffer MD Scrotum Ultrasound 03/11/17 14:00 IMPRESSION: Both testicles are high in the inguinal canals. No evidence of testicular mass or torsion on either side. D/ / Tarik Hoff MD / Tarik Hoff MD Interpreting Provider: Tarik Hoff MD Abdomen/Pelvis CT 03/12/17 11:19 IMPRESSION: 1. No definite acute process demonstrated 2. Wall thickening of the urinary bladder with a diverticulum, compatible with chronic bladder outlet obstruction. Air in the urinary bladder is presumably related to recent catheterization. Recommend clinical exclusion of cystitis 3. Probable stool impaction 4. Gallbladder sludge D/ / Reid Bruno MD / Reid Bruno MD Interpreting Provider: Reid Bruno MD Consult Discharge Plan - Plan Instructions: Urinary Tract Infection in Men (DC), Acute Delirium (DC), Hypercalcemia (DC) Additional Instructions: Ambulate with assistance; may advance to independent ambulation as recommended by PT/OT. Continue to eat pured foods. Advance per ongoing evaluation. Follow-up with primary care provider within 1-2 weeks Will need psychiatry follow-up within the next 3-4 weeks, or sooner if any onset of manic or depressive symptoms. Call your primary care physician for any new or symptoms; return to the ED for further evaluation as needed. Referrals: Pacheco Bailey Jr, MD [Primary Care Provider] - (Patient will follow up with [facility] pcp) Prescriptions: levoFLOXacin [Levaquin] 750 mg PO DAILY 5 Days #5 tablet <Sal Olivera - Last Filed: 03/12/17 18:27> Date of Encounter: 03/12/17 - Constitutional Vitals: Temp Pulse Resp BP Pulse Ox 97.9 F 82 17 126/77 95 03/12/17 16:03 03/12/17 16:03 03/12/17 16:03 03/12/17 16:03 03/12/17 16:03 Internal Medicine: Result - Labs CBC & Chem 7: 03/11/17 05:15 03/11/17 05:15 Labs: Urine 03/12/17 Range/Units 15:46 Urine Color Yellow (Yellow) Urine Clarity Clear (Clear) Urine pH 7.5 (5.0-8.0) pH Units Ur Specific [place] 1.017 (1.010-1.025) Urine Protein Negative (Neg-Trace) mg/dL Urine Glucose (UA) Normal (Normal) mg/dL - ABG Interpretation ABG results: PT/INR, D-dimer PT 13.6 Seconds (9.4-12.1) H 03/10/17 03:15 - Impressions Impressions Abdomen/Pelvis CT 03/12/17 11:19 IMPRESSION: 1. No definite acute process demonstrated 2. Wall thickening of the urinary bladder with a diverticulum, compatible with chronic bladder outlet obstruction. Air in the urinary bladder is presumably related to recent catheterization. Recommend clinical exclusion of cystitis 3. Probable stool impaction 4. Gallbladder sludge D/ / Reid Bruno MD / Reid Bruno MD Interpreting Provider: Reid Bruno MD - Attending Attestation I conducted a face to face diagnostic evaluation of this patient and my medical decision-making was reviewed with the Resident Physician, Dr. Wilian Hobson. I agree with the documented findings, disposition and treatment plan as described except to the extent set forth below: Patient continues to report scrotal pain. On my examination there are no lesions, no urethral discharge, no erythema or swelling. There is mild lower abdominal tenderness. We will obtain a CT of the abdomen and pelvis without contrast to evaluate for any pathology that could account for his worsening pain. Additionally it was noted that the patient has worsening left upper extremity pitting edema which appears to be significantly larger compared to the right upper extremity. I am concerned of possible upper extremity DVT and will order a venous Doppler ultrasound.
[2017-03-12 16:18] LABS: Bilirubin,Urine Negative (Negative); Blood,Urine Negative (Negative); Clarity,Urine Clear (Clear); Color,Urine Yellow (Yellow); Glucose,Urine (UA) Normal (Normal); Ketones,Urine Negative (Negative); Leukocyte Esterase,Urine Negative (Negative); Nitrite,Urine Negative (Negative); PH,Urine 7.5 pH Units (5.0-8.0); Protein,Urine Negative (Neg-Trace); Specific Gravity,Urine 1.017 (1.010-1.025); Urobilinogen,Urine Normal (Normal)
[2017-03-12] MEDS: Latanoprost 2.5 ML BOTTLE BOTH EYES SCH (21:21)
[2017-03-13] MEDS: *HR* OxyCODONE/APAP 7.5/325 TABLET PO PRN (00:40)
[2017-03-13] MEDS: Piperacillin/Tazobactam 3.375 GM in D5% in Water 50 ML IVPB SCH ×2 (04:15→12:30)
[2017-03-13] MEDS: *HR* Heparin 5,000 UNIT/ML VIAL SQ SCH (06:49)
[2017-03-13 08:33] LABS: BUN/Creatinine Ratio 19 (6-26); Blood Urea Nitrogen 21 mg/dL (8-26); Calcium 8.7 mg/dL (8.6-10.8); Carbon Dioxide 20 mEq/L (19-29); Chloride 112 mEq/L (98-109); Glucose 79 mg/dL (70-99); Osmolality,Calculated 292 (280-300); Potassium 3.9 mEq/L (3.5-4.5); Sodium 140 mEq/L (136-145); eGFR For African Americans > 60 (> 60); eGFR For Non-African Americans > 60 (> 60)
[2017-03-13] MEDS: Insulin LISPRO 300 UNITS/3 ML VIAL SQ SCH ×2 (10:01→11:35)
[2017-03-13] MEDS: FLUoxetine 20 MG CAPSULE PO SCH (10:03)
[2017-03-13] MEDS: Fenofibrate 54 MG TABLET PO SCH (10:03)
[2017-03-13] MEDS: Levothyroxine Sodium 100 MCG VIAL IVP SCH (10:03)
[2017-03-13] MEDS: Carbidopa/Levodopa 25/100 TABLET PO SCH ×2 (10:03→12:28)
[2017-03-13] MEDS: lamoTRIgine 100 MG TABLET PO SCH (10:03)
[2017-03-13] MEDS: Docusate Oral Soln 100 MG/10 ML UDC PO SCH (10:09)
[2017-03-13 10:31] VITALS: BP 112/70
--- NOTE | 2017-03-13 11:00 | Discharge Summary ---
<Joce Cedeno - Last Filed: 03/13/17 11:22> Date of Encounter: 03/13/17 Time of Encounter: 10:47 - Discharge Diagnosis (1) [place] intoxication Priority: Primary Status: Resolved Qualifiers: Encounter type: initial encounter Injury intent: accidental or unintentional Qualified Code(s): T56.891A - Toxic effect of other metals, accidental (unintentional), initial encounter (2) Acute hypernatremia Priority: Secondary Status: Resolved (3) Acute renal failure Priority: Secondary Status: Acute Qualifiers: Acute renal failure type: unspecified Qualified Code(s): N17.9 - Acute kidney failure, unspecified (4) Acute diastolic (congestive) heart failure Priority: Secondary Status: Suspected (5) Multifocal pneumonia Priority: Secondary Status: Acute (6) Metabolic encephalopathy Priority: Secondary Status: Resolved (7) Bipolar disorder Priority: Secondary Status: Chronic Qualifiers: Active/Remission status: remission status unspecified Qualified Code(s): F31.9 - Bipolar disorder, unspecified (8) Testicular pain, unspecified Priority: Secondary Status: Acute (9) Diabetes Priority: Secondary Status: Chronic Qualifiers: Diabetes mellitus type: type 2 Diabetes mellitus complication status: with unspecified complications Diabetes mellitus intermediate insulin use: without foot setter use Qualified Code(s): E11.8 - Type 2 diabetes mellitus with unspecified complications (10) HTN (hypertension) Priority: Secondary Status: Chronic Qualifiers: Hypertension type: essential hypertension Qualified Code(s): I10 - Essential (primary) hypertension (11) Aortic stenosis Priority: Secondary Status: Chronic Qualifiers: Cardiac valve disease etiology: nonrheumatic Qualified Code(s): I35.0 - Nonrheumatic aortic (valve) stenosis (12) Aortic aneurysm Priority: Secondary Status: Chronic Qualifiers: Aortic location: unspecified Presence of rupture: without rupture Qualified Code(s): I71.9 - Aortic aneurysm of unspecified site, without rupture (13) Hypothyroidism Priority: Secondary Status: Chronic Qualifiers: Hypothyroidism type: unspecified Qualified Code(s): E03.9 - Hypothyroidism , unspecified (14) Parkinsons disease Priority: Secondary Status: Chronic - Discharge Medications Prescriptions: clonazePAM [Klonopin] 1 mg PO BID PRN 15 Days #30 tablet PRN Reason: Anxiety Levofloxacin [Levaquin] 750 mg PO DAILY 3 Days #3 tablet Oxycodone HCl/Acetaminophen [Percocet 7.5-325 mg Tablet] 1 each PO Q6H PRN 5 Days #20 tablet PRN Reason: Pain Home Medications: Adalimumab [Humira Pen Psoriasis-Uveitis] 40 mg SQ Q2W 11/18/16 [History] Albuterol Sulfate [Proair Hfa] 2 puff IH Q4H PRN 11/18/16 [History] Amantadine [Symmetrel] 100 mg PO QAM 11/18/16 [History] Bimatoprost [Lumigan] 1 drop OP HS 11/18/16 [History] Carbidopa/Levodopa ER 50/200 [Sinemet ER 50-200 Tab] 1 tab PO BID 11/18/16 [ History] FLUoxetine HCl [Prozac] 80 mg PO QAM 11/18/16 [History] Fenofibrate Nanocrystallized [Tricor] 145 mg PO QAM 11/18/16 [History] Levothyroxine [Synthroid] 75 mcg PO QAM 11/18/16 [History] [place] Carbonate 300 mg PO BID 11/18/16 [History] Mv-Mn/FA/Vit K/Lycop/Lut/Coq10 [Daily Multivitamin Capsule] 1 tab PO QAM [History] Quetiapine Fumarate [Seroquel] 50 mg PO HS 11/18/16 [History] lamoTRIgine [Lamictal] 100 mg PO QAM 11/18/16 [History] Bisacodyl [Dulcolax] 5 mg PO BID PRN 02/12/17 [History] Docusate [Colace] 100 mg PO BID 02/12/17 [History] Metoprolol XL (24 HR) Succ [Toprol Xl] 75 mg PO QAM 02/12/17 [History] Polyethylene Glycol 3350 [MiraLAX] 17 gm PO DAILY PRN 02/12/17 [History] clonazePAM [Klonopin] 1 mg PO BID PRN 02/25/17 [History] clonazePAM [Klonopin] 1 mg PO HS 02/25/17 [History] Levofloxacin [Levaquin] 750 mg PO DAILY 3 Days #3 tablet 03/13/17 [Rx] Oxycodone HCl/Acetaminophen [Percocet 7.5-325 mg Tablet] 1 each PO Q6H PRN 5 Days #20 tablet 03/13/17 [Rx] clonazePAM [Klonopin] 1 mg PO BID PRN 15 Days #30 tablet 03/13/17 [Rx] Allergies/Adverse Reactions: 3 Allergy/AdvReac Type Severity Reaction Status Date / Time aspirin Allergy Rash Verified 11/06/16 10:40 Procedures/tests Complete & Pending: Procedures Performed prior 72 hours Category Date Time Status CT abd pelvis wo no iv no oral [CT] Stat Cat Scan 03/12/17 11:19 Completed scrotal doppler [US scrotum doppler] [US] Stat Exams 03/11/17 14:00 Completed Venous Ultrasound [EV venous imaging UE LT] Stat Y 03/12/17 11:19 Completed Date of admission: 02/25/17 19:45 Primary care physician: Pacheco Bailey Jr, MD Consults: 02/25/17 19:53 Consult to Physical Therapy [CONS] Routine Comment: Evaluate, develop and implement POC Reason for Consult: Patient has difficulty ambulating d/t AMS and Parkinson' s disease. Please assess for strength, stability, safety, ambulation, and assistive needs for post-discharge planning. 02/25/17 21:11 Consult to Nutrition [CONS] Routine Comment: Consulting Provider: NUTRITION Reason for Dietary Consult: MST Score TF Start and Manage Consult to Industrial Cleaning Technician [CONS] Routine Reason for SW Consult: Came from [facility] rehab 02/27/17 07:41 Consult to Speech Therapy [CONS] Stat Comment: Evaluate, develop and implement POC Reason for Consult: Swallow evaluation, poor oral intake with hypernatremia Call Completed: No 03/03/17 09:42 Consult to Psychiatry [CONS] Routine Consulting Provider: Psychiatry [place] Reason for Consult: Alternative to lithium therpy for bipolar,admitted for MELVI on CKD. Bizarre thoughts and dreams relating to SI and heart attack. Call Completed: Yes 03/03/17 09:45 Consult to Cardiology [CONS] Routine Comment: Consulting Provider: Cardiology [place] Reason for Consult: Severe Aortic stenosis by ECHO. [facility] Call Completed: No 03/07/17 08:04 Consult to Invasive Line Access Team [CONS] Routine Reason for Consult: POWER GLIDE Line Type: EPIV 03/09/17 11:00 Consult to Speech Therapy [CONS] Routine Comment: Evaluate, develop and implement POC Reason for Consult: pt failed bedside nursing dysphagia screen. Dr. Washburn wants pt reevaluated due to improved condition Call Completed: Yes Discharging clinician: Joce Cedeno Anticipated date of discharge: 03/13/17 - Patient Status Disposition: Transfer SNF Condition: Fair Functional capacity at discharge: wheelchair bound Overall status at discharge: patient is progressing back to baseline - Discharge Instructions Instructions: Urinary Tract Infection in Men (DC), Acute Delirium (DC), Hypercalcemia (DC) Follow Up With: Pacheco Bailey Jr, MD [Primary Care Provider] - (Patient will follow up with [facility] pcp) Additional Instructions: Ambulate with assistance; may advance to independent ambulation as recommended by PT/OT. Continue to eat pured foods. Advance per ongoing evaluation. Elevate left upper extremity above level of heart as able for edema. Follow-up with primary care provider within 1-2 weeks Will need psychiatry follow-up within the next 3-4 weeks, or sooner if any onset of manic or depressive symptoms. Call your primary care physician for any new or symptoms; return to the ED for further evaluation as needed. - Diet and Activity Activity: as per physical therapy Diet: diabetic diet Interval History: Nursing had some concern over bizarre thoughts as stated; discussed with patient inpatient states easily been restricted to dreams and is not having any abnormal daytime thoughts including homicidal ideation, suicidal ideation, manic thinking, or delusions. Testicular pain is improved this a.m. and is mild. No other acute complaints at this time. Hospital course: Mr. 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 Initially, patient was altered and was found to have supratherapeutic lithium level; other associated lab findings included severe hypernatremia (166) and severe MELVI with creatinine near 6. Throughout course, patient has been treated with IV antibiotics for suspected UTI as well as primarily with D5W for sodium correction per nephrology consult. Patient did not one point develop acute decompensated CHF diastolic by echo findings; patient was gently diuresed with 20 mg IV Lasix while still continually receiving free water and gentle maintenance rate. Patient also developed a multifocal pneumonia for which current therapy of Zosyn was continued. Throughout course, patient had been encephalopathy; this has improved in patient is AOx3. Lab abnormalities are virtually normalized prior to discharge. Patient upon discharge was overall symptomatically improved including shortness of air and mentation. Patient did admit to worsening testicular pain the a.m. prior to discharge, so opted to obtain testicular Doppler; this exam showed normal testicular flow. Follow-up exam included CT of the abdomen as well as repeat catheterized urinalysis; all studies were negative for any acute source of testicular pain. Patient's pain continues to improve and is mild this a.m. patient did have some left upper extremity swelling as noted on exam couple of days ago; left upper externally Doppler was considered but was deferred as the edema initially noted has improved. Will discharge patient as planned with short course of oxycodone to be used as needed for severe pain as well as Levaquin to take coverage of pneumonia to completion of ten-day course. Pt discharged in significantly improved and hemodynamically stable condition to SNF. - Time Spent with Patient Total time spent providing and/or coordinating discharge services: - Constitutional Vitals: Temp Pulse Resp BP Pulse Ox 98.5 F 82 20 112/70 99 03/13/17 10:26 03/13/17 10:26 03/13/17 10:26 03/13/17 10:26 03/13/17 10:26 General appearance: Present: disheveled, A&O X 3, pleasant, no acute distress, answers questions appropriately - Head Head exam: Present: atraumatic, normocephalic - Eye Eye exam: Present: PERRL, conjuntiva pink, sclera anicteric Pupils: Present: PERRL - Neck Neck exam general surgery: Present: supple, trachea midline. Absent: lymphadenopathy - Respiratory Respiratory exam: Present: CTAB. Absent: accessory muscle use, rales, respiratory distress, rhonchi, stridor, wheezes, tachypnea - Cardiovascular Cardiovascular exam: Present: RRR, +S1, +S2. Absent: diastolic murmur, gallop, rubs, +S3, +S4, systolic murmur - GI/Abdominal GI/Abdominal exam: Present: normal bowel sounds, soft, no peritoneal signs. Absent: distended, tenderness - Extremities Exam Extremities exam: Present: warm, radial pulses palpable and symmetrical. Absent : calf tenderness, cyanotic, mottling, pedal edema - Neurological Exam Neurological exam: Present: oriented X3, no focal deficits. Absent: facial droop, speech deficit - Skin Skin exam: Present: dry, intact, normal color <Sal Olivera - Last Filed: 03/13/17 16:47> Date of Encounter: 03/13/17 Procedures/tests Complete & Pending: Procedures Performed prior 72 hours Category Date Time Status CT abd pelvis wo no iv no oral [CT] Stat Cat Scan 03/12/17 11:19 Completed scrotal doppler [US scrotum doppler] [US] Stat Exams 03/11/17 14:00 Completed Venous Ultrasound [EV venous imaging UE LT] Stat Y 03/12/17 11:19 Completed Date of admission: 02/25/17 19:45 Primary care physician: Pacheco Bailey Jr, MD Consults: 02/25/17 19:53 Consult to Physical Therapy [CONS] Routine Comment: Evaluate, develop and implement POC Reason for Consult: Patient has difficulty ambulating d/t AMS and Parkinson' s disease. Please assess for strength, stability, safety, ambulation, and assistive needs for post-discharge planning. 02/25/17 21:11 Consult to Nutrition [CONS] Routine Comment: Consulting Provider: NUTRITION Reason for Dietary Consult: MST Score TF Start and Manage Consult to Industrial Cleaning Technician [CONS] Routine Reason for SW Consult: Came from [facility] rehab 02/27/17 07:41 Consult to Speech Therapy [CONS] Stat Comment: Evaluate, develop and implement POC Reason for Consult: Swallow evaluation, poor oral intake with hypernatremia Call Completed: No 03/03/17 09:42 Consult to Psychiatry [CONS] Routine Consulting Provider: Psychiatry [place] Reason for Consult: Alternative to lithium therpy for bipolar,admitted for MELVI on CKD. Bizarre thoughts and dreams relating to SI and heart attack. Call Completed: Yes 03/03/17 09:45 Consult to Cardiology [CONS] Routine Comment: Consulting Provider: Cardiology [place] Reason for Consult: Severe Aortic stenosis by ECHO. [facility] Call Completed: No 03/07/17 08:04 Consult to Invasive Line Access Team [CONS] Routine Reason for Consult: POWER GLIDE Line Type: EPIV 03/09/17 11:00 Consult to Speech Therapy [CONS] Routine Comment: Evaluate, develop and implement POC Reason for Consult: pt failed bedside nursing dysphagia screen. Dr. Washburn wants pt reevaluated due to improved condition Call Completed: Yes Hospital course: Mr. Frankel is a 71 year old male - Time Spent with Patient Total time spent providing and/or coordinating discharge services: - Constitutional Vitals: Temp Pulse Resp BP Pulse Ox 98.5 F 82 20 112/70 99 03/13/17 10:26 03/13/17 10:26 03/13/17 10:26 03/13/17 10:03/13/17 10:26 - Attending Attestation I conducted a face to face diagnostic evaluation of this patient and my medical decision-making was reviewed with the Resident Physician, Dr. Wilian Hobson. I agree with the documented findings, disposition and treatment plan as described except to the extent set forth below: Patient's left upper extremity pitting edema has improved from my examination yesterday. Patient denies suicidal or homicidal ideation. Continue to elevate left arm. Hold lithium lifelong. current psychiatric medication regimen.
== END 2017-03-13 14:33 | DRG 682 ==
LOC: EMEROO 14:59 → 2ANU 14:59 → SUATTDRO 19:45 → 2NNU 03-06 13:34 → 2ANU 03-07 17:29
PROVIDERS: ADMIT Hospitalist; ATTEND Internal Medicine

== ENCOUNTER 2017-10-28 08:00 | Observation (INO) ==
[~2017-10-28 08:00] MED LIST: *HR* EPINEPHrine 1 MG/10 ML SYRINGE IVP PRN; *HR* EPINEPHrine 1 MG/ML AMPUL IM PRN; Aspirin 81 MG TAB.CHEW PO ONE; Aspirin desensitization 1 mg/ml PO ONE; Aspirin desensitization 4 mg/ml PO ONE; Famotidine 20 MG/2 ML VIAL IVP PRN; methylPREDNISolone 125 MG/2 ML VIAL IVP PRN
[2017-10-28] MEDS ORDERED: Naloxone 0.4 MG/ML INJ IVP PRN (09:43)
--- NOTE | 2017-10-28 09:57 | Cardiology History & Physical ---
<Vin Mo - Last Filed: 10/28/17 09:51> Date of Encounter: 10/28/17 Time of Encounter: 09:51 Assessment and Plan (1) Aspirin allergy Current Visit: Yes Status: Acute The assessment and plan as outlined above was discussed with the patient and/or family members who expressed understanding and agreement. All questions were answered. Asa desensitization coordinated with Dr. Lopez. If patient tolerates well he will go home later today. (2) CAD (coronary artery disease) Current Visit: Yes Status: Acute The assessment and plan as outlined above was discussed with the patient and/or family members who expressed understanding and agreement. All questions were answered. Known CAD. LHC and PCI scheduled next saturday. Starting asa today. Continue plavix, statin, and bb. LHC completed 07/2017-The LMCA is angiographically free of disease. 50% stenosis in the Mid LAD. 80% stenosis in the 1st Diagonal. 70% stenosis in the Proximal Circumflex. 40% stenosis in the Mid RCA. The lesion has a BRANDO flow of 3. 40% stenosis in the Distal RCA. The lesion has a BRANDO flow of 3. Right iliofemoral angiography completed via sheath - no severe disease noted with small [place] FLOOR RUNNER aneurysm. Qualifiers: Coronary Disease-Associated Artery/Lesion type: [place] artery [place] vs. transplanted heart: [place] heart Associated angina: without angina Qualified Code(s): I25.10 - Atherosclerotic heart disease of [place] coronary artery without angina pectoris (3) Aortic stenosis Current Visit: No Status: Chronic The assessment and plan as outlined above was discussed with the patient and/or family members who expressed understanding and agreement. All questions were answered. Following with [facility] for possible TAVR after PCI. Qualifiers: Cardiac valve disease etiology: nonrheumatic Qualified Code(s): I35.0 - Nonrheumatic aortic (valve) stenosis History of Present Illness Chief complaint: asa allergy, CAD, dizziness HPI: Mr. Frankel is a 72 year old male with known history of severe aortic stenosis, CAD, and bipolar disorder, parkinson's disease, and aortic aneurysm (5.3cm) who presents for planned asa desensitization ordered by Dr. Mckeon to prepare for planned PCI. He has known CAD seen on prior LHC and PCI was recommended after asa desensitization. He is also following with [facility] to be evaluated for TAVR after his PCI is completed. His LHC is scheduled for next week. He denies any new symptoms. Reports intermittent dizziness with stress or activity. Denies chest pain or SOB. Past Med Surg Social Fam HX - Past Medical History Medical history: aortic aneurysm, COPD, coronary artery disease, hyperlipidemia , hypertension, thyroid disease, valvular heart disease, other Additional medical history: PARKINSONS Psychiatric history: anxiety, bipolar, depression, other - Past Surgical History Additional surgical history: Lung surgery. left clavicle & scapula- FRACTURE. 2013 - Social History Smoking Status: Former smoker Smokeless Tobacco Status: No Alcohol use: none Drug use: none - Family History Father Family Member Ethnicity: Non- Living Status: Hx Family Cardiac Disorders: Yes (CARDIAC DISEASE) Hx Family Respiratory Disorders: Yes (COPD) Hx Family Endocrine Disorder: Yes (DM) Mother Family Member Ethnicity: Non- Living Status: Hx Family Cardiac Disorders: Yes (CAD) Hx Family Endocrine Disorder: Yes (Latent DM) Brother Family Member Ethnicity: Non- Living Status: Hx Family Endocrine Disorder: Yes Sister Family Member Ethnicity: Non- Living Status: Still Living Hx Family Endocrine Disorder: Yes Medications and Allergies Carbidopa/Levodopa ER 50/200 [Sinemet ER 50-200 Tab] 1 tab PO TID 11/18/16 [ History] FLUoxetine HCl [Prozac] 80 mg PO QAM 11/18/16 [History] Fenofibrate Nanocrystallized [Tricor] 145 mg PO QAM 11/18/16 [History] Levothyroxine [Synthroid] 75 mcg PO QAM 11/18/16 [History] Quetiapine Fumarate [Seroquel] 50 mg PO HS 11/18/16 [History] lamoTRIgine [Lamictal] 100 mg PO QAM 11/18/16 [History] Metoprolol XL (24 HR) Succ [Toprol Xl] 75 mg PO QAM 02/12/17 [History] Amantadine [Symmetrel] 100 mg PO DAILY 07/30/17 [History] Clopidogrel Bisulfate [Plavix] 75 mg PO DAILY #11 tablet 07/30/17 [Rx] Mirtazapine [Remeron] 15 mg PO HS 07/30/17 [History] Atorvastatin [Lipitor] 40 mg PO HS 10/28/17 [History] 3 Allergy/AdvReac Type Severity Reaction Status Date / Time aspirin Allergy Rash Verified 11/06/16 10:40 All Systems Review: The remainder of the systems were reviewed and are negative Physical Examination Vital Signs, Last 4 Hours Temp Pulse Resp BP Pulse Ox 10/28/17 09:00 82 20 127/76 98 10/28/17 08:00 98.0 F 63 14 134/82 100 10/28/17 07:43 67 General: Conversant, No Apparent Distress HEENT: Atraumatic, Normocephaly, Mucus Membranes Moist Neck: No JVD, Normal carotid pulses Cardiac: Reg Rate and Rhythm, Normal S1 and S2, Other (2/6 systolic end murmur at the left sternal border. ) Lungs: Normal Breath Sounds, No Wheeze, Rales, Rhonchi Neuro: Alert and responsive, No focal deficits noted Abdomen: Soft, Non-Tender Skin: No rashes noted on visualized skin Musculoskeletal: No Chest Wall Tenderness Extremities: No Clubbing, No Cyanosis, No Edema, Normal Pulses Results - Imaging and Cardiology Echo: report reviewed Cardiac cath: report reviewed - EKG Interpretation EKG results cardiology: personally reviewed - VTE Reasons for not Prescribing Prophylaxis: Treatment not Indicated - Low risk for VTE <Nilson Valle - Last Filed: 10/28/17 11:25> Date of Encounter: 10/28/17 - Attending Attestation I have personally performed a face to face evaluation on this patient. I have reviewed and agree with the care plan. History and Exam by me shows: CC: Chest pain Pt complains of intermittant dizziness with exertion, starts after ambulates twenty to thirty feet, associated with shortness of breath, lasts as long as he keeps exercising, resolves over two to three minutes after he sits down. He has not had near syncope or true syncope. He denies chesp pain or pressure, no palpitations. He has undergone diagnostic LHC, with severe triple vessel DX, and severe aortic stenosis, is scheduled for PCI at [facility] and TAVR at [facility] after percutaneous revascularization. He presents today for Aspirin desensitization, in anticipation of PCI. PMH: reviewed PSH: reviewed Current meds; reviewed PE; pt seen and examined, agree with findings as documented IMP: 1. Severe triple vessel CAD, scheduled for Elective PCI, 3. 2. Severe - anticipates TAVT at [facility] after pci [ 3. ASA allergy, undergoing aspirin desentization under care of [facility] 4. COPD - stable 5. Hypertension - well controlled on current meds. PLAN: 1. continue ASA desensitization, home later today if no reaction to aspririn loading. History of Present Illness HPI: Mr. Frankel is a 72 year old male All Systems Review: The remainder of the systems were reviewed and are negative Physical Examination Vital Signs, Last 4 Hours Temp Pulse Resp BP Pulse Ox 10/28/17 11:07 67 10/28/17 11:00 97.6 F 67 10 130/82 96 10/28/17 10:45 67 22 137/79 95 10/28/17 10:30 64 18 131/80 94 10/28/17 10:15 98.1 F 62 22 123/91 100 10/28/17 10:00 77 14 126/85 96 10/28/17 09:45 98.0 F 79 25 102/87 97 10/28/17 09:00 82 20 127/76 98 10/28/17 08:00 98.0 F 63 14 134/82 100 10/28/17 07:43 67 Results 10/28/17 10:38 10/28/17 10:38 Lab Results 10/28/17 10/28/17 10/28/17 10:38 10:38 10:38 WBC 6.7 Hgb 12.2 L Hct 37.2 L Plt Count 183 INR 1.1 Sodium 142 Potassium 4.2 Chloride 113 H Carbon Dioxide 26 BUN 22 Creatinine 0.99 Glucose 90 Calcium 9.9
[2017-10-28 10:50] LABS: Basophils % 0.2 %; Eosinophils # 0.4 K/mcL (0.0-0.6); Eosinophils % 5.7 %; Hematocrit 37.2 % (37.5-50.1); Hemoglobin 12.2 g/dL (12.9-16.9); Immature Granulocytes % 0.2 % (0-4); Lymphocytes # 1.6 K/mcL (0.6-4.6); Lymphocytes % 24.6 %; Mean Corpuscular HGB Conc 32.8 g/dL (31.6-35.5); Mean Corpuscular Hemoglobin 29.6 pg (28.0-33.3); Mean Corpuscular Volume 90.3 fL (83.0-100.0); Mean Platelet Volume 8.4 fL (9.4-12.4); Monocytes # 0.5 K/mcL (0.0-1.3); Monocytes % 6.9 %; Neutrophils # 4.2 K/mcL (1.6-8.9); Platelet Count 183 K/mcL (140-400); Red Blood Count 4.12 M/mcL (4.19-5.50); Red Cell Distribution Width 13.2 % (11.5-14.5); Segmented Neutrophils % 62.4 %
[2017-10-28 10:58] LABS: INR 1.1; Prothrombin Time 12.4 Seconds (9.4-12.1)
[2017-10-28] MEDS ORDERED: Fenofibrate 54 MG TABLET PO SCH (11:00)
[2017-10-28] MEDS ORDERED: lamoTRIgine 100 MG TABLET PO SCH (11:00)
[2017-10-28] MEDS ORDERED: FLUoxetine 20 MG CAPSULE PO SCH (11:00)
[2017-10-28] MEDS ORDERED: Carbidopa/Levodopa ER 50/200 TABLET PO SCH (11:00)
[2017-10-28 11:07] LABS: BUN/Creatinine Ratio 22 (6-26); Blood Urea Nitrogen 22 mg/dL (8-23); Calcium 9.9 mg/dL (8.6-10.3); Carbon Dioxide 26 mEq/L (23-29); Chloride 113 mEq/L (98-107); Glucose 90 mg/dL (70-105); Osmolality,Calculated 297 (280-300); Potassium 4.2 mEq/L (3.5-5.1); Sodium 142 mEq/L (136-145); eGFR For African Americans > 60 (> 60); eGFR For Non-African Americans > 60 (> 60)
[2017-10-28 13:46] VITALS: BP 126/80
--- NOTE | 2017-10-28 14:06 | Discharge Summary ---
Orders not resulted at time of discharge: Pending orders 10/28/17 10:27 EKG [ECG 12 lead ECG] [ECG] Routine Date of Encounter: 10/28/17 Time of Encounter: 14:02 - Discharge Diagnosis (1) Aspirin allergy Priority: Primary Status: Chronic Comments: S/p asa desensitization (2) CAD (coronary artery disease) Priority: Secondary Status: Acute Qualifiers: Coronary Disease-Associated Artery/Lesion type: [place] artery Nikolai vs. transplanted heart: bo[place] heart Associated angina: without angina Qualified Code(s): I25.10 - Atherosclerotic heart disease of bo[place] coronary artery without angina pectoris (3) Aortic stenosis Priority: Secondary Status: Chronic Qualifiers: Cardiac valve disease etiology: nonrheumatic Qualified Code(s): I35.0 - Nonrheumatic aortic (valve) stenosis - Hospital Course Hospital course: Mr. Frankel is a 72 year old male with known severe aortic stenosis and severe multivessal CAD who presented for planned asa desensitization with Dr. Lopez. Asa desensitization is completed without any complications. He will be discharged home later today. He is scheduled November 04 at 10:30 for LHC and PCI. Out-pt f/u planned at [facility] for TAVR evaluation. Patient instructed to take asa everyday without stopping. - Time Spent with Patient Total time spent providing and/or coordinating discharge services: Greater than 30 minutes (1hr. D/c summary and teaching.) - Discharge Medications Prescriptions: Aspirin [Lo-Dose Aspirin EC] 81 mg PO DAILY #30 tablet.dr Levine Medications: Carbidopa/Levodopa ER 50/200 [Sinemet ER 50-200 Tab] 1 tab PO TID 11/18/16 [ History] FLUoxetine HCl [Prozac] 80 mg PO QAM 11/18/16 [History] Fenofibrate Nanocrystallized [Tricor] 145 mg PO QAM 11/18/16 [History] Levothyroxine [Synthroid] 75 mcg PO QAM 11/18/16 [History] Quetiapine Fumarate [Seroquel] 50 mg PO HS 11/18/16 [History] lamoTRIgine [Lamictal] 100 mg PO QAM 11/18/16 [History] Metoprolol XL (24 HR) Succ [Toprol Xl] 75 mg PO QAM 02/12/17 [History] Amantadine [Symmetrel] 100 mg PO DAILY 07/30/17 [History] Clopidogrel Bisulfate [Plavix] 75 mg PO DAILY #11 tablet 07/30/17 [Rx] Mirtazapine [Remeron] 15 mg PO HS 07/30/17 [History] Aspirin [Lo-Dose Aspirin EC] 81 mg PO DAILY #30 tablet. 10/28/17 [Rx] Atorvastatin [Lipitor] 40 mg PO HS 10/28/17 [History] Allergies/Adverse Reactions: 3 Allergy/AdvReac Type Severity Reaction Status Date / Time aspirin Allergy Rash Verified 11/06/16 10:40 Date of admission: 10/28/17 07:33 Primary care physician: Pacheco Bailey Jr, MD Consults: 10/28/17 08:46 Consult to Nutrition [CONS] Routine Comment: Consulting Provider: NUTRITION Reason for Dietary Consult: MST Score 10/28/17 10:12 Consult to Allergy/Immunology [CONS] Routine Consulting Provider: Allergy Antonella Reason for Consult: Asa allergy Call Completed: Yes Discharging clinician: Vin Mo Anticipated date of discharge: 10/28/17 Physical Examination Vital Signs, Last 4 Hours Temp Pulse Resp BP Pulse Ox 10/28/17 13:30 73 18 126/80 96 10/28/17 13:00 72 22 139/91 98 10/28/17 12:30 64 17 116/90 96 10/28/17 12:00 66 20 105/89 97 10/28/17 11:45 67 21 115/79 97 10/28/17 11:30 65 20 109/80 94 10/28/17 11:15 68 13 132/97 100 10/28/17 11:07 67 10/28/17 11:00 97.6 F 67 10 130/82 96 10/28/17 10:45 67 22 137/79 95 10/28/17 10:30 64 18 131/80 94 10/28/17 10:15 98.1 F 62 22 123/91 100 General: Conversant, No Apparent Distress HEENT: Atraumatic, Normocephaly, Mucus Membranes Moist Neck: No JVD, Normal carotid pulses Cardiac: Reg Rate and Rhythm, Normal S1 and S2, Other (2/6 systolic murmur. ) Lungs: Normal Breath Sounds, No Wheeze, Rales, Rhonchi Neuro: Alert and responsive, No focal deficits noted Abdomen: Soft, Non-Tender Skin: No rashes noted on visualized skin Musculoskeletal: No Chest Wall Tenderness Extremities: No Clubbing, No Cyanosis, No Edema, Normal Pulses - Patient Status Disposition: Home, Self-Care Condition: Good Functional capacity at discharge: independent ambulation Overall status at discharge: patient is progressing back to baseline - Discharge Instructions Follow Up With: Pacheco Bailey Jr, MD [Primary Care Provider] - - Diet and Activity Activity: resume usual activities as tolerated Diet: low fat, low cholesterol - VTE Reasons for not Prescribing Prophylaxis: Treatment not Indicated - Low risk for VTE
--- NOTE | 2017-10-28 15:09 | Allergy Consult Note ---
Date of Encounter: 10/28/17 Time of Encounter: 08:00 Assessment and Plan (1) Adverse reaction to aspirin Current Visit: Yes Status: Chronic 72 year old with history of IgE mediated aspirin allergy now requiring aspirin per cardiology. 1. aspirin desensitization in ICU 2. No beta blockers for 48 hours prior to procedure 3. NPO 4. He will need to stay on aspirin 81mg everyday after the procedure, if he misses more than 48 hours he would require desensitization again. Qualifiers: Encounter type: initial encounter Qualified Code(s): T39.015A - Adverse effect of aspirin, initial encounter (2) Aspirin allergy Current Visit: Yes Status: Chronic History of Present Illness Reason for consult: Drug allergy Requesting physician: García Mckeon History of present illness: Patient is a 72 year old male who has a history of aspirin allergy and is now requiring aspirin due to heart disease. Patient had his last reaction to aspirin in 1997 and he had hives and some difficulty breathing at that time within an hour. He was treated with benadryl but does not believe he required epinephrine. He had had multiple previous similar episodes to aspirin years before that as well. He denied any throat closure or vomiting/diarrhea with these reactions. He currently denies any rashes, stomach pain or cramping, itching, headache, throat tightness or difficulty breathing. He has a history of COPD and uses albuterol PRN but has not needed it in the last 48 hours. He is not currently on a beta damian. Past Med Surg Social Fam HX - Past Medical History Medical history: aortic aneurysm, COPD, coronary artery disease, hyperlipidemia , hypertension, thyroid disease, valvular heart disease, other Additional medical history: PARKINSONS Psychiatric history: anxiety, bipolar, depression, other - Past Surgical History Additional surgical history: Lung surgery. left clavicle & scapula- FRACTURE. 2014 - Social History Smoking Status: Former smoker Smokeless Tobacco Status: No Alcohol use: none Drug use: none - Family History Father Family Member Ethnicity: Non- Living Status: Hx Family Cardiac Disorders: Yes (CARDIAC DISEASE) Hx Family Respiratory Disorders: Yes (COPD) Hx Family Endocrine Disorder: Yes (DM) Mother Family Member Ethnicity: Non- Living Status: Hx Family Cardiac Disorders: Yes (CAD) Hx Family Endocrine Disorder: Yes (Latent DM) Brother Family Member Ethnicity: Non- Living Status: Hx Family Endocrine Disorder: Yes Sister Family Member Ethnicity: Non- Living Status: Still Living Hx Family Endocrine Disorder: Yes Medications and Allergies Carbidopa/Levodopa ER 50/200 [Sinemet ER 50-200 Tab] 1 tab PO TID 11/18/16 [ History] FLUoxetine HCl [Prozac] 80 mg PO QAM 11/18/16 [History] Fenofibrate Nanocrystallized [Tricor] 145 mg PO QAM 11/18/16 [History] Levothyroxine [Synthroid] 75 mcg PO QAM 11/18/16 [History] Quetiapine Fumarate [Seroquel] 50 mg PO HS 11/18/16 [History] lamoTRIgine [Lamictal] 100 mg PO QAM 11/18/16 [History] Metoprolol XL (24 HR) Succ [Toprol Xl] 75 mg PO QAM 02/12/17 [History] Amantadine [Symmetrel] 100 mg PO DAILY 07/30/17 [History] Clopidogrel Bisulfate [Plavix] 75 mg PO DAILY #11 tablet 07/30/17 [Rx] Mirtazapine [Remeron] 15 mg PO HS 07/30/17 [History] Aspirin [Lo-Dose Aspirin EC] 81 mg PO DAILY #30 tablet. 10/28/17 [Rx] Atorvastatin [Lipitor] 40 mg PO HS 10/28/17 [History] 3 Allergy/AdvReac Type Severity Reaction Status Date / Time aspirin Allergy Rash Verified 11/06/16 10:40 ROS Allergy - EENT Nose, mouth and throat: no change in voice, no hoarseness, no lip swelling, no throat swelling - Respiratory no cough, no wheezing - Gastrointestinal Gastrointestinal: no diarrhea, no vomiting - Integumentary Integumentary: no rash - Neurological Neurological ROS: numbness (in his legs) - Allergic/Immunologic no tongue swelling, no throat swelling, no itchy eyes, no uticaria, no wheezing , no lip swelling Allergy Exam Initial Vital Signs Pulse 67 10/28/17 07:43 - General physical appearance well nourished, no distress - Eyes normal ocular movement - ENT normal nares - Neck no lymphadectomy - Respiratory normal expansion, normal respiratory effort, clear to auscultation - Abdomen Abdomen: soft, non tender - Integumentary no rash - Additional Findings Heart:3/6 murmur, normal rate and rhythm Results - Labs 10/28/17 10:38 10/28/17 10:38 Abnormal lab results RBC 4.12 M/mcL (4.19-5.50) L 10/28/17 10:38 Hgb 12.2 g/dL (12.9-16.9) L 10/28/17 10:38 Hct 37.2 % (37.5-50.1) L 10/28/17 10:38 MPV 8.4 fL (9.4-12.4) L 10/28/17 10:38 PT 12.4 Seconds (9.4-12.1) H 10/28/17 10:38 Chloride 113 mEq/L (98-107) H 10/28/17 10:38 Diabetes panel 10/28/17 Range/Units 10:38 Sodium 142 (136-145) mEq/L Potassium 4.2 (3.5-5.1) mEq/L Chloride 113 H (98-107) mEq/L Carbon Dioxide 26 (23-29) mEq/L BUN 22 (8-23) mg/dL Creatinine 0.99 (0.70-1.30) mg/dL Glucose 90 (70-105) mg/dL Calcium 9.9 (8.6-10.3) mg/dL Calcium panel 10/28/17 Range/Units 10:38 Calcium 9.9 (8.6-10.3) mg/dL Pituitary panel 10/28/17 Range/Units 10:38 Sodium 142 (136-145) mEq/L Potassium 4.2 (3.5-5.1) mEq/L Chloride 113 H (98-107) mEq/L Carbon Dioxide 26 (23-29) mEq/L BUN 22 (8-23) mg/dL Creatinine 0.99 (0.70-1.30) mg/dL Glucose 90 (70-105) mg/dL Calcium 9.9 (8.6-10.3) mg/dL Adrenal panel 10/28/17 Range/Units 10:38 Sodium 142 (136-145) mEq/L Potassium 4.2 (3.5-5.1) mEq/L Chloride 113 H (98-107) mEq/L Carbon Dioxide 26 (23-29) mEq/L BUN 22 (8-23) mg/dL Creatinine 0.99 (0.70-1.30) mg/dL Glucose 90 (70-105) mg/dL Calcium 9.9 (8.6-10.3) mg/dL All other labs normal. Consult Discharge Plan - Plan Referrals: Pacheco Bailey Jr, MD [Primary Care Provider] - Prescriptions: Aspirin [Lo-Dose Aspirin EC] 81 mg PO DAILY #30 tablet.
--- NOTE | 2017-10-28 15:25 | Allergy Procedure Note ---
Date of procedure: 10/28/17 Pre-op diagnosis: aspirin allergy Post-op diagnosis: same Procedure: Aspirin Desensitization Patient with history of aspirin allergy. See consult note for HPI details. I discussed risk and benefits with patient. I explained to patient the risk of an allergic reaction including itching, hives, swelling, airway closure, diarrhea, vomiting, drop in blood pressure, heart attack, or . Written consent obtained. He has stopped his beta damian for 48 hours prior to procedure. Epinephrine, solumedrol, benadryl and pepcid at bedside. Dose 1- 0.1mg aspirin given PO, patient observed closely x 15 minutes, exam unchanged, patient feels some numbness to his left leg and "hardening of his lower" lip, vitals unchanged(see vitals recorded under vitals section), patient was watched for an additional 5 minutes and his lip felt a little improved. We adjusted his position in the bed and his numbness started to improve. Dose 2- 0.3mg aspirin given PO, patient observed closely x 15 minutes, exam unchanged, patient denies any new complaints, vitals unchanged(see vitals recorded under vitals section) Dose 3- 1mg aspirin given PO, patient observed closely x 15 minutes, exam unchanged, patient denies any new complaints, vitals unchanged(see vitals recorded under vitals section) Dose 4- 3mg aspirin given PO, patient observed closely x 15 minutes, exam unchanged, patient denies any new complaints, vitals unchanged(see vitals recorded under vitals section) Dose 5-10mg aspirin given PO, patient observed closely x 15 minutes, exam unchanged, patient denies any new complaints, vitals unchanged(see vitals recorded under vitals section) Dose 6-20mgmg aspirin given PO, patient observed closely x 15 minutes, exam unchanged, patient denies any new complaints, vitals unchanged(see vitals recorded under vitals section) Dose 7-40mg aspirin given PO, patient observed closely x 15 minutes, exam unchanged, patient denies any new complaints, vitals unchanged(see vitals recorded under vitals section) Dose 8-81mg aspirin given PO, patient observed closely x 120 minutes, exam unchanged, patient denies any new complaints, vitals unchanged(see vitals recorded under vitals section) Patient has tolerated the procedure well. He is desensitized to aspirin. He should take 81mg daily. If he goes longer than 48 hours without aspirin he should then not take it and would need the procedure again. Total time spent with patient 4 hours. Anesthesia: none Was there an assistant education director present: Yes Drafter Geological: Veena Lund Condition: stable
[2017-10-28] MEDS ORDERED: Mirtazapine 15 MG TABLET PO SCH (21:00)
[2017-10-29] MEDS ORDERED: Metoprolol XL (24 HR) Succ 25 MG TAB.ER.24H PO SCH (09:00)
--- NOTE | 2017-10-29 19:40 | Electrocardiograph Report ---
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
== END 2017-10-28 14:45 | disposition home or self-care (01) ==
LOC: ICNU
PROVIDERS: ADMIT Emergency Medicine; ATTEND Emergency Medicine

== ENCOUNTER 2021-05-30 11:48 | Inpatient (IN) ==
[2021-05-30 14:12] LABS: Basophils % 0.3 %; Eosinophils # 0.2 K/mcL (0.0-0.6); Eosinophils % 1.6 %; Hematocrit 42.3 % (37.5-50.1); Hemoglobin 13.7 g/dL (12.9-16.9); Immature Granulocytes % 0.4 % (0-4); Lymphocytes # 1.7 K/mcL (0.6-4.6); Lymphocytes % 16.4 %; Mean Corpuscular HGB Conc 32.4 g/dL (31.6-35.5); Mean Corpuscular Hemoglobin 31.1 pg (28.0-33.3); Mean Corpuscular Volume 95.9 fL (83.0-100.0); Mean Platelet Volume 8.7 fL (9.4-12.4); Monocytes # 0.9 K/mcL (0.0-1.3); Monocytes % 8.6 %; Neutrophils # 7.5 K/mcL (1.6-8.9); Platelet Count 259 K/mcL (140-400); Red Blood Count 4.41 M/mcL (4.19-5.50); Red Cell Distribution Width 13.1 % (11.5-14.5); Segmented Neutrophils % 72.7 %; White Blood Count 10.3 K/mcL (4.3-11.1)
[2021-05-30 15:06] LABS: Alanine Aminotransferase 11 Units/L (7-52); Albumin 3.7 g/dL (3.5-5.7); Albumin/Globulin Ratio 1.3 (1.1-2.2); Alkaline Phosphatase 32 Units/L (34-104); Aspartate Amino Transferase 21 Units/L (13-39); BUN/Creatinine Ratio 22 (6-26); Bilirubin,Total 0.7 mg/dL (0.3-1.0); Blood Urea Nitrogen 27 mg/dL (8-23); Calcium 9.2 mg/dL (8.6-10.3); Carbon Dioxide 21 mEq/L (23-29); Chloride 107 mEq/L (98-107); Globulin 2.8 g/dL (2.4-3.5); Glucose 125 mg/dL (70-105); Osmolality,Calculated 293 (280-300); Sodium 138 mEq/L (136-145); Total Protein 6.5 g/dL (6.4-8.9); Troponin I < 0.03 ng/mL (< 0.04); eGFR For African Americans > 60 (> 60); eGFR For Non-African Americans 57 (> 60)
[2021-05-30 17:22] LABS: Bilirubin,Urine Negative (Negative); Blood,Urine Negative (Negative); Clarity,Urine Clear (Clear); Color,Urine Light-Yellow (Yellow); Glucose,Urine (UA) Normal (Normal); Ketones,Urine Negative (Negative); Leukocyte Esterase,Urine Negative (Negative); Nitrite,Urine Negative (Negative); Protein,Urine Negative (Neg-Trace); Specific Gravity,Urine 1.017 (1.010-1.025); Urobilinogen,Urine Normal (Normal)
[2021-05-30] MEDS ORDERED: Apixaban 5 MG TABLET PO ONE (19:44)
[2021-05-30] MEDS ORDERED: Melatonin 3 MG TABLET PO PRN (19:44)
[2021-05-30] MEDS ORDERED: Ondansetron ODT 4 MG TAB.RAPDIS SL PRN (19:44)
[2021-05-30] MEDS ORDERED: Naloxone 0.4 MG/ML INJ IVP PRN (19:44)
[2021-05-30] MEDS ORDERED: Ipratropium/Albuterol Neb 3 ML IH PRN (20:10)
[2021-05-30] MEDS: Carbidopa/Levodopa ER 50/200 TABLET PO SCH (21:33)
[2021-05-30] MEDS ORDERED: Acetaminophen 325 MG TABLET PO PRN (21:51)
[2021-05-30] MEDS: traZODone 50 MG TABLET PO SCH (22:45)
[2021-05-31 03:54] LABS: Basophils % 0.4 %; Eosinophils # 0.2 K/mcL (0.0-0.6); Hematocrit 39.5 % (37.5-50.1); Hemoglobin 12.8 g/dL (12.9-16.9); Immature Granulocytes % 0.5 % (0-4); Lymphocytes # 1.7 K/mcL (0.6-4.6); Lymphocytes % 22.5 %; Mean Corpuscular HGB Conc 32.4 g/dL (31.6-35.5); Mean Corpuscular Hemoglobin 30.6 pg (28.0-33.3); Mean Corpuscular Volume 94.5 fL (83.0-100.0); Monocytes # 0.7 K/mcL (0.0-1.3); Monocytes % 9.7 %; Neutrophils # 4.8 K/mcL (1.6-8.9); Platelet Count 237 K/mcL (140-400); Red Blood Count 4.18 M/mcL (4.19-5.50); Red Cell Distribution Width 13.2 % (11.5-14.5); Segmented Neutrophils % 63.9 %; White Blood Count 7.4 K/mcL (4.3-11.1)
[2021-05-31 04:20] LABS: BUN/Creatinine Ratio 21 (6-26); Blood Urea Nitrogen 26 mg/dL (8-23); Calcium 8.8 mg/dL (8.6-10.3); Carbon Dioxide 25 mEq/L (23-29); Chloride 105 mEq/L (98-107); Glucose 173 mg/dL (70-105); Magnesium 1.6 mg/dL (1.6-2.6); Osmolality,Calculated 293 (280-300); Phosphorous 3.3 mg/dL (2.7-4.5); Potassium 3.8 mEq/L (3.5-5.1); Sodium 137 mEq/L (136-145); eGFR For African Americans > 60 (> 60); eGFR For Non-African Americans 57 (> 60)
[2021-05-31] MEDS: Carbidopa/Levodopa ER 50/200 TABLET PO SCH ×2 (07:44→21:58)
[2021-05-31] MEDS ORDERED: Triamcinolone Acet 0.1% CRM 15 GM TUBE TP PRN (07:51)
[2021-05-31] MEDS ORDERED: Ketoconazole 2% CRM 15 GM TUBE TP PRN (07:51)
[2021-05-31] MEDS: Apixaban 5 MG TABLET PO SCH ×2 (10:45→21:58)
[2021-05-31] MEDS: Levothyroxine 25 MCG TABLET PO SCH (10:45)
[2021-05-31] MEDS: Aspirin Enteric Coated 81 MG Tablet PO SCH (10:48)
[2021-05-31] MEDS: FLUoxetine 20 MG CAPSULE PO SCH (14:13)
[2021-05-31] MEDS ORDERED: rOPINIRole 0.25 MG TABLET PO SCH (22:30)
[2021-05-31] MEDS: traZODone 50 MG TABLET PO SCH (22:42)
[2021-06-01] MEDS: Levothyroxine 25 MCG TABLET PO SCH (05:51)
[2021-06-01] MEDS: Carbidopa/Levodopa ER 50/200 TABLET PO SCH (08:34)
[2021-06-01] MEDS: Aspirin Enteric Coated 81 MG Tablet PO SCH (08:34)
[2021-06-01] MEDS: Apixaban 5 MG TABLET PO SCH (08:34)
[2021-06-01 10:27] VITALS: BP 114/77; PULSE 62; TEMP 97.9; O2SAT 93
[2021-06-01] MEDS: FLUoxetine 20 MG CAPSULE PO SCH (11:19)
[2021-06-01 14:23] LABS: Adenovirus Not Detected (Not Detect); Bordetella Pertussis Not Detected (Not Detect); Chlamydophila pneumoniae Not Detected (Not Detect); Coronavirus 229E Not Detected (Not Detect); Coronavirus HKU1 Not Detected (Not Detect); Coronavirus NL63 Not Detected (Not Detect); Coronavirus OC43 Not Detected (Not Detect); Human Metapneumovirus Not Detected (Not Detect); Human Rhinovirus/Enterovirus Not Detected (Not Detect); Influenza A Subtype 2009 H1 Not Detected (Not Detect); Influenza B Not Detected (Not Detect); Mycoplasma pneumoniae Not Detected (Not Detect); Parainfluenza Virus 1 Not Detected (Not Detect); Parainfluenza Virus 2 Not Detected (Not Detect); Parainfluenza Virus 3 Not Detected (Not Detect); Parainfluenza Virus 4 Not Detected (Not Detect); Respiratory Syncytial Virus Not Detected (Not Detect)
[2021-06-01 14:24] LABS: SARS-CoV-2 DETECTED (Not Detect)
== END 2021-06-01 15:49 | disposition other institution (70) | DRG 179 ==
LOC: 3ANU 11:48 → EMEROOARM 11:48 → SUATTDRO 19:44 → 3ANU 20:45
PROVIDERS: ADMIT Family Medicine; ATTEND Internal Medicine

== ENCOUNTER 2021-06-15 23:16 | Inpatient (IN) ==
[2021-06-16] MEDS ORDERED: Ondansetron 4 MG/2 ML VIAL IVP PRN (08:14)
[2021-06-16 10:05] LABS: Hematocrit 39.1 % (37.5-50.1); Hemoglobin 12.4 g/dL (12.9-16.9); Mean Corpuscular HGB Conc 31.7 g/dL (31.6-35.5); Mean Corpuscular Hemoglobin 30.9 pg (28.0-33.3); Mean Corpuscular Volume 97.5 fL (83.0-100.0); Mean Platelet Volume 9.5 fL (9.4-12.4); Platelet Count 190 K/mcL (140-400); Red Blood Count 4.01 M/mcL (4.19-5.50); White Blood Count 5.2 K/mcL (4.3-11.1)
[2021-06-16 10:28] LABS: BUN/Creatinine Ratio 16 (6-26); Blood Urea Nitrogen 19 mg/dL (8-23); Calcium 8.6 mg/dL (8.6-10.3); Carbon Dioxide 26 mEq/L (23-29); Chloride 107 mEq/L (98-107); Glucose 104 mg/dL (70-105); Osmolality,Calculated 291 (280-300); Phosphorous 2.9 mg/dL (2.7-4.5); Potassium 3.9 mEq/L (3.5-5.1); Sodium 139 mEq/L (136-145); Troponin I < 0.03 ng/mL (< 0.04); eGFR For African Americans > 60 (> 60); eGFR For Non-African Americans 59 (> 60)
[2021-06-16] MEDS ORDERED: Perflutren Lipid Microsphere 1.3 ML in 0.9 % Sodium Chloride 8.7 ML IVP PRN (10:57)
[2021-06-16 11:23] LABS: Thyroid Stimulating Hormone 5.412 mcIU/mL (0.340-5.600)
[2021-06-16] MEDS: Aspirin Enteric Coated 81 MG Tablet PO SCH (11:52)
[2021-06-16] MEDS: Apixaban 5 MG TABLET PO SCH (20:36)
[2021-06-16] MEDS ORDERED: *HR* HYDROcodone/Acet 10/325 mg TABLET PO ONE (22:56)
[2021-06-17 01:18] LABS: Hemoglobin 12.4 g/dL (12.9-16.9); Mean Corpuscular HGB Conc 31.8 g/dL (31.6-35.5); Mean Corpuscular Hemoglobin 30.6 pg (28.0-33.3); Mean Corpuscular Volume 96.3 fL (83.0-100.0); Mean Platelet Volume 9.3 fL (9.4-12.4); Platelet Count 217 K/mcL (140-400); Red Blood Count 4.05 M/mcL (4.19-5.50); Red Cell Distribution Width 13.9 % (11.5-14.5); White Blood Count 6.1 K/mcL (4.3-11.1)
[2021-06-17 01:41] LABS: BUN/Creatinine Ratio 19 (6-26); Blood Urea Nitrogen 22 mg/dL (8-23); Calcium 8.7 mg/dL (8.6-10.3); Carbon Dioxide 24 mEq/L (23-29); Chloride 105 mEq/L (98-107); Glucose 105 mg/dL (70-105); Osmolality,Calculated 288 (280-300); Potassium 4.8 mEq/L (3.5-5.1); Sodium 137 mEq/L (136-145); eGFR For African Americans > 60 (> 60); eGFR For Non-African Americans > 60 (> 60)
[2021-06-17] MEDS: Apixaban 5 MG TABLET PO SCH ×2 (08:43→21:36)
[2021-06-17] MEDS: Aspirin Enteric Coated 81 MG Tablet PO SCH (08:43)
[2021-06-17] MEDS ORDERED: CICLOPIROX OLAMINE TP PRN (09:33)
[2021-06-17] MEDS: Fenofibrate 54 MG TABLET PO SCH (10:57)
[2021-06-17] MEDS: FLUoxetine 20 MG CAPSULE PO SCH (10:57)
[2021-06-17] MEDS ORDERED: Triamcinolone Acet 0.1% CRM 15 GM TUBE TP PRN (11:00)
[2021-06-17] MEDS: Nystatin POWDER 30 GM BOTTLE TP SCH (21:36)
[2021-06-17] MEDS: rOPINIRole 0.25 MG TABLET PO SCH (21:36)
[2021-06-17] MEDS: traZODone 50 MG TABLET PO SCH (21:36)
[2021-06-17] MEDS: Carbidopa/Levodopa ER 50/200 TABLET PO SCH (21:36)
[2021-06-18] MEDS: Melatonin 3 MG TABLET PO PRN ×2 (02:47→20:19)
[2021-06-18] MEDS: Levothyroxine 25 MCG TABLET PO SCH (05:32)
[2021-06-18] MEDS: Nystatin POWDER 30 GM BOTTLE TP SCH ×2 (09:35→20:20)
[2021-06-18] MEDS: Carbidopa/Levodopa ER 50/200 TABLET PO SCH ×2 (09:35→20:19)
[2021-06-18] MEDS: Apixaban 5 MG TABLET PO SCH ×2 (09:35→20:19)
[2021-06-18] MEDS: Aspirin Enteric Coated 81 MG Tablet PO SCH (09:35)
[2021-06-18] MEDS: Fenofibrate 54 MG TABLET PO SCH (10:57)
[2021-06-18] MEDS: FLUoxetine 20 MG CAPSULE PO SCH (10:58)
[2021-06-18] MEDS ORDERED: *HR* Dextrose 50 % in Water (Syg) 50 ML SYRINGE IVP PRN (19:32)
[2021-06-18] MEDS ORDERED: Dextrose Gel 15 GM/37.5 ML TUBE PO PRN ×2 (19:32)
[2021-06-18] MEDS ORDERED: D5% in Water 1,000 ML IVC PRN (19:32)
[2021-06-18] MEDS: traZODone 50 MG TABLET PO SCH (20:20)
[2021-06-18] MEDS: rOPINIRole 0.25 MG TABLET PO SCH (20:20)
[2021-06-18] MEDS: Insulin LISPRO 300 UNITS/3 ML VIAL SUBQ SCH (20:21)
[2021-06-19] MEDS: Levothyroxine 25 MCG TABLET PO SCH (05:12)
[2021-06-19] MEDS: Insulin LISPRO 300 UNITS/3 ML VIAL SUBQ SCH ×4 (08:21→20:23)
[2021-06-19] MEDS: Carbidopa/Levodopa ER 50/200 TABLET PO SCH ×2 (08:34→20:23)
[2021-06-19] MEDS: Aspirin Enteric Coated 81 MG Tablet PO SCH (08:34)
[2021-06-19] MEDS: Nystatin POWDER 30 GM BOTTLE TP SCH ×2 (08:34→20:23)
[2021-06-19] MEDS: Apixaban 5 MG TABLET PO SCH ×2 (08:34→20:23)
[2021-06-19] MEDS: FLUoxetine 20 MG CAPSULE PO SCH (11:34)
[2021-06-19] MEDS ORDERED: Fenofibrate 54 MG TABLET PO SCH (12:00)
[2021-06-19 16:53] VITALS: O2SAT 95
[2021-06-19 19:47] VITALS: BP 121/78; PULSE 80; TEMP 99.1
[2021-06-19 19:56] LABS: Adenovirus Not Detected (Not Detect); Coronavirus 229E Not Detected (Not Detect); Coronavirus HKU1 Not Detected (Not Detect); Coronavirus NL63 Not Detected (Not Detect); Coronavirus OC43 Not Detected (Not Detect); SARS-CoV-2 Not Detected (Not Detect)
[2021-06-19 19:57] LABS: Bordetella Pertussis Not Detected (Not Detect); Chlamydophila pneumoniae Not Detected (Not Detect); Human Metapneumovirus Not Detected (Not Detect); Human Rhinovirus/Enterovirus DETECTED (Not Detect); Influenza A Subtype 2009 H1 Not Detected (Not Detect); Influenza B Not Detected (Not Detect); Mycoplasma pneumoniae Not Detected (Not Detect); Parainfluenza Virus 1 Not Detected (Not Detect); Parainfluenza Virus 2 Not Detected (Not Detect); Parainfluenza Virus 3 Not Detected (Not Detect); Parainfluenza Virus 4 Not Detected (Not Detect); Respiratory Syncytial Virus Not Detected (Not Detect)
[2021-06-19] MEDS: traZODone 50 MG TABLET PO SCH (20:23)
[2021-06-19] MEDS: rOPINIRole 0.25 MG TABLET PO SCH (20:23)
== END 2021-06-19 22:35 | DRG 309 ==
LOC: 2ANU
PROVIDERS: ADMIT Internal Medicine; ATTEND Internal Medicine